=== PATIENT | male | born 1950 | race Caucasian/White ===

== ENCOUNTER → 2018-03-08 09:16 | Outpatient (CLI) | payer OTHER, SELFPAY ==
[2018-03-08 12:14] LABS: Hemoglobin A1c 6.2 % (4.2-6.3)
== END ==
PROVIDERS: Internal Medicine Cardiovascular Disease; Family Provider Family Medicine; PCP Family Medicine; Visit Provider Family Medicine
DX: E11.9 Type 2 diabetes mellitus without complications (principal)
CPT/HCPCS: 36415; 83036

== ENCOUNTER 2018-03-27 10:48 | Inpatient (IN) | payer MEDICARE, OTHER, SELFPAY ==
[2018-03-27] VITALS (9 sets, daily range): BP systolic 127–154; BP diastolic 60–91; PULSE 58–70; RESP 16–18; TEMP 36.6–36.9; O2SAT 94–98; BMI 28.4; BMI 27.8
--- NOTE | 2018-03-27 10:54 | EKG12_ITS ---
Test Reason : SYNCOPE Blood Pressure : / mmHG Vent. Rate : 062 BPM Atrial Rate : 062 BPM P-R Int : 184 ms QRS Dur : 166 ms QT Int : 434 ms P-R-T Axes : 030 -62 087 degrees QTc Int : 440 ms Normal sinus rhythm Right bundle branch block Left anterior fascicular block Bifascicular block Left ventricular hypertrophy with repolarization abnormality Abnormal ECG Confirmed by RAMIRO SANCHEZ, ELISSA ([id number]), editor in chief KALEN AHUJA ([id number]) on 03/29/2018 1:23:55 PM Referred By: ESTEFANI Confirmed By:ELISSA RUBIO MD
--- NOTE | 2018-03-27 10:54 | RAD_ITS ---
STUDY: X-RAY CHEST REASON FOR EXAM: Male, 67 years old. Syncope and shortness of breath TECHNIQUE: Single view of the chest was obtained COMPARISON: June 06, 2015 chest radiograph FINDINGS: No lung consolidation, pleural effusion or pneumothorax. Calcified bilateral granulomas are noted. Eventration of the right hemidiaphragm. Cardiac size is enlarged. Osseous structures demonstrate no acute abnormalities. Prior right-sided rotator cuff repair IMPRESSION: Cardiomegaly. No evidence for focal airspace disease Electronically Signed: Jj Priest, at 11:49 EDT Tel , Service support , RAD/Chest 1 View (Portable)
[2018-03-27 11:05] LABS: Absolute Lymphocyte Count 1.23 X10^3/ul (0.83-4.51); Absolute Neutrophil Count 5.1 X10^3/uL (2.0-7.7); Basophil# 0.04 X10^3/uL; Basophil% 0.5 % (0-1); Eosinophils% 7.9 % (0-5); Hematocrit 44.6 % (40-54); Hemoglobin 14.4 g/dl (13.0-16.5); Lymphocyte # 1.23 X10^3/ul (4.0); Lymphocyte % 16.3 % (19-41); Mean Corp Hgb Conc 32.3 g/gl (32-36); Mean Corpuscular Hgb 29.9 pg (27.0-32.0); Mean Corpuscular Volume 92.5 fL (80-94); Mean Platelet Vol. 10.3 fl (6.2-12.0); Monocyte# 0.63 X10^3/uL; Monocyte% 8.3 % (0-10); Neutrophil # 5.05 X10^3/uL (2.7-7.7); Neutrophil % 66.9 % (47-70); POSITIVE COUNT NO; POSITIVE DIFFERENTIAL NO; POSITIVE MORPHOLOGY NO; Platelet Count 191 K/mm3 (150-450); RBC Distribution Width CV 14.3 % (11.6-14.6); RBC Distribution Width SD 47.9 fl (35.1-43.9); Red Blood Count 4.82 M/mm3 (4.6-6.2); White Blood Count 7.6 K/mm3 (4.4-11.0)
--- NOTE | 2018-03-27 11:17 | RAD_ITS ---
STUDY: X-RAY - RIGHT KNEE REASON FOR EXAM: Male, 67 years old. Right-sided knee pain after injury. TECHNIQUE: 4 view(s) of the knee. COMPARISON: None. FINDINGS: Normal visualized distal femur. Normal visualized proximal tibia and fibula. Normal proximal tibiofibular articulation. There is no demonstrated fracture. There is mild degenerative arthrosis of the medial femorotibial compartment. There is mild degenerative arthrosis of the lateral femorotibial compartment. There is an enthesophyte at the quadriceps tendon insertion onto the patella. There is mild degenerative arthrosis of the patellofemoral articulation. There is a soft tissue prominence in the suprapatellar region suggesting a small volume joint effusion. There are atherosclerotic calcifications. RAD/Knee 4 or More Views IMPRESSION: Degenerative arthropathy of the right knee with enthesopathy and small joint effusion. Electronically Signed: Nicol Kilpatrick MD at 11:52 EDT , Service support ,
--- NOTE | 2018-03-27 11:18 | CT_ITS ---
STUDY: CT BRAIN WITHOUT CONTRAST REASON FOR EXAM: Male, 67 years old. Syncope RADIATION DOSAGE (If Supplied By Facility): CTDIvol = ( 44.99 ) mGy, DLP = ( 812.98 ) mGycm TECHNIQUE: Transaxial CT imaging of the brain was performed without administration of intravenous contrast material. Individualized dose optimization techniques were used for this CT. COMPARISON: None. FINDINGS: No evidence for shift of midline structures, mass effect or compression of the ventricles. No acute intra-articular extra-axial hemorrhage is seen. No abnormal intracranial fluid collections identified. Basal cisterns are patent. Posterior fossa structures demonstrate no discrete mass. The calvarium is intact. A few scattered foci of low-attenuation in the periventricular and subcortical white matter noted which are nonspecific in imaging appearance however likely related with chronic small vessel disease. IMPRESSION: No evidence for acute intracranial hemorrhage, mass effect or acute large territory infarcts. Mild chronic small vessel disease Electronically Signed: Jj Priest, at 11:52 EDT Tel , Service support , CT/Brain/Head without Contrast
[2018-03-27 11:19] LABS: Anion Gap 9 (5-15); BUN 26 mg/dL (7-18); Calcium,Total 10.1 mg/dL (8.5-10.1); Chloride 107 mmol/L (98-107); Creatinine, Serum 1.13 mg/dL (0.70-1.30); EST Glomerular Filtration Rate 69 mL/min (>60); Est Glom Filt Rate - Afr Amer 84 mL/min (>60); Estimated Creatinine Clearance 77.89 ml/min; Glucose 168 mg/dL (74-106); Potassium 4.2 mmol/L (3.5-5.1); Sodium Level 141 mmol/L (136-145)
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
[2018-03-27] MEDS: HYDROcodone Bitartrate/Apap 5/325 Tablet PO (11:56)
[2018-03-27 12:51] LABS: Mucous, Urine 0 SEEN /hpf (<or=2+); Squamous Epithelial Cells - UA 0 SEEN /hpf (0-5)
[2018-03-27 13:00] LABS: Color, Urine Yellow (Yellow); Glucose, Dipstick Normal (Normal); Ketone-Dipstick Negative (Negative); Leukocyte Esterase-Dipstick Negative /ul (Negative); Nitrite-Dipstick Negative (Negative); Occult Blood-Urine Negative /ul (Negative); Protein-Dipstick Negative (Negative); Urine Bilirubin Dipstick Negative (Negative); Urine Clarity Clear (Clear); Urine Urobilinogen Normal (Normal)
[2018-03-27 13:08] LABS: Bacteria 2+ /hpf (None Seen); Red Blood Cells-Urine 0-5 SEEN /hpf (0-5); White Blood Cells 0-5 SEEN /hpf (0-5)
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
[2018-03-27 14:36] LABS: Magnesium 2.1 mg/dL (1.6-2.6)
[2018-03-27] MEDS: 0.9% Normal Saline 1,000 ML 75 ML IV (14:45)
[2018-03-27] MEDS: Morphine 2 MG/ML Syringe IV (14:50)
--- NOTE | 2018-03-27 16:42 | NURSING ---
Called and spoke with registered pharmacy technician at [facility]. Clarified that patient is on Glipizide XR 5mg daily. MARIAH Kendrick pharmacist made aware of same.
[2018-03-27 17:46] LABS: Bedside Glucose 172 mg/dL (70-110)
[2018-03-27] MEDS: oxyCODONE 5 MG Tablet PO ×2 (17:56→22:34)
[2018-03-27] MEDS: Carvedilol 6.25 MG Tablet PO ×2 (19:42→19:43)
[2018-03-27] MEDS: Atorvastatin Calcium 20 MG Tablet PO (19:43)
[2018-03-27] MEDS: Lisinopril 10 MG Tablet PO (19:43)
[2018-03-27] MEDS: Fenofibrate 145 MG Tablet PO (19:44)
[2018-03-27] MEDS: Allopurinol 100 MG Tablet PO (19:44)
[2018-03-27 22:41] LABS: Bedside Glucose 164 mg/dL (70-110)
[2018-03-28] VITALS (11 sets, daily range): BP systolic 126–165; BP diastolic 63–83; PULSE 52–70; RESP 16–18; TEMP 36.6–36.9; O2SAT 95–97
[2018-03-28] MEDS: oxyCODONE 5 MG Tablet PO ×4 (04:20→22:10)
[2018-03-28] MEDS: Aspirin E.C. 81 MG Tablet PO (05:37)
[2018-03-28] MEDS: Lisinopril 10 MG Tablet PO (05:37)
--- NOTE | 2018-03-28 05:55 | ECHOD_ITS ---
Reason For Study: Synccope Procedure This was a 2D Doppler, Color Flow transthoracic echocardiogram. Exam performed portable in patient room. Left Ventricle Normal LV size. Moderate eccentric left ventricular hypertrophy. The estimated ejection fraction is 45 %. Unable to assess diastolic dysfunction due to arrhythmia. There is mild global hypokinesis of the left ventricle. Right Ventricle Normal RV size. Normal systolic function. Atria The left atrium is mildly enlarged. Normal right atrium. Mitral Valve Normal mitral valve. Tricuspid Valve Normal tricuspid valve. Mild tricuspid valve insufficiency. Pulmonary artery systolic pressure is 22 mmHg. Aortic Valve Trileaflet valve with raphe and stenosis. Mild focal aortic valve calcification. Peak aortic valve gradient 20 mmHg. Mean aortic valve gradient 10 mmHg. Mild aortic stenosis. Calculated aortic valve area (continuity equation) is 1.9 cm2. Mild (1+) eccentric aortic valve insufficiency. Pulmonic Valve Normal pulmonic valve. Great Vessels Mild to moderately dilated aortic root. The pulmonary artery is normal size. Normal inferior vena cava. Pericardium/Pleural No pericardial effusion. MMode/2D Measurements & Calculations LVIDd: 5.7 cm IVSd: 1.7 cm LVOT diam: 2.4 cm LVIDs: 5.0 cm LVPWd: 1.1 cm LVOT area: 4.6 cm2 RVDd: 4.0 cm FS: 12.2 % Ao root diam: 4.0 cm LAV(MOD-bp): 84.3 ml LVAd ap4: 45.6 cm2 LA dimension: 4.7 cm LAV(MOD-bp) Indexed: 36.8 ml/m2 EDV(MOD-sp4): 167.8 ml LAV(MOD-sp2): 89.9 ml EDV(sp4-el): 169.3 ml LAV(MOD-sp4): 72.4 ml LVAs ap4: 31.7 cm2 ESV(MOD-sp4): 97.3 ml ESV(sp4-el): 94.5 ml EF(MOD-sp4): 42.0 % EF(sp4-el): 44.2 % SV(MOD-sp4): 70.5 ml SV(sp4-el): 74.8 ml Aortic Valve Planimetry: 1.8 cm2 LA A4 area: 22.3 cm2 RA A4 area: 15.1 cm2 Time Measurements MV dec time: 0.24 sec Doppler Measurements & Calculations MV E max mynor: 52.1 cm/sec Lat Peak E' Mynor: 5.2 cm/sec Med Peak E' Mynor: 5.2 cm/sec MV A max mynor: 78.7 cm/sec E/E' lat: 10.0 E/E' med: 10.0 MV E/A: 0.66 MV V2 max: 105.9 cm/sec MV P1/2t max mynor: 65.5 cm/sec Ao V2 max: 223.5 cm/sec MV max P.5 mmHg MV P1/2t: 90.1 msec Ao max P.0 mmHg MV V2 mean: 52.6 cm/sec MV dec slope: 212.9 cm/sec2 Ao V2 mean: 140.4 cm/sec MV mean P.3 mmHg MVA(P1/2t): 2.4 cm2 Ao mean P.5 mmHg MV V2 VTI: 24.3 cm Ao V2 VTI: 40.9 cm MVA(VTI): 3.4 cm2 DOE(I,D): 2.0 cm2 DOE(V,D): 1.9 cm2 LV V1 max: 91.7 cm/sec SV(LVOT): 82.3 ml PA V2 max: 86.7 cm/sec LV V1 max P.4 mmHg LV V1 mean P.4 mmHg LV V1 mean: 52.9 cm/sec LV V1 VTI: 18.0 cm TR max mynor: 218.6 cm/sec TR max P.1 mmHg Interpretation Summary Normal LV size. The estimated ejection fraction is 45 %. Unable to assess diastolic dysfunction due to arrhythmia. Trileaflet valve with raphe and stenosis Mild aortic stenosis. Calculated aortic valve area (continuity equation) is 1.9 cm2. Mild (1+) eccentric aortic valve insufficiency. Mild to moderately dilated aortic root. Ordering Physician: Cristino Silva Referring Physician: Jaswinder Maher Performed By: Manuel Fabian RCS
[2018-03-28 06:46] LABS: Cholesterol 154 mg/dL (200); High Density Lipoprotein 31 mg/dL; Thyroid Stim Hormone (TSH) 5.01 uIU/mL (0.358-3.74); Triglycerides 191 mg/dL; Very Low Density Lipoprotein 38 mg/dL (5-40)
[2018-03-28 07:11] LABS: Bedside Glucose 135 mg/dL (70-110)
[2018-03-28 07:13] LABS: Hemoglobin A1c 6.2 % (4.2-6.3)
[2018-03-28 11:35] LABS: Bedside Glucose 112 mg/dL (70-110)
--- NOTE | 2018-03-28 13:21 | PCM.PROGNOTE ---
Patient Problems: Active and Suspected Problems (Last Reviewed 03/10/18 @ 10:31 by Merari Arroyo) Syncope and collapse (Acute) Fall (Acute) Subjective: Patient seen and examined. Complains of significant right knee pain making walking difficult. Denies chest pain, shortness of breath. Denies dizziness, lightheadedness. No further syncopal episodes. Patient denies history of syncope. Denies other current complaints. - Physical Exam General: Alert, Oriented x3, Cooperative HEENT: Atraumatic, PERRLA, EOMI, Normocephalic Neck: Supple, No JVD, Negative Carotid Bruits Lungs: Clear to auscultation, Normal air movement Cardiovascular: Regular rate, Regular Rhythm, Normal S1, Normal S2, No murmurs Abdomen: Bowel Sounds Present, Soft, Non Tender, Non-Distended Extremities: No clubbing, No cyanosis, No edema, Capillary Refill Less than 3 Seconds Skin: No rashes, No breakdown Musculoskeletal: Tenderness - Right knee Neurological: Cranial nerves II-XII grossly intact Psych/Mental Status: Normal Affect, Appropriate Vital Signs Temp Pulse Resp BP Pulse Ox 98.2 F 54 L 16 137/72 H 97 03/28/18 09:35 03/28/18 10:55 03/28/18 09:35 03/28/18 09:35 03/28/18 09:35 Oxygen Delivery Method Room Air Weight: 101.106 kg Body Mass Index (BMI) 27.8 Orthostatic Vital Signs Start: 03/27/18 20:57 Freq: q24h Status: Active Protocol: Activity Type Activity Date Activity User E-Sign Co-Sign Detail Recorded Client Recorded Date Recorded By Document 03/28/18 04:30 [facility] [id number] 03/28/18 04:44 AML 03/28/18 04:30 Orthostatic Vitals Standing -Blood Pressure (90/60-120/80) 145/70 H -Extremity Use Right Arm -Pulse Rate (60-100) 64 Sitting -Blood Pressure (90/60-120/80) 141/83 H -Extremity Use Right Arm -Pulse Rate (60-100) 62 Lying -Blood Pressure (90/60-120/80) 133/72 H -Extremity Use Right Arm -Pulse Rate (60-100) 59 L Intake and Output for Last 24 Hours 03/26/18 03/27/18 03/28/18 23:59 23:59 23:59 Intake Total 1427 / 1427 30 / 30 Output Total 600 / 600 Balance 1427 / 1427 -570 / -570 Laboratory Tests Past 24 Hrs 03/27/18 03/27/18 03/27/18 14:10 14:10 17:15 Hemoglobin A1c Magnesium 2.1 Troponin I 0.389 H 0.391 H Triglycerides Cholesterol LDL Cholesterol VLDL Cholesterol HDL Cholesterol TSH 03/28/18 03/28/18 06:00 06:00 Hemoglobin A1c 6.2 Magnesium Troponin I Triglycerides 191 Cholesterol 154 LDL Cholesterol 85 VLDL Cholesterol 38 HDL Cholesterol 31 L TSH 5.01 H POC Glucose 03/28/18 03/28/18 03/27/18 11:30 06:59 22:29 POC Glucose 112 H 135 H 164 H 03/27/18 17:29 POC Glucose 172 H Medical Necessity - Tobacco Use Smoking Status: Former smoker Assessment/Plan Active and Suspected Problems (Last Reviewed 03/10/18 @ 10:31 by Merari Arroyo) Syncope and collapse (Acute) Fall (Acute) Patient is a 67-year-old male admitted 03/27/2018 due to syncope with fall. He has a past medical history of chronic combined systolic and diastolic CHF, chronic bifascicular block, paroxysmal ventricular tachycardia, mild aortic stenosis, type 2 diabetes mellitus, hypertension, hyperlipidemia, CAD. 1. Syncope, NSTEMI-echocardiogram showed an ejection fraction 45%, mild aortic stenosis. Troponin 0.389, 0.391. Cardiology consulted. Plan to undergo cardiac catheterization tomorrow. Orthostatic vitals negative. Continue aspirin, statin, metoprolol. 2. Right knee pain-x-ray of right knee shows mild joint effusion. Orthotic consult. Ice and elevate right knee. As needed pain regimen. 3. CAD-patient states he had a cath previously around 2010. No intervention was required. Continue statin, beta-gilbert. 4. Chronic combined systolic and diastolic CHF-echocardiogram shows an ejection fraction of 45%, mild aortic stenosis, mild aortic valve insufficiency. Previous echocardiogram in 2016 with EF of 45%, mild aortic stenosis as well. 5. Chronic bifascicular block/history of paroxysmal ventricular tachycardia 6. Type 2 diabetes mellitus-continue home glipizide. Accu-Cheks before meals at bedtime with sliding scale insulin. Hemoglobin A1c 6.2%. 7. Hypertension-stable, continue home regimen of carvedilol, lisinopril. 8. Hyperlipidemia-continue statin and fenofibrate. Check fasting lipid panel in a.m. DVT prophylaxis-heparin subcu This patient was seen by DARINEL Capps under the supervision of Dr. Wolf.
--- NOTE | 2018-03-28 13:46 | CASEMGMT ---
See RN CM Assessment Link. DC Plan- Home. -will follow PT/OT evaluations. Plan is to return home on dc, pt has walker and cane for ambulatory assistance. Power SHIELDSN RN ACM
[2018-03-28 14:02] LABS: T4 Free Direct 0.89 ng/dL (0.76-1.46)
--- NOTE | 2018-03-28 14:13 | CASEMGMT ---
Call to [facility] to verify pt's insurance plan and per James at [facility], the [employer] plan is a Medicare Supplement Plan F. Call to [facility] registration to notify them as pt must have MCR A/B as primary. Per registration, they ran pt's name and he does have MCR A/B and they state they will update at this time. Wilma BEGUM CM
[2018-03-28] MEDS: Vitamin B Comp W-C Capsule 1 CAP PO (14:33)
[2018-03-28] MEDS: Multivitamins,Therapeutic Tablet 1 TABLET PO (14:33)
[2018-03-28] MEDS: Carvedilol 6.25 MG Tablet PO (14:42)
[2018-03-28] MEDS: glipiZIDE XL 5 MG Tablet PO (14:42)
--- NOTE | 2018-03-28 14:45 | NURSING ---
AM medications administered at this time. Patient had to be seen by cardiology before medications could be given.
--- NOTE | 2018-03-28 16:17 | CON.PCM_ITS ---
Reason for Consult Date of Consultation: 03/28/18 Reason for Consultation: Syncope History of Present Illness: The patient is a 67 year old M with a past medical history significant for minimal atherosclerotic cardiovascular disease and mild cardiomyopathy aortic valve disease with aortic root enlargement who was recently seen by his primary general engineer less than 2 weeks ago. He apparently was in his stable state of health was taking a shower and then his heard a thump and he was found in the back. He apparently says that this was a hot/warm shower and he could feel that he was going to pass out. His sat him down and he regained consciousness and then subsequently started slumping once again. She sat him down a third time and a similar thing happened again and to the emergency medical squad was called and they brought him to the emergency room. In the emergency room he was evaluated he underwent a head CT scan which did not demonstrate any abnormality. He did have a mild laceration on his nose. He denies any chest pain or palpitations no paroxysmal nocturnal dyspnea or pedal edema has been compliant with all his medications. During his hospitalization he has not had any EKG changes but his cardiac enzymes were mildly abnormal and cardiology was called to evaluate him for the above. [] Past Medical History Allergies/Adverse Reactions: Allergies metoprolol [From Toprol XL] Adverse Reaction (Unknown, Verified 03/27/18 10:53) Unknown hot flashes Home Medications: Ambulatory Orders Medication Instructions Recorded Allopurinol 100 mg PO DAILY 11/14/14 lisinopril 10 mg tablet 10 mg PO BID #180 tab 12/27/17 B-complex with vitamin C capsule 1 cap PO QDAY 01/26/18 atorvastatin 20 mg tablet 20 mg PO QDAY 01/26/18 fenofibrate micronized 200 mg 200 mg PO QDAY 01/26/18 capsule multivitamin tablet 1 tab PO QDAY 01/26/18 carvedilol 3.125 mg tablet 6.25 mg PO BID tab 03/10/18 meloxicam 15 mg tablet 15 mg PO QDAY 03/10/18 trazodone 100 mg tablet 100 mg PO QHS PRN 03/10/18 Metformin HCl [Glucophage] 1,000 mg PO BIDCM 03/27/18 glipiZIDE XL [Glucotrol Xl] 5 mg PO DAILY@0800 03/27/18 Past Medical History (Chronic Problems): Chronic Problems (Last Reviewed 03/10/18 @ 10:31 by Merari Arroyo) 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, left (Chronic) Dilated aortic root (Chronic) Paroxysmal ventricular tachycardia (Chronic) Nonrheumatic aortic (valve) stenosis (Chronic) 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 Type 2 diabetes mellitus (Chronic) Hyperlipidemia (Chronic) Cardiomyopathy (Chronic) CHF (congestive heart failure) (Chronic) Hypertension (Chronic) Surgical History: - - History of right total hip replacement History right shoulder surgery - *Family History Maternal Family History: Family History (Last Reviewed 03/10/18 @ 10:31 by Merari Arroyo) Father CVA (cerebral vascular accident) Mother CAD (coronary artery disease) Brother CAD (coronary artery disease) History Items: No pertinent history Smoking Status: Former smoker Alcohol: None Drugs: None Review of Systems - Review of Systems General: Denies: Fever, Night Sweats, Fatigue Cardiovascular: Reports: Syncope. Denies: Chest Discomfort, Shortness of Breath , Orthopnea, PND, Peripheral Edema, Palpitations, Lightheadedness, Dizziness, Near Syncope Respiratory: Denies: Cough, Sputum Production, Hemoptysis Gastrointestinal: Denies: Hematemesis, Hematochezia, Melena Genitourinary: Denies: Dysuria, Hematuria Skin: Denies: Rash Subjectve: Pleasant gentleman in no apparent distress Objective: Vital Signs Temp Pulse Resp BP Pulse Ox 98.5 F 67 16 129/67 H 95 03/28/18 14:45 03/28/18 14:55 03/28/18 14:45 03/28/18 14:45 03/28/18 14:45 Oxygen Delivery Method Room Air Weight: 222 lb 14.4 oz Body Mass Index (BMI) 27.8 Orthostatic Vital Signs Start: 03/27/18 20:57 Freq: q24h Status: Active Protocol: Activity Type Activity Date Activity User E-Sign Co-Sign Detail Recorded Client Recorded Date Recorded By Document 03/28/18 04:30 AML [id number] 03/28/18 04:44 AML 03/28/18 04:30 Orthostatic Vitals Standing -Blood Pressure (90/60-120/80) 145/70 H -Extremity Use Right Arm -Pulse Rate (60-100) 64 Sitting -Blood Pressure (90/60-120/80) 141/83 H -Extremity Use Right Arm -Pulse Rate (60-100) 62 Lying -Blood Pressure (90/60-120/80) 133/72 H -Extremity Use Right Arm -Pulse Rate (60-100) 59 L Intake and Output for Last 24 Hours 03/26/18 03/27/18 03/28/18 23:59 23:59 23:59 Intake Total 1427 / 1427 30 / 30 Output Total 600 / 600 Balance 1427 / 1427 -570 / -570 General: Awake, Alert, Oriented x 3 HEENT: PERRL, EOMI, Sclera Non Icteric Neck: Supple, Good ROM, No Lymph Node Enlargement Lungs: Clear to auscultation Cardiovascular: Regular Rhythm, Normal S1, Normal S2, No Rubs, No Gallops Murmur Murmur: Grade 2/6, Early Systolic, LLSB Vascular: No Carotid Bruits, Normal Femoral Pulses, Normal Radial Pulses, Normal Dorsalis Pedal Pulse, Normal Posterior Tibial Pulses Abdomen: Bowel Sounds Present, Soft, Non Tender, No HSM, No Organomegaly Extremities: No Cyanosis, No Clubbing, No edema Neurological: No Focal Motor or Sensory Deficit 03/27/18 17:15: Troponin I 0.391 H 03/28/18 06:00: Triglycerides 191, Cholesterol 154, LDL Cholesterol 85, VLDL Cholesterol 38, HDL Cholesterol 31 L 03/28/18 06:00: Hemoglobin A1c 6.2 Rhythm: EKG: Normal sinus rhythm with a right bundle branch block and a left anterior fascicular block rate of 53 bpm. ECHO: Globally reduced left ventricular systolic function estimated EF 45% unchanged from previous Stress Test: Cardiac Cath: No significant CAD from heart cath 2014 PCI: CT Surgery: Holter monitor: EPS: PPM: CXR: Chest CT Scan: Assessment/Plan 1. Syncopal episode He presents with an episode of syncope which appeared to be positional and suggestive of a vasodepressor syncope especially as he could tell it coming on and it recurred every time they set him up. His left ventricular ejection fraction is unchanged from before and on the basis of the above I may suggest that the dosage of his lisinopril is reduced. He may need an event recorder or an implantable loop recorder to exclude any arrhythmogenic etiology of the above. He does have a chronic left anterior fascicular block and a right bundle branch block which is unchanged from 2015 and also has aortic stenosis which is mild by repeat echocardiogram. I therefore do not immediately think that these are causative. 2. Abnormal cardiac enzymes He does have mildly abnormal cardiac enzymes the etiology of which cannot be completely explained by a syncopal episode. He underwent a cardiac catheterization as you know in November 2014 and at that time no significant obstructive coronary disease was noted. However on the basis of the above I would recommend that he undergo a left heart catheterization to exclude any newly developed obstructive coronary disease. I have explained the above to him the risks benefits and alternatives he understands and agrees to proceed. 3. Valvular heart disease aortic stenosis He does have evidence of mild aortic stenosis on the basis of the echocardiogram from today. His valve area is approximately 1.9 and I do not think that this is significant enough to cause a nonexertional syncopal episode. 4. Hypertension He does have a history of hypertension but his blood pressure has been well controlled. I may recommend that his lisinopril be reduced to 10 mg daily in addition to his Coreg to prevent him from times that he may be getting more hypotensive. We can continue to monitor the above. 5. History of paroxysmal ventricular tachyarrhythmia. It appears he may have had this in the past but at this time I cannot explain his current episode of syncope on the basis of the above. The recurrent nature suggest to me that it is unlikely to be paroxysmal VT episode. 6. Mild cardiomyopathy He appears to have a mild cardiomyopathy the etiology of which is not clear. He will remain on the beta-gilbert and the LASHAWN inhibitor albeit at a lower dose. Thank you for allowing me to participate in the care of your patient. Please don't hesitate to call if any issues arise
[2018-03-28 16:31] LABS: Bedside Glucose 288 mg/dL (70-110)
[2018-03-28 17:56] LABS: Bedside Glucose 155 mg/dL (70-110)
[2018-03-28] MEDS: Atorvastatin Calcium 20 MG Tablet PO (18:53)
[2018-03-28] MEDS: Fenofibrate 145 MG Tablet PO (18:53)
[2018-03-28] MEDS: Allopurinol 100 MG Tablet PO (18:53)
[2018-03-28] MEDS: Lisinopril 5 MG Tablet PO (22:02)
[2018-03-28] MEDS: 0.9% NaCl Peripheral Flush Adult/Peds IV (22:11)
[2018-03-28 22:16] LABS: Bedside Glucose 70 mg/dL (70-110)
[2018-03-28] MEDS: traZODone 100 MG Tablet PO (22:58)
[2018-03-29] VITALS (13 sets, daily range): BP systolic 115–139; BP diastolic 63–82; PULSE 54–70; RESP 16–18; TEMP 36.1–36.8; O2SAT 93–99
[2018-03-29 05:55] LABS: Partial Thromboplast Time 22.5 Seconds (24.1-36.2); Prothrombin Time (Protime)PT. 13.6 SECONDS (11.7-14.9)
--- NOTE | 2018-03-29 05:55 | EKG12_ITS ---
Test Reason : AM EKG Blood Pressure : / mmHG Vent. Rate : 057 BPM Atrial Rate : 057 BPM P-R Int : 202 ms QRS Dur : 164 ms QT Int : 486 ms P-R-T Axes : 024 -60 067 degrees QTc Int : 473 ms Sinus bradycardia Right bundle branch block Left anterior fascicular block Bifascicular block Abnormal ECG Confirmed by SARAH SANCHEZ, ELIZA ([id number]), fan mail editor KALEN AHUJA ([id number]) on 03/31/2018 1:11:55 PM Referred By: DR BENAVIDES Confirmed By:ELIZA SMITH MD
[2018-03-29 06:03] LABS: Absolute Lymphocyte Count 1.55 X10^3/ul (0.83-4.51); Absolute Neutrophil Count 4.9 X10^3/uL (2.0-7.7); Basophil# 0.05 X10^3/uL; Basophil% 0.6 % (0-1); Eosinophil# 0.74 X10^3/uL; Eosinophils% 9.2 % (0-5); Hematocrit 42.1 % (40-54); Hemoglobin 13.9 g/dl (13.0-16.5); Lymphocyte # 1.55 X10^3/ul (4.0); Lymphocyte % 19.2 % (19-41); Mean Corpuscular Hgb 30.8 pg (27.0-32.0); Mean Corpuscular Volume 93.1 fL (80-94); Mean Platelet Vol. 10.4 fl (6.2-12.0); Monocyte# 0.75 X10^3/uL; Monocyte% 9.3 % (0-10); Neutrophil # 4.93 X10^3/uL (2.7-7.7); Neutrophil % 61.2 % (47-70); Platelet Count 182 K/mm3 (150-450); RBC Distribution Width CV 14.2 % (11.6-14.6); RBC Distribution Width SD 46.5 fl (35.1-43.9); Red Blood Count 4.52 M/mm3 (4.6-6.2); White Blood Count 8.1 K/mm3 (4.4-11.0)
[2018-03-29 06:04] LABS: POSITIVE COUNT NO; POSITIVE DIFFERENTIAL NO; POSITIVE MORPHOLOGY NO
[2018-03-29 06:19] LABS: Anion Gap 8 (5-15); BUN 26 mg/dL (7-18); BUN/Creat Ratio 24.3 RATIO (10-20); Chloride 107 mmol/L (98-107); Cholesterol 146 mg/dL (200); Creatinine, Serum 1.07 mg/dL (0.70-1.30); EST Glomerular Filtration Rate 74 mL/min (>60); Est Glom Filt Rate - Afr Amer 89 mL/min (>60); Estimated Creatinine Clearance 82.26 ml/min; Glucose 134 mg/dL (74-106); High Density Lipoprotein 31 mg/dL; Potassium 4.6 mmol/L (3.5-5.1); Sodium Level 142 mmol/L (136-145); Triglycerides 174 mg/dL; Very Low Density Lipoprotein 35 mg/dL (5-40)
[2018-03-29] MEDS: Lisinopril 5 MG Tablet PO (06:19)
[2018-03-29] MEDS: Aspirin E.C. 81 MG Tablet PO (06:19)
[2018-03-29] MEDS: Carvedilol 3.125 MG TABLET PO (06:20)
[2018-03-29] MEDS: 0.9% Normal Saline 1,000 ML 15 ML IV (06:20)
--- NOTE | 2018-03-29 06:58 | NURSING ---
Report called to wheelabrator operator at this time. No further questions - patient en route to wheelabrator operator
[2018-03-29 07:11] LABS: Bedside Glucose 149 mg/dL (70-110)
--- NOTE | 2018-03-29 08:34 | CL.D_ITS ---
Patient Name: JENS JENKINS Study Date: 03/29/2018 Performing: Thomas Raphael MD Ht: 75.19 inches 191 cm : 1950 Wt: 222.67 lbs 101 kg Age: 67 Gender: male BSA: 2.3 PROCEDURE(S) PERFORMED [id number]/LV CLINICAL PROFILE AND INDICATIONS Indications: Stable Known CAD, Cardiomyopathy, Syncope Heart Failure: None Stress/Imaging Stress/Image Study Performed: No Angina Classification Anginal Classification w/in 2 Weeks: No symptoms CAD Presentations: Other: Syncope CONCLUSIONS Elevated Left Ventricular End Diastolic Pressure Global LV systolic dysfunction- Mild LVEF: by LV gram 50 % [place] Multivessel CAD (minimal luminal irregularities) Aortic Valve - restricted - mild: no hemodynamic changes on LV pull back c/w hemodynamically signific ant aortic valve stenosis Aortic Root dilated RECOMMENDATIONS Risk factor modification Medical therapy DESCRIPTION OF PROCEDURE The patient arrived to the procedure lab. The risks and benefits of the procedure as well as a full d escription of our services here and current unavailability of surgical backup were fully explained to the patient and/or their significant other prior to the catheterization. The Timeout was completed, verifying the correct patient and procedure. The patient's procedural site was prepped and draped in the usual fashion. Local anesthetic was given subcutaneously to right radial region with Lidocaine 2% . Using a modified Seldinger technique, arterial access was obtained via the right radial artery, a 6 Fr sheath was inserted. Left Coronary Artery selective angiography was performed in multiple views u sing a 5 Fr. 4.0 [place] catheter. Right Coronary Artery selective angiography was then performed in mu ltiple views using a 5 Fr. 3DRC (Tone) catheter. Left Ventriculography was performed in MCDONALD proje ction using a 5 Fr. Pigtail catheter. LV to AO pullback pressures were then recorded.The arterial she ath was pulled and a TR Band was applied for hemostasis 18cc Air inflated CORONARY ANGIOGRAPHY DOMINANCE: Right Dominant LEFT HEART ASSESSMENT Left Ventricular Ejection Fraction: by LV Gram 50 % Global Hypokinesis - Mild Elevated Left Ventricular End Diastolic Pressure LVEDP: 20 mmHg LEFT MAIN: Angiographically normal LEFT ANTERIOR DECENDING ARTERY: Mild luminal irregularities OSTIAL LAD: Mild calcification PROX LAD: Mild calcification CIRCUMFLEX ARTERY: Mild luminal irregularities RIGHT CORONARY ARTERY: Mild luminal irregularities VALVE FINDINGS: Aortic valve: restricted - mild: no hemodynamic changes on LV pull back c/w hemodynamically significa nt aortic valve stenosis Normal Mitral Valve function AORTIC ROOT: Dilated COMPLICATIONS No Complications PROCEDURE MEDICATIONS Fentanyl 50 mcg IV Versed 1 mg IV Oxygen: 2 L/min via nasal cannula Heparin diluted in 23cc Heparinized saline. Patient given 10cc IA of this solution. 03/29/2018 07:47: 50 Verapamil 2.5mg, Ntg 100mcgs, 2000 units of Heparin diluted in 23cc Heparinized saline. Patient give n 10cc IA of this solution. 03/29/2018 07:47:50 SUMMARY OF HEMODYNAMIC DATA Time AIR REST ECG 07:27:53 AO 101/66 (81) SA 07:50:57 AO 115/65 (94) 07:54:04 AO 122/68 (90) 07:57:21 AO 128/71 (94) 08:01:35 LV 140/10, 18 08:11:27 LV 137/-2, 20 08:11:35 LV 131/6, 18 08:12:51 LV 136/9, 18 08:13:01 LVp 139/-2, 21 08:13:12 AOp 134/66 (90) 08:13:17 08:26:55 Signed By Thomas Raphael MD On 03/29/2018 08:34:04 Thomas Raphael MD
[2018-03-29] MEDS: glipiZIDE XL 5 MG Tablet PO (08:42)
[2018-03-29] MEDS: oxyCODONE 5 MG Tablet PO (08:42)
[2018-03-29] MEDS: Vitamin B Comp W-C Capsule 1 CAP PO (08:42)
[2018-03-29 11:10] LABS: Bedside Glucose 209 mg/dL (70-110)
[2018-03-29] MEDS: Multivitamins,Therapeutic Tablet 1 TABLET PO (11:28)
--- NOTE | 2018-03-29 11:39 | CONS.ORTHO ---
Problem List (1) Contusion of knee, right Status: Acute - Consult Date of Consult: 03/29/18 - Reason for Consult Reason for consult, right knee pain, status post fall. Impression: 1. Right knee pain 2. Contusion right knee 3. Osteoarthritis right knee plan Plan 1. Continue all pain medications as prescribed 2. Motrin 600 mg p.o. every 12 hours with food ?2 weeks 3. Ice 3-4 times per day right knee 4. Ambulate, and weight-bear as tolerated with walker 5. Follow-up with his established orthopedist surgeon History Putting room I found the patient lying in bed alert oriented. Patient's at his bedside. Patient states that while at home he passed out in the shower striking his face and landing on both knees in the shower patient had documented loss of consciousness. Patient was transported with [facility] emergency department for full evaluation. Patient has CT brain in multiple cardiac workup during his admit [facility]. Patient reports a history of bilateral total hips performed by an orthopedist from the [facility] in [place]. Patient denies any injury to his bilateral hips. Patient states he landed on his right knee and now having right knee pain. Patient has no pain with weightbearing, his pain is with touch in flexion-extension. Patient states his pain is been well managed since the fall. He has been ambulating with use of a walker without difficulty. Numbness or tingling of the lower extremities. History and review of systems were otherwise reviewed and noted in the medical record Physical examination Putting room I found alert oriented 67-year-old male sitting up in bed. No respiratory distress. Cranial nerves II through XII grossly intact. Patient did a multiple abrasions noted to the nose cheek and chin. Patient had excellent range of motion of the bilateral shoulders elbows wrists and hands. However patient was reluctant to have any motion of the right arm secondary undergoing heart catheterization this a.m. Patient has good range of motion of the bilateral hips, left knee. Exam of the right knee shows patient has multiple abrasions to the anterior surface of the right knee, and over the patellar region. Patient extensor mechanism is intact no indication of quadriceps or patellar tendon injury the patella is intact. Patient has minimal swelling no ecchymosis. Patient is exquisitely tender to palpation over the patellar region as well as along the medial lateral joint line of the right knee. Patient has full extension flexion 120? with mild pain over the patella femoral region. No maltracking of the patella. Calves nontender no atrophic skin changes, varicosities or edema. Imaging studies 4 views of the right knee were obtained no weightbearing tunnel view were obtained. There appears to be no obvious gross bony abnormality, or fractures noted. Patient does have mild to moderate osteoarthritic change tricompartmentally. Plan as discussed above. Please note that I spent 45 minutes with review of medical records labs history review of systems physical examination and treatment plan organization.
--- NOTE | 2018-03-29 11:50 | CON.PCM_ITS ---
Problem List (1) Contusion of knee, right Status: Acute - Consult Date of Consult: 03/29/18 - Reason for Consult Reason for consult, right knee pain, status post fall. Impression: 1. Right knee pain 2. Contusion right knee 3. Osteoarthritis right knee plan Plan 1. Continue all pain medications as prescribed 2. Motrin 600 mg p.o. every 12 hours with food ?2 weeks 3. Ice 3-4 times per day right knee 4. Ambulate, and weight-bear as tolerated with walker 5. Follow-up with his established orthopedist surgeon History Putting room I found the patient lying in bed alert oriented. Patient's at his bedside. Patient states that while at home he passed out in the shower striking his face and landing on both knees in the shower patient had documented loss of consciousness. Patient was transported with [facility] emergency department for full evaluation. Patient has CT brain in multiple cardiac workup during his admit [facility]. Patient reports a history of bilateral total hips performed by an orthopedist from the [facility] in [place]. Patient denies any injury to his bilateral hips. Patient states he landed on his right knee and now having right knee pain. Patient has no pain with weightbearing, his pain is with touch in flexion- extension. Patient states his pain is been well managed since the fall. He has been ambulating with use of a walker without difficulty. Numbness or tingling of the lower extremities. History and review of systems were otherwise reviewed and noted in the medical record Physical examination Putting room I found alert oriented 67-year-old male sitting up in bed. No respiratory distress. Cranial nerves II through XII grossly intact. Patient did a multiple abrasions noted to the nose cheek and chin. Patient had excellent range of motion of the bilateral shoulders elbows wrists and hands. However patient was reluctant to have any motion of the right arm secondary undergoing heart catheterization this a.m. Patient has good range of motion of the bilateral hips, left knee. Exam of the right knee shows patient has multiple abrasions to the anterior surface of the right knee, and over the patellar region. Patient extensor mechanism is intact no indication of quadriceps or patellar tendon injury the patella is intact. Patient has minimal swelling no ecchymosis. Patient is exquisitely tender to palpation over the patellar region as well as along the medial lateral joint line of the right knee. Patient has full extension flexion 120? with mild pain over the patella femoral region. No maltracking of the patella. Calves nontender no atrophic skin changes, varicosities or edema. Imaging studies 4 views of the right knee were obtained no weightbearing tunnel view were obtained. There appears to be no obvious gross bony abnormality, or fractures noted. Patient does have mild to moderate osteoarthritic change tricompartmentally. Plan as discussed above. Please note that I spent 45 minutes with review of medical records labs history review of systems physical examination and treatment plan organization.
--- NOTE | 2018-03-29 12:01 | PCM.DC ---
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 Call your doctor if your incision/area has: Continuous Slow Oozing, Sudden Increased Bleeding, Increased Pain/ Swelling, Increased Redness, Swelling at the incision site Call your doctor if you observe: Fever of 101 or Higher, Shortness of breath, Dizziness, Fainting spells, Chest pain, Increased palpitations (irregular heartbeat) Allergies/Adverse Reactions: Allergies metoprolol [From Toprol XL] Adverse Reaction (Unknown, Verified 03/27/18 10:53) Unknown hot flashes Medications to take at Discharge Allopurinol 100 mg PO DAILY 11/14/14 atorvastatin 20 mg tablet 20 mg PO QDAY 01/26/18 multivitamin tablet 1 tab PO QDAY 01/26/18 meloxicam 15 mg tablet 15 mg PO QDAY 03/10/18 trazodone 100 mg tablet 100 mg PO QHS PRN 03/10/18 Metformin HCl [Glucophage] 1,000 mg PO BIDCM 03/27/18 glipiZIDE XL [Glucotrol Xl] 5 mg PO DAILY@0800 03/27/18 Aspirin E.C. [Ecotrin] 81 mg PO DAILY@0800 tablet 03/29/18 Carvedilol [Coreg (Beta Amadeo)] 3.125 mg PO BID tablet 03/29/18 Fenofibrate [Tricor] 145 mg PO DAILY@1800 tablet 03/29/18 Lisinopril [Zestril] 5 mg PO BID tablet 03/29/18 Vitamin B Comp W-C [Allbee W/C Caplet, Thera B Comp/C] 1 capsule PO DAILY@0800 capsule 03/29/18 glipiZIDE XL [Glucotrol Xl] 5 mg PO DAILY@0800 tablet 03/29/18 Orders to be completed after discharge: 30-Day Event Recorder [[facility]] Time Frame: 1 Day, Location: None Selected Primary Care Physician: Gunnar,Jaswinder, DO [Primary Care Provider] - Please follow up with your Primary Care Physician in: 1 Week Please Follow Up With: Thomas Raphael MD When: 1-2 Weeks Proposed Discharge Date: 03/29/18
--- NOTE | 2018-03-29 12:06 | DCINST_ITS ---
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 Weight Bearing Status: Full weight bearing Call your doctor if your incision/area has: Continuous Slow Oozing, Sudden Increased Bleeding, Increased Pain/ Swelling, Increased Redness, Swelling at the incision site Call your doctor if you observe: Fever of 101 or Higher, Shortness of breath, Dizziness, Fainting spells, Chest pain, Increased palpitations (irregular heartbeat) Additional Instructions: do not take Ibuprofen if taking Meloxicam Allergies/Adverse Reactions: Allergies metoprolol [From Toprol XL] Adverse Reaction (Unknown, Verified 03/27/18 10:53) Unknown hot flashes Medications to take at Discharge Allopurinol 100 mg PO DAILY 11/14/14 atorvastatin 20 mg tablet 20 mg PO QDAY 01/26/18 multivitamin tablet 1 tab PO QDAY 01/26/18 meloxicam 15 mg tablet 15 mg PO QDAY 03/10/18 trazodone 100 mg tablet 100 mg PO QHS PRN 03/10/18 Metformin HCl [Glucophage] 1,000 mg PO BIDCM 03/27/18 glipiZIDE XL [Glucotrol Xl] 5 mg PO DAILY@0800 03/27/18 Aspirin E.C. [Ecotrin] 81 mg PO DAILY@0800 tablet 03/29/18 Carvedilol [Coreg (Beta Amadeo)] 3.125 mg PO BID tablet 03/29/18 Fenofibrate [Tricor] 145 mg PO DAILY@1800 tablet 03/29/18 Lisinopril [Zestril] 5 mg PO BID tablet 03/29/18 Vitamin B Comp W-C [Allbee W/C Caplet, Thera B Comp/C] 1 capsule PO DAILY@0800 capsule 03/29/18 glipiZIDE XL [Glucotrol Xl] 5 mg PO DAILY@0800 tablet 03/29/18 Orders to be completed after discharge: 30-Day Event Recorder [[facility]] Time Frame: 1 Day, Location: None Selected Primary Care Physician: Jaswinder Maher DO [Primary Care Provider] - Please follow up with your Primary Care Physician in: 1 Week Please Follow Up With: Thomas Raphael MD When: 1-2 Weeks Proposed Discharge Date: 03/29/18
--- NOTE | 2018-03-29 12:19 | DS.PCM_ITS ---
Discharge Date and Diagnosis Date of Admission: 03/27/18 Date of Discharge: 03/29/18 - Primary Discharge Diagnosis Active and Suspected Problems (Last Reviewed 03/10/18 @ 10:31 by Merari Arroyo) 1. Syncope 2. Abnormal cardiac enzymes 3. Valvular heart disease, mild aortic stenosis 4. History of paroxysmal ventricular tachyarrhythmia 5. Hypertension 6. Mild cardiomyopathy/chronic systolic CHF-EF 45% 7. Type 2 diabetes mellitus 8. Hyperlipidemia 9. 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, left (Chronic) Dilated aortic root (Chronic) Paroxysmal ventricular tachycardia (Chronic) Nonrheumatic aortic (valve) stenosis (Chronic) Atherosclerotic heart disease of [place] coronary artery without angina pectoris (Chronic) Minimal Type 2 diabetes mellitus (Chronic) Hyperlipidemia (Chronic) Cardiomyopathy (Chronic) CHF (congestive heart failure) (Chronic) Hypertension (Chronic) Hospital Course and Treatment Imaging Results: Diagnostic Data Diagnostic Data Chest X-Ray 03/27/18 10:54 Knee X-Ray 03/27/18 11:17 IMPRESSION: Degenerative arthropathy of the right knee with enthesopathy and small joint effusion. Electronically Signed: Nicol Kilpatrick MD at 11:52 EDT , Service support , Brain CT 03/27/18 11:18 Dr. Mina- Cardiology Orthopedics Operations: None Procedures: 2-D Echocardiogram, Cardiac catheterization Summary of Care Provided: Patient is a 67-year-old male admitted 03/27/2018 due to syncope with fall. He has a past medical history of chronic combined systolic and diastolic CHF, chronic bifascicular block, paroxysmal ventricular tachycardia, mild aortic stenosis, type 2 diabetes mellitus, hypertension, hyperlipidemia, CAD. 1. Syncope-echocardiogram showed an ejection fraction 45%, mild aortic stenosis. Troponin 0.389, 0.391. Cardiology consulted. Orthos negative. Etiology unclear. Patient will be discharged with 30 day event monitor. Cardiac catheterization unremarkable. Patient follows with Dr. Raphael as outpatient and will follow up in 1-2 weeks. 2. Abnormal cardiac enzymes-did not trend up. Patient has history of chronically elevated cardiac enzymes. Patient underwent cardiac catheterization 03/29/2018 which showed LVEF 50%, mild systolic dysfunction, [place] multivessel CAD with mild luminal irregularities. Patient will continue risk factor modification. 3. Right knee pain-x-ray of right knee shows mild joint effusion. Orthotic consult. No further intervention necessary. Ice and elevate right knee. As needed pain regimen. Patient can continue outpatient follow up with ortho. 4. CAD-cardiac catheterization this admission as noted above. Continue current medical therapy. 5. Cardiomyopathy /chronic systolic CHF-echocardiogram shows an ejection fraction of 45%, mild aortic stenosis, mild aortic valve insufficiency. Previous echocardiogram in 2016 with EF of 45%, mild aortic stenosis as well. LVEF by cardiac catheterization showed 50%. Patient will continue aspirin, statin, carvedilol, lisinopril. 6. Chronic bifascicular block/history of paroxysmal ventricular tachycardia 7. Type 2 diabetes mellitus-continue home oral regimen. Hemoglobin A1c 6.2%. 8. Hypertension-stable, continue home regimen of carvedilol. Home lisinopril regimen changed to 5 mg twice daily. 9. Hyperlipidemia-continue statin and fenofibrate. Fasting lipid panel within normal limits. General: Alert, Oriented x3, Cooperative HEENT: Atraumatic, PERRLA, EOMI, Normocephalic Neck: Supple, No JVD, Negative Carotid Bruits Lungs: Clear to auscultation, Normal air movement Cardiovascular: Regular rate, Regular Rhythm, Normal S1, Normal S2, No murmurs Abdomen: Bowel Sounds Present, Soft, Non Tender, Non-Distended Extremities: No clubbing, No cyanosis, No edema, Capillary Refill Less than 3 Seconds Skin: No rashes, No breakdown Musculoskeletal: Tenderness - Right knee Neurological: Cranial nerves II-XII grossly intact Psych/Mental Status: Normal Affect, Appropriate This patient was seen by DARINEL Capps under the supervision of Dr. Wolf. Discharge Diet: Low fat/ Low Cholesterol Discharge Activity: - - Follow post-op cath instructions. Weight Bearing Status: Full weight bearing Call your doctor if your incision/area has: Continuous Slow Oozing, Sudden Increased Bleeding, Increased Pain/ Swelling, Increased Redness, Swelling at the incision site Call your doctor if you observe: Fever of 101 or Higher, Shortness of breath, Dizziness, Fainting spells, Chest pain, Increased palpitations (irregular heartbeat) Home Medications: Medications to take at Discharge Allopurinol 100 mg PO DAILY 11/14/14 atorvastatin 20 mg tablet 20 mg PO QDAY 01/26/18 multivitamin tablet 1 tab PO QDAY 01/26/18 meloxicam 15 mg tablet 15 mg PO QDAY 03/10/18 trazodone 100 mg tablet 100 mg PO QHS PRN 03/10/18 Metformin HCl [Glucophage] 1,000 mg PO BIDCM 03/27/18 glipiZIDE XL [Glucotrol Xl] 5 mg PO DAILY@0800 03/27/18 Aspirin E.C. [Ecotrin] 81 mg PO DAILY@0800 tablet 03/29/18 Carvedilol [Coreg (Beta Amadeo)] 3.125 mg PO BID tablet 03/29/18 Fenofibrate [Tricor] 145 mg PO DAILY@1800 tablet 03/29/18 Lisinopril [Zestril] 5 mg PO BID tablet 03/29/18 Vitamin B Comp W-C [Allbee W/C Caplet, Thera B Comp/C] 1 capsule PO DAILY@0800 capsule 03/29/18 glipiZIDE XL [Glucotrol Xl] 5 mg PO DAILY@0800 tablet 03/29/18 Other Amb Orders: 30-Day Event Recorder [[facility]] Time Frame: 1 Day, Location: None Selected Primary Care Physician: Jaswinder Maher DO [Primary Care Provider] - Please follow up with your Primary Care Physician in: 1 Week Please Follow Up With: Thomas Raphael MD When: 1-2 Weeks Disposition: Home Minutes spent on discharge:: 35 Patient Condition:: Stable Medical Necessity - Tobacco Use Smoking Status: Former smoker Meaningful Use Info Meaningful Use Diagnoses (Choose all that apply): None applicable
--- NOTE | 2018-03-29 14:48 | PCM.PN.CARD ---
Subjectve: The patient was evaluated earlier this day. He has denied ongoing chest discomfort or difficulty breathing. There has been no recurrent near syncope or syncope. He underwent diagnostic cardiac catheterization without obvious adverse events. Objective: Vital Signs Temp Pulse Resp BP Pulse Ox 97.5 F L 70 18 115/66 96 03/29/18 11:11 03/29/18 12:40 03/29/18 11:11 03/29/18 11:11 03/29/18 11:11 Oxygen Delivery Method Room Air Weight: 222 lb 14.4 oz Body Mass Index (BMI) 27.8 Intake and Output for Last 24 Hours 03/27/18 03/28/18 03/29/18 23:59 23:59 23:59 Intake Total 1427 / 1427 510 / 510 1302 / 1302 Output Total 600 / 600 Balance 1427 / 1427 -90 / -90 1302 / 1302 General: Awake, Alert, Oriented x 3, Cooperative, No Acute Distress Neck: No JVD Lungs: Clear to auscultation Cardiovascular: Regular Rhythm, Normal S1, Normal S2 Murmur Murmur: Grade 2/6, Early Systolic, LLSB Vascular: No Carotid Bruits Abdomen: Bowel Sounds Present, Soft, Non Tender Extremities: No edema Neurological: No Focal Motor or Sensory Deficit 03/29/18 05:35: Sodium 142, Potassium 4.6, Chloride 107, Carbon Dioxide 27.0, Anion Gap 8, BUN 26 H, Creatinine 1.07, Est GFR (MDRD) Af Amer 89, Est GFR (MDRD) Non-Af 74, BUN/Creatinine Ratio 24.3 H, Glucose 134 H, Calcium 9.0, Triglycerides 174, Cholesterol 146, LDL Cholesterol 80, VLDL Cholesterol 35, HDL Cholesterol 31 L 03/29/18 05:35: WBC 8.1, RBC 4.52 L, Hgb 13.9, Hct 42.1, MCV 93.1, MCH 30.8, MCHC 33.0, RDW 14.2, RDW Differential 46.5 H, Plt Count 182, MPV 10.4, Immature Gran % (Auto) 0.500, Neut % (Auto) 61.2, Lymph % (Auto) 19.2, [place] % (Auto) 9.3, Eos % (Auto) 9.2 H, Baso % (Auto) 0.6, Absolute Neuts (auto) 4.9, Total Counted Not Reportable 03/29/18 05:35: PT 13.6, INR 1.0, APTT 22.5 L Rhythm: Sinus rhythm Cardiac Cath: Per the cardiac catheterization report: No obvious angiographically significant appearing CAD; left ventricular systolic function considered low normal with an estimated LVEF of 50%; please see official report Medical Necessity - Tobacco Use Smoking Status: Former smoker Assessment/Plan 1. Syncope The etiology of the patient's syncope is unclear at this time. There is concern based on his history of underlying vasovagal mediated components. At the same time he is being monitored for any obvious cardiac dysrhythmias or conduction system disease. He has undergone diagnostic cardiac catheterization, based upon his indeterminate troponin I levels, which demonstrated, similar to before, no angiographically significant appearing CAD. His overall LV systolic function was considered borderline low with an estimated LVEF of 50%. At the present time he will continue to be followed. He will enroll in a 30 day event monitor to monitor for any obvious cardiac dysrhythmias. Depending upon his clinical course he may or may not need additional evaluation with an implantable loop recorder. In the interim his medications have been adjusted in attempt to minimize any obvious bradycardia dysrhythmia or hypotension. He was encouraged to maintain adequate hydration. He was encouraged to monitor his symptoms and if he notes similar type symptoms to sit down or lie down if necessary and attempt to abort the procedure. 2. CAD Appears to, as in the past, to have evidence of minimal CAD. He will continue risk factor modification medical therapy as deemed appropriate. 3. Cardiomyopathy The patient does have an underlying borderline low LV systolic function. He has been treated medically for this in the past. 4. Aortic valve stenosis The patient does have an element of aortic valve stenosis. It has been mild in the past. He had no obvious hemodynamically significant findings on LV pullback procedure today to indicate hemodynamically significant valvular heart disease that would contribute to his events. This will be followed over time. 5. Paroxysmal ventricular tachydysrhythmia The patient has found to have recurrent definitive cardiac dysrhythmias to explain his event. Thus he will continue with the 30 day ambulatory event monitor. 6. Hyperlipidemia He will continue medical management as deemed appropriate. 7. Hypertension His blood pressures will be followed. He is being monitored for any significant hypertension or hypotension that would contribute to any concerning symptoms or events. 8. Dilated aortic root Has been evaluated noninvasively and invasively. There appears to be no obvious complication at this time. He will continue to be followed studies as deemed appropriate. The above was discussed with the patient and his spouse. They were agreeable to this approach. This note was generated with [employer] dictation software. It may contain incorrect words, spelling, and punctuation that were not noted in checking the note before signing.
--- NOTE | 2018-03-29 14:58 | PN.CARD_ITS ---
Subjectve: The patient was evaluated earlier this day. He has denied ongoing chest discomfort or difficulty breathing. There has been no recurrent near syncope or syncope. He underwent diagnostic cardiac catheterization without obvious adverse events. Objective: Vital Signs Temp Pulse Resp BP Pulse Ox 97.5 F L 70 18 115/66 96 03/29/18 11:11 03/29/18 12:40 03/29/18 11:11 03/29/18 11:11 03/29/18 11:11 Oxygen Delivery Method Room Air Weight: 222 lb 14.4 oz Body Mass Index (BMI) 27.8 Intake and Output for Last 24 Hours 03/27/18 03/28/18 03/29/18 23:59 23:59 23:59 Intake Total 1427 / 1427 510 / 510 1302 / 1302 Output Total 600 / 600 Balance 1427 / 1427 -90 / -90 1302 / 1302 General: Awake, Alert, Oriented x 3, Cooperative, No Acute Distress Neck: No JVD Lungs: Clear to auscultation Cardiovascular: Regular Rhythm, Normal S1, Normal S2 Murmur Murmur: Grade 2/6, Early Systolic, LLSB Vascular: No Carotid Bruits Abdomen: Bowel Sounds Present, Soft, Non Tender Extremities: No edema Neurological: No Focal Motor or Sensory Deficit 03/29/18 05:35: Sodium 142, Potassium 4.6, Chloride 107, Carbon Dioxide 27.0, Anion Gap 8, BUN 26 H, Creatinine 1.07, Est GFR (MDRD) Af Amer 89, Est GFR (MDRD ) Non-Af 74, BUN/Creatinine Ratio 24.3 H, Glucose 134 H, Calcium 9.0, Triglycerides 174, Cholesterol 146, LDL Cholesterol 80, VLDL Cholesterol 35, HDL Cholesterol 31 L 03/29/18 05:35: WBC 8.1, RBC 4.52 L, Hgb 13.9, Hct 42.1, MCV 93.1, MCH 30.8, MCHC 33.0, RDW 14.2, RDW Differential 46.5 H, Plt Count 182, MPV 10.4, Immature Gran % (Auto) 0.500, Neut % (Auto) 61.2, Lymph % (Auto) 19.2, [place] % (Auto) 9.3 , Eos % (Auto) 9.2 H, Baso % (Auto) 0.6, Absolute Neuts (auto) 4.9, Total Counted Not Reportable 03/29/18 05:35: PT 13.6, INR 1.0, APTT 22.5 L Rhythm: Sinus rhythm Cardiac Cath: Per the cardiac catheterization report: No obvious angiographically significant appearing CAD; left ventricular systolic function considered low normal with an estimated LVEF of 50%; please see official report Medical Necessity - Tobacco Use Smoking Status: Former smoker Assessment/Plan 1. Syncope The etiology of the patient's syncope is unclear at this time. There is concern based on his history of underlying vasovagal mediated components. At the same time he is being monitored for any obvious cardiac dysrhythmias or conduction system disease. He has undergone diagnostic cardiac catheterization , based upon his indeterminate troponin I levels, which demonstrated, similar to before, no angiographically significant appearing CAD. His overall LV systolic function was considered borderline low with an estimated LVEF of 50%. At the present time he will continue to be followed. He will enroll in a 30 day event monitor to monitor for any obvious cardiac dysrhythmias. Depending upon his clinical course he may or may not need additional evaluation with an implantable loop recorder. In the interim his medications have been adjusted in attempt to minimize any obvious bradycardia dysrhythmia or hypotension. He was encouraged to maintain adequate hydration. He was encouraged to monitor his symptoms and if he notes similar type symptoms to sit down or lie down if necessary and attempt to abort the procedure. 2. CAD Appears to, as in the past, to have evidence of minimal CAD. He will continue risk factor modification medical therapy as deemed appropriate. 3. Cardiomyopathy The patient does have an underlying borderline low LV systolic function. He has been treated medically for this in the past. 4. Aortic valve stenosis The patient does have an element of aortic valve stenosis. It has been mild in the past. He had no obvious hemodynamically significant findings on LV pullback procedure today to indicate hemodynamically significant valvular heart disease that would contribute to his events. This will be followed over time. 5. Paroxysmal ventricular tachydysrhythmia The patient has found to have recurrent definitive cardiac dysrhythmias to explain his event. Thus he will continue with the 30 day ambulatory event monitor. 6. Hyperlipidemia He will continue medical management as deemed appropriate. 7. Hypertension His blood pressures will be followed. He is being monitored for any significant hypertension or hypotension that would contribute to any concerning symptoms or events. 8. Dilated aortic root Has been evaluated noninvasively and invasively. There appears to be no obvious complication at this time. He will continue to be followed studies as deemed appropriate. The above was discussed with the patient and his spouse. They were agreeable to this approach. This note was generated with [employer] dictation software. It may contain incorrect words, spelling, and punctuation that were not noted in checking the note before signing.
--- NOTE | 2018-04-01 12:12 | CASEMGMT ---
KEL SWAN DC F/U Phone Call. Intro role of CM to patient via phone. Pt states he is feeling well and I received excellent care at the hospital. KEL SWAN inquired re: questions over medications, f/u. Pt denies any questions, states he has f/u appointment with his physician already made. KEL SWAN thanked him for using [facility]. No needs identified. Power FLORES RN ACM
== END 2018-03-29 13:46 | disposition home or self-care (01) | DRG 287 ==
LOC: ED 12:11 → PCU 13:22
PROVIDERS: Internal Medicine Cardiovascular Disease; Nurse Practitioner Family; Admitting Provider Internal Medicine; Emergency Provider Emergency Medicine; Family Provider Family Medicine; PCP Family Medicine; Visit Provider Internal Medicine
DX: R55 Syncope and collapse (principal); I50.42 Chronic combined systolic (congestive) and diastolic (congestive) heart failure; I45.2 Bifascicular block; I47.2 Ventricular tachycardia; I42.9 Cardiomyopathy, unspecified; I11.0 Hypertensive heart disease with heart failure; I35.2 Nonrheumatic aortic (valve) stenosis with insufficiency; I25.10 Atherosclerotic heart disease of native coronary artery without angina pectoris; E11.9 Type 2 diabetes mellitus without complications; E78.5 Hyperlipidemia, unspecified; M17.0 Bilateral primary osteoarthritis of knee; S00.33XA Contusion of nose, initial encounter; S80.01XA Contusion of right knee, initial encounter; W18.2XXA Fall in (into) shower or empty bathtub, initial encounter; Y93.E1 Activity, personal bathing and showering; Y92.002 Bathroom of unspecified non-institutional (private) residence as the place of occurrence of the external cause; Z96.643 Presence of artificial hip joint, bilateral; Z87.891 Personal history of nicotine dependence; Z79.84 Long term (current) use of oral hypoglycemic drugs; Z79.82 Long term (current) use of aspirin; Z79.899 Other long term (current) drug therapy
CPT/HCPCS: 36415; 70450; 71045; 73564; 80048; 80061; 81001; 82962; 83036; 83735; 84439; 84443; 84484; 85025; 85610; 85730; 93005; 93306; 93458; 97162; 97165; 99152; 99153; 99285; J7030; J7040; Q9957; Q9967; A4216; C1769; C1894

== ENCOUNTER → 2019-06-14 07:17 | Outpatient (CLI) | payer MEDICARE, OTHER, SELFPAY ==
[2018-12-07 11:02] VITALS: BMI 28.5
[2019-06-14 10:39] LABS: Cholesterol 148 mg/dL (200); High Density Lipoprotein 37 mg/dL; Triglycerides 207 mg/dL; Very Low Density Lipoprotein 41 mg/dL (5-40)
== END ==
PROVIDERS: Family Provider Family Medicine; PCP Family Medicine; Referring Provider Family Medicine; Visit Provider Family Medicine
DX: E78.5 Hyperlipidemia, unspecified (principal)
CPT/HCPCS: 36415; 80061

== ENCOUNTER → 2019-09-25 08:18 | Outpatient (CLI) | payer MEDICARE, OTHER, SELFPAY ==
[2019-06-15 10:12] VITALS: BMI 27.6
[2019-09-25 10:21] LABS: Absolute Lymphocyte Count 1.17 X10^3/uL (0.83-4.51); Absolute Neutrophil Count 4.4 X10^3/uL (2.0-7.7); Basophil# 0.04 X10^3/uL; Basophil% 0.6 % (0-1); Eosinophil# 0.29 X10^3/uL; Eosinophils% 4.5 % (0-5); Hematocrit 43.2 % (40-54); Lymphocyte # 1.17 X10^3/ul (4.0); Mean Corp Hgb Conc 32.4 g/dL (32-36); Mean Corpuscular Hgb 30.4 pg (27.0-32.0); Mean Corpuscular Volume 93.7 fL (80-94); Mean Platelet Vol. 10.2 fl (6.2-12.0); Monocyte% 9.2 % (0-10); NRBC Flagged by Analyzer 0 % (0-5); Neutrophil # 4.38 X10^3/uL (2.7-7.7); Neutrophil % 67.4 % (47-70); Platelet Count 156 K/mm3 (150-450); RBC Distribution Width CV 13.7 % (11.6-14.6); RBC Distribution Width SD 46.9 fl (35.1-43.9); Red Blood Count 4.61 M/mm3 (4.6-6.2); White Blood Count 6.5 K/mm3 (4.4-11.0)
[2019-09-25 10:30] LABS: Hemoglobin A1c 6.1 % (4.2-6.3)
[2019-09-25 10:32] LABS: ALB/GLOB Ratio 1.5 RATIO (0.9-2.4); AST(SGOT) 22 U/L (15-37); Alanine Aminotransfer ALT/SGPT 35 U/L (16-61); Albumin, Serum 4.1 g/dL (3.2-5.0); Alkaline Phosphatase 60 U/L (45-117); Anion Gap 7 (5-15); BUN 20 mg/dL (7-18); BUN/Creat Ratio 21.1 RATIO (10-20); Calcium,Total 9.5 mg/dL (8.5-10.1); Chloride 108 mmol/L (98-107); Creatinine, Serum 0.95 mg/dL (0.70-1.30); EST Glomerular Filtration Rate 85 mL/min (>60); Est Glom Filt Rate - Afr Amer 102 mL/min (>60); Globulin 2.8 g/dL (2.2-4.2); Glucose 140 mg/dL (74-106); Potassium 4.3 mmol/L (3.5-5.1); Protein, Total 6.9 g/dL (6.4-8.2); Sodium Level 142 mmol/L (136-145)
== END ==
PROVIDERS: Family Provider Family Medicine; PCP Family Medicine; Referring Provider Family Medicine; Visit Provider Family Medicine
DX: E11.9 Type 2 diabetes mellitus without complications (principal)
CPT/HCPCS: 36415; 80053; 83036; 85025

== ENCOUNTER → 2020-05-14 12:56 | Outpatient (CLI) | payer MEDICARE, OTHER, SELFPAY ==
[2020-02-20 13:02] VITALS: BMI 28.5
--- NOTE | 2020-05-14 13:01 | ECHOD_ITS ---
Reason For Study: Arrhythmia Procedure This was a 2D Doppler, Color Flow transthoracic echocardiogram. The exam was of adequate technical quality. Exam performed in department. Left Ventricle Mildly dilated left ventricle. Mild concentric left ventricular hypertrophy. Severe global left ventricular systolic dysfunction. The estimated ejection fraction is 20 %. Diastolic function is indeterminate. Apical wall motion abnormality may reflect pacemaker activation. Right Ventricle Normal RV size. ICD or pacer leads identified within the right ventricle. Normal systolic function. Atria Normal left atrium. Normal right atrium. ICD or pacer leads identified within the right atrium. No doppler evidence for ASD. Mitral Valve There is no mitral annular calcification. Normal mitral valve. Mild (1+) mitral valve insufficiency. Tricuspid Valve Normal tricuspid valve. Mild tricuspid valve insufficiency. Right ventricular systolic pressure estimated to be 24 mmHg. Aortic Valve Trisinus/trileaflet aortic valve. Moderate focal aortic valve calcification. Mild aortic stenosis. Trivial aortic valve insufficiency. Pulmonic Valve The pulmonic valve is not well visualized. Trivial pulmonic valve insufficiency. Great Vessels Mildly dilated aortic root. Pericardium/Pleural No pericardial effusion. MMode/2D Measurements & Calculations LVIDd: 5.8 cm IVSd: 1.3 cm LVOT diam: 2.5 cm LVIDs: 4.9 cm LVPWd: 1.3 cm LVOT area: 4.8 cm2 FS: 15.5 % Ao root diam: 4.2 cm LAV(MOD-bp): 71.7 ml LVAd ap4: 40.8 cm2 LA dimension: 5.0 cm LAV(MOD-bp) Indexed: 31.1 ml/m2 EDV(MOD-sp4): 139.1 ml LAV(MOD-sp2): 70.5 ml EDV(sp4-el): 141.6 ml LAV(MOD-sp4): 64.7 ml LVAs ap4: 34.4 cm2 ESV(MOD-sp4): 103.1 ml ESV(sp4-el): 108.8 ml EF(MOD-sp4): 25.9 % EF(sp4-el): 23.1 % SV(MOD-sp4): 36.0 ml SV(sp4-el): 32.8 ml Aortic Valve Planimetry: 1.8 cm2 LA A4 area: 19.9 cm2 RA A4 area: 15.4 cm2 Time Measurements MV dec time: 0.25 sec Doppler Measurements & Calculations MV E max mynor: 63.4 cm/sec Lat Peak E' Mynor: 5.6 cm/sec Med Peak E' Mynor: 4.7 cm/sec MV A max mynor: 88.5 cm/sec E/E' lat: 11.3 E/E' med: 13.5 MV E/A: 0.72 MV V2 max: 97.4 cm/sec MV P1/2t max mynor: 61.1 cm/sec Ao V2 max: 222.1 cm/sec MV max P.8 mmHg MV P1/2t: 82.4 msec Ao max P.7 mmHg MV V2 mean: 50.8 cm/sec Ao V2 mean: 142.0 cm/sec MV mean P.3 mmHg MV dec slope: 217.4 cm/sec2 Ao mean P.5 mmHg MV V2 VTI: 22.1 cm MVA(P1/2t): 2.7 cm2 Ao V2 VTI: 43.8 cm MVA(VTI): 3.6 cm2 DOE(I,D): 1.8 cm2 DOE(V,D): 1.8 cm2 LV V1 max: 83.0 cm/sec SV(LVOT): 78.5 ml PA V2 max: 105.9 cm/sec LV V1 max P.8 mmHg LV V1 mean P.2 mmHg LV V1 mean: 49.6 cm/sec LV V1 VTI: 16.4 cm TR max mynor: 231.5 cm/sec TR max P.4 mmHg Interpretation Summary Mildly dilated left ventricle. Severe global left ventricular systolic dysfunction. The estimated ejection fraction is 20 %. Mild concentric left ventricular hypertrophy. Apical wall motion abnormality may reflect pacemaker activation. Mild (1+) mitral valve insufficiency. Mild tricuspid valve insufficiency. Mild aortic stenosis. Trivial aortic valve insufficiency. Trivial pulmonic valve insufficiency. Mildly dilated aortic root. Right ventricular systolic pressure estimated to be 24 mmHg. Diastolic function is indeterminate. ICD or pacer leads identified within the right atrium ICD or pacer leads identified within the right ventricle. Ordering Physician: Thomas Raphael Referring Physician: Jaswinder Maher Performed By: Manuel Fabian RCS
== END ==
PROVIDERS: PCP Family Medicine; Referring Provider Internal Medicine Cardiovascular Disease; Visit Provider Internal Medicine Cardiovascular Disease
DX: I25.10 Atherosclerotic heart disease of native coronary artery without angina pectoris (principal); I44.2 Atrioventricular block, complete; I47.2 Ventricular tachycardia; I42.9 Cardiomyopathy, unspecified; I10 Essential (primary) hypertension; I35.0 Nonrheumatic aortic (valve) stenosis; E78.5 Hyperlipidemia, unspecified; Z95.5 Presence of coronary angioplasty implant and graft
CPT/HCPCS: 93306

== ENCOUNTER → 2020-10-23 12:49 | Outpatient (CLI) | payer MEDICARE, OTHER, SELFPAY ==
[2020-07-30 14:58] VITALS: BMI 29.3
--- NOTE | 2020-10-23 12:51 | ECHOD_ITS ---
Reason For Study: Cardiomyopathy Procedure This was a 2D Doppler, Color Flow transthoracic echocardiogram. The exam was of adequate technical quality. Exam performed in department. Left Ventricle Normal LV size. Segmental dysfunction with preserved ejection fraction (see wall motion). The estimated ejection fraction is 55 %. Diastolic function is indeterminate. Mid-Lateral : Hypokinetic. Mid-Posterior: Hypokinetic. Mid-Inferior: Hypokinetic. Inferior [place] : Hypokinetic. Right Ventricle Normal RV size. ICD or pacer leads identified within the right ventricle. Normal systolic function. Atria The left atrium is mildly enlarged. Normal right atrium. ICD or pacer leads identified within the right atrium. No doppler evidence for ASD. Mitral Valve There is no mitral annular calcification. Normal mitral valve. Trivial mitral valve insufficiency. Tricuspid Valve Normal tricuspid valve. Trivial tricuspid valve insufficiency. Aortic Valve Trisinus/trileaflet aortic valve. Moderate focal aortic valve calcification. Aortic valve sclerosis. Pulmonic Valve The pulmonic valve is not well visualized. Trivial pulmonic valve insufficiency. Great Vessels Mildly dilated aortic root. Pericardium/Pleural No pericardial effusion. MMode/2D Measurements & Calculations LVIDd: 5.6 cm IVSd: 1.3 cm LVOT diam: 2.5 cm LVIDs: 4.0 cm LVPWd: 1.2 cm LVOT area: 5.0 cm2 RVDd: 3.7 cm FS: 29.0 % Ao root diam: 4.0 cm LAV(MOD-bp): 79.4 ml EDV(MOD-sp4): 117.4 ml LAV(MOD-bp) Indexed: 34.5 ml/m2 ESV(MOD-sp4): 49.2 ml LAV(MOD-sp2): 74.4 ml EF(MOD-sp4): 58.1 % LAV(MOD-sp4): 79.5 ml EDV(MOD-sp2): 152.6 ml SV(MOD-sp4): 68.2 ml SV(MOD-sp2): 83.9 ml EF(MOD-sp2): 55.0 % LA A4 area: 22.6 cm2 LA dimension(2D): 4.3 cm RA A4 area: 10.9 cm2 Doppler Measurements & Calculations MV E max mynor: 67.3 cm/sec Lat Peak E' Mynor: 6.0 cm/sec Med Peak E' Mynor: 5.9 cm/sec MV A max mynor: 109.5 cm/sec E/E' lat: 11.2 E/E' med: 11.3 MV E/A: 0.62 Ao V2 max: 289.3 cm/sec LV V1 max: 116.8 cm/sec SV(LVOT): 130.0 ml Ao max P.5 mmHg LV V1 max P.5 mmHg Ao V2 mean: 201.7 cm/sec LV V1 mean P.0 mmHg Ao mean P.4 mmHg LV V1 mean: 82.4 cm/sec Ao V2 VTI: 55.3 cm LV V1 VTI: 25.9 cm DOE(I,D): 2.4 cm2 DOE(V,D): 2.0 cm2 PA V2 max: 143.3 cm/sec Interpretation Summary Segmental dysfunction with preserved ejection fraction (see wall motion). The estimated ejection fraction is 55 %. The left atrium is mildly enlarged. Trivial mitral valve insufficiency. Trivial tricuspid valve insufficiency. Moderate focal aortic valve calcification. Aortic valve sclerosis. Trivial pulmonic valve insufficiency. Mildly dilated aortic root. Diastolic function is indeterminate. ICD or pacer leads identified within the right atrium ICD or pacer leads identified within the right ventricle. Ordering Physician: Thomas Raphael Referring Physician: Jaswinder Maher Performed By: Aracely Savage RDCS
== END ==
PROVIDERS: PCP Family Medicine; Referring Provider Internal Medicine Cardiovascular Disease; Visit Provider Internal Medicine Cardiovascular Disease
DX: I25.10 Atherosclerotic heart disease of native coronary artery without angina pectoris (principal); I42.9 Cardiomyopathy, unspecified; I50.22 Chronic systolic (congestive) heart failure; I44.2 Atrioventricular block, complete; I47.2 Ventricular tachycardia; I35.0 Nonrheumatic aortic (valve) stenosis; Z95.810 Presence of automatic (implantable) cardiac defibrillator
CPT/HCPCS: 93306

== ENCOUNTER 2021-05-09 17:12 | Emergency (ER) | payer OTHER, MEDICARE, SELFPAY ==
[2020-11-04 11:13] VITALS: BMI 27.9
[2021-05-09 17:14] VITALS: BP 137/75; PULSE 66; RESP 15; TEMP 35.7; O2SAT 96; BMI 28.1
--- NOTE | 2021-05-09 17:16 | RAD_ITS ---
STUDY: X-RAY - LEFT RADIUS AND ULNA REASON FOR EXAM: Male, 70 years old. INJURY TECHNIQUE: 2 view(s) of the forearm. COMPARISON: None. FINDINGS: There is no demonstrated soft tissue swelling. Normal visualized radius. Normal visualized ulna. Surgical anchor along the posterior cortex of the proximal radius likely consistent with biceps tendon repair. RAD/Forearm 2 Views IMPRESSION: No acute fracture or dislocation. Electronically Signed: Stone Robin MD at 17:50 EDT Tel , Service support ,
--- NOTE | 2021-05-09 18:57 | EDS_ITS ---
HPI History of Present Illness Chief Complaint: Upper Extremity Injury Narrative Narrative: 70-year-old male presenting with left forearm pain after mechanical fall. He slipped on grapes at [email or web address] He states that his left forearm is hurting after this. He denies any abrasions or lacerations. He denies numbness or tingling. He does admit to some slight swelling. 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, left Dilated aortic root Essential hypertension Gout Hyperlipidemia Hypertension IgG4 deficiency Nonrheumatic aortic (valve) stenosis ANAND (obstructive sleep apnea) Osteoarthritis Paroxysmal ventricular tachycardia Presence of cardiac pacemaker (~09/23/18) Presence of cardiac resynchronization therapy defibrillator ([employer]-D) (~07/17/20) Severe bradycardia Syncope and collapse Type 2 diabetes mellitus Ventricular ectopy Home Medications allopurinol 100 mg PO DAILY 11/14/14 [History Last Taken 11/14/14] atorvastatin 20 mg tablet 20 mg PO QHS 01/26/18 [History Last Taken Unknown] multivitamin 1 tab PO QDAY 01/26/18 [History Last Taken Unknown] trazodone 100 mg tablet 100 mg PO QHS 03/10/18 [History Last Taken Unknown] aspirin 81 mg PO DAILY@0800 tab 03/29/18 [Rx Last Taken Unknown] glipizide 5 mg PO DAILY@0800 tab 03/29/18 [Rx Last Taken Unknown] coenzyme Q10 100 mg capsule 100 mg PO DAILY 12/07/18 [History Last Taken Unknown] cholecalciferol (vitamin D3) 25 mcg (1,000 unit) tablet 1,000 unit PO DAILY 06/15/19 [History Last Taken Unknown] omega-3 fatty acids 1,000 mg capsule 1,000 mg PO DAILY 06/15/19 [History Last Taken Unknown] tamsulosin 0.4 mg capsule 0.4 mg PO DAILY 06/15/19 [History Last Taken Unknown] carvedilol 3.125 mg tablet 3.125 mg PO BID #180 tab 10/16/19 [Rx Last Taken Unknown] metformin 1,000 mg tablet 1,000 mg PO BIDCM tab 02/20/20 [History Last Taken U nknown] turmeric 400 mg capsule 1,000 mg PO DAILY cap 05/24/20 [History Last Taken Unknown] lisinopril 10 mg tablet 10 mg PO BID #180 tab 06/24/20 [Rx Last Taken Unknown] zinc 50 mg tablet 50 mg PO DAILY 11/04/20 [History Last Taken Unknown] amlodipine 5 mg tablet 5 mg PO DAILY #30 tab 11/25/20 [Rx Last Taken Unknown] Allergy/AdvReac Type Severity Reaction Status Date / Time metoprolol [From Toprol XL] AdvReac Unknown Unknown Verified 05/09/21 17:14 Family History Father CVA (cerebral vascular accident) Mother CAD (coronary artery disease) Brother CAD (coronary artery disease) Surgical History Cataract extraction status of left eye History of repair of right rotator cuff History of shoulder surgery History of total hip arthroplasty Social History Smoking Status: Former smoker alcohol intake: current details: occasional ROS ROS ED Constitutional Constitutional ED: Denies chills, frequent falls or subjective Eyes Eyes: Denies blurry vision or change in vision Cardiovascular Cardiovascular: Denies chest pain or palpitations Respiratory/Chest Respiratory/Chest: Denies cough, dyspnea or sputum Gastrointestinal Gastrointestinal: Denies abdominal pain, nausea or vomiting Musculoskeletal Musculoskeletal: Reports other Details: Left forearm pain. ; Denies back pain or neck pain Integumentary Denies abscess or rash Neurologic Neurologic: Denies headache(s), paresthesias or weakness EXAM Physical Exam Const Vital Signs: 05/09/21 17:14 Temperature 96.3 F L Temperature Source Temporal Pulse Rate 66 Respiratory Rate 15 Blood Pressure 137/75 H Blood Pressure Mean 95 Pulse Ox 96 Oxygen Delivery Method Room Air Positive well nourished HEENT normocephalic and atraumatic Resp normal respiratory effort Cardio regular rate and regular rhythm Extremity Extremity Narrative: Tenderness to palpation of the left forearm diffusely. Left radial pulse 2+. Left hand neurovascular intact with brisk cap refill to all 5 fingers. No obvious deformities. Mild swelling is noted. Neuro oriented x3 Sensorium / Orientation: alert Psych mental status grossly normal Skin Lesions: no lesions Rashes: no rashes MDM MDM MDM Narrative Medical decision making narrative: 70-year-old male presenting with left forearm pain after mechanical fall. Patient given ibuprofen for pain. Patient's x-ray of the left forearm as interpreted by myself shows no fracture or subluxation. Radiologist does agree. Patient was patient Jules wrap and a sling for comfort due to his pain. He is counseled on how to treat his pain and to ice and elevate. Patient discharged home in stable condition. Impression: 1. Mechanical fall 2. Left forearm contusion Radiography Diagnostic Testing: Radiology Impression Forearm X-Ray 05/09/21 17:16 IMPRESSION: No acute fracture or dislocation. Electronically Signed: Stone Robin MD at 17:50 EDT Tel , Service support , Discharge Plan Triage Chief Complaint: Upper Extremity Injury ED Provider: Pierce Sneed Dx/Rx/DC Orders Instructions: ED Contusion, Upper Extremity Prescriptions: No Action atorvastatin 20 mg tablet 20 mg PO QHS RF: 0 multivitamin tablet 1 tab PO QDAY RF: 0 trazodone 100 mg tablet 100 mg PO QHS RF: 0 coenzyme Q10 [Co Q-10] 100 mg capsule 100 mg PO DAILY RF: 0 turmeric 400 mg capsule 1,000 mg PO DAILY RF: 0 omega-3 fatty acids [Fish Oil Concentrate] 1,000 mg capsule 1,000 mg PO DAILY RF: 0 cholecalciferol (vitamin D3) 1,000 unit tablet 1,000 unit PO DAILY RF: 0 tamsulosin 0.4 mg capsule 0.4 mg PO DAILY RF: 0 zinc 50 mg tablet 50 mg PO DAILY RF: 0 allopurinol 100 MG tablet 100 mg PO DAILY RF: 0 glipizide 5 MG tablet 5 mg PO DAILY@0800 RF: 0 aspirin 81 MG tablet 81 mg PO DAILY@0800 RF: 0 metformin 1,000 mg tablet 1,000 mg PO BIDCM RF: 0 carvedilol 3.125 mg tablet 3.125 mg PO BID Qty: 180 RF: 3 lisinopril 10 mg tablet 10 mg PO BID Qty: 180 RF: 3 amlodipine 5 mg tablet 5 mg PO DAILY Qty: 30 RF: 12 Primary Care Provider: Jaswinder Maher Referrals: Jaswinder Maher DO [Primary Care Provider] - Disposition Disposition: Home, Self Care
[2021-05-09] MEDS: Ibuprofen 600 MG Tablet PO (19:14)
[2021-05-09 19:25] VITALS: PULSE 72; RESP 17; O2SAT 97
== END 2021-05-09 19:26 | disposition home or self-care (01) ==
PROVIDERS: Emergency Provider Student in an Organized Health Care Education/Training Program; PCP Family Medicine
DX: S50.12XA Contusion of left forearm, initial encounter (principal); I25.10 Atherosclerotic heart disease of native coronary artery without angina pectoris; Z95.0 Presence of cardiac pacemaker; Z87.891 Personal history of nicotine dependence; W19.XXXA Unspecified fall, initial encounter
CPT/HCPCS: 73090; 99283

== ENCOUNTER → 2021-08-20 10:06 | Outpatient (CLI) | payer MEDICARE, OTHER, SELFPAY ==
[2021-08-20 12:26] LABS: Absolute Neutrophil Count 5.3 X10^3/uL (2.0-7.7); Basophil# 0.03 X10^3/uL; Basophil% 0.4 % (0-1); Eosinophil# 0.08 X10^3/uL; Eosinophils% 1.1 % (0-5); Hematocrit 39.4 % (40-54); Hemoglobin 12.3 g/dL (13.0-16.5); Lymphocyte % 15.4 % (19-41); Mean Corp Hgb Conc 31.2 g/dL (32-36); Mean Corpuscular Hgb 29.7 pg (27.0-32.0); Mean Corpuscular Volume 95.2 fL (80-94); Mean Platelet Vol. 9.7 fl (6.2-12.0); Monocyte# 0.57 X10^3/uL; NRBC Flagged by Analyzer 0 % (0-5); Neutrophil # 5.28 X10^3/uL (2.7-7.7); Neutrophil % 74.1 % (47-70); Platelet Count 246 K/mm3 (150-450); RBC Distribution Width CV 13.6 % (11.6-14.6); RBC Distribution Width SD 46.9 fl (35.1-43.9); Red Blood Count 4.14 M/mm3 (4.6-6.2); White Blood Count 7.1 K/mm3 (4.4-11.0)
[2021-08-20 13:09] LABS: ALB/GLOB Ratio 0.9 RATIO (0.9-2.4); AST(SGOT) 18 U/L (15-37); Alanine Aminotransfer ALT/SGPT 33 U/L (16-61); Albumin, Serum 3.3 g/dL (3.2-5.0); Alkaline Phosphatase 55 U/L (45-117); Anion Gap 7 (5-15); BUN 26 mg/dL (7-18); Calcium,Total 9.1 mg/dL (8.5-10.1); Chloride 107 mmol/L (98-107); Cholesterol 167 mg/dL (200); EST Glomerular Filtration Rate 79 mL/min (>60); Est Glom Filt Rate - Afr Amer 95 mL/min (>60); Globulin 3.6 g/dL (2.2-4.2); Glucose 173 mg/dL (74-106); High Density Lipoprotein 35 mg/dL; PSA,Total - Annual Screen 4.84 ng/mL (0.00-4.00); Potassium 4.3 mmol/L (3.5-5.1); Protein, Total 6.9 g/dL (6.4-8.2); Sodium Level 140 mmol/L (136-145); Triglycerides 218 mg/dL; Uric Acid 6.7 mg/dL (3.5-7.2); Very Low Density Lipoprotein 44 mg/dL (5-40)
[2021-08-20 13:20] LABS: Hemoglobin A1c 7.1 % (3.8-5.6)
[2021-08-20 13:23] LABS: Microalbumin,Random Urine 29.1 mg/L (NO RANGE EST.); Microalbumin:Creatinine Ratio 21.6 mg/g CRE (<30 mg/g CRE)
== END ==
PROVIDERS: PCP Family Medicine; Referring Provider Family Medicine; Visit Provider Family Medicine
DX: I10 Essential (primary) hypertension (principal); E11.9 Type 2 diabetes mellitus without complications; E78.5 Hyperlipidemia, unspecified; M10.9 Gout, unspecified; Z12.5 Encounter for screening for malignant neoplasm of prostate
CPT/HCPCS: 36415; 80053; 80061; 82043; 82570; 83036; 84153; 84550; 85025; G0103

== ENCOUNTER 2022-03-24 15:30 | Outpatient (RCR) | payer MEDICARE, OTHER, SELFPAY ==
--- NOTE | 2021-12-23 15:42 | HP.PTEVAL_ITS ---
Patient's Visit Information JENS JENKINS is a 71 year old M referred to Physical Therapy by Dr. Monroe Amin MD with a diagnosis of R glute medius repair. Date of Evaluation: 12/23/21 Physical Therapist: Ronnie Andrade PT, ATC - Visit Plan Frequency: 2-3x /Week Duration: 3 Months Plan: Follow protocol in Chart. CP for pain - Subjective DOS: 12/03/21. Pt reports he used to have a severe stabbing pain in his R hip for several months prior to having this surgery. Pt notes he now feels much better. Pt reports he has been following the orders to [facility] at this time. Pt reports he has not been performing a HEP at this time. Pt notes no tingling or numbness at this time. 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 Pt reports no sleep difficulty at this time without taking his sleeping pills. Pt reports he is excited to get back to normal so he can return to his job. Pt notes he has a basement that he uses on occasion which he would like to be able to go to again. 0/10 at rest. 2/10 pain at worst - Pain R hip Pain Intensity (Out of 10): 0 Pain Intensity Range: 2 - Objective Neuro: B LE sensation is WNL to light touch. ROM: L hip flex 130, abd 45, IR 40, ER 30 degrees. R hip flex= 90, abd= 25 degrees. MMT: L hip is grossly 5/5 throughout. Gait: Pt is ambulating NWBing with R LE with standard cane - Balance/Special Test Scores Lower Extremity Functional Score: 16 - Goals Goal 1:: Decrease R hip pain x 50% to aid with sleep Goal Time Frame: 8-12 Weeks Goal 2:: Increase R hip strength to 5/5 throughout to aid with RTW without limitatiion Goal Time Frame: 8-12 Weeks Goal 3:: Increase R hip ROM to equal L hip ROM to aid with RTW without limitation Goal Time Frame: 8-12 Weeks Goal 4:: I with HEP Goal Time Frame: 8-12 Weeks - Rehabilitation Potential Physical Therapy Diagnosis: Pt has R hip pain, weakness, and limited ROM secondary to R glute medeus repair Rehabilitation Potential: Good - Anticipated Interventions Patient/Client Instruction: Educate patient on: Condition, Plan of Care For the Purpose of:: To improve self management Therapeutic Exercise to Include: Strength training, Endurance training, Balance training, Flexibilty training, Gait and locomotor training, Passive ROM, Active ROM, Dynamic Lumbar Stabilization For the Purpose of:: To decrease pain, To increase ROM, To improve muscle performance and motor function Cryotherapy (ice pack, ice massage): Yes For the Purpose of:: To decrease pain Thank you for the opportunity to evaluate your patient. For Medicare and Medicare HMO plans, please review the plan of care and approve it. It will need to be FAXED BACK to us at [phone] for Medicare purposes. For Medicare only, by signing this I certify the plan of care. Please let me know if there are questions or concerns regarding this plan of care. Physician Signature: Date:
== END 2022-03-24 19:00 | disposition home or self-care (01) ==
LOC: PT 15:30
PROVIDERS: PCP Family Medicine; Referring Provider Orthopaedic Surgery Sports Medicine; Visit Provider Orthopaedic Surgery Sports Medicine
DX: S76.011D Strain of muscle, fascia and tendon of right hip, subsequent encounter (principal); X58.XXXD Exposure to other specified factors, subsequent encounter
CPT/HCPCS: 97110; 97140; 97161

== ENCOUNTER → 2022-04-28 | Outpatient (CLI) | payer MEDICARE, OTHER, SELFPAY ==
[2022-04-28 16:53] LABS: PSA,Total- Diagnostic 3.54 ng/mL (0.0-4.0)
== END | disposition home or self-care (01) ==
LOC: LAB 15:09
PROVIDERS: PCP Family Medicine; Visit Provider Urology
DX: R97.20 Elevated prostate specific antigen [PSA] (principal)
CPT/HCPCS: 36415; 84153

== ENCOUNTER → 2022-06-15 | Outpatient (CLI) | payer MEDICARE, OTHER, SELFPAY ==
[2022-06-15 08:48] LABS: Absolute Lymphocyte Count 1.19 X10^3/uL (0.83-4.51); Absolute Neutrophil Count 4.6 X10^3/uL (2.0-7.7); Basophil# 0.03 X10^3/uL; Basophil% 0.4 % (0-1); Eosinophil# 0.36 X10^3/uL; Eosinophils% 5.3 % (0-5); Hematocrit 42.3 % (40-54); Hemoglobin 13.7 g/dL (13.0-16.5); Lymphocyte # 1.19 X10^3/ul (0.83-4.51); Lymphocyte % 17.5 % (19-41); Mean Corp Hgb Conc 32.4 g/dL (32-36); Mean Corpuscular Hgb 30.4 pg (27.0-32.0); Mean Corpuscular Volume 93.8 fL (80-94); Mean Platelet Vol. 10.1 fl (6.2-12.0); Monocyte# 0.61 X10^3/uL; NRBC Flagged by Analyzer 0 % (0-5); Neutrophil # 4.59 X10^3/uL (2.7-7.7); Neutrophil % 67.4 % (47-70); Platelet Count 149 K/mm3 (150-450); RBC Distribution Width CV 13.5 % (11.6-14.6); RBC Distribution Width SD 46.4 fl (35.1-43.9); Red Blood Count 4.51 M/mm3 (4.6-6.2); White Blood Count 6.8 K/mm3 (4.4-11.0)
[2022-06-15 09:13] LABS: Hemoglobin A1c 6.6 % (3.8-5.6); Vitamin B12 1552 pg/mL (211-911)
[2022-06-15 09:29] LABS: AST(SGOT) 19 U/L (15-37); Alanine Aminotransfer ALT/SGPT 37 U/L (16-61); Albumin, Serum 3.7 g/dL (3.2-5.0); Alkaline Phosphatase 65 U/L (45-117); Bilirubin, Direct 0.29 mg/dL (0.00-0.30); Cholesterol 157 mg/dL (200); Ferritin 63 ng/mL (26-388); High Density Lipoprotein 33 mg/dL; Iron 59 ug/dL (65-175); PSA,Total- Diagnostic 3.47 ng/mL (0.0-4.0); Protein, Total 6.7 g/dL (6.4-8.2); Triglycerides 362 mg/dL; Very Low Density Lipoprotein 72 mg/dL (5-40)
== END | disposition home or self-care (01) ==
PROVIDERS: Internal Medicine Cardiovascular Disease; PCP Family Medicine; Visit Provider Family Medicine
DX: D64.9 Anemia, unspecified (principal); E11.9 Type 2 diabetes mellitus without complications; R97.20 Elevated prostate specific antigen [PSA]
CPT/HCPCS: 36415; 80061; 80076; 82607; 82728; 83036; 83540; 84153; 85025

== ENCOUNTER → 2023-02-01 | Outpatient (CLI) | payer MEDICARE, OTHER, SELFPAY ==
[2023-02-01 12:25] LABS: Hemoglobin A1c 6.3 % (3.8-5.6)
[2023-02-01 12:42] LABS: AST(SGOT) 24 U/L (15-37); Alanine Aminotransfer ALT/SGPT 37 U/L (16-61); Albumin, Serum 4.1 g/dL (3.2-5.0); Alkaline Phosphatase 56 U/L (45-117); Anion Gap 10 (5-15); BUN 23 mg/dL (7-18); BUN/Creat Ratio 22.8 RATIO (10-20); Bilirubin, Direct 0.33 mg/dL (0.00-0.30); Calcium,Total 10.1 mg/dL (8.5-10.1); Chloride 106 mmol/L (98-107); Cholesterol 167 mg/dL (200); Creatinine, Serum 1.01 mg/dL (0.70-1.30); EST Glomerular Filtration Rate 78 mL/min (>60); Est Glom Filt Rate - Afr Amer 94 mL/min (>60); Globulin 2.8 g/dL (2.2-4.2); Glucose 172 mg/dL (74-106); High Density Lipoprotein 36 mg/dL; Potassium 4.1 mmol/L (3.5-5.1); Protein, Total 6.9 g/dL (6.4-8.2); Sodium Level 140 mmol/L (136-145); Triglycerides 300 mg/dL; Uric Acid 7.7 mg/dL (3.5-7.2); Very Low Density Lipoprotein 60 mg/dL (5-40)
[2023-02-01 12:58] LABS: Microalbumin:Creatinine Ratio 49.6 mg/g CRE (<30 mg/g CRE)
== END | disposition home or self-care (01) ==
PROVIDERS: PCP Family Medicine; Referring Provider Family Medicine; Visit Provider Family Medicine
DX: E11.9 Type 2 diabetes mellitus without complications (principal); I10 Essential (primary) hypertension; M10.9 Gout, unspecified
CPT/HCPCS: 36415; 80048; 80061; 80076; 82043; 82570; 83036; 84550

== ENCOUNTER → 2023-06-28 | Outpatient (CLI) | payer MEDICARE, OTHER, SELFPAY ==
[2023-06-28 18:04] LABS: Color, Urine Yellow (Yellow); Glucose, Dipstick Normal (Normal); Ketone-Dipstick Negative (Negative); Leukocyte Esterase-Dipstick Negative /ul (Negative); Nitrite-Dipstick Negative (Negative); Occult Blood-Urine Negative /ul (Negative); Protein-Dipstick 15 mg/dl (Negative); Specific Gravity, Urine 1.015 (1.002-1.030); Urine Bilirubin Dipstick Negative (Negative); Urine Clarity Clear (Clear); Urine Urobilinogen Normal (Normal); Urine pH 6.5 (5.0 - 8.0)
[2023-06-28 18:11] LABS: BNP,B-Type NATRIURETIC PEPTIDE 151.2 pg/mL (0-100)
[2023-06-28 18:29] LABS: ALB/GLOB Ratio 1.2 RATIO (0.9-2.4); AST(SGOT) 23 U/L (15-37); Alanine Aminotransfer ALT/SGPT 38 U/L (16-61); Albumin, Serum 3.8 g/dL (3.2-5.0); Alkaline Phosphatase 59 U/L (45-117); Anion Gap 7 (5-15); BUN 24 mg/dL (7-18); BUN/Creat Ratio 25.2 RATIO (10-20); Calcium,Total 9.2 mg/dL (8.5-10.1); Chloride 106 mmol/L (98-107); Creatinine, Serum 0.95 mg/dL (0.70-1.30); EST Glomerular Filtration Rate 83 mL/min (>60); Est Glom Filt Rate - Afr Amer 100 mL/min (>60); Globulin 3.1 g/dL (2.2-4.2); Glucose 130 mg/dL (74-106); Potassium 3.9 mmol/L (3.5-5.1); Protein, Total 6.9 g/dL (6.4-8.2); Sodium Level 139 mmol/L (136-145); Thyroid Stim Hormone (TSH) 2.36 uIU/mL (0.358-3.74)
[2023-06-28 18:50] LABS: Hemoglobin A1c 6.6 % (3.8-5.6)
== END | disposition home or self-care (01) ==
LOC: BFHLAB 16:22
PROVIDERS: PCP Family Medicine; Referring Provider Family Medicine; Visit Provider Family Medicine
DX: R60.9 Edema, unspecified (principal); I42.0 Dilated cardiomyopathy; E11.9 Type 2 diabetes mellitus without complications; R35.0 Frequency of micturition
CPT/HCPCS: 36415; 80053; 81002; 83036; 83880; 84443

== ENCOUNTER 2023-11-01 12:00 | Outpatient (RCR) | payer MEDICARE, OTHER, SELFPAY ==
--- NOTE | 2023-08-24 12:55 | HP.PTEVAL ---
Patient's Visit Information Visit Information Visit Information: JENS JENKINS is a 72 year old M referred to Physical Therapy by Dr. Monroe Amin MD with a diagnosis of Muscle tendon strain L thigh with surgical debridemen/ HS repair 08/02/23. Date of Evaluation: 08/24/23 Physical Therapist: Chaim Redding, DPT, OCS, CSCS Visit Plan Frequency: 2-3x /Week Duration: 3 Months Plan: 2-3x/week for 8-12 weeks as needed for progression of ROM, strength, giat per prpotocol in folder. Pt is WBAT with cane until end August No A HS contraction until end august doctor visit. Pt should be limited to 60 degree L hip flexion and 30 SLR PROM until end August(starting 08/29/23) PROM L hip flexion to 90 by end august Please work on exercises in protocol including clamshells this week and adding gentle AROM hip within limitations next week 08/31, SAQ sidelying hip abd, prone qud strengthening, lumbopelvic tabs, single double limb balance. Next session can add transverse abs. See protocol Subjective Subjective: Tore R HS last year and rehabbed this year. L side cleaned out HS tendon due to pain for a year or longer with walking. Surgery was 08/02 and has been relaxing since then. No HEP. Used walker at first and now OK with cane for the last week. Slightly painful R when walking. Will need R side done in October. L sided pain 2/10 with walking, 0/10 at rest. Icing L side 30 minutes daily.. Sleeping is OK right now. Basic ADLS all I. Cannot get in and out but uses walk in. 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 off until end of January. Hobbies: Walking with , mowing yard push mow. Golf a bit. Precautions: avoid stretching HS> Pain L HS: Pain Intensity (Out of 10): 2 Pain Intensity Range: 0 and 4 Comment: R side can get to 6/10 Objective Objective: L Walks with cane into PT in R UE and L LE abducted slightly to wide SAUD but mod I. Trasnfers I bed and chair albei slow and careful with L LE. Steps with R LE only and one rail up and down. sitting with knee bent and hips at 75 without pain. L hip AROM 10 IR, 60 er, 90 flexion, 94 PROM R hip. R hip AROM 13, 60 er, 95 flexion, No concerns with incision from patient. knee B AROM WFL and without increased pain. ankle AROM WFL, gastroc tight to 2 degree DF L Balance/Special Test Scores Lower Extremity Functional Score: 26 Goals Goal 1:: Pt progress per protocol to ROM and strengthening to 8 weeks Goal Time Frame: 6-8 Weeks Goal 2:: Pain 0-1/10 and 90% better overall Goal Time Frame: 4-6 Weeks Goal 3:: Pt able to ambulate community without AD and steps normally as allowed by doctor Goal Time Frame: 8-12 Weeks Goal 4:: Pt healthy enough in L HS to have R one repaired. Goal Time Frame: 8-12 Weeks Rehabilitation Potential Physical Therapy Diagnosis: pain and tightness and weakness limting funciton L HS Rehabilitation Potential: Fair Anticipated Interventions Patient/Client Instruction: Educate patient on: Condition and Plan of Care For the Purpose of:: To decrease pain, To increase ROM, To improve nutrient delivery to tissue, To increase oxygenation perfusion, To improve muscle performance and motor function, To increase tolerance to activity/condition/position, To improve ability of physical actions for home/community/work/leisure and To improve gait and locomotor functions Therapeutic Exercise to Include: Strength training, Balance training and Passive ROM For the Purpose of:: To decrease pain, To increase ROM, To improve nutrient delivery to tissue, To improve muscle performance and motor function, To increase tolerance to activity/condition/position and To improve gait and locomotor functions Manual Therapy Techniques to Include: Passive ROM and Soft tissue mobilization For the Purpose of:: To decrease pain, To increase ROM and To improve nutrient delivery to tissue Cryotherapy (ice pack, ice massage): Yes For the Purpose of:: To decrease swelling/inflammation Text: Thank you for the opportunity to evaluate your patient. For Medicare and Medicare HMO plans, please review the plan of care and approve it. It will need to be FAXED BACK to us at [phone] for Medicare purposes. For Medicare only, by signing this I certify the plan of care. Please let me know if there are questions or concerns regarding this plan of care. Physician Signature: Date:
--- NOTE | 2023-11-02 09:10 | HP.PTDCSUM ---
Discharge Summary D/C summary: It has been my pleasure to treat JENS JENKINS referred by Dr. Monroe Amin MD, with the diagnosis of Muscle tendon strain L thigh with surgical debridemen/ HS repair 08/02/23 for a total of 19 visit(s). Discharge Date: 11/02/23 Please see the following information for a summary of their discharge status. Subjective Subjective: Last appt. Having surgery soon. Pain L HS: Pain Intensity (Out of 10): 1 R HS: Pain Intensity (Out of 10): 3 Overall Improvement % Improvement: 75 Objective Objective/Function: Did well, ready for the next surgery. Avoided the ex today that increased pain. Goals Goal 1:: Pt progress per protocol to ROM and strengthening to 8 weeks Goal Progress: Goal Met Goal 2:: Pain 0-1/10 and 90% better overall Goal Progress: Progressing Goal 3:: Pt able to ambulate community without AD and steps normally as allowed by doctor Goal Progress: Goal Met Goal 4:: Pt healthy enough in L HS to have R one repaired. Goal Progress: Goal Met Plan Plan: d/c as patient will have other leg surgery this week adn retun with appropriate script when doctor desires. D/C Information d/c sentence: If there are questions or concerns regarding this patient's physical therapy, please feel free to call me at [phone]. Thank you for the referral of this patient. Sincerely, Chaim Redding, DPT, OCS, CSCS Balance/Gait/Functional tests Balance/Special Test Scores Lower Extremity Functional Score: 32 Improvement % Improvement: 75
== END 2023-11-01 19:00 | disposition home or self-care (01) ==
LOC: PT 12:00
PROVIDERS: PCP Family Medicine; Referring Provider Orthopaedic Surgery Sports Medicine; Visit Provider Orthopaedic Surgery Sports Medicine
DX: S76.311D Strain of muscle, fascia and tendon of the posterior muscle group at thigh level, right thigh, subsequent encounter (principal)
CPT/HCPCS: 97110; 97161; 97530

== ENCOUNTER 2024-03-13 10:30 | Outpatient (RCR) | payer MEDICARE, OTHER, SELFPAY ==
--- NOTE | 2023-11-29 13:18 | HP.PTEVAL_ITS ---
Patient's Visit Information Visit Information Visit Information: JENS JENKINS is a 72 year old M referred to Physical Therapy by Dr. Monroe Amin MD with a diagnosis of s/p R HS repair 11/04, strain of fascia and tendon R thigh.. Date of Evaluation: 11/29/23 Physical Therapist: Chaim Redding, DPT, OCS, CSCS Visit Plan Frequency: 2x /Week Duration: 3 Months Plan: 1-2x/week for 8-12 weeks as needed for(very care ful with HS stretching per protocol in folder. no hip flexion past 30 LSR until 12/02 and slow progression nnot past 90 until 12/18/23. No HS stretching until 12/18/23 and DO not push through pain /pinching. No HS resistance or isometrics until 12/18/23 Please do ice, scar massage, Manual therapy long axis traction, circumduction, PROM in pinch free zones and progression of exercises per protocol, STM/sollout to HS, gastroc, glut May start SLR to 30, clamshells with hip flexed below 45 next session, Then hip abduction, prone quad strength and core strength, SLS. Subjective Subjective: R HS repair and cleaned out, bursectomy. had L one done 08/03/23. Using cane to get around outside. Pain 3/10 with walking and 0 lying down, sitting 1/10 and mostly lateral hip. HEP: none. Sleep is no problem. L HS stretching is happening and it is holding up well. Wants to walk normal, mow grass and walk blocks. Hobbies: yard work, golf, camper. Has TM at home and bike with . Basic ADLS, dresses, shower self walk in, and basement steps and using using L leg currently. Pain R lateral hip: Pain Intensity (Out of 10): 1 Pain Intensity Range: 0 and 4 Objective Objective: Walks cane in L UE I with good R hip flexion and heel strike and toe off and knee flexion at swing. 2/10 pain while walking. transfers are I chair and table. Steps are reciprocal with one rail and one cane up and down. L hip and knee AROM WFL and no pain. 100 flexion, 40 abduction, h/o GENNA B R hip PROM to 45 flexion easily with knee bent and 30 easily knee straight, abduction to 35 easily, extension to 10. sensation LE WNL to gross light touch strength: L hip and knee 4/5 R hip flexion 4-, knee ext 4, others not tested Hard to SLS R, L is better at 10 seconds. Balance/Special Test Scores Lower Extremity Functional Score: 29 Goals Goal 1:: Pain 0-1/10 at all times and normal community based mobility Goal Time Frame: 4-6 Weeks Goal 2:: Walk without AD I Goal Time Frame: 4-6 Weeks Goal 3:: I appropriate HEP to limit future problem Goal Time Frame: 8-12 Weeks Goal 4:: return to [employer] and fitness walking without limitations Goal Time Frame: 8-12 Weeks Goal 5:: LEFS 55 Goal Time Frame: 8-12 Weeks Rehabilitation Potential Physical Therapy Diagnosis: limitations and pain s/p R HS repair 11/04 Rehabilitation Potential: Good Anticipated Interventions Patient/Client Instruction: Educate patient on: Condition For the Purpose of:: To decrease pain, To decrease swelling/inflammation, To increase ROM, To improve nutrient delivery to tissue, To improve muscle performance and motor function, To increase tolerance to activity/condition/position and To improve ability of physical actions for home/community/work/leisure Therapeutic Exercise to Include: Strength training, Balance training, Flexibilty training, Passive ROM, Active ROM and Dynamic Lumbar Stabilization For the Purpose of:: To decrease pain, To increase ROM, To improve nutrient delivery to tissue, To improve muscle performance and motor function, To increase tolerance to activity/condition/position, To improve ability of physical actions for home/community/work/leisure and To improve gait and locomotor functions Manual Therapy Techniques to Include: Scar massage, Mobilization, Passive ROM and Soft tissue mobilization For the Purpose of:: To decrease pain, To increase ROM, To improve nutrient delivery to tissue, To improve muscle performance and motor function and To increase tolerance to activity/condition/position Cryotherapy (ice pack, ice massage): Yes For the Purpose of:: To decrease pain and To decrease swelling/inflammation Text: Thank you for the opportunity to evaluate your patient. For Medicare and Medicare HMO plans, please review the plan of care and approve it. It will need to be FAXED BACK to us at [phone] for Medicare purposes. For Medicare only, by signing this I certify the plan of care. Please let me know if there are questions or concerns regarding this plan of care. Physician Signature: Date:
--- NOTE | 2024-01-31 14:57 | HP.PTREVAL ---
Re-Evaluation Intro: Dr. Monroe Amin MD, It has been my pleasure to treat JENS JENKINS over the last 11 visits for s/p R HS repair 11/04, strain of fascia and tendon R thigh.. Please see the progress note below for an update on the physical therapy plan of care! Subjective Subjective: Has anterior hip soreness B, some R posterior HS soreness intermittently but saw doctor and he is happy with his work. Gave him 6 day steroids for his soreness but they did not touch it. So he will call back tomorrow. New script for more therapy received. Objective Objective/Function: 3 degrees B hip ext AROM, 100 flexion, 20 abduction. Max tender over psoas and upper quad B LE and into ITB B. ITB mod tight. HS length R -35 and L -25 on 90/90 test without much pain. Walking is stiff and avoids hip extension B, somewhat wide SAUD and hesitant to lift into hip flexion. Plan Plan Plan: 2x/week for 4 weeks ... 1. STM rollout and stretching to B psoas, quad and ITB.\ 2. gait training for hip extension, pushoff and comfortable hip flexion 3. Work towards final HEP for hip strength in all motions including steps and lateral steps and squats and RDL, hip stabs and give pics as tolerance eimproves and pain comes down. New goal and still to work toward unmet current goals for 4 weeks until mid February and fair prognosis. Balance/Gait/Functional tests Balance/Special Test Scores Lower Extremity Functional Score: 48 Goals Goals Goal 1:: Pain 0-1/10 at all times and normal community based mobility Goal Time Frame: 4-6 Weeks Goal Progress: Progressing Goal 2:: Walk without AD I Goal Time Frame: 4-6 Weeks Goal Progress: Progressing Goal 3:: I appropriate HEP to limit future problem Goal Time Frame: 8-12 Weeks Goal 4:: return to golfing and fitness walking without limitations Goal Time Frame: 8-12 Weeks Goal 5:: LEFS 55 Goal Time Frame: 8-12 Weeks Goal Progress: Progressing Goal 6:: Anterior hip pain and lateral 100% improved an 8 degrees hip extension B active rom. Goal Time Frame: 2-4 Weeks Goal Progress: NEW GOAL Anticipated Interventions Anticipated Interventions Patient/Client Instruction: Educate patient on: Condition For the Purpose of:: To decrease pain, To decrease swelling/inflammation, To increase ROM, To improve nutrient delivery to tissue, To improve muscle performance and motor function, To increase tolerance to activity/condition/position and To improve ability of physical actions for home/community/work/leisure Therapeutic Exercise to Include: Strength training, Balance training, Flexibilty training, Passive ROM, Active ROM and Dynamic Lumbar Stabilization For the Purpose of:: To decrease pain, To increase ROM, To improve nutrient delivery to tissue, To improve muscle performance and motor function, To increase tolerance to activity/condition/position, To improve ability of physical actions for home/community/work/leisure and To improve gait and locomotor functions Manual Therapy Techniques to Include: Scar massage, Mobilization, Passive ROM and Soft tissue mobilization For the Purpose of:: To decrease pain, To increase ROM, To improve nutrient delivery to tissue, To improve muscle performance and motor function and To increase tolerance to activity/condition/position Cryotherapy (ice pack, ice massage): Yes For the Purpose of:: To decrease pain and To decrease swelling/inflammation Re-Evaluation Ending Re-evaluation ending: Please do not hesitate to contact me at [phone] by phone or if you have questions or concerns regarding this new plan of care! Sincerely, Chaim Redding, DPT, OCS, CSCS
--- NOTE | 2024-03-13 12:38 | HP.PTDCSUM ---
Discharge Summary D/C summary: It has been my pleasure to treat JENS JENKINS referred by Dr. Monroe Amin MD, with the diagnosis of s/p R HS repair 11/04, strain of fascia and tendon R thigh. for a total of 19 visit(s). Discharge Date: 03/13/24 Please see the following information for a summary of their discharge status. Subjective Subjective: Stretching heat and massage. Helps pain which is still 3-4/10 on r and 1-2 on L constant when up and about. been stretching at home and strengthening at home as much as he cn. Has not seen doctor in 6 weeks. Doing about the same as 6 weeks ago. Sleeping is fine. Activities avoiding includes going for walks and steps as much as possible. Working outdoors is avoided, these things make him worse. Pain R lateral hip: Pain Intensity (Out of 10): 2 L hip: Pain Intensity (Out of 10): 1 Overall Improvement % Improvement: 50 Objective Objective/Function: LB aROM extension max limited and seems to bring on R leg pain that is familiar, SB are min limited and painfree. flexion is not an issue. Hip PROM WFL and without much pain, symmetrical. strength in LE is functional. pain is 4/10 R back of leg and 2/10 L. Walks stiff but I and steps I with either leg. Hip extension is 10 degree PROM B and bale to lift with 4- strength in hip ext B without increased pain. Goals Goal 1:: Pain 0-1/10 at all times and normal community based mobility Goal Progress: Progressing Goal 2:: Walk without AD I Goal Progress: Progressing Goal 3:: I appropriate HEP to limit future problem Goal 4:: return to golfing and fitness walking without limitations Goal Progress: Not Progressing Goal 5:: LEFS 55 Goal Progress: Progressing Goal 6:: Anterior hip pain and lateral 100% improved an 8 degrees hip extension B active rom. Goal Progress: Not Progressing Plan Plan: d/c lack of improvement. Recommend return to doctor as his pain, which is his big issue is immediate with walking, relieved with sitting and not improving with current therapy. Has history of back treatment recommendations and this should be investigated. D/C Information Discharge Comments: Pt to return to doctor this week due to lack of improvement despite therapy. d/c sentence: If there are questions or concerns regarding this patient's physical therapy, please feel free to call me at [phone]. Thank you for the referral of this patient. Sincerely, Chaim Redding, DPT, OCS, CSCS Balance/Gait/Functional tests Balance/Special Test Scores Lower Extremity Functional Score: 48 Improvement % Improvement: 50
== END 2024-03-13 12:49 | disposition home or self-care (01) ==
LOC: PT 10:30
PROVIDERS: PCP Family Medicine; Referring Provider Orthopaedic Surgery Sports Medicine; Visit Provider Orthopaedic Surgery Sports Medicine
DX: Z98.890 Other specified postprocedural states (principal); S76.211D Strain of adductor muscle, fascia and tendon of right thigh, subsequent encounter
CPT/HCPCS: 97014; 97110; 97140; 97161; 97164; G0283

== ENCOUNTER → 2024-04-19 | Outpatient (CLI) | payer MEDICARE, OTHER, SELFPAY ==
[2024-04-19 12:45] LABS: Absolute Lymphocyte Count 1.14 X10^3/uL (0.83-4.51); Absolute Neutrophil Count 4.6 X10^3/uL (2.0-7.7); Basophil# 0.03 X10^3/uL; Basophil% 0.5 % (0-1); Eosinophils% 3.1 % (0-5); Hematocrit 44.7 % (40-54); Lymphocyte # 1.14 X10^3/ul (0.83-4.51); Lymphocyte % 17.5 % (19-41); Mean Corp Hgb Conc 31.3 g/dL (32-36); Mean Corpuscular Volume 95.7 fL (80-94); Mean Platelet Vol. 10.7 fl (6.2-12.0); Monocyte# 0.58 X10^3/uL; Monocyte% 8.9 % (0-10); NRBC Flagged by Analyzer 0 % (0-5); Neutrophil # 4.55 X10^3/uL (2.7-7.7); Neutrophil % 69.7 % (47-70); Platelet Count 184 K/mm3 (150-450); RBC Distribution Width CV 13.9 % (11.6-14.6); RBC Distribution Width SD 48.7 fl (35.1-43.9); Red Blood Count 4.67 M/mm3 (4.6-6.2); White Blood Count 6.5 K/mm3 (4.4-11.0)
[2024-04-19 13:00] LABS: ALB/GLOB Ratio 1.4 RATIO (0.9-2.4); AST(SGOT) 22 U/L (15-37); Alanine Aminotransfer ALT/SGPT 42 U/L (16-61); Albumin, Serum 4.2 g/dL (3.2-5.0); Alkaline Phosphatase 56 U/L (45-117); Anion Gap 7 (5-15); BUN 21 mg/dL (7-18); BUN/Creat Ratio 20.6 RATIO (10-20); Calcium,Total 9.5 mg/dL (8.5-10.1); Chloride 106 mmol/L (98-107); Cholesterol 176 mg/dL (200); Creatinine, Serum 1.02 mg/dL (0.70-1.30); EST Glomerular Filtration Rate 76 mL/min (>60); Est Glom Filt Rate - Afr Amer 93 mL/min (>60); Globulin 2.9 g/dL (2.2-4.2); Glucose 166 mg/dL (74-106); High Density Lipoprotein 37 mg/dL; PSA,Total - Annual Screen 3.93 ng/mL (0.00-4.00); Potassium 4.2 mmol/L (3.5-5.1); Protein, Total 7.1 g/dL (6.4-8.2); Sodium Level 138 mmol/L (136-145); Triglycerides 215 mg/dL; Very Low Density Lipoprotein 43 mg/dL (5-40)
[2024-04-19 13:29] LABS: Vitamin B12 927 pg/mL (211-911); Vitamin D,25 Hydroxy 70.6 ng/mL
== END | disposition home or self-care (01) ==
LOC: BFHLAB 09:00
PROVIDERS: PCP Family Medicine; Referring Provider Family Medicine; Visit Provider Family Medicine
DX: Z12.5 Encounter for screening for malignant neoplasm of prostate (principal); E11.9 Type 2 diabetes mellitus without complications; I10 Essential (primary) hypertension; E78.5 Hyperlipidemia, unspecified; E55.9 Vitamin D deficiency, unspecified; N40.0 Benign prostatic hyperplasia without lower urinary tract symptoms
CPT/HCPCS: 36415; 80053; 80061; 82306; 82607; 84153; 85025; G0103

== ENCOUNTER 2024-05-12 12:00 | Outpatient (RCR) | payer MEDICARE, OTHER, SELFPAY ==
--- NOTE | 2024-04-04 08:51 | HP.PTEVAL_ITS ---
Patient's Visit Information Visit Information Visit Information: JENS JENKINS is a 73 year old M referred to Physical Therapy by Dr. Monroe Amin MD with a diagnosis of R posterior leg muscle strain. Date of Evaluation: 03/31/24 Physical Therapist: Lit Dye DPT Visit Plan Frequency: 2x /Week Duration: 6 Weeks Plan: Aquatic therapy 1) work on general motion and mobility, progressing light stretching of BLEs and lumbar spine. 2) progress BLE and core strengthening. 3) consider deep water traction for lumbar spine if helpful progress. Pt. has higher levels of pain, progress slowly. Subjective Subjective: Pt. is here today for his initial evaluation with diagnosis of R muscle strain of tendon of posterior muscle group of leg. History of R endoscopic HS repair and debridement of calcific tendinitis. Pt. reports having the same surgery on the L leg in Jul and R in Oct 2023. Pt. is still having increased pain down both legs R worse than L. Increased pain: standing, walking, stairs, most movements. Decreases pain: sitting and lying, heat. 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 Pt. reports having increased pain since retiring. He has 5/10 pain in R leg today and 4/10 pain in L leg. He also has some back pain 4/10 as well. His R leg pain does extend to mid calf, frequently. Pt. reports both legs do feel week, but no sudden buckling of his LEs. No N/T noted. He reports difficulty with walking and most mobility. He is to have US on BLEs and a CAT scan on his lumbar spine with in the next few weeks. Pt. is hopeful to reduce symptoms in order to get back to all recreational activities without limitations. Pain R HS: Pain Intensity (Out of 10): 5 Pain Intensity Range: 2 and 8 L HS: Pain Intensity (Out of 10): 4 Pain Intensity Range: 2 and 8 Lumbar spine: Pain Intensity (Out of 10): 4 Pain Intensity Range: 2 and 8 Objective Objective: POSTURE: Pt. has fairly rigid posture in stance. Normal SAUD noted. PALPATION: Pt. has increased tenderness along proximal HS bilaterally R worse than L. Pt. has pain in muscle belly as well, bilaterally. Not much pain with palpation of lumbar spine. Hypomobility noted with spring testing throughout lumbar spine. NEURO: normal sensation and normal DTR of BLEs. Pt. is able to rise on heels and toes without issues. ROM: LUMBAR SPINE: flexion mod loss increase NW throughout HS bilaterally, ext mod/max loss increase NW, SB mod loss bilat increase NW on opposite side, rotation mod loss bilat increase NW bilaterally. HS length in 90/90: R 45deg increase NW, L 51deg increase NW (not as bad as R side). MMT: RLE: ankle and knee 5/5 throughout without increase in symptoms; hip: flexion 21# NE, abd 14# NE. LLE: ankle and knee 5/5 throughout no pain; hip: flexion 24#, abd 15#. Core strength: poor. GAIT: Pt. ambulates with decreased step length bilaterally. Pt. has a very rigid posture, with minimal arm swing. Special Tests L/S Slump test left side: Negative L/S Slump test right side: Positive L/S Left Straight Leg Raise: Negative L/S Right Straight Leg Raise: Positive Balance/Special Test Scores Lower Extremity Functional Score: 28 Goals Goal 1:: LTG: Pt. to be I with HEP. Goal Time Frame: 4-6 Weeks Goal 2:: STG: pt. to be able to walk 500+ with 0-2/10 pain in BLEs and lumbar spine. Goal Time Frame: 2-4 Weeks Goal 3:: LTG: Pt. to have decreased BLE to 0-2/10 with all activities. Goal Time Frame: 6-8 Weeks Goal 4:: LTG: Pt. to have increased lumbar ROM to min loss throughout and B HS length to at least 65deg in 90/90 positioning allowing for better pelvic positioning and tolerance with all activities. Goal Time Frame: 6-8 Weeks Goal 5:: LTG: Pt. have increased BLE and core strength by 5# throughout. Goal Time Frame: 4-6 Weeks Rehabilitation Potential Physical Therapy Diagnosis: Pt. has signs and symptoms consistent with R hamstring strain. I could not fully rule out radiculopathy as his pain did extend beyond his knee. He is having some imaging done soon on both HS and lumbar spine. I would like to work on progressive ROM and light strengthening to get back to previously levels of activities. Rehabilitation Potential: Good Anticipated Interventions Patient/Client Instruction: Educate patient on: Condition, Plan of Care, Risk Factors and Benefits of Fitness Program For the Purpose of:: To facilitate caregiver knowledge, To improve self management, To prevent re-injury, To improve ability to perform tasks related to life management and To improve tolerance to ADL's Therapeutic Exercise to Include: Strength training, Power training, Endurance training, Postural training, Flexibilty training, In an aquatic setting, Passive ROM and Active ROM For the Purpose of:: To decrease pain, To increase ROM, To improve nutrient delivery to tissue, To increase oxygenation perfusion, To improve muscle performance and motor function, To improve ability to perform ADL's, To improve health of tissue, To decrease soft tissue restriction and To increase flexibility/ROM Text: Thank you for the opportunity to evaluate your patient. For Medicare and Medicare HMO plans, please review the plan of care and approve it. It will need to be FAXED BACK to us at [phone] for Medicare purposes. For Medicare only, by signing this I certify the plan of care. Please let me know if there are questions or concerns regarding this plan of care. Physician Signature: Date:
== END 2024-05-12 19:00 | disposition home or self-care (01) ==
LOC: PT 12:00
PROVIDERS: PCP Family Medicine; Referring Provider Orthopaedic Surgery Sports Medicine; Visit Provider Orthopaedic Surgery Sports Medicine
DX: S76.312D Strain of muscle, fascia and tendon of the posterior muscle group at thigh level, left thigh, subsequent encounter (principal); S76.311D Strain of muscle, fascia and tendon of the posterior muscle group at thigh level, right thigh, subsequent encounter
CPT/HCPCS: 97110; 97113; 97161; 97530

== ENCOUNTER → 2024-05-15 | Outpatient (CLI) | payer MEDICARE, OTHER, SELFPAY ==
--- NOTE | 2024-05-15 08:38 | ECHOD_ITS ---
Reason For Study: PRE OP Procedure This was a 2D Doppler, Color Flow transthoracic echocardiogram. Exam performed in department. Left Ventricle Normal LV size. Moderate eccentric left ventricular hypertrophy. The left ventricular ejection fraction is 45 %. There is mild to moderate global hypokinesis of the left ventricle. Right Ventricle Normal RV size. ICD or pacer leads identified within the right ventricle. Normal systolic function. Atria The left atrium is moderately enlarged. Normal right atrium. Mitral Valve Normal mitral valve. Tricuspid Valve Normal tricuspid valve. Aortic Valve Trisinus/trileaflet aortic valve. Moderate focal aortic valve calcification. Peak aortic valve gradient 30 mmHg. Mean aortic valve gradient 18 mmHg. Mild aortic stenosis. Pulmonic Valve Normal pulmonic valve. Mild (1+) pulmonic valve insufficiency. Great Vessels Normal aortic root. The pulmonary artery is normal size. Normal inferior vena cava. Pericardium/Pleural No pericardial effusion. MMode/2D Measurements & Calculations LVIDd: 5.0 cm IVSd: 1.6 cm LVOT diam: 2.5 cm LVIDs: 4.4 cm LVPWd: 1.3 cm LVOT area: 4.8 cm2 RVDd: 3.7 cm FS: 11.9 % Ao root diam: 4.4 cm LAV(MOD-bp): 93.2 ml LVAd ap4: 40.8 cm2 LAV(MOD-bp) Indexed: 41.2 ml/m2 LVLd ap4: 10.2 cm LAV(MOD-sp2): 83.5 ml EDV(MOD-sp4): 139.1 ml LAV(MOD-sp4): 98.1 ml EDV(sp4-el): 139.4 ml LVAs ap4: 29.0 cm2 LVLs ap4: 9.0 cm ESV(MOD-sp4): 80.0 ml ESV(sp4-el): 78.9 ml EF(MOD-sp4): 42.5 % EF(sp4-el): 43.4 % SV(MOD-sp4): 59.1 ml SV(sp4-el): 60.5 ml LA A4 area: 28.2 cm2 LA dimension(2D): 4.9 cm RA A4 area: 17.1 cm2 TAPSE: 2.3 cm Time Measurements MV dec time: 0.16 sec Doppler Measurements & Calculations MV E max mynor: 59.2 cm/sec Lat Peak E' Mynor: 5.2 cm/sec Med Peak E' Mynor: 4.8 cm/sec MV A max mynor: 87.5 cm/sec E/E' lat: 11.4 E/E' med: 12.3 MV E/A: 0.68 MV V2 max: 83.3 cm/sec Ao V2 max: 277.7 cm/sec MV max P.8 mmHg MV dec slope: 374.1 cm/sec2 Ao max P.9 mmHg MV V2 mean: 57.5 cm/sec Ao V2 mean: 204.2 cm/sec MV mean P.4 mmHg Ao mean P.4 mmHg MV V2 VTI: 27.6 cm Ao V2 VTI: 61.1 cm AV (velocity ratio): 0.44 MVA(VTI): 4.7 cm2 DOE(I,D): 2.1 cm2 DOE(V,D): 1.9 cm2 LV V1 max: 110.3 cm/sec SV(LVOT): 129.0 ml PA V2 max: 107.8 cm/sec LV V1 max P.9 mmHg PA V2 mean: 82.0 cm/sec LV V1 mean P.8 mmHg LV V1 mean: 78.5 cm/sec LV V1 VTI: 27.1 cm ECHO/Echo Complete Interpretation Summary Normal LV size. The left ventricular ejection fraction is 45 %. Moderate eccentric left ventricular hypertrophy. Moderate focal aortic valve calcification. Mild aortic stenosis. The left atrium is moderately enlarged. Ordering Physician: Osvaldo Calvin Referring Physician: Jakub Mina Performed By: Morelia Pollock RCS
== END | disposition home or self-care (01) ==
LOC: CVS 08:32
PROVIDERS: PCP Family Medicine; Referring Provider Internal Medicine Cardiovascular Disease; Visit Provider Internal Medicine Cardiovascular Disease
DX: Z01.810 Encounter for preprocedural cardiovascular examination (principal); I50.22 Chronic systolic (congestive) heart failure; I11.0 Hypertensive heart disease with heart failure; I44.2 Atrioventricular block, complete; I47.20 Ventricular tachycardia, unspecified; I42.9 Cardiomyopathy, unspecified; E11.9 Type 2 diabetes mellitus without complications; Z95.810 Presence of automatic (implantable) cardiac defibrillator; I49.3 Ventricular premature depolarization; I35.0 Nonrheumatic aortic (valve) stenosis; I25.10 Atherosclerotic heart disease of native coronary artery without angina pectoris; E78.5 Hyperlipidemia, unspecified
CPT/HCPCS: 93306

== ENCOUNTER → 2024-05-17 | Outpatient (CLI) | payer MEDICARE, OTHER, SELFPAY ==
--- NOTE | 2024-05-17 12:24 | STRESSREP ---
Stress Test Report Pharmacologic myocardial perfusion stress test. 73-year-old man with a history of pacemaker implantation for preop evaluation Resting EKG demonstrates sinus rhythm with ventricular pacing with a rate of 61 bpm. Resting blood pressure is 122/82 mmHg. 0.4 mg of regadenoson was infused per usual protocol followed by rapid intravenous saline flush injection. Continuous EKG monitoring was performed. The maximum heart rate was 82 bpm which was 55% of max impacted heart rate the maximum workload was 1 metabolic equivalent. At rest there were no ST or T wave changes noted to suggest ischemia and at peak infusion nonspecific ST changes were noted which did not meet the criteria for ischemia. No clinical angina is noted. The final blood pressure was 128/7 mmHg. Myocardial perfusion protocol. 14.1 mCi of technetium 99m sestamibi was injected at rest. 0.4 mg of regadenoson was infused per usual protocol. At peak infusion 42.3 mCi of technetium 99m sestamibi was injected stress images were obtained stress and rest images were reconstructed and compared in the short axis vertical long and horizontal long axis. Gated images were also obtained. Perfusion SPECT analysis: Review of the stress images demonstrate normal uptake of tracer noted in all areas of the myocardium. A small apical defect is present. The resting images similar demonstrated normal uptake of tracer noted in all areas of the myocardium. A small apical defect is present. The the above is likely secondary to pacemaker activity. No areas of reversibility are noted to suggest ischemia and no previous infarct is noted. Gated SPECT analysis: The gated ejection fraction is 45%. Conclusion: Normal pharmacologic myocardial perfusion stress test. Low normal ejection fraction.
== END | disposition home or self-care (01) ==
LOC: CVS 06:14
PROVIDERS: PCP Family Medicine; Referring Provider Internal Medicine Cardiovascular Disease; Visit Provider Internal Medicine Cardiovascular Disease
DX: Z01.810 Encounter for preprocedural cardiovascular examination (principal); I50.22 Chronic systolic (congestive) heart failure; I47.20 Ventricular tachycardia, unspecified; I42.9 Cardiomyopathy, unspecified; E11.9 Type 2 diabetes mellitus without complications; Z95.810 Presence of automatic (implantable) cardiac defibrillator; E78.5 Hyperlipidemia, unspecified; I25.10 Atherosclerotic heart disease of native coronary artery without angina pectoris
CPT/HCPCS: 78452; 93017; A9500; A4216; J2785

== ENCOUNTER 2024-06-15 21:02 | Emergency (ER) | payer MEDICARE, OTHER, SELFPAY ==
[2024-06-15 21:03] VITALS: BP 152/83; PULSE 72; RESP 16; TEMP 36.1; O2SAT 95
[2024-06-15 21:05] VITALS: BMI 26.9
[2024-06-15 23:02] VITALS: BP 156/71; PULSE 64; RESP 12; TEMP 36.6; O2SAT 98
--- NOTE | 2024-06-15 23:39 | EDS_ITS ---
HPI HPI - GI History of Present Illness Chief Complaint: Constipation Informant: patient and spouse/S.O. Narrative Narrative: 73-year-old male had low back surgery about a week ago. His last bowel movement was the day before that, and ever since he has been in pain and taking oxycodone quite a bit, and has been constipated and has not had a bowel movement since his surgery. states she has been giving him Colace, she gave him some Dulcolax, and Senokot's. He is having some occasional periumbilical abdominal cramping but no severe pains, he states that the pain is about a 5/10 right now. Denies any nausea or vomiting. No history of any abdominal surgeries in the past. He denies any weakness in his legs or saddle anesthesia or problems urinating at all. They called the nurse through [facility] [place] and were told to get magnesium citrate and fleets enema, and to do half the bottle of magnesium citrate, which they did along with the enema, and if he did not have a bowel movement in an hour to repeat with the other half of the bottle and if in another hour he did not have a bowel movement to come to the ER which they did. 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 BPH (benign prostatic hyperplasia) ANAND (obstructive sleep apnea) IgG4 deficiency Dilated aortic root Abnormal cardiac enzyme level Paroxysmal ventricular tachycardia Nonrheumatic aortic (valve) stenosis Atherosclerotic heart disease of [place] coronary artery without angina pectoris Type 2 diabetes mellitus Osteoarthritis Hyperlipidemia Gout Ventricular ectopy Cardiomyopathy CHF (congestive heart failure) Hypertension Home Medications ?Medication ?Instructions ?Recorded ?Last Taken ?Type atorvastatin 20 mg tablet 20 mg PO QHS cholesterol 01/26/18 Unknown History multivitamin 1 tab PO QDAY vitamin 01/26/18 Unknown History aspirin 81 mg tablet,delayed 81 mg PO DAILY@0800 03/29/18 Unknown Rx release coenzyme Q10 100 mg capsule (Co 100 mg PO DAILY 12/07/18 Unknown History Q-10) cholecalciferol (vitamin D3) 25 1,000 unit PO DAILY 06/15/19 Unknown History mcg (1,000 unit) tablet omega-3 fatty acids 1,000 mg 1,000 mg PO DAILY 06/15/19 Unknown History capsule (Fish Oil Concentrate) tamsulosin 0.4 mg capsule 0.4 mg PO DAILY 06/15/19 Unknown History metformin 1,000 mg tablet 1,000 mg PO BIDCM diabetes 02/20/20 Unknown History turmeric 400 mg capsule 1,000 mg PO DAILY 05/24/20 Unknown History naproxen 500 mg tablet 500 mg PO 09/21/23 Unknown History carvedilol 3.125 mg tablet 3.125 mg PO BID 09/28/23 Unknown History lisinopril 10 mg tablet 10 mg PO BID bp #180 tabs 04/28/24 Unknown Rx amlodipine 5 mg tablet 5 mg PO BID #180 tabs 05/12/24 Unknown Rx trazodone 150 mg tablet 150 mg PO QHS 05/23/24 Unknown History Allergy/AdvReac Type Severity Reaction Status Date / Time metoprolol (From Toprol XL) AdvReac Unknown Unknown Verified 05/23/24 13:49 Family History Father CVA (cerebral vascular accident) Mother CAD (coronary artery disease) Brother CAD (coronary artery disease) Surgical History History of surgery on lower extremity (~08/2023) History of hip surgery Cataract extraction status of left eye History of shoulder surgery History of repair of right rotator cuff History of total hip arthroplasty Social History Smoking Status: Former smoker alcohol intake: current details: occasional ROS ROS ED Constitutional Constitutional ED: Denies chills or fever(s) Eyes Eyes: Denies change in vision or diplopia ENT ENT ED: Denies rhinorrhea or sore throat Cardiovascular Cardiovascular: Denies chest pain or palpitations Respiratory/Chest Respiratory/Chest: Denies cough or dyspnea Gastrointestinal Gastrointestinal: Reports abdominal pain and constipation; Denies diarrhea, nausea or vomiting Genitourinary Genitourinary ED: Denies dysuria or hematuria Musculoskeletal Musculoskeletal: Reports back pain; Denies neck pain Integumentary Denies abscess or rash Neurologic Neurologic: Denies headache(s), paresthesias or weakness Psychiatric Psychiatric: Denies anxiety or suicidal thoughts EXAM Physical Exam Const Vital Signs: 06/15/24 21:03 Temperature 96.9 F L Temperature Source Temporal Pulse Rate 72 Respiratory Rate 16 Blood Pressure 152/83 H Blood Pressure Mean 106 Pulse Ox 95 Oxygen Delivery Method Room Air Positive well nourished and well developed General Appearance ED: well developed and NAD HEENT Reports moist mucous membranes normocephalic and atraumatic Eyes PERRL and EOMs intact bilaterally Neck full ROM and supple Resp normal respiratory effort and clear to auscultation bilaterally Cardio regular rate, regular rhythm and no murmurs GI non-tender and non-distended GI Narrative: On rectal exam no tenderness, no palpable hard stool. No blood. Auscultation: hyperactive bowel sounds Palpation: soft Back/Spine no CVA tenderness Back/Spine Narrative: Limited range of motion due to recent surgery and restrictions. Dressing over surgical incision clean dry intact without signs of any drainage Extremity normal to inspection General Extremety ED: Negative for edema, pulses abnormal or tenderness General Extremity: Negative for edema or pulses abnormal Neuro oriented x3, CN's II-XII intact bilaterally and no sensory deficits noted Sensorium / Orientation: awake and alert Motor Exam: strength 5/5 throughout Skin no rashes or lesions noted and no wounds MDM MDM MDM Narrative Medical decision making narrative: Reassured patient and family, it takes 12-24 hours for magnesium citrate to work usually as long as you are drinking plenty of fluids. I offered a rectal exam which did not result in palpable obstipation that I could sweep around, so then we did a soapsuds enema which she was amenable to, and this resulted in a large bowel movement, he felt much better afterwards pain resolved, and given this I do not think we need to perform any test. As I discussed with him, this is not consistent with a bowel obstruction, just constipation which is not dangerous just uncomfortable, and in the near future I advise trying to curb his oxycodone use, and to take MiraLAX every day along with the Colace along with drinking plenty of fluids to stay hydrated. Discharge Plan Triage Chief Complaint: Constipation ED Provider: Uzair Hernandez Dx/Rx/DC Orders Clinical Impression: Constipation due to opioid therapy Instructions: ED Constipation (Adult) Prescriptions: No Action atorvastatin 20 mg tablet 20 mg PO QHS multivitamin tablet 1 tab PO QDAY coenzyme Q10 [Co Q-10] 100 mg capsule 100 mg PO DAILY turmeric 400 mg capsule 1,000 mg PO DAILY omega-3 fatty acids [Fish Oil Concentrate] 1,000 mg capsule 1,000 mg PO DAILY cholecalciferol (vitamin D3) 1,000 unit tablet 1,000 unit PO DAILY tamsulosin 0.4 mg capsule 0.4 mg PO DAILY naproxen 500 mg tablet 500 mg PO Patient Comments: TAKE 1 TABLET BY MOUTH EVERY DAY trazodone 150 mg tablet 150 mg PO QHS aspirin 81 MG tablet 81 mg PO DAILY@0800 0RF metformin 1,000 mg tablet 1,000 mg PO BIDCM Patient Comments: BLOOD SUGAR carvedilol 3.125 mg tablet 3.125 mg PO BID lisinopril 10 mg tablet 10 mg PO BID Qty: 180 3RF amlodipine 5 mg tablet 5 mg PO BID Qty: 180 3RF Primary Care Provider: Jaswinder Maher Referrals: Jaswinder Maher, DO [Primary Care Provider] - As Needed Activity Restrictions/Additional Instructions: Going forward, take the least amount of oxycodone needed as the more you take the more constipated you will be. Take Colace 100 mg caplets twice daily in addition to 1 capful of MiraLAX once daily, and any fiber supplements you wish to take. Drink plenty of fluid throughout the day with all of this to hopefully keep things flowing. With the magnesium citrate that you took, expect to have diarrhea for the next day or so, and just make sure you are staying hydrated. Print Language: Macedonian Disposition Disposition: Home, Self Care
== END 2024-06-16 00:12 | disposition home or self-care (01) ==
LOC: ED 23:51
PROVIDERS: Emergency Provider Emergency Medicine; PCP Family Medicine; Visit Provider Emergency Medicine
DX: K59.03 Drug induced constipation (principal); E11.9 Type 2 diabetes mellitus without complications; Z87.891 Personal history of nicotine dependence; I25.10 Atherosclerotic heart disease of native coronary artery without angina pectoris; T40.2X5A Adverse effect of other opioids, initial encounter; I10 Essential (primary) hypertension; Z95.0 Presence of cardiac pacemaker; G47.33 Obstructive sleep apnea (adult) (pediatric)
CPT/HCPCS: 99284

== ENCOUNTER → 2024-07-12 | Outpatient (CLI) | payer MEDICARE, OTHER, SELFPAY ==
--- NOTE | 2024-07-12 16:09 | CT_ITS ---
INDICATION: SPONDYLOITHESIS EXAMINATION: CT LUMBAR SPINE - CT Spine Lumbar WO/W Contrast Injection TECHNIQUE: Helically acquired images were obtained of the lumbar spine. 2D reformats were reviewed. A radiation dose optimization technique was used for this scan. The protocol utilizes one or more of the following dose reduction techniques: automated exposure control, adjustment of mA and/or kV according to patient size,and/or use of iterative reconstruction technique. IV Contrast dosage and agent: 100 cc Isovue-370. RADIATION DOSAGE (If Supplied By Facility): CTDIvol = ( 24.18 ) mGy, DLP = ( 2081.71 ) mGycm COMPARISON: FINDINGS: VERTEBRAE: Mild wedge compression of L3 with a slightly depressed superior endplate. No discrete lytic or blastic abnormality observed. Minimal retrolisthesis at L2-3.. Posterior surgical fusion of L3-L5. Facet hypertrophy at L5-S1. DISCS and SPINAL CANAL: Disc height is narrow with vacuum phenomenon at L2-3. Annual bulge at L2-3. Mild annular bulge at L3-4 and L4-5. There is a left paramedian disc protrusion at L5-S1. There is a 3.7 x 1.1 cm posterior subcutaneous collection extending from L4 to L5 . This may be a seroma or abscess. CT/Spine Lumbar W/WO Contrast IMPRESSION: Mild wedge compression of L3 with a slightly depressed superior endplate. Minimal retrolisthesis at L2-3.. Posterior surgical fusion of L3-L5. Facet hypertrophy at L5-S1. Disc height is narrow with vacuum phenomenon at L2-3. Annual bulge at L2-3. Mild annular bulge at L3-4 and L4-5. There is a left paramedian disc protrusion at L5-S1. There is a 3.7 x 1.1 cm posterior subcutaneous collection extending from L4 to L5 . This may be a seroma or abscess. Electronically Signed: Kervin Veliz DO at 17:24 EDT Reading Location ID and State: [facility] / [place] Tel [phone], Service support ,
[2024-07-12 16:57] LABS: CREATININE FINGERSTICK < 1.0 mg/dL (0.70-1.30); EGFR FINGERSTICK > 60.0000 mL/min (>60)
== END | disposition home or self-care (01) ==
LOC: CT 16:08
PROVIDERS: PCP Family Medicine; Referring Provider Nurse Practitioner; Visit Provider Nurse Practitioner
DX: M43.16 Spondylolisthesis, lumbar region (principal)
CPT/HCPCS: 72133; Q9967

== ENCOUNTER → 2024-08-02 | Outpatient (CLI) | payer MEDICARE, OTHER, SELFPAY ==
[2024-08-02 15:05] LABS: Absolute Lymphocyte Count 0.64 X10^3/uL (0.83-4.51); Absolute Neutrophil Count 10.2 X10^3/uL (2.0-7.7); Basophil# 0.01 X10^3/uL; Basophil% 0.1 % (0-1); Hemoglobin 13.2 g/dL (13.0-16.5); Lymphocyte # 0.64 X10^3/ul (0.83-4.51); Lymphocyte % 5.5 % (19-41); Mean Corp Hgb Conc 32.2 g/dL (32-36); Mean Corpuscular Hgb 29.9 pg (27.0-32.0); Mean Platelet Vol. 10.7 fl (6.2-12.0); Monocyte# 0.79 X10^3/uL; Monocyte% 6.8 % (0-10); NRBC Flagged by Analyzer 0 % (0-5); Neutrophil # 10.17 X10^3/uL (2.7-7.7); Neutrophil % 87.3 % (47-70); Platelet Count 210 K/mm3 (150-450); RBC Distribution Width CV 14.2 % (11.6-14.6); RBC Distribution Width SD 48.3 fl (35.1-43.9); Red Blood Count 4.41 M/mm3 (4.6-6.2); White Blood Count 11.7 K/mm3 (4.4-11.0)
[2024-08-02 15:52] LABS: ALB/GLOB Ratio 1.3 RATIO (0.9-2.4); AST(SGOT) 20 U/L (15-37); Alanine Aminotransfer ALT/SGPT 40 U/L (16-61); Albumin, Serum 4.1 g/dL (3.2-5.0); Alkaline Phosphatase 90 U/L (45-117); Anion Gap 10 (5-15); BUN 26 mg/dL (7-18); Calcium,Total 10.3 mg/dL (8.5-10.1); Chloride 107 mmol/L (98-107); Creatinine, Serum 0.84 mg/dL (0.70-1.30); EST Glomerular Filtration Rate 96 mL/min (>60); Est Glom Filt Rate - Afr Amer 116 mL/min (>60); Globulin 3.1 g/dL (2.2-4.2); Glucose 131 mg/dL (74-106); Potassium 4.3 mmol/L (3.5-5.1); Protein, Total 7.2 g/dL (6.4-8.2); Sodium Level 139 mmol/L (136-145)
[2024-08-02 16:13] LABS: Hemoglobin A1c 6.3 % (3.8-5.6)
[2024-08-03 08:49] LABS: PTHIN 38.6 pg/mL (18.4-80.1)
== END | disposition home or self-care (01) ==
LOC: MTLAB 11:38
PROVIDERS: PCP Family Medicine; Referring Provider Family Medicine; Visit Provider Family Medicine
DX: R53.83 Other fatigue (principal); E11.9 Type 2 diabetes mellitus without complications
CPT/HCPCS: 36415; 80053; 83036; 83970; 84443; 85025

== ENCOUNTER → 2024-08-04 | Outpatient (CLI) | payer MEDICARE, OTHER, SELFPAY ==
--- NOTE | 2024-08-04 14:21 | BD_ITS ---
STUDY: DUAL ENERGY X-RAY ABSORPTIOMETRY / DXA REASON FOR EXAM: Male, 73 years old. 733.00OsteoporosisBONE DENSITY REASON FOR EXAM -- SPONDYLOLISTHESIS OF LUMBAR REGION TECHNIQUE: Bone Mineral Density (BMD) measurements of both for were obtained. COMPARISON: None. FINDINGS: Right Forearm: g/cm2 (0.675) / T-score (-0.2) / Z-score (1.1) Left Forearm: g/cm2 (0.676) / T-score (-0.2) / Z-score (1.1) BD/Dexa Bone Density/Append Skel IMPRESSION: The patient is considered normal as outlined below according to World [employer] Organization (WHO) criteria with a low fracture risk. Reference Information: The T-score is the number of standard deviations above or below the standard which is normal for young adults at their peak bone mineral density. The World Health Organization (WHO) interprets the T-scores as follows: Above -1 Normal bone density Between -1 and -2.5 Osteopenia Equal to / or below -2.5 Osteoporosis As a practical clinical guideline, osteopenia may be graded as follows: Mild -1 through -1.5 Moderate -1.6 through -2.0 Severe -2.1 through -2.4 The Z-score is the number of standard deviations above or below age-matched controls. A Z-score of less than -1.5 would be considered abnormal. References: 1. NIH Osteoporosis and Related Bone Diseases www osteo.org 2. International Society for Clinical Densitometry www iscd.org 3. National Osteoporosis Foundation www nof.org Electronically Signed: Lazarus Smith MD at 10:31 EDT ,
[2024-08-04 17:57] LABS: Vitamin D,25 Hydroxy 67.1 ng/mL
[2024-08-11 13:08] LABS: Vitamin D 1,25-Dihydroxy 71.6 pg/mL (24.8-81.5)
== END | disposition home or self-care (01) ==
PROVIDERS: PCP Family Medicine; Referring Provider Orthopaedic Surgery; Visit Provider Orthopaedic Surgery
DX: S32.030A Wedge compression fracture of third lumbar vertebra, initial encounter for closed fracture (principal); E83.52 Hypercalcemia; M43.16 Spondylolisthesis, lumbar region
CPT/HCPCS: 36415; 77081; 82306; 82652

== ENCOUNTER 2024-09-23 20:21 | Emergency (ER) | payer OTHER, MEDICARE, SELFPAY ==
[2024-09-23 20:22] VITALS: BP 137/93; PULSE 94; RESP 21; TEMP 36.6; O2SAT 97; BMI 24.8
[2024-09-23 20:28] VITALS: O2SAT 94
[2024-09-23] MEDS: Ondansetron 4 MG/2 ML Vial IV (20:41)
[2024-09-23] MEDS: Morphine 4 MG/ML Syringe IV ×2 (20:42→22:10)
[2024-09-23 20:54] LABS: Absolute Lymphocyte Count 0.83 X10^3/uL (0.83-4.51); Basophil# 0.04 X10^3/uL; Basophil% 0.5 % (0-1); Eosinophil# 0.15 X10^3/uL; Eosinophils% 1.7 % (0-5); Hematocrit 38.7 % (40-54); Hemoglobin 12.9 g/dL (13.0-16.5); Lymphocyte # 0.83 X10^3/ul (0.83-4.51); Lymphocyte % 9.5 % (19-41); Mean Corp Hgb Conc 33.3 g/dL (32-36); Mean Corpuscular Hgb 31.3 pg (27.0-32.0); Mean Corpuscular Volume 93.9 fL (80-94); Mean Platelet Vol. 10.7 fl (6.2-12.0); Monocyte# 0.65 X10^3/uL; Monocyte% 7.4 % (0-10); NRBC Flagged by Analyzer 0 % (0-5); Neutrophil # 6.99 X10^3/uL (2.7-7.7); Neutrophil % 79.8 % (47-70); POSITIVE COUNT YES; RBC Distribution Width CV 15.3 % (11.6-14.6); RBC Distribution Width SD 52.7 fl (35.1-43.9); Red Blood Count 4.12 M/mm3 (4.6-6.2); White Blood Count 8.8 K/mm3 (4.4-11.0)
[2024-09-23 21:06] LABS: Prothrombin Time (Protime)PT. 13.2 SECONDS (11.7-14.9)
[2024-09-23 21:09] LABS: Mucous, Urine 0 SEEN /hpf (<or=2+); Squamous Epithelial Cells - UA 0 SEEN /hpf (0-5); White Blood Cells 0 SEEN /hpf (0-5)
[2024-09-23 21:14] LABS: Color, Urine Straw (Yellow); Glucose, Dipstick Normal (Normal); Ketone-Dipstick Negative (Negative); Leukocyte Esterase-Dipstick Negative /ul (Negative); Nitrite-Dipstick Negative (Negative); Occult Blood-Urine 25 /ul (Negative); Protein-Dipstick 30 mg/dl (Negative); Urine Bilirubin Dipstick Negative (Negative); Urine Clarity Clear (Clear); Urine Urobilinogen Normal (Normal)
[2024-09-23 21:18] LABS: AST(SGOT) 46 U/L (15-37); Alanine Aminotransfer ALT/SGPT 63 U/L (16-61); Albumin, Serum 3.6 g/dL (3.2-5.0); Alkaline Phosphatase 69 U/L (45-117); Anion Gap 5 (5-15); BUN 24 mg/dL (7-18); BUN/Creat Ratio 32.3 RATIO (10-20); Bilirubin, Direct 0.16 mg/dL (0.00-0.30); Calcium,Total 8.8 mg/dL (8.5-10.1); Chloride 109 mmol/L (98-107); Creatinine, Serum 0.74 mg/dL (0.70-1.30); EST Glomerular Filtration Rate 110 mL/min (>60); Est Glom Filt Rate - Afr Amer 133 mL/min (>60); Estimated Creatinine Clearance 101.22 ml/min; Globulin 2.9 g/dL (2.2-4.2); Glucose 186 mg/dL (74-106); Potassium 4.1 mmol/L (3.5-5.1); Protein, Total 6.5 g/dL (6.4-8.2); Sodium Level 140 mmol/L (136-145)
[2024-09-23 21:21] VITALS: BP 146/99; PULSE 83; RESP 14; O2SAT 98
[2024-09-23 21:24] LABS: Differential Indicated SCAN CRITERIA MET
[2024-09-23 21:26] LABS: Anisocytosis 2+; Differential Comment SCANNED; Partial Thromboplast Time < 24.0 Seconds (24.1-36.2)
[2024-09-23 21:27] LABS: Platelet Estimate ADEQUATE (ADEQ)
[2024-09-23 21:44] LABS: Bacteria RARE /hpf (None Seen); Hyaline Cast 0-5 SEEN /lpf (0-5); Red Blood Cells-Urine 10-25 SEEN /hpf (0-5)
[2024-09-23 22:00] VITALS: BP 121/68; PULSE 87; RESP 20; O2SAT 96
[2024-09-23 23:00] VITALS: BP 110/70; PULSE 81; RESP 12; O2SAT 96
[2024-09-24] VITALS: BP 118/77; PULSE 79; RESP 17; O2SAT 96
[2024-09-24 01:00] VITALS: BP 108/68; PULSE 86; RESP 18; O2SAT 95
[2024-09-24 01:09] VITALS: BP 108/68; PULSE 84; RESP 20; TEMP 37.2; O2SAT 95
[2024-09-24] MEDS: Morphine 4 MG/ML Syringe IV (01:42)
== END 2024-09-24 01:59 | disposition other institution (70) ==
PROVIDERS: Emergency Provider Emergency Medicine; PCP Family Medicine; Visit Provider Emergency Medicine
DX: S32.049A Unspecified fracture of fourth lumbar vertebra, initial encounter for closed fracture (principal); Z93.0 Tracheostomy status; S32.059A Unspecified fracture of fifth lumbar vertebra, initial encounter for closed fracture; I11.0 Hypertensive heart disease with heart failure; I50.9 Heart failure, unspecified; I42.9 Cardiomyopathy, unspecified; E11.9 Type 2 diabetes mellitus without complications; S36.892A Contusion of other intra-abdominal organs, initial encounter; I25.10 Atherosclerotic heart disease of native coronary artery without angina pectoris; G47.33 Obstructive sleep apnea (adult) (pediatric); Z95.0 Presence of cardiac pacemaker; V89.2XXA Person injured in unspecified motor-vehicle accident, traffic, initial encounter; Z87.891 Personal history of nicotine dependence
CPT/HCPCS: 70450; 71260; 72125; 73552; 73560; 74177; 80048; 80076; 81001; 85025; 85610; 85730; 93005; 96374; 96375; 96376; 99285; Q9967; A4216; J2405

== ENCOUNTER 2024-09-28 22:00 | Inpatient (IN) | payer MEDICARE, OTHER, SELFPAY ==
[2024-09-28 23:24] VITALS: BP 161/84; PULSE 79; RESP 18; TEMP 36.7; O2SAT 95
[2024-09-28 23:34] VITALS: BMI 25.4
[2024-09-29 00:18] LABS: Bedside Glucose 148 mg/dL (74-106)
[2024-09-29] MEDS: Carvedilol 3.125 MG TABLET PO ×3 (00:48→21:14)
[2024-09-29] MEDS: Enoxaparin 30 MG/0.3 ML Syringe SC ×3 (00:49→21:14)
[2024-09-29] MEDS: traZODone 50 MG Tablet 150 MG PO ×2 (00:49→21:14)
[2024-09-29] MEDS: oxyCODONE 5 MG Tablet PO ×3 (00:50→21:11)
[2024-09-29] MEDS: Acetaminophen 325 MG Tablet 975 MG PO ×2 (00:50→06:30)
[2024-09-29] MEDS: Gabapentin 100 MG Capsule PO ×3 (00:50→21:15)
[2024-09-29] MEDS: Lisinopril 10 MG Tablet PO ×3 (00:55→21:15)
[2024-09-29] MEDS: Senna/Docusate Sodium 1 Tablet 2 TABLET PO ×3 (00:55→21:15)
[2024-09-29 06:00] VITALS: BP 114/66; PULSE 71; RESP 16; TEMP 36.1; O2SAT 99
[2024-09-29 06:42] LABS: Bedside Glucose 189 mg/dL (74-106)
[2024-09-29 07:50] LABS: Hematocrit 26.8 % (40-54); Hemoglobin 8.5 g/dL (13.0-16.5); Mean Corp Hgb Conc 31.7 g/dL (32-36); Mean Corpuscular Hgb 30.7 pg (27.0-32.0); Mean Corpuscular Volume 96.8 fL (80-94); Mean Platelet Vol. 9.7 fl (6.2-12.0); Platelet Count 210 K/mm3 (150-450); RBC Distribution Width CV 15.3 % (11.6-14.6); Red Blood Count 2.77 M/mm3 (4.6-6.2); White Blood Count 6.9 K/mm3 (4.4-11.0)
[2024-09-29] MEDS: Allopurinol 100 MG Tablet PO (07:51)
[2024-09-29] MEDS: glipiZIDE XL 5 MG Tablet PO (07:51)
[2024-09-29] MEDS: Aspirin E.C. 81 MG Tablet PO (07:51)
[2024-09-29] MEDS: metFORMIN HCl 1,000 MG Tablet 1000 MG PO ×2 (07:51→17:08)
[2024-09-29] MEDS: amLODIPine 5 MG Tablet PO (07:51)
[2024-09-29] MEDS: Cholecalciferol (VIT D3) 25 MCG TABLET (1,000 UNITS) PO (07:51)
[2024-09-29] MEDS: Tamsulosin HCl 0.4 MG Capsule PO ×2 (07:51→11:03)
[2024-09-29 08:11] LABS: ALB/GLOB Ratio 1.1 RATIO (0.9-2.4); AST(SGOT) 18 U/L (15-37); Alanine Aminotransfer ALT/SGPT 35 U/L (16-61); Albumin, Serum 3.1 g/dL (3.2-5.0); Alkaline Phosphatase 61 U/L (45-117); Anion Gap 4 (5-15); BUN 22 mg/dL (7-18); Calcium,Total 9.2 mg/dL (8.5-10.1); Chloride 107 mmol/L (98-107); Creatinine, Serum 0.79 mg/dL (0.70-1.30); EST Glomerular Filtration Rate 103 mL/min (>60); Est Glom Filt Rate - Afr Amer 125 mL/min (>60); Globulin 2.9 g/dL (2.2-4.2); Glucose 176 mg/dL (74-106); Magnesium 1.9 mg/dL (1.6-2.6); Phosphorus 3.6 mg/dL (2.5-4.9); Potassium 4.3 mmol/L (3.5-5.1); Sodium Level 141 mmol/L (136-145); Uric Acid 5.8 mg/dL (3.5-7.2)
[2024-09-29] MEDS: Magnesium Hydroxide 30 ML UDC PO (09:36)
[2024-09-29] MEDS: Polyethylene Glycol 3350 17 GM PACKET PO (09:36)
[2024-09-29 10:36] LABS: LDH 264 U/L (87-241)
[2024-09-29] MEDS: Acetaminophen 500 MG Tablet 1000 MG PO ×2 (11:03→14:25)
[2024-09-29 11:49] LABS: Bedside Glucose 127 mg/dL (74-106)
[2024-09-29] MEDS: Arthritis Pain Compound 60 CLICK TUBE TOPICAL (14:26)
[2024-09-29 17:18] VITALS: BP 127/67; PULSE 84; RESP 16; TEMP 36.3; O2SAT 99
[2024-09-29 17:28] LABS: Bedside Glucose 103 mg/dL (74-106)
[2024-09-29] MEDS: Atorvastatin Calcium 20 MG Tablet PO (21:15)
[2024-09-29 21:38] LABS: Bedside Glucose 126 mg/dL (74-106)
[2024-09-30] MEDS: oxyCODONE 5 MG Tablet PO ×5 (01:35→19:50)
[2024-09-30 06:00] VITALS: BP 118/64; PULSE 69; RESP 16; TEMP 36.4; O2SAT 94
[2024-09-30] MEDS: Acetaminophen 500 MG Tablet 1000 MG PO ×3 (06:19→21:34)
[2024-09-30] MEDS: Arthritis Pain Compound 60 CLICK TUBE TOPICAL ×3 (06:21→21:36)
[2024-09-30 06:41] LABS: Bedside Glucose 101 mg/dL (74-106)
[2024-09-30] MEDS: Magnesium Hydroxide 30 ML UDC PO (07:51)
[2024-09-30] MEDS: Aspirin E.C. 81 MG Tablet PO (07:51)
[2024-09-30] MEDS: metFORMIN HCl 1,000 MG Tablet 1000 MG PO ×2 (07:52→17:16)
[2024-09-30] MEDS: glipiZIDE XL 5 MG Tablet PO (07:53)
[2024-09-30] MEDS: FLU VACCINE **HIGH DOSE** TV 24-25 180 MCG/0.5 ML SYRINGE IM (10:11)
[2024-09-30] MEDS: Bisacodyl 10 MG Suppository RC (10:11)
[2024-09-30] MEDS: Gabapentin 100 MG Capsule PO ×2 (10:12→21:35)
[2024-09-30] MEDS: Enoxaparin 30 MG/0.3 ML Syringe SC ×2 (10:13→21:40)
[2024-09-30] MEDS: Carvedilol 3.125 MG TABLET PO ×2 (10:13→21:35)
[2024-09-30] MEDS: Polyethylene Glycol 3350 17 GM PACKET PO (10:13)
[2024-09-30] MEDS: amLODIPine 5 MG Tablet PO (10:14)
[2024-09-30] MEDS: Senna/Docusate Sodium 1 Tablet 2 TABLET PO (10:14)
[2024-09-30] MEDS: Lisinopril 10 MG Tablet PO ×2 (10:15→21:34)
[2024-09-30] MEDS: Allopurinol 100 MG Tablet PO (10:15)
[2024-09-30] MEDS: Cholecalciferol (VIT D3) 25 MCG TABLET (1,000 UNITS) PO (10:15)
[2024-09-30 12:13] LABS: Bedside Glucose 133 mg/dL (74-106)
[2024-09-30] MEDS: Magnesium Citrate 300 ML PO (13:36)
[2024-09-30 16:44] LABS: Bedside Glucose 118 mg/dL (74-106)
[2024-09-30] MEDS: Tamsulosin HCl 0.4 MG Capsule 0.8 MG PO (17:15)
[2024-09-30 18:00] VITALS: BP 113/66; PULSE 78; RESP 17; TEMP 36.4; O2SAT 97
[2024-09-30] MEDS: Atorvastatin Calcium 20 MG Tablet PO (21:34)
[2024-09-30] MEDS: traZODone 50 MG Tablet 150 MG PO (21:36)
[2024-09-30 22:07] LABS: Bedside Glucose 133 mg/dL (74-106)
[2024-10-01] MEDS: Arthritis Pain Compound 60 CLICK TUBE TOPICAL ×3 (06:01→22:14)
[2024-10-01] MEDS: Acetaminophen 500 MG Tablet 1000 MG PO ×3 (06:02→22:15)
[2024-10-01] MEDS: oxyCODONE 5 MG Tablet PO ×3 (06:03→20:37)
[2024-10-01 06:05] VITALS: BP 104/58; PULSE 68; RESP 16; TEMP 36.8; O2SAT 94
[2024-10-01 06:40] LABS: Bedside Glucose 104 mg/dL (74-106)
[2024-10-01 06:59] VITALS: O2SAT 94
[2024-10-01] MEDS: metFORMIN HCl 1,000 MG Tablet 1000 MG PO ×2 (08:10→17:25)
[2024-10-01] MEDS: Aspirin E.C. 81 MG Tablet PO (08:10)
[2024-10-01] MEDS: glipiZIDE XL 5 MG Tablet PO (08:11)
[2024-10-01] MEDS: Enoxaparin 30 MG/0.3 ML Syringe SC ×2 (09:21→22:14)
[2024-10-01] MEDS: Polyethylene Glycol 3350 17 GM PACKET PO (09:21)
[2024-10-01] MEDS: Carvedilol 3.125 MG TABLET PO ×2 (09:22→22:14)
[2024-10-01] MEDS: amLODIPine 5 MG Tablet PO (09:23)
[2024-10-01] MEDS: Senna/Docusate Sodium 1 Tablet 2 TABLET PO (09:23)
[2024-10-01] MEDS: Cholecalciferol (VIT D3) 25 MCG TABLET (1,000 UNITS) PO (09:24)
[2024-10-01] MEDS: Allopurinol 100 MG Tablet PO (09:24)
[2024-10-01] MEDS: Lisinopril 10 MG Tablet PO ×2 (09:24→22:15)
[2024-10-01] MEDS: Gabapentin 100 MG Capsule PO ×2 (09:44→22:14)
[2024-10-01 11:30] LABS: Bedside Glucose 113 mg/dL (74-106)
[2024-10-01 16:41] LABS: Bedside Glucose 116 mg/dL (74-106)
[2024-10-01 17:10] VITALS: BP 112/60; PULSE 69; RESP 16; TEMP 36.2; O2SAT 97
[2024-10-01] MEDS: Tamsulosin HCl 0.4 MG Capsule 0.8 MG PO (17:23)
[2024-10-01] MEDS: Ensure Plus High Protein 120 ML LIQUID PO (17:23)
[2024-10-01 22:08] LABS: Bedside Glucose 123 mg/dL (74-106)
[2024-10-01 22:11] VITALS: BP 125/71; PULSE 76
[2024-10-01] MEDS: Atorvastatin Calcium 20 MG Tablet PO (22:14)
[2024-10-01] MEDS: traZODone 50 MG Tablet 150 MG PO (22:35)
[2024-10-02 06:00] VITALS: BP 109/65; PULSE 75; RESP 16; TEMP 36.4; O2SAT 94
[2024-10-02 06:01] LABS: Hematocrit 25.7 % (40-54); Hemoglobin 8.1 g/dL (13.0-16.5)
[2024-10-02] MEDS: Arthritis Pain Compound 60 CLICK TUBE TOPICAL ×3 (06:13→20:37)
[2024-10-02] MEDS: Acetaminophen 500 MG Tablet 1000 MG PO ×3 (06:19→20:49)
[2024-10-02] MEDS: oxyCODONE 5 MG Tablet PO ×3 (06:20→17:56)
[2024-10-02 06:28] LABS: Anion Gap 2 (5-15); BUN 18 mg/dL (7-18); BUN/Creat Ratio 27.3 RATIO (10-20); Calcium,Total 9.4 mg/dL (8.5-10.1); Chloride 108 mmol/L (98-107); Creatinine, Serum 0.66 mg/dL (0.70-1.30); EST Glomerular Filtration Rate 126 mL/min (>60); Est Glom Filt Rate - Afr Amer 153 mL/min (>60); Estimated Creatinine Clearance 101.22 ml/min; Glucose 119 mg/dL (74-106); Potassium 4.3 mmol/L (3.5-5.1); Sodium Level 139 mmol/L (136-145)
[2024-10-02 07:20] LABS: Bedside Glucose 118 mg/dL (74-106)
[2024-10-02 07:58] VITALS: O2SAT 95
[2024-10-02] MEDS: Aspirin E.C. 81 MG Tablet PO (08:26)
[2024-10-02] MEDS: Lisinopril 10 MG Tablet PO ×2 (08:26→20:39)
[2024-10-02] MEDS: Carvedilol 3.125 MG TABLET PO ×2 (08:26→20:37)
[2024-10-02] MEDS: amLODIPine 5 MG Tablet PO (08:26)
[2024-10-02] MEDS: Cholecalciferol (VIT D3) 25 MCG TABLET (1,000 UNITS) PO (08:26)
[2024-10-02] MEDS: Allopurinol 100 MG Tablet PO (08:26)
[2024-10-02] MEDS: glipiZIDE XL 5 MG Tablet PO (08:26)
[2024-10-02] MEDS: Enoxaparin 30 MG/0.3 ML Syringe SC ×2 (08:26→20:49)
[2024-10-02] MEDS: Gabapentin 100 MG Capsule PO ×2 (08:29→20:50)
[2024-10-02] MEDS: Polyethylene Glycol 3350 17 GM PACKET PO (08:29)
[2024-10-02] MEDS: Ensure Plus High Protein 120 ML LIQUID PO ×3 (08:40→17:51)
[2024-10-02] MEDS: metFORMIN HCl 1,000 MG Tablet 1000 MG PO ×2 (11:56→17:51)
[2024-10-02 16:24] LABS: Bedside Glucose 126 mg/dL (74-106)
[2024-10-02 16:35] VITALS: BP 122/74; PULSE 78; RESP 18; TEMP 36.8; O2SAT 97
[2024-10-02] MEDS: Tamsulosin HCl 0.4 MG Capsule 0.8 MG PO (17:51)
[2024-10-02 18:00] VITALS: BP 129/76; PULSE 63; RESP 18; TEMP 36.8; O2SAT 97
[2024-10-02] MEDS: traZODone 50 MG Tablet 150 MG PO (20:37)
[2024-10-02] MEDS: Atorvastatin Calcium 20 MG Tablet PO (20:38)
[2024-10-02] MEDS: Senna/Docusate Sodium 1 Tablet 2 TABLET PO (20:40)
[2024-10-02] MEDS: Mirtazapine 15 MG Tablet PO (20:56)
[2024-10-03] MEDS: Arthritis Pain Compound 60 CLICK TUBE TOPICAL ×3 (05:57→21:16)
[2024-10-03] MEDS: Acetaminophen 500 MG Tablet 1000 MG PO ×3 (05:58→21:14)
[2024-10-03] MEDS: Gabapentin 100 MG Capsule PO ×3 (05:58→21:15)
[2024-10-03 06:00] VITALS: BP 102/69; PULSE 67; RESP 16; TEMP 36.6; O2SAT 98
[2024-10-03 06:51] LABS: Bedside Glucose 101 mg/dL (74-106)
[2024-10-03] MEDS: oxyCODONE 5 MG Tablet 10 MG PO (07:55)
[2024-10-03] MEDS: Aspirin E.C. 81 MG Tablet PO (07:56)
[2024-10-03] MEDS: Senna/Docusate Sodium 1 Tablet 2 TABLET PO ×2 (07:56→21:13)
[2024-10-03] MEDS: Allopurinol 100 MG Tablet PO (07:56)
[2024-10-03] MEDS: metFORMIN HCl 1,000 MG Tablet 1000 MG PO ×2 (07:56→17:59)
[2024-10-03] MEDS: amLODIPine 5 MG Tablet PO (07:56)
[2024-10-03] MEDS: Cholecalciferol (VIT D3) 25 MCG TABLET (1,000 UNITS) PO (07:56)
[2024-10-03] MEDS: Lisinopril 10 MG Tablet PO ×2 (07:56→21:14)
[2024-10-03] MEDS: Ensure Plus High Protein 120 ML LIQUID PO ×3 (07:57→17:59)
[2024-10-03] MEDS: Carvedilol 3.125 MG TABLET PO ×2 (07:57→21:14)
[2024-10-03] MEDS: glipiZIDE XL 5 MG Tablet PO (07:57)
[2024-10-03] MEDS: Polyethylene Glycol 3350 17 GM PACKET PO (07:57)
[2024-10-03] MEDS: Enoxaparin 30 MG/0.3 ML Syringe SC (07:57)
[2024-10-03 08:07] VITALS: O2SAT 97
[2024-10-03] MEDS: oxyCODONE 5 MG Tablet PO ×2 (12:51→21:11)
[2024-10-03] MEDS: Tamsulosin HCl 0.4 MG Capsule 0.8 MG PO (17:59)
[2024-10-03] MEDS: Mirtazapine 15 MG Tablet PO (21:13)
[2024-10-03] MEDS: Atorvastatin Calcium 20 MG Tablet PO (21:14)
[2024-10-04 05:49] LABS: Hemoglobin 8.5 g/dL (13.0-16.5)
[2024-10-04 06:00] VITALS: BP 110/58; PULSE 70; RESP 17; TEMP 36.4; O2SAT 95; BMI 23.4
[2024-10-04] MEDS: oxyCODONE 5 MG Tablet PO ×3 (06:26→21:23)
[2024-10-04] MEDS: Gabapentin 100 MG Capsule PO ×3 (06:26→21:13)
[2024-10-04] MEDS: Acetaminophen 500 MG Tablet 1000 MG PO ×3 (06:27→21:12)
[2024-10-04] MEDS: Arthritis Pain Compound 60 CLICK TUBE TOPICAL ×3 (06:27→21:14)
[2024-10-04 07:04] VITALS: O2SAT 96
[2024-10-04] MEDS: Lisinopril 10 MG Tablet PO ×2 (08:07→21:13)
[2024-10-04] MEDS: Cholecalciferol (VIT D3) 25 MCG TABLET (1,000 UNITS) PO (08:07)
[2024-10-04] MEDS: Senna/Docusate Sodium 1 Tablet 2 TABLET PO ×2 (08:07→21:12)
[2024-10-04] MEDS: Polyethylene Glycol 3350 17 GM PACKET PO (08:08)
[2024-10-04] MEDS: Allopurinol 100 MG Tablet PO (08:08)
[2024-10-04] MEDS: Aspirin E.C. 81 MG Tablet PO (08:08)
[2024-10-04] MEDS: Carvedilol 3.125 MG TABLET PO ×2 (08:08→21:13)
[2024-10-04] MEDS: metFORMIN HCl 1,000 MG Tablet 1000 MG PO ×2 (08:08→17:20)
[2024-10-04] MEDS: amLODIPine 5 MG Tablet PO (08:08)
[2024-10-04] MEDS: glipiZIDE XL 5 MG Tablet PO (08:08)
[2024-10-04] MEDS: Ensure Plus High Protein 120 ML LIQUID PO ×3 (08:11→17:19)
[2024-10-04] MEDS: Enoxaparin 30 MG/0.3 ML Syringe SC ×2 (08:11→21:13)
[2024-10-04] MEDS: Tamsulosin HCl 0.4 MG Capsule 0.8 MG PO (17:20)
[2024-10-04] MEDS: Hydrocortisone 2.5% Ointment 20 gm tube 1 APPLIC TOPICAL (17:49)
[2024-10-04 18:00] VITALS: BP 112/62; PULSE 72; RESP 17; TEMP 36.6; O2SAT 96
[2024-10-04 21:00] VITALS: BP 117/64; PULSE 80
[2024-10-04] MEDS: Mirtazapine 15 MG Tablet PO (21:13)
[2024-10-04] MEDS: Atorvastatin Calcium 20 MG Tablet PO (21:13)
[2024-10-04 23:10] VITALS: PULSE 80; RESP 16
[2024-10-05] MEDS: Hydrocortisone 2.5% Ointment 20 gm tube 1 APPLIC TOPICAL (05:51)
[2024-10-05] MEDS: Acetaminophen 500 MG Tablet 1000 MG PO ×3 (06:51→22:42)
[2024-10-05] MEDS: oxyCODONE 5 MG Tablet PO ×4 (06:52→22:55)
[2024-10-05] MEDS: Arthritis Pain Compound 60 CLICK TUBE TOPICAL ×3 (06:52→22:43)
[2024-10-05] MEDS: Gabapentin 100 MG Capsule PO ×3 (06:52→22:43)
[2024-10-05 06:57] VITALS: BP 100/61; PULSE 67; RESP 16; TEMP 37.1; O2SAT 97
[2024-10-05] MEDS: metFORMIN HCl 1,000 MG Tablet 1000 MG PO ×2 (08:35→16:35)
[2024-10-05] MEDS: Aspirin E.C. 81 MG Tablet PO (08:35)
[2024-10-05] MEDS: Ensure Plus High Protein 120 ML LIQUID PO ×3 (08:35→16:35)
[2024-10-05] MEDS: glipiZIDE XL 5 MG Tablet PO (08:35)
[2024-10-05] MEDS: Carvedilol 3.125 MG TABLET PO ×2 (08:36→22:42)
[2024-10-05] MEDS: Enoxaparin 30 MG/0.3 ML Syringe SC ×2 (08:36→22:43)
[2024-10-05] MEDS: Senna/Docusate Sodium 1 Tablet 2 TABLET PO ×2 (08:37→22:43)
[2024-10-05] MEDS: Cholecalciferol (VIT D3) 25 MCG TABLET (1,000 UNITS) PO (08:37)
[2024-10-05] MEDS: amLODIPine 5 MG Tablet PO (08:37)
[2024-10-05] MEDS: Polyethylene Glycol 3350 17 GM PACKET PO (08:37)
[2024-10-05] MEDS: Allopurinol 100 MG Tablet PO (08:38)
[2024-10-05] MEDS: Lisinopril 10 MG Tablet PO ×2 (08:38→22:43)
[2024-10-05] MEDS: Methocarbamol 750 MG Tablet PO (09:56)
[2024-10-05 11:27] VITALS: BP 111/68; PULSE 83; RESP 15; O2SAT 95
[2024-10-05] MEDS: Tamsulosin HCl 0.4 MG Capsule 0.8 MG PO (16:36)
[2024-10-05 18:00] VITALS: BP 117/64; PULSE 78; RESP 18; TEMP 36.5; O2SAT 94
[2024-10-05 22:40] VITALS: PULSE 78; RESP 16; O2SAT 94
[2024-10-05] MEDS: Atorvastatin Calcium 20 MG Tablet PO (22:42)
[2024-10-05] MEDS: Mirtazapine 15 MG Tablet PO (22:42)
[2024-10-06 06:00] VITALS: BP 119/78; PULSE 82; RESP 15; TEMP 36.6; O2SAT 98
[2024-10-06] MEDS: Acetaminophen 500 MG Tablet 1000 MG PO ×3 (07:24→22:11)
[2024-10-06] MEDS: Gabapentin 100 MG Capsule PO ×3 (07:25→22:11)
[2024-10-06] MEDS: Arthritis Pain Compound 60 CLICK TUBE TOPICAL ×3 (07:25→22:12)
[2024-10-06 07:52] LABS: Hemoglobin 9.2 g/dL (13.0-16.5); Mean Corp Hgb Conc 30.7 g/dL (32-36); Mean Corpuscular Hgb 30.3 pg (27.0-32.0); Mean Corpuscular Volume 98.7 fL (80-94); Mean Platelet Vol. 9.4 fl (6.2-12.0); Platelet Count 265 K/mm3 (150-450); RBC Distribution Width CV 16.1 % (11.6-14.6); RBC Distribution Width SD 56.3 fl (35.1-43.9); Red Blood Count 3.04 M/mm3 (4.6-6.2); White Blood Count 6.8 K/mm3 (4.4-11.0)
[2024-10-06 08:08] LABS: Anion Gap 3 (5-15); BUN 19 mg/dL (7-18); BUN/Creat Ratio 27.5 RATIO (10-20); Calcium,Total 9.3 mg/dL (8.5-10.1); Chloride 109 mmol/L (98-107); Creatinine, Serum 0.69 mg/dL (0.70-1.30); EST Glomerular Filtration Rate 120 mL/min (>60); Est Glom Filt Rate - Afr Amer 145 mL/min (>60); Estimated Creatinine Clearance 101.22 ml/min; Glucose 110 mg/dL (74-106); Potassium 4.3 mmol/L (3.5-5.1); Sodium Level 139 mmol/L (136-145)
[2024-10-06] MEDS: oxyCODONE 5 MG Tablet PO ×3 (08:45→16:54)
[2024-10-06] MEDS: Ensure Plus High Protein 120 ML LIQUID PO ×3 (08:46→16:49)
[2024-10-06] MEDS: glipiZIDE XL 5 MG Tablet PO (08:46)
[2024-10-06] MEDS: Aspirin E.C. 81 MG Tablet PO (08:46)
[2024-10-06] MEDS: Enoxaparin 30 MG/0.3 ML Syringe SC ×2 (08:47→22:11)
[2024-10-06] MEDS: Polyethylene Glycol 3350 17 GM PACKET PO (08:47)
[2024-10-06] MEDS: Carvedilol 3.125 MG TABLET PO ×2 (08:47→22:11)
[2024-10-06] MEDS: amLODIPine 5 MG Tablet PO (08:48)
[2024-10-06] MEDS: Senna/Docusate Sodium 1 Tablet 2 TABLET PO ×2 (08:48→22:11)
[2024-10-06] MEDS: Cholecalciferol (VIT D3) 25 MCG TABLET (1,000 UNITS) PO (08:48)
[2024-10-06] MEDS: Lisinopril 10 MG Tablet PO ×2 (08:48→22:12)
[2024-10-06] MEDS: Allopurinol 100 MG Tablet PO (08:49)
[2024-10-06] MEDS: metFORMIN HCl 1,000 MG Tablet 1000 MG PO ×2 (08:52→16:49)
[2024-10-06] MEDS: Hydrocortisone 2.5% Ointment 20 gm tube 1 APPLIC TOPICAL (08:56)
[2024-10-06 10:00] VITALS: RESP 15
[2024-10-06] MEDS: Methocarbamol 750 MG Tablet PO ×2 (11:10→22:11)
[2024-10-06 12:27] VITALS: BMI 23.4
[2024-10-06] MEDS: Tamsulosin HCl 0.4 MG Capsule 0.8 MG PO (16:49)
[2024-10-06 17:55] VITALS: BP 115/68; PULSE 94; RESP 16; TEMP 36.6; O2SAT 95
[2024-10-06 22:00] VITALS: BP 105/58; PULSE 75; PULSE 78; RESP 16; O2SAT 99
[2024-10-06] MEDS: Mirtazapine 15 MG Tablet PO (22:11)
[2024-10-06] MEDS: Atorvastatin Calcium 20 MG Tablet PO (22:11)
[2024-10-07 05:49] VITALS: BP 118/62; PULSE 73; RESP 16; TEMP 36.8; O2SAT 96
[2024-10-07] MEDS: Acetaminophen 500 MG Tablet 1000 MG PO ×3 (06:34→21:41)
[2024-10-07] MEDS: Methocarbamol 750 MG Tablet PO ×3 (06:34→21:41)
[2024-10-07] MEDS: oxyCODONE 5 MG Tablet PO ×4 (06:35→21:48)
[2024-10-07] MEDS: Gabapentin 100 MG Capsule PO ×3 (06:35→21:51)
[2024-10-07] MEDS: Arthritis Pain Compound 60 CLICK TUBE TOPICAL ×3 (06:35→21:40)
[2024-10-07] MEDS: amLODIPine 5 MG Tablet PO (08:36)
[2024-10-07] MEDS: glipiZIDE XL 5 MG Tablet PO (08:36)
[2024-10-07] MEDS: Senna/Docusate Sodium 1 Tablet 2 TABLET PO ×2 (08:36→21:41)
[2024-10-07] MEDS: Lisinopril 10 MG Tablet PO ×2 (08:36→21:42)
[2024-10-07] MEDS: Aspirin E.C. 81 MG Tablet PO (08:37)
[2024-10-07] MEDS: Enoxaparin 30 MG/0.3 ML Syringe SC ×2 (08:37→21:47)
[2024-10-07] MEDS: Allopurinol 100 MG Tablet PO (08:37)
[2024-10-07] MEDS: metFORMIN HCl 1,000 MG Tablet 1000 MG PO ×2 (08:37→17:51)
[2024-10-07] MEDS: Ensure Plus High Protein 120 ML LIQUID PO ×3 (08:37→17:51)
[2024-10-07] MEDS: Polyethylene Glycol 3350 17 GM PACKET PO (08:37)
[2024-10-07] MEDS: Carvedilol 3.125 MG TABLET PO ×2 (08:37→21:40)
[2024-10-07] MEDS: Cholecalciferol (VIT D3) 25 MCG TABLET (1,000 UNITS) PO (08:38)
[2024-10-07] MEDS: Tamsulosin HCl 0.4 MG Capsule 0.8 MG PO (17:51)
[2024-10-07 18:00] VITALS: BP 110/64; PULSE 71; RESP 16; TEMP 36.7; O2SAT 98
[2024-10-07 21:35] VITALS: BP 113/65; PULSE 77
[2024-10-07] MEDS: Mirtazapine 15 MG Tablet PO (21:40)
[2024-10-07] MEDS: Atorvastatin Calcium 20 MG Tablet PO (21:47)
[2024-10-08 06:00] VITALS: BP 109/61; PULSE 71; RESP 18; TEMP 36.6; O2SAT 97
[2024-10-08] MEDS: Methocarbamol 750 MG Tablet PO ×3 (06:15→20:40)
[2024-10-08] MEDS: Acetaminophen 500 MG Tablet 1000 MG PO ×3 (06:15→20:40)
[2024-10-08] MEDS: Arthritis Pain Compound 60 CLICK TUBE TOPICAL ×3 (06:15→20:39)
[2024-10-08] MEDS: Gabapentin 100 MG Capsule PO ×3 (06:16→20:40)
[2024-10-08] MEDS: oxyCODONE 5 MG Tablet PO ×3 (06:41→20:41)
[2024-10-08] MEDS: Polyethylene Glycol 3350 17 GM PACKET PO (07:32)
[2024-10-08] MEDS: Carvedilol 3.125 MG TABLET PO ×2 (07:32→20:39)
[2024-10-08] MEDS: Aspirin E.C. 81 MG Tablet PO (07:32)
[2024-10-08] MEDS: Enoxaparin 30 MG/0.3 ML Syringe SC ×2 (07:32→20:39)
[2024-10-08] MEDS: Senna/Docusate Sodium 1 Tablet 2 TABLET PO (07:33)
[2024-10-08] MEDS: Cholecalciferol (VIT D3) 25 MCG TABLET (1,000 UNITS) PO (07:33)
[2024-10-08] MEDS: Lisinopril 10 MG Tablet PO ×2 (07:33→20:40)
[2024-10-08] MEDS: amLODIPine 5 MG Tablet PO (07:33)
[2024-10-08] MEDS: Allopurinol 100 MG Tablet PO (07:33)
[2024-10-08] MEDS: glipiZIDE XL 5 MG Tablet PO (07:33)
[2024-10-08] MEDS: metFORMIN HCl 1,000 MG Tablet 1000 MG PO ×2 (07:34→16:45)
[2024-10-08] MEDS: Ensure Plus High Protein 120 ML LIQUID PO ×2 (07:41→16:43)
[2024-10-08] MEDS: Tamsulosin HCl 0.4 MG Capsule 0.8 MG PO (16:43)
[2024-10-08 18:00] VITALS: BP 139/73; PULSE 83; RESP 16; TEMP 36.8; O2SAT 98
[2024-10-08 20:35] VITALS: BP 115/61; PULSE 77
[2024-10-08] MEDS: Mirtazapine 15 MG Tablet PO (20:39)
[2024-10-08] MEDS: Atorvastatin Calcium 20 MG Tablet PO (20:39)
[2024-10-09] MEDS: Arthritis Pain Compound 60 CLICK TUBE TOPICAL ×3 (05:40→21:55)
[2024-10-09] MEDS: Methocarbamol 750 MG Tablet PO ×3 (05:40→21:55)
[2024-10-09] MEDS: Gabapentin 100 MG Capsule PO (05:41)
[2024-10-09] MEDS: Acetaminophen 500 MG Tablet 1000 MG PO ×3 (05:41→22:00)
[2024-10-09 05:45] VITALS: BP 106/56; PULSE 72; RESP 18; TEMP 36.6; O2SAT 98
[2024-10-09] MEDS: oxyCODONE 5 MG Tablet PO ×3 (06:28→21:54)
[2024-10-09] MEDS: amLODIPine 5 MG Tablet PO (08:22)
[2024-10-09] MEDS: Enoxaparin 30 MG/0.3 ML Syringe SC ×2 (08:22→21:55)
[2024-10-09] MEDS: Carvedilol 3.125 MG TABLET PO ×2 (08:22→21:56)
[2024-10-09] MEDS: metFORMIN HCl 1,000 MG Tablet 1000 MG PO ×2 (08:22→17:11)
[2024-10-09] MEDS: Cholecalciferol (VIT D3) 25 MCG TABLET (1,000 UNITS) PO (08:23)
[2024-10-09] MEDS: glipiZIDE XL 5 MG Tablet PO (08:23)
[2024-10-09] MEDS: Lisinopril 10 MG Tablet PO ×2 (08:23→22:02)
[2024-10-09] MEDS: Ensure Plus High Protein 120 ML LIQUID PO ×3 (08:23→17:11)
[2024-10-09] MEDS: Aspirin E.C. 81 MG Tablet PO (08:23)
[2024-10-09] MEDS: Senna/Docusate Sodium 1 Tablet 2 TABLET PO (08:23)
[2024-10-09] MEDS: Polyethylene Glycol 3350 17 GM PACKET PO (08:24)
[2024-10-09] MEDS: Allopurinol 100 MG Tablet PO (08:24)
[2024-10-09] MEDS: Menthol/Lanolin/Calamine/Znox 113 GM Tube 1 APPLIC TOPICAL ×2 (08:34→21:55)
[2024-10-09 12:00] VITALS: BMI 23.4
[2024-10-09] MEDS: Gabapentin 100 MG Capsule 200 MG PO ×2 (15:07→21:54)
[2024-10-09] MEDS: Tamsulosin HCl 0.4 MG Capsule 0.8 MG PO (17:11)
[2024-10-09 18:00] VITALS: BP 110/60; PULSE 70; RESP 16; TEMP 36.6; O2SAT 96
[2024-10-09] MEDS: Atorvastatin Calcium 20 MG Tablet PO (21:56)
[2024-10-09] MEDS: Mirtazapine 15 MG Tablet PO (22:18)
[2024-10-10 06:00] VITALS: BP 109/59; PULSE 74; RESP 17; TEMP 36.3; O2SAT 99
[2024-10-10] MEDS: Arthritis Pain Compound 60 CLICK TUBE TOPICAL ×3 (06:45→21:02)
[2024-10-10] MEDS: Gabapentin 100 MG Capsule 200 MG PO ×3 (06:46→21:00)
[2024-10-10] MEDS: oxyCODONE 5 MG Tablet PO ×2 (06:46→11:57)
[2024-10-10] MEDS: Methocarbamol 750 MG Tablet PO ×3 (06:47→21:01)
[2024-10-10] MEDS: Acetaminophen 500 MG Tablet 1000 MG PO ×3 (06:47→21:00)
[2024-10-10] MEDS: Aspirin E.C. 81 MG Tablet PO (07:33)
[2024-10-10] MEDS: Senna/Docusate Sodium 1 Tablet 2 TABLET PO ×2 (07:33→21:01)
[2024-10-10] MEDS: metFORMIN HCl 1,000 MG Tablet 1000 MG PO ×2 (07:33→17:46)
[2024-10-10] MEDS: Carvedilol 3.125 MG TABLET PO ×2 (07:33→21:01)
[2024-10-10] MEDS: Enoxaparin 30 MG/0.3 ML Syringe SC ×2 (07:33→21:02)
[2024-10-10] MEDS: Menthol/Lanolin/Calamine/Znox 113 GM Tube 1 APPLIC TOPICAL ×2 (07:38→21:10)
[2024-10-10] MEDS: Allopurinol 100 MG Tablet PO (07:38)
[2024-10-10] MEDS: Lisinopril 10 MG Tablet PO ×2 (07:38→21:01)
[2024-10-10] MEDS: Ensure Plus High Protein 120 ML LIQUID PO (07:38)
[2024-10-10] MEDS: amLODIPine 5 MG Tablet PO (07:39)
[2024-10-10] MEDS: glipiZIDE XL 5 MG Tablet PO (07:39)
[2024-10-10] MEDS: Cholecalciferol (VIT D3) 25 MCG TABLET (1,000 UNITS) PO (07:39)
[2024-10-10] MEDS: Tamsulosin HCl 0.4 MG Capsule 0.8 MG PO (17:46)
[2024-10-10 18:00] VITALS: BP 110/62; PULSE 70; RESP 18; TEMP 36.6; O2SAT 98
[2024-10-10 21:00] VITALS: BP 125/69; PULSE 83; RESP 18; O2SAT 97
[2024-10-10] MEDS: Atorvastatin Calcium 20 MG Tablet PO (21:01)
[2024-10-10] MEDS: Mirtazapine 15 MG Tablet PO (21:02)
[2024-10-11] MEDS: Arthritis Pain Compound 60 CLICK TUBE TOPICAL ×3 (05:34→21:58)
[2024-10-11] MEDS: Methocarbamol 750 MG Tablet PO ×3 (05:35→21:58)
[2024-10-11] MEDS: Acetaminophen 500 MG Tablet 1000 MG PO ×3 (05:38→21:58)
[2024-10-11] MEDS: oxyCODONE 5 MG Tablet PO ×4 (05:39→21:59)
[2024-10-11] MEDS: Gabapentin 100 MG Capsule 200 MG PO ×3 (05:41→21:59)
[2024-10-11 06:00] VITALS: BP 108/65; PULSE 77; RESP 17; TEMP 36.3; O2SAT 96
[2024-10-11] MEDS: metFORMIN HCl 1,000 MG Tablet 1000 MG PO ×2 (07:36→16:10)
[2024-10-11] MEDS: Aspirin E.C. 81 MG Tablet PO (07:36)
[2024-10-11] MEDS: Carvedilol 3.125 MG TABLET PO ×2 (07:36→22:12)
[2024-10-11] MEDS: glipiZIDE XL 5 MG Tablet PO (07:36)
[2024-10-11] MEDS: Polyethylene Glycol 3350 17 GM PACKET PO (07:36)
[2024-10-11] MEDS: Enoxaparin 30 MG/0.3 ML Syringe SC ×2 (07:36→21:58)
[2024-10-11] MEDS: Lisinopril 10 MG Tablet PO (07:37)
[2024-10-11] MEDS: amLODIPine 5 MG Tablet PO (07:37)
[2024-10-11] MEDS: Allopurinol 100 MG Tablet PO (07:37)
[2024-10-11] MEDS: Cholecalciferol (VIT D3) 25 MCG TABLET (1,000 UNITS) PO (07:37)
[2024-10-11] MEDS: Senna/Docusate Sodium 1 Tablet 2 TABLET PO ×2 (07:37→22:00)
[2024-10-11] MEDS: Menthol/Lanolin/Calamine/Znox 113 GM Tube 1 APPLIC TOPICAL ×2 (07:41→21:59)
[2024-10-11] MEDS: Ensure Plus High Protein 120 ML LIQUID PO ×3 (07:43→16:10)
[2024-10-11 07:55] LABS: CPK Total, Creatine Kinase 69 U/L (39-308)
[2024-10-11] MEDS: Tamsulosin HCl 0.4 MG Capsule 0.8 MG PO (16:10)
[2024-10-11 17:59] VITALS: BP 117/69; PULSE 75; RESP 16; TEMP 36.8; O2SAT 96
[2024-10-11 21:50] VITALS: BP 102/55; PULSE 74
[2024-10-11] MEDS: Mirtazapine 15 MG Tablet PO (21:58)
[2024-10-11] MEDS: Atorvastatin Calcium 20 MG Tablet PO (21:59)
[2024-10-12 06:00] VITALS: BP 130/64; PULSE 74; RESP 16; TEMP 36.6; O2SAT 96
[2024-10-12] MEDS: Arthritis Pain Compound 60 CLICK TUBE TOPICAL ×3 (06:03→22:01)
[2024-10-12] MEDS: Methocarbamol 750 MG Tablet PO ×3 (06:03→22:02)
[2024-10-12] MEDS: Gabapentin 100 MG Capsule 200 MG PO ×3 (06:03→22:06)
[2024-10-12] MEDS: Acetaminophen 500 MG Tablet 1000 MG PO ×3 (06:03→22:06)
[2024-10-12] MEDS: oxyCODONE 5 MG Tablet PO ×3 (06:04→20:13)
[2024-10-12] MEDS: glipiZIDE XL 5 MG Tablet PO (08:38)
[2024-10-12] MEDS: Ensure Plus High Protein 120 ML LIQUID PO ×3 (08:38→17:14)
[2024-10-12] MEDS: Enoxaparin 30 MG/0.3 ML Syringe SC ×2 (08:39→22:02)
[2024-10-12] MEDS: metFORMIN HCl 1,000 MG Tablet 1000 MG PO ×2 (08:39→17:13)
[2024-10-12] MEDS: Carvedilol 3.125 MG TABLET PO ×2 (08:39→22:01)
[2024-10-12] MEDS: Aspirin E.C. 81 MG Tablet PO (08:39)
[2024-10-12] MEDS: Polyethylene Glycol 3350 17 GM PACKET PO (08:40)
[2024-10-12] MEDS: Senna/Docusate Sodium 1 Tablet 2 TABLET PO ×2 (08:40→22:02)
[2024-10-12] MEDS: amLODIPine 5 MG Tablet PO (08:40)
[2024-10-12] MEDS: Lisinopril 10 MG Tablet PO ×2 (08:41→22:03)
[2024-10-12] MEDS: Cholecalciferol (VIT D3) 25 MCG TABLET (1,000 UNITS) PO (08:41)
[2024-10-12] MEDS: Menthol/Lanolin/Calamine/Znox 113 GM Tube 1 APPLIC TOPICAL ×2 (08:41→21:30)
[2024-10-12] MEDS: Allopurinol 100 MG Tablet PO (08:41)
[2024-10-12 11:19] VITALS: BMI 23.5
[2024-10-12] MEDS: Tamsulosin HCl 0.4 MG Capsule 0.8 MG PO (17:13)
[2024-10-12 17:44] VITALS: BP 113/64; PULSE 73; RESP 16; TEMP 36.4; O2SAT 96
[2024-10-12] MEDS: Hydrocortisone 2.5% Ointment 20 gm tube 1 APPLIC TOPICAL (20:06)
[2024-10-12] MEDS: Mirtazapine 15 MG Tablet PO (21:06)
[2024-10-12] MEDS: Atorvastatin Calcium 20 MG Tablet PO (22:02)
[2024-10-13 05:31] VITALS: BP 124/75; PULSE 73; RESP 15; TEMP 36.6; O2SAT 98
[2024-10-13] MEDS: Arthritis Pain Compound 60 CLICK TUBE TOPICAL ×3 (05:33→21:30)
[2024-10-13] MEDS: Gabapentin 100 MG Capsule 200 MG PO ×3 (05:34→21:35)
[2024-10-13] MEDS: Methocarbamol 750 MG Tablet PO ×3 (05:34→21:31)
[2024-10-13] MEDS: Acetaminophen 500 MG Tablet 1000 MG PO ×3 (05:34→21:35)
[2024-10-13 06:09] LABS: Hematocrit 29.2 % (40-54); Hemoglobin 9.1 g/dL (13.0-16.5); Mean Corp Hgb Conc 31.2 g/dL (32-36); Mean Corpuscular Hgb 31.1 pg (27.0-32.0); Mean Corpuscular Volume 99.7 fL (80-94); Mean Platelet Vol. 9.6 fl (6.2-12.0); Platelet Count 215 K/mm3 (150-450); RBC Distribution Width CV 15.8 % (11.6-14.6); RBC Distribution Width SD 56.7 fl (35.1-43.9); Red Blood Count 2.93 M/mm3 (4.6-6.2); White Blood Count 5.3 K/mm3 (4.4-11.0)
[2024-10-13 06:23] LABS: Anion Gap 5 (5-15); BUN 21 mg/dL (7-18); BUN/Creat Ratio 32.7 RATIO (10-20); Calcium,Total 9.3 mg/dL (8.5-10.1); Chloride 110 mmol/L (98-107); Creatinine, Serum 0.64 mg/dL (0.70-1.30); EST Glomerular Filtration Rate 130 mL/min (>60); Est Glom Filt Rate - Afr Amer 157 mL/min (>60); Estimated Creatinine Clearance 101.22 ml/min; Glucose 101 mg/dL (74-106); Potassium 4.5 mmol/L (3.5-5.1); Sodium Level 142 mmol/L (136-145)
[2024-10-13] MEDS: oxyCODONE 5 MG Tablet PO ×4 (06:58→21:52)
[2024-10-13] MEDS: Polyethylene Glycol 3350 17 GM PACKET PO (08:23)
[2024-10-13] MEDS: Enoxaparin 30 MG/0.3 ML Syringe SC ×2 (08:23→21:32)
[2024-10-13] MEDS: Cholecalciferol (VIT D3) 25 MCG TABLET (1,000 UNITS) PO (08:24)
[2024-10-13] MEDS: amLODIPine 5 MG Tablet PO (08:24)
[2024-10-13] MEDS: metFORMIN HCl 1,000 MG Tablet 1000 MG PO ×2 (08:24→16:53)
[2024-10-13] MEDS: Senna/Docusate Sodium 1 Tablet 2 TABLET PO ×2 (08:24→21:31)
[2024-10-13] MEDS: Carvedilol 3.125 MG TABLET PO ×2 (08:24→21:31)
[2024-10-13] MEDS: Allopurinol 100 MG Tablet PO (08:24)
[2024-10-13] MEDS: glipiZIDE XL 5 MG Tablet PO (08:24)
[2024-10-13] MEDS: Aspirin E.C. 81 MG Tablet PO (08:24)
[2024-10-13] MEDS: Lisinopril 10 MG Tablet PO ×2 (08:24→21:32)
[2024-10-13] MEDS: Menthol/Lanolin/Calamine/Znox 113 GM Tube 1 APPLIC TOPICAL ×2 (08:25→21:36)
[2024-10-13] MEDS: Ensure Plus High Protein 120 ML LIQUID PO ×2 (08:29→12:07)
[2024-10-13] MEDS: Tamsulosin HCl 0.4 MG Capsule 0.8 MG PO (16:52)
[2024-10-13] MEDS: Glucerna Shake 120 ML LIQUID PO (16:53)
[2024-10-13 18:00] VITALS: BP 120/70; PULSE 77; RESP 17; TEMP 36.8; O2SAT 97
[2024-10-13] MEDS: Atorvastatin Calcium 20 MG Tablet PO (21:31)
[2024-10-13] MEDS: Mirtazapine 15 MG Tablet PO (21:32)
[2024-10-14 06:00] VITALS: BP 111/65; PULSE 66; RESP 18; TEMP 36.6; O2SAT 96
[2024-10-14] MEDS: Arthritis Pain Compound 60 CLICK TUBE TOPICAL ×3 (06:38→21:42)
[2024-10-14] MEDS: oxyCODONE 5 MG Tablet PO ×3 (06:38→20:03)
[2024-10-14] MEDS: Acetaminophen 500 MG Tablet 1000 MG PO ×3 (06:38→21:45)
[2024-10-14] MEDS: Gabapentin 100 MG Capsule 200 MG PO ×3 (06:39→21:45)
[2024-10-14] MEDS: Methocarbamol 750 MG Tablet PO ×3 (06:39→21:45)
[2024-10-14] MEDS: amLODIPine 5 MG Tablet PO (08:52)
[2024-10-14] MEDS: Cholecalciferol (VIT D3) 25 MCG TABLET (1,000 UNITS) PO (08:52)
[2024-10-14] MEDS: Allopurinol 100 MG Tablet PO (08:52)
[2024-10-14] MEDS: Lisinopril 10 MG Tablet PO ×2 (08:52→21:45)
[2024-10-14] MEDS: Senna/Docusate Sodium 1 Tablet 2 TABLET PO ×2 (08:52→21:45)
[2024-10-14] MEDS: glipiZIDE XL 5 MG Tablet PO (08:53)
[2024-10-14] MEDS: metFORMIN HCl 1,000 MG Tablet 1000 MG PO ×2 (08:53→17:19)
[2024-10-14] MEDS: Carvedilol 3.125 MG TABLET PO ×2 (08:53→21:43)
[2024-10-14] MEDS: Glucerna Shake 120 ML LIQUID PO ×3 (08:53→17:20)
[2024-10-14] MEDS: Aspirin E.C. 81 MG Tablet PO (08:53)
[2024-10-14] MEDS: Polyethylene Glycol 3350 17 GM PACKET PO (08:54)
[2024-10-14] MEDS: Enoxaparin 30 MG/0.3 ML Syringe SC ×2 (08:56→21:44)
[2024-10-14] MEDS: Menthol/Lanolin/Calamine/Znox 113 GM Tube 1 APPLIC TOPICAL (08:57)
[2024-10-14] MEDS: Tamsulosin HCl 0.4 MG Capsule 0.8 MG PO (17:20)
[2024-10-14 18:00] VITALS: BP 124/69; PULSE 70; RESP 16; TEMP 36.7; O2SAT 94
[2024-10-14] MEDS: Mirtazapine 15 MG Tablet PO (21:42)
[2024-10-14] MEDS: Atorvastatin Calcium 20 MG Tablet PO (21:44)
[2024-10-15 06:00] VITALS: BP 126/72; PULSE 68; RESP 17; TEMP 36.4; O2SAT 98
[2024-10-15] MEDS: Acetaminophen 500 MG Tablet 1000 MG PO (07:06)
[2024-10-15] MEDS: Methocarbamol 750 MG Tablet PO (07:06)
[2024-10-15] MEDS: Arthritis Pain Compound 60 CLICK TUBE TOPICAL (07:06)
[2024-10-15] MEDS: oxyCODONE 5 MG Tablet PO ×2 (07:22→11:40)
[2024-10-15] MEDS: Gabapentin 100 MG Capsule 200 MG PO (07:22)
[2024-10-15] MEDS: Lisinopril 10 MG Tablet PO (08:40)
[2024-10-15] MEDS: Carvedilol 3.125 MG TABLET PO (08:40)
[2024-10-15] MEDS: Enoxaparin 30 MG/0.3 ML Syringe SC (08:40)
[2024-10-15] MEDS: Senna/Docusate Sodium 1 Tablet 2 TABLET PO (08:40)
[2024-10-15] MEDS: Cholecalciferol (VIT D3) 25 MCG TABLET (1,000 UNITS) PO (08:40)
[2024-10-15] MEDS: amLODIPine 5 MG Tablet PO (08:40)
[2024-10-15] MEDS: Allopurinol 100 MG Tablet PO (08:40)
[2024-10-15] MEDS: Polyethylene Glycol 3350 17 GM PACKET PO (08:40)
[2024-10-15] MEDS: Menthol/Lanolin/Calamine/Znox 113 GM Tube 1 APPLIC TOPICAL (08:41)
[2024-10-15] MEDS: metFORMIN HCl 1,000 MG Tablet 1000 MG PO (08:41)
[2024-10-15] MEDS: glipiZIDE XL 5 MG Tablet PO (08:41)
[2024-10-15] MEDS: Aspirin E.C. 81 MG Tablet PO (08:41)
[2024-10-15] MEDS: Glucerna Shake 120 ML LIQUID PO ×2 (10:00→11:40)
[2024-10-15 10:01] VITALS: BMI 23.6
== END 2024-10-15 13:00 | disposition skilled nursing facility (03) | DRG 560 ==
PROVIDERS: Admitting Provider Internal Medicine; PCP Family Medicine; Visit Provider Internal Medicine
DX: S32.019D Unspecified fracture of first lumbar vertebra, subsequent encounter for fracture with routine healing (principal); D62 Acute posthemorrhagic anemia; I44.2 Atrioventricular block, complete; I42.8 Other cardiomyopathies; I50.22 Chronic systolic (congestive) heart failure; E86.0 Dehydration; I11.0 Hypertensive heart disease with heart failure; E11.9 Type 2 diabetes mellitus without complications; F32.9 Major depressive disorder, single episode, unspecified; I77.819 Aortic ectasia, unspecified site; G47.33 Obstructive sleep apnea (adult) (pediatric); E78.5 Hyperlipidemia, unspecified; I25.10 Atherosclerotic heart disease of native coronary artery without angina pectoris; K59.09 Other constipation; S70.12XD Contusion of left thigh, subsequent encounter; Z79.01 Long term (current) use of anticoagulants; Z96.643 Presence of artificial hip joint, bilateral; G47.00 Insomnia, unspecified; N40.0 Benign prostatic hyperplasia without lower urinary tract symptoms; Z87.891 Personal history of nicotine dependence; Z23 Encounter for immunization; Z79.899 Other long term (current) drug therapy; V89.2XXD Person injured in unspecified motor-vehicle accident, traffic, subsequent encounter; S32.029D Unspecified fracture of second lumbar vertebra, subsequent encounter for fracture with routine healing; S32.039D Unspecified fracture of third lumbar vertebra, subsequent encounter for fracture with routine healing; S32.049D Unspecified fracture of fourth lumbar vertebra, subsequent encounter for fracture with routine healing; S32.059D Unspecified fracture of fifth lumbar vertebra, subsequent encounter for fracture with routine healing; Z79.84 Long term (current) use of oral hypoglycemic drugs; Z79.82 Long term (current) use of aspirin; S62.112D Displaced fracture of triquetrum [cuneiform] bone, left wrist, subsequent encounter for fracture with routine healing; S36.892D Contusion of other intra-abdominal organs, subsequent encounter
CPT/HCPCS: 36415; 73700; 74018; 80048; 80053; 82550; 82962; 83615; 83735; 84100; 84550; 85014; 85018; 85027; 90662; 92523; 93005; 94668; 97110; 97116; 97163; 97166; 97530; 97535; 97802; 97803

== ENCOUNTER → 2024-11-29 | Outpatient (CLI) | payer MEDICARE, OTHER, SELFPAY ==
--- NOTE | 2024-11-29 11:03 | CT_ITS ---
STUDY: CT LUMBAR SPINE WITH INTRATHECAL CONTRAST (LUMBAR CT MYELOGRAM) REASON FOR EXAM: Male, 73 years old. Spinal stenosis, lumbar region with neurogenic claudication RADIATION DOSAGE (If Supplied By Facility): CTDIvol = ( 12.20 ) mGy, DLP = ( 411.61 ) mGycm TECHNIQUE: Transaxial images were obtained from the L1 vertebra through the S1 vertebral level, following intrathecal administration of 10 ml of Isovue-M 200 contrast material, performed by Dr. Smith. Please refer to this physicians technical notes for procedural details. Coronal and sagittal reconstructions were obtained. Individualized dose optimization techniques were used for this CT. COMPARISON: Comparison is made with prior CT scan lumbar spine dated July 12, 2024 and prior myelogram done earlier today. FINDINGS: Normal lumbar lordosis. There is no substantial scoliosis. Normal vertebrae of the lumbar spine. There is dependent layering of contrast material in the distal thecal sac. The conus medullaris terminates in a normal position at the L1-L2 level. There is no demonstrated cauda equina nerve root abnormality or intraspinal mass. L1-2: Normal endplates. Normal disc height and morphology. Normal bilateral facet joints. Normal central canal and bilateral lateral recesses. Normal bilateral intervertebral neural foramina. L2-3: Compression of the superior endplate of the L3 vertebrae. This has progressed as compared with prior study. Minimal retrolisthesis of L2 on L3. There is evidence of a moderate degree of central canal stenosis. Diffuse posterior disc bulge. L3-4: The patient is status post laminectomy and interpedicular screw fixation. Facet joint osteoarthritis. Moderate to marked degree of bilateral neural foraminal stenosis. L4-5: Hypertrophy of the facet joints. Bilateral neural foraminal stenosis. Intrapedicle screw and shayna fixation. L5-S1: Normal endplates. Normal disc height and morphology. Normal bilateral facet joints. Normal central canal and bilateral lateral recesses. Normal bilateral intervertebral neural foramina. There are degenerative changes of the bilateral sacroiliac joints. Normal visualized paraspinous soft tissue structures. CT/Spine Lumbar WITH Contrast IMPRESSION: Since prior study, there has been further depression of the superior endplate of the L3 vertebrae with the central canal stenosis at that site. Retrolisthesis of L2 on L3. Marked degree of bilateral neural foraminal stenosis at the L3-L4 and L4-L5 levels due to facet joint osteoarthritis. Electronically Signed: Lazarus Smith MD at 14:22 EST ,
[2024-11-29 11:27] LABS: Platelet Count 167 K/mm3 (150-450)
[2024-11-29 11:36] LABS: Prothrombin Time (Protime)PT. 13.1 SECONDS (11.7-14.9)
[2024-11-29 11:37] LABS: Partial Thromboplast Time 22.5 Seconds (24.1-36.2)
[2024-11-29 11:58] VITALS: BP 120/77; PULSE 70; RESP 18; O2SAT 97
[2024-11-29 12:00] VITALS: BP 120/77; PULSE 70; RESP 18; O2SAT 97; BMI 23.7
--- NOTE | 2024-11-29 12:15 | RAD_ITS ---
PROCEDURE: LUMBAR MYELOGRAM DATE OF EXAMINATION: November 29, 2024 INDICATION: Male, 73 years old. Low back pain. Prior fusion and recent trauma. PHYSICIAN: Lazarus Smith M.D. CONSENT: The patient''s history and physical findings were reviewed. The lumbar myelogram procedure was discussed with the patient prior to signing a consent. SEDATION: Local anesthesia with 3 mL of 1% lidocaine was used. FLUOROSCOPY TIME (if supplied): (1:29) minutes/seconds. 62.2 mGy. 5 images were submitted. Injection Information: 10 cc of Isovue-M 200 Number of images obtained: TECHNIQUE: Digital fluoroscopy was used to identify a safe approach for the lumbar myelogram. The back was prepped and draped in usual fashion. Local anesthesia was utilized. Under fluoroscopic guidance a 22-gauge spinal needle was inserted into the spinal canal at the L2-L3 level. Clear spinal fluid was seen.. 10 mL of Isovue 200 M was injected into the spinal canal. There is good opacification of the spinal fluid. There is a loss of white of the superior endplate of the L3 vertebrae. The patient is status post interpedicular screw and shayna fixation at the L3-L4 and L4-L5 levels. Marked degree of disc space height at the L2-L3 level with retrolisthesis of L2 on L3. There is no evidence of nerve root compression on this examination. CT scan will follow. RAD/Lumbar Myelogram IMPRESSION: Findings as described above. CT will follow. The patient tolerated the procedure well. Electronically Signed: Lazarus Smith MD at 13:36 EST ,
[2024-11-29] MEDS: Lidocaine 2% (5ml sdv) 5 ML VIAL.MPF INFILT (12:35)
[2024-11-29 13:05] VITALS: BP 129/84; PULSE 65; RESP 16; O2SAT 97
[2024-11-29 13:27] VITALS: BP 134/80; PULSE 68; RESP 16; O2SAT 97
== END | disposition home or self-care (01) ==
PROVIDERS: Nurse Practitioner Acute Care; PCP Family Medicine; Referring Provider Orthopaedic Surgery Orthopaedic Surgery of the Spine; Visit Provider Orthopaedic Surgery Orthopaedic Surgery of the Spine
DX: D62 Acute posthemorrhagic anemia (principal); S32.030A Wedge compression fracture of third lumbar vertebra, initial encounter for closed fracture; M43.26 Fusion of spine, lumbar region; M48.062 Spinal stenosis, lumbar region with neurogenic claudication; M40.295 Other kyphosis, thoracolumbar region
CPT/HCPCS: 36415; 62304; 72132; 85049; 85610; 85730

== ENCOUNTER 2025-02-23 11:00 | Outpatient (RCR) | payer MEDICARE, OTHER, SELFPAY ==
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
--- NOTE | 2025-02-23 11:33 | HP.OTDCSUM ---
Discharge Summary D/C Summary: It has been my pleasure to treat JENS JENKINS under orders from DELL Vallejo, for the diagnosis of left triquetrum fx for a total of 10 visit(s). Please see the following information for a summary of their discharge status. Overall Improvement % Improvement: 60 Objective Objective/Function: right 85# stretching machine operator strength left 65# stretching machine operator strength increase from 20# right lateral pinch 24# left 18# increase from 8# right tripod pinch 21# left 22# increase from 6# pt demo left wrist ROM 60/55 pt made great gains with strength and ROM - still has left wrist pain daily. Goals Patient Goals: Regain Mobility, Regain Strength, Decrease Pain and Use Hand/Wrist/Arm Normally Again Goal:: pt will demo a increase in left stretching machine operator strength to 55# or greater to return pt to PLOF by d/c (goal met) pt will demo a increase in left lateral pinch to 10# to increase pts iND with ADLs by d.c (goal met) Goal:: pt will demo a increase in left wrist flexion/ext by 20* or greater to return pt to PLOF with ADLs by d/c (goal met) Goal:: pt with report no pain greater than 2/10 with use of left UE with ADLs and IADls by d/c Goal:: Pt will demo understanding of joint protection and ergonomics when performing BADLs and IADLs by d/c (goal met) Pt will demo understanding of adaptive Equipment use to decrease stress on joints to allow pt to perform BADSL and IADLS at NANDO level. (goal met) Goal:: Pt will demo understanding of work/lifting and carry ergonomics to decrease stress on tendons to increase pts independent with ADLs, IADLS and work tasks by d/c. ( goal met) Goal:: Pt will demo understanding of using supportive bracing 80% of workday/ADLS to decrease stress on tendon origin to allow healing and decrease pain by end of 2nd session. Plan Plan: D/C D/C Information Discharge Comments: PT did well in therapy and has met OT goals- pt will cont with HEP until he has his back sx. pt agrees with dc d/c sentence: If there are questions or concerns regarding this patient's occupational therapy, please fell free to call me at [phone]. Thank you for the referral of this patient. Sincerely, Merari Chiu, OTR/L, CHT
== END 2025-02-23 12:12 | disposition home or self-care (01) ==
LOC: OT 11:00
PROVIDERS: PCP Family Medicine; Visit Provider Physician Assistant Surgical
DX: S62.115D Nondisplaced fracture of triquetrum [cuneiform] bone, left wrist, subsequent encounter for fracture with routine healing (principal)
CPT/HCPCS: 97110; 97166; 97530

== ENCOUNTER → 2025-06-05 | Outpatient (CLI) | payer MEDICARE, OTHER, SELFPAY ==
[2025-06-05 15:24] LABS: Hematocrit 41.0 % (40-54); Hemoglobin 13.0 g/dL (13.0-16.5); Immature Granulocytes Count 0.020 X10^3/uL (0.0-0.0); Mean Corp Hgb Conc 31.7 g/dL (32-36); Mean Corpuscular Volume 91.3 fL (80-94); Mean Platelet Vol. 10.3 fl (6.2-12.0); NRBC Flagged by Analyzer 0 % (0-5); Platelet Count 209 K/mm3 (150-450); RBC Distribution Width CV 13.7 % (11.6-14.6); RBC Distribution Width SD 45.9 fl (35.1-43.9); Red Blood Count 4.49 M/mm3 (4.6-6.2); White Blood Count 7.6 K/mm3 (4.4-11.0)
[2025-06-05 18:59] LABS: AST(SGOT) 27 U/L (<=37); Alanine Aminotransfer ALT/SGPT 36 U/L (<=46); Albumin, Serum 4.5 g/dL (3.4-4.8); Alkaline Phosphatase 67 U/L (40-129); Anion Gap 15 (5-15); BUN 29 mg/dL (4-19); BUN/Creat Ratio 35.4 RATIO (10-20); Calcium,Total 10.2 mg/dL (7.6-11.0); Carbon Dioxide 20.0 mmol/L (21.0-32.0); Chloride 105 mmol/L (98-108); Ferritin 24 ng/mL (37-417); Globulin 2.5 g/dL (2.2-4.2); Glucose 100 mg/dL (70-99); Potassium 4.7 mmol/L (3.3-5.1); Vitamin B12 1593 pg/mL (180-914); Vitamin D,25 Hydroxy 68.0 ng/mL (30-100)
[2025-06-05 19:46] LABS: Iron 52 ug/dL (65-175)
--- OUTSIDE RECORDS SUMMARY | 2025-06-05 20:58 | XMS RPT_ITS | CCD ---
Author Organization [facility] Care Team Providers Care Training Developer Name Role Phone Emani SANCHEZ, Hemant Avendaño Unavailable Deya Vallejo Unavailable Unavailable Dominique Devora Sander Unavailable Yeison Castaneda Unavailable Unavailable Yeison Castaneda Unavailable Unavailable Osvaldo Kilpatrick Primary Care Provider Dr. Ramón Asif Primary Care Provider [phone] Dr. Ramón Asif Referring Provider Cari Elizabeth Attending Provider Unavailable Dr. Thomas Raphael Attending Provider Dr. Ramón Asif Primary Care Provider Dr. Ramón Asif Referring Provider Cari Elizabeth Attending Provider Unavailable Dr. Ramón Asif Primary Care Provider [phone] Dr. Ramón Asif Referring Provider Roof FOOD BEVERAGE MANAGER, FOOD BEVERAGE MANAGER-Kapil Whittaker Attending Provider [phone] Cari Elizabeth Attending Provider Unavailable Dr. Ramón Asif Primary Care Provider [phone] Dr. Jakub Mina Attending Provider Ramón Asif DO Primary Care Provider RAMÓN ASIF Primary Care Unavailable SLIME BOWEN Admitting Unavailable MANNIE HASTINGS Attending Unavailable DAVIAN PERALES JR Consulting Unav ailable Dr. Ramón Asif DO Primary Care Provider James SANCHEZ, Dr. Kelby Avendaño Attending Provider James SANCHEZ, Dr. Kelby Avendaño Referring Provider Keeley SANCHEZ, Dr. Call Attending Provider Dr. Ramón Asif DO Referring Provider Rashida Modi Attending Provider Ramón Asif Primary Care Provider Dr. Ramón Asif DO Primary Care Provider Keeley SANCHEZ, Dr. Call Attending Provider Dr. Ramón Asif DO Referring Provider Ramón Asif Primary Care Unavailable YefriRamón Referring Unavailable YefriRamón garcia Attending Unavailable YefriRamón garcia Primary Care Unavailable Garfield Owen Attending Unavailable YefriRamón garcia Primary Care Unavailable Kelby Ramirez Attending Unavailable Kelby Ramirez Referring Unavailable YefriRamón garcia Primary Care Unavailable Keeley, [place] Referring Unavailable Keeley, [place] Attending Unavailable OleJorge Luis Robertewongbe Attending Unavailabl e YefriRamón garcia Primary Care Unavailable Shannen CRENSHAW Efewongbe Referring Unavailabl e YefriRamón garcia Primary Care Unavailable Olewinston OLS Efewongbe Attending Unavailabl e YefriRamón Primary Care Unavailable Finesse, Scot D Referring Unavailable Kilpatrick, Scot D Attending Unavailable YefriRamón garcia Primary Care Unavailable YefriRamón garcia Consulting Unavailable Kilpatrick, Scot D Referring Unavailable Kilpatrick, Scot D Attending Unavailable YefriRamón garcia Primary Care Unavailable Citlali Mike Admitting Unavaila ble Sementi, Citlali Abraham Attending Unavaila ble SementiCitlali Consulting Unavaila ble YefriRamón garcia Primary Care Unavailable Keeley, Jakub Attending Unavailable Yefri, Ramón Primary Care Unavailable Keeley, [place] Attending Unavailable Yefri, Ramón Primary Care Unavailable Kyree Nur Attending Unavailabl e SemenCitlali stark Referring Unavaila ble Yefri, Ramón Primary Care Unavailable Keeley, Jakub Consulting Unavailable Keeley, Jakub Referring Unavailable Keeley, Jakub Attending Unavailable YefriRamón garcia Primary Care Unavailable Corrigall, Violetta Attending Unavailable Corrigall, Violetta Referring Unavailable Yefri, Ramón Primary Care Unavailable HamletCitlali stark Admitting Unavaila ble Sementi, Citlali Abraham Attending Unavaila ble Yefri, Ramón Primary Care Unavailable Rashida Mckinney Attending Unavailable Yefri, Ramón Referring Unavailable Yefri, Ramón Primary Care Unavailable Keeley, Jakub Attending Unavailable Yefri, Ramón Referring Unavailable Yefri, Ramón Primary Care Unavailable Osvaldo Calvin NP Attending Unavailable Yefri, Ramón Primary Care Unavailable Keeley, Jakub Attending Unavailable Yefri, Ramón Primary Care Unavailable Keeley, Jakub Attending Unavailable Yefri, Ramón Primary Care Unavailable Keeley, [place] Attending Unavailable Yefri, Ramón Primary Care Unavailable Yefri, Ramón Referring Unavailable Keeley, Jakub Attending Unavailable Yefri, Ramón Primary Care Unavailable Keeley, Jakub Attending Unavailable Yefri, Ramón Primary Care Unavailable Juma Pride Attending Unavailable Yefri, Ramón Primary Care Unavailable Marielena Paul Attending Unavailable Yefri, Ramón Primary Care Unavailable Uzair Hernandez Attending Unavailable YEFRI, RAMÓN Primary Care Unavailable JAMES, KELBY Attending Unavailable YEFRI, RAMÓN Primary Care Unavailable JAMES, KELBY Attending Unavailable JAMES, KELBY Admitting Unavailable Allergies Allergy Classification Reported Allergen(s) Allergy Type Date of Onset Reaction(s) Facility (4 sources) metoprolol drug allergy 04-10-2015 [facility] Work Phone: (9 sources) Metoprolol Drug Allergy 05-25-2022 Unknown [facility] Comment on above: hot flashes (1 source) Metoprolol Drug Allergy 05-15-2025 [facility] Repository Medications Current Medications Medication Drug Class(es) Dates Sig (Normalized) Sig (Original) acetaminophen 325 mg / oxyCODONE hydrochloride 5 mg oral tablet (2 sources) Opioid Agonist Start: 03-09-2025 End: 03-16-2025 take 1 tablet by mouth every six hours as needed for pain oxyCODONE-acetam inophen (Percocet) 5-325 MG tablet Indications: Acute post-operative pain Take 1 tablet by mouth every 6 hours as needed for severe pain (7-10) for up to 7 days. 28 tablet 03/09/2025 5:42 PM EDT 03/09/2025 03/16/2025 Active amLODIPine 5 mg oral tablet (20 sources) Dihydropyridine Calcium Channel Amadeo Start: 09-28-2024 End: 04-24-2025 take 1 tablet by mouth once daily Amlodipine 5 mg tablet Active 5 mg PO DAILY 90 April 24, 2025 8:00am bp Start: 09-28-2023 End: 09-28-2024 take 1 tablet by mouth twice daily Amlodipine 5 mg tablet Discontinued 5 mg PO TWICE A DAY 180 May 12, 2024 9:42am September 29, 2024 12:58am Start: 01-24-2019 End: 09-28-2023 take 1 tablet by mouth once daily Amlodipine 5 mg tablet Discontinued 5 mg PO DAILY 90 June 11, 2023 9:55am September 28, 2023 12:35pm Comment on above: Take 5 mg by mouth o nce daily. aspirin 81 mg delayed release oral tablet (20 sources) Nonsteroidal Anti-inflammatory Drug Start: 11-16-2014 take 1 tablet by mouth once daily ASPIRIN 81 MG TABS One tablet by mouth daily ASPIRIN [id number] Ramón Asif DO Start: 11-16-2014 take 1 tablet by blake th once daily ASPIRIN 81 MG TABS One tablet by mouth daily ASPIRIN [id number] Ramón Asif DO Start: 03-28-2014 End: 03-13-2025 take 1 tablet by mouth once daily Aspirin 81 MG tablet Active 81 mg PO DAILY@0800 0 March 29, 2018 12:00am heart Comment on above: Take 81 mg by mouth once daily. carvedilol 3.125 mg oral tablet (20 sources) alpha-Adrenergic Amadeo, beta-Adrenergic Amadeo Start: 09-28-2023 End: 03-13-2025 take 1 tablet by mouth twice daily Carvedilol 3.125 mg tablet Active 3.125 mg PO TWICE A DAY September 28, 2023 12:23pm bp Start: 09-21-2023 End: 09-28-2023 take 2 tablets by mouth twice daily Carvedilol 3.125 mg tablet Discontinued 6.25 mg PO TWICE A DAY September 21, 2023 12:11pm September 28, 2023 12:23pm Start: 09-21-2023 End: 09-28-2023 take 6.25 mg by mouth twice daily Carvedilol Discontinued 6.25 MG PO TWICE A DAY September 21, 2023 12:11pm September 28, 2023 12:23pm Start: 03-29-2018 End: 09-21-2023 take 1 tablet by mouth twice daily Carvedilol 3.125 mg tablet Discontinued 3.125 mg PO TWICE A DAY 180 October 16, 2019 5:30pm September 21, 2023 12:11pm Start: 03-10-2018 End: 03-29-2018 take 2 tablets by mouth twice daily Carvedilol 3.125 mg tablet Discontinued 6.25 mg PO TWICE A DAY March 10, 2018 10:30am March 29, 2018 12:01pm Heart/bp Start: 03-10-2018 End: 03-29-2018 take 6.25 mg by mouth twice daily Carvedilol Discontinued 6.25 MG PO TWICE A DAY March 10, 2018 10:30am March 29, 2018 12:01pm Start: 11-16-2014 End: 03-10-2018 take 1 tablet by mouth twice daily Carvedilol 3.125 MG tablet Discontinued 3.125 mg PO TWICE A DAY 60 November 16, 2014 1:00am March 10, 2018 10:31am Start: 11-16-2014 CARVEDILOL 6.2 5 MG TABS take 1 tablet twice daily CARVEDILOL [id number] Annia Howard LPN Comment on above: Take 3.125 mg by blake th twice daily. cholecalciferol 0.025 mg oral tablet (20 sources) Vitamin D Start: 06-15-20 End: 03-13-20 25 take 1 tablet by mouth once daily Cholecalciferol (Vitamin D3) 1,000 unit tablet Active 1000 U PO DAILY June 15, 2019 12:00am vitamin Start: 11-16-2014 End: 08-17-2016 take 1 tablet by mouth once daily VITAMIN D3 TABS One tablet by mouth daily CHOLECALCIFEROL TABS [id number] Thomas Raphael MD Start: 11-16-2014 End: 08-17-2016 take 1 tablet by mouth once daily VITAMIN D3 TABS One tablet by mouth daily CHOLECALCIFEROL TABS [id number] Thomas Raphael MD Start: 11-16-2014 take 1 tablet by blake once daily VITAMIN D3 TABS One tablet by mouth daily CHOLECALCIFEROL TABS [id number] Ramón Madonna Yefri DALEY cholecalciferol (D 1000) 25 MCG (1000 UT) capsule Take 1,000 Units by mouth daily. Active Cholecalciferol, Vitamin D3, (VITAMIN D) 25 mcg (1,000 unit) cap Take 1,000 Units by mouth once daily. Active Comment on above: Take 1,000 Units by mouth once daily. Coenzyme Q10 (CO Q 10 PO) (2 sources) Coenzyme Q10 (CO Q 10 PO) Take 100 mg by mouth daily. Active docusate sodium 100 mg oral capsule (2 sources) Start: End: take 1 capsule by mouth twice daily in the evening docusate sodium (Colace) 100 MG capsule Take 1 capsule (100 mg) by mouth 2 times daily for 10 days. 28 capsule 03/09/2025 5:42 PM EDT 03/09/2025 03/23/2025 Active hydrocortisone 0.025 mg/mg topical ointment (12 sources) Corticosteroid Start: Hydrocortisone 2.5 % Ointment Active 1 NMA TOPICAL TWICE DAILY NEEDED as needed for RASH/TOPICAL IRRITATION October 13, 2024 1:00am Please contact the information source for Protocol details. Start: 07-18-2020 hydrocortisone valerate (WESTCORT) 0.2 % ointment Apply to affected area as needed. 07/18/2020 Active Start: 11-16-2014 HYDROCORTISONE VALERATE 0.2 % CREA apply to affected area once a day HYDROCORTISONE VALERATE [id number] Ramón Asif DO Start: 08-23-2014 hydrocortisone valerate (WESTCORT) 0.2 % ointment 24 hr loratadine 10 mg / pseudoephedrine sulfate 240 mg extended release oral tablet (3 sources) alpha-Adrenergic Agonist Start: 07-18-2020 take 1 tablet by mouth once daily as needed loratadine-pseudoephedrine ER (CLARITIN-D 24 HOUR) 10-240 mg Tb24 Take 1 tablet by mouth once daily as needed ( For allergy symptoms). 07/18/2020 Active Misc Natural Products (BEET ROOT PO) (2 sources) Misc Natural Pro ducts (BEET ROOT PO) Take by mouth daily. Active Multiple Vitamins-Minerals (CENTRUM SILVER ULTRA MENS PO) (2 sources) Multiple Vitamin s-Minerals (CENTRUM SILVER ULTRA MENS PO) Take by mouth. Active multivitamin (6 sources) Start: 01-26-2018 take 1 tablet by mouth once daily Multivitamin Active 1 TABLET PO daily January 26, 2018 12:00am Start: 09-12-2013 MULTI-VITAMIN TABS take 1 tablet once daily MULTIPLE VITAMIN [id number] Annia Howard LPN NON FORMULARY (2 sources) NON FORMULARY da katarzyna. Whole produce fruits Active Non Gelatin Capsules, Empty, (Capsule 0 Clear Veggie) capsule (2 sources) Non Gelatin Caps ules, Empty, (Capsule 0 Clear Veggie) capsule daily. Active omega-3 fatty acids 1,000 mg cap (4 sources) take 1 capsule by mo uth once daily omega-3 fatty acids 1,000 mg cap Take 2 g by mouth once daily. Active take 1 capsule by mouth once yadi ly omega-3 fatty acids 1,000 mg cap Take 2 g by mouth once daily. Suspended take 1 capsule by mouth once yadi ly omega-3 fatty acids 1,000 mg cap Take 2 g by mouth once daily. 0 Active Comment on above: Take 2 g by mouth on ce daily. Respiratory Therapy Supplies (CareTouch CPAP & BIPAP Hose) [facility] [place]2 [place]) Respiratory Ther apy Supplies (CareTouch CPAP & BIPAP Hose) [facility] [facility] [place] Active SAMBUCUS BLACK ELDERBERRY PO (2 sources) take 3200 mg by mouth once daily SAMBUCUS BLACK ELDERBERRY PO Take 3,200 mg by mouth daily. Active traMADol hydrochloride 50 mg oral tablet (2 sources) Opioid Agonist Start: 5 take 1 tablet by mouth every four hours as needed traMADol (Ultram) 50 MG tablet Take 50 mg by mouth every 4 hours as needed. 02/09/2025 Active traZODone hydrochloride 150 mg oral tablet (20 sources) Serotonin Reuptake Inhibitor Start: 5 take 1 tablet by mouth at bedtime Trazodone 150 mg tablet Active 150 mg PO AT BEDTIME May 15, 2025 12:00am Start: 03-10-2025 End: 03-13-2025 take 150 mg by mouth once daily 150 mg, Oral, Nightly, First dose on 03/10/25 at 2100 Start: 02-05-2025 take 1 tablet by blake once daily traZODone (Desyrel) 150 MG tablet Take 150 mg by mouth Nightly. 02/05/2025 Active Start: 05-23-2024 End: 10-13-2024 take 1 tablet by mouth at bedtime Trazodone 150 mg tablet Discontinued 150 mg PO AT BEDTIME May 23, 2024 12:00am October 13, 2024 3:33pm sleep Start: 11-14-2014 End: 01-26-2018 take 1 tablet by mouth once daily Trazodone 50 MG tablet Discontinued 50 mg PO DAILY November 14, 2014 1:00am January 26, 2018 11:04am Start: 07-25-2014 take 3 tablets by mo uth once daily at bedtime traZODone (DESYREL) 50 mg tablet Take 150 mg by mouth daily at bedtime. 07/25/2014 Active Start: 07-25-2014 take 2 tablets by mo uth once daily at bedtime traZODone (DESYREL) 50 mg tablet Take 100 mg by mouth daily at bedtime. 0 07/25/2014 Active Start: 09-12-2013 End: 05-23-2024 take 1 tablet by mouth at bedtime Trazodone 100 mg tablet Discontinued 100 mg PO AT BEDTIME March 10, 2018 10:31am May 23, 2024 1:49pm Comment on above: Take 100 mg by mouth daily at bedtime. Turmeric extract (20 sources) Start: 05-24-2020 take 1 capsule by mouth once daily Turmeric 400 mg capsule Active 1000 mg PO DAILY 0 May 24, 2020 10:06am vitamin Start: 05-24-2020 take 1 capsule by mo uth once daily Turmeric 400 mg capsule Active 1000 mg PO DAILY May 24, 2020 10:06am Start: 05-24-2020 take 1000 mg by mout h once daily Turmeric Active 1000 MG PO DAILY May 24, 2020 10:06am Start: 12-07-2018 End: 05-24-2020 Turmeric 400 mg capsule Disc ontinued mg PO 0 December 07, 2018 1:00am May 24, 2020 10:07am Start: 12-07-2018 End: 05-24-2020 Turmeric 400 mg capsule Disc ontinued mg PO December 07, 2018 1:00am May 24, 2020 10:07am Start: 12-07-2018 End: 05-24-2020 Turmeric Discontinued MG PO December 07, 2018 1:00am May 24, 2020 10:07am take 1500 mg by mout h once daily TURMERIC PO Take 1,500 mg by mouth daily. Active take 1 capsule by mo uth once daily turmeric 400 mg cap Take 1,000 capsules by mouth once daily. Active take 1 capsule by mo uth once daily turmeric 400 mg cap Take 1,000 capsules by mouth once daily. Suspended take 1 capsule by mo uth once daily turmeric 400 mg cap Take 1,000 capsules by mouth once daily. 0 Active Comment on above: Take 1,000 capsules by mouth once daily. TURMERIC-ROBERT PO (2 sources) take 500 mg by mouth once daily TURMERIC-ROBERT PO Take 500 mg by mouth daily. Active Vitamin B Complex (4 sources) VITAMIN B COMPLE X (B COMPLEX ORAL) Take by mouth. Active VITAMIN B COMPLE X (B COMPLEX ORAL) Take by mouth. Suspended VITAMIN B COMPLE X (B COMPLEX ORAL) Take by mouth. 0 Active Comment on above: Take by mouth. vitamin e 180 mg oral capsule (2 sources) take 1 capsule by mo uth once daily vitamin E 180 MG (400 UNIT) capsule Take 180 mg by mouth daily. Active Completed/Discontinued Medications Medication Drug Class(es) Dates Sig (Normalized) Sig (Original) acetaminophen 325 mg oral tablet (9 sources) Start: 03-09-2025 End: 03-13-2025 take 1 tablet by mouth every six hours 650 mg, Oral, Every 6 hours, First dose on Wed03/09/25 at 1645, Phase II/On Unit, Maximum dose of acetaminophen is 4000 mg from all sources in 24 hours. Start: 03-09-2025 End: 03-09-2025 take 1000 mg by mouth once, then take 4000 mg by mouth every twenty-four hours 1,000 mg, Oral, Once, On Wed03/09/25 at 0715, For 1 dose, Preprocedure, Maximum dose of acetaminophen is 4000 mg from all sources in 24 hours. Do not administer if patient has taken tylenol Start: 09-28-2024 End: 10-28-2024 take 3 tablets by mouth every six hours acetaminophen (TYLENOL) 325 mg tablet Take 3 tablets by mouth every 6 hours. 360 tablet 09/28/2024 10/28/2024 Active Start: 09-28-2024 take 3 capsules by m outh every six hours Acetaminophen 325 mg capsule Active 975 mg PO EVERY 6 HOURS September 28, 2024 1:00am pain acetaminophen 325 mg / HYDROcodone bitartrate 5 mg oral tablet (8 sources) Opioid Agonist Start: 12-17-2014 End: 03-26-2015 take 1-2 tablets by mouth every six hours as needed for pain HYDROCODONE-ACETAMINOPHEN 5-325 MG TABS 1-2 tablets by mouth every 6 hours as needed for pain HYDROCODONE-ACETAMINOPHEN [id number] Ramón Asif DO allopurinol 100 mg oral tablet (20 sources) Xanthine Oxidase Inhibitor Start: 09-28-2024 End: 11-29-2024 take 1 tablet by mouth once daily Allopurinol 100 mg tablet Discontinued 100 mg PO DAILY September 28, 2024 1:00am November 29, 2024 12:53pm gout Start: 09-12-2013 End: 11-20-2021 take 1 tablet by mouth once daily Allopurinol 100 MG tablet Discontinued 100 mg PO DAILY November 14, 2014 1:00am November 20, 2021 12:07pm Gout Comment on above: Take 100 mg by mouth once daily. ALPRAZolam 0.25 mg disintegrating oral tablet (2 sources) Benzodiazepine Start: 03-09-20 End: 03-09-20 25 0.25 mg, Oral, PRN, anxiety, Starting on Wed03/09/25 at 0709, For 1 dose, Preprocedure amoxicillin 875 mg / clavulanate 125 mg oral tablet (20 sources) Penicillin-class Antibacterial Start: 08-06-20 End: 08-16-20 take 1 tablet by mouth twice daily as needed AMOXICILLIN-POT CLAVULANATE 875-125 MG TABS 1 tablet by mouth twice per day for 10 days as needed for sinusitis AMOXICILLIN-POT CLAVULANATE [id number] Ramón Asif DO Start: 06-04-2015 End: 06-14-2015 take 1 tablet by mouth twice daily AMOXICILLIN-POT CLAVULANATE 875-125 MG TABS 1 tablet by mouth twice per day AMOXICILLIN-POT CLAVULANATE [id number] Ramón Asif DO Start: 12-13-2014 End: 12-23-2014 take 1 tablet by mouth twice daily AMOXICILLIN-POT CLAVULANATE 875-125 MG TABS 1 tablet by mouth twice per day for sinusitis AMOXICILLIN-POT CLAVULANATE [id number] Ramón Asif DO Start: 11-14-2014 End: 11-16-2014 Amoxicillin-Pot Clavulanate 1 EACH tablet Discontinued 1 {tbl} PO TWICE A DAY November 14, 2014 1:00am November 16, 2014 4:43pm Start: 11-14-2014 End: 11-16-2014 take 1 tablet by mouth twice daily Amoxicillin-Pot Clavulanate Discontinued 1 TABLET PO TWICE A DAY November 14, 2014 1:00am November 16, 2014 4:43pm ascorbic acid 500 mg oral capsule (13 sources) Start: 09-22-2018 End: 06-15-2019 take 1 capsule by mouth once daily Ascorbic Acid (Vitamin C) 500 MG capsule Discontinued 500 mg PO DAILY September 22, 2018 1:00am June 15, 2019 10:17am Start: 11-16-2014 take 1 tablet by blake th once daily VITAMIN C TABLET One tablet by mouth daily ASCORBIC ACID TABS [id number] Ramón Asif DO Start: 11-16-2014 take 1 tablet by blake th once daily VITAMIN C TABS One tablet by mouth daily ASCORBIC ACID TABS [id number] Ramón Madonna Asif DO atorvastatin 40 mg oral tablet (20 sources) HMG-CoA Reductase Inhibitor Start: 11-14-2014 End: 01-26-2018 take 1 tablet by mouth at bedtime Atorvastatin 40 MG tablet Discontinued 40 mg PO AT BEDTIME November 14, 2014 1:00am January 26, 2018 11:04am Start: 07-06-2014 atorvastatin ( LIPITOR) 40 mg tablet Take 20 mg by mouth once daily. 0 07/06/2014 Active Start: 09-12-2013 End: 03-13-2025 take 1 tablet by mouth once daily Atorvastatin 20 mg tablet Active 20 mg PO DAILY January 26, 2018 12:00am cholesterol Comment on above: Take 20 mg by mouth once daily. azithromycin 250 mg oral tablet (13 sources) Macrolide Antimicrobial Start: 05-31-20 End: 06-05-20 take 2 tablets by mouth once, then take 1 tablet by mouth once daily, then take 2-5 tablets by mouth AZITHROMYCIN 250 MG TABS 2 PO on day 1 then 1 PO daily on days 2-5 AZITHROMYCIN [id number] Ramón Asif DO Start: 11-14-2014 End: 11-16-2014 take 1 tablet by mouth once daily Azithromycin 250 MG tablet Discontinued 250 mg PO DAILY November 14, 2014 1:00am November 16, 2014 4:43pm B COMPLEX-FOLIC ACID (2 sources) Start: 11-16-2014 take 1 tablet by mouth once daily SUPER B COMPLEX MAXI TABS One tablet by mouth daily B COMPLEX-FOLIC ACID [id number] Ramón Asif DO Start: 11-16-2014 take 1 tablet by blake th once daily SUPER B COMPLEX MAXI TABS One tablet by mouth daily B COMPLEX-FOLIC ACID [id number] Ramón Asif DO B COMPLEX-FOLIC ACID (2 sources) Start: 11-16-2014 take 1 tablet by mouth once daily SUPER B COMPLEX MAXI TABS One tablet by mouth daily B COMPLEX-FOLIC ACID [id number] Ramón Asif DO B-Complex With Vitamin C (5 sources) Start: 03-29-2018 End: 06-15-2019 take 1 capsule by mouth once daily B-Complex With Vitamin C Discontinued 1 CAP PO DAILY@0800 March 29, 2018 12:00am June 15, 2019 10:16am B-Complex With Vitamin C 1 CAPSULE capsule (4 sources) Start: 03-29-2018 End: 06-15-2019 take 1 capsule by mouth once daily B-Complex With Vitamin C 1 CAPSULE capsule Discontinued 1 NMA PO DAILY@0800 0 March 29, 2018 12:00am June 15, 2019 10:16am Start: 03-29-2018 End: 06-15-2019 take 1 capsule by mouth once daily B-Complex With Vitamin C 1 CAPSULE capsule Discontinued 1 NMA PO DAILY@0800 March 29, 2018 12:00am June 15, 2019 10:16am B-complex with vitamin C capsule (5 sources) Start: 01-26-2018 End: 03-29-2018 take 1 capsule by mouth once daily B-complex with vitamin C capsule Discontinued 1 CAP PO daily January 26, 2018 12:00am March 29, 2018 12:00pm B-Complex With Vitamin C capsule (4 sources) Start: 01-26-2018 End: 03-29-2018 B-Complex With Vitamin C capsule Discontinued 1 NMA PO daily January 26, 2018 12:00am March 29, 2018 12:00pm vitamin Start: 01-26-2018 End: 03-29-2018 B-Complex With Vitamin C cap diana Discontinued 1 NMA PO daily January 26, 2018 12:00am March 29, 2018 12:00pm benzonatate 100 mg oral capsule (18 sources) Non-narcotic Antitussive Start: 12-07-2018 End: 06-15-2019 take 1 capsule by mouth three times daily as needed Benzonatate 100 mg capsule Discontinued 100 mg PO THREE TIMES A DAY as needed December 07, 2018 1:00am June 15, 2019 10:16am Start: 11-14-2014 End: 11-16-2014 take 1 capsule by mouth every eight hours Benzonatate 200 MG capsule Discontinued 200 mg PO EVERY 8 HOURS November 14, 2014 1:00am November 16, 2014 4:44pm bisacodyl 10 mg rectal suppository (4 sources) Stimulant Laxative Start: 10-13-2024 End: 11-29-2024 Bisacodyl 10 mg Suppository Discontinued 10 mg RC ONE TIME as needed for Constipation 1 October 13, 2024 1:00am November 29, 2024 12:54pm calcium chloride 0.0014 meq/ml / potassium chloride 0.004 meq/ml / sodium chloride 0.103 meq/ml / sodium lactate 0.028 meq/ml injectable solution (2 sources) Start: 03-09-2025 End: 03-10-2025 take 50 mL intravenously every hour 50 mL/hr, IntraVENous, Continuous, Starting on Wed03/09/25 at 0715, Preprocedure, Upon admission to sameday - please start iv if patient does not have iv access. Use 500ml NS for patients on dialysis. ceFAZolin (Ancef) 2,000 mg in sodium chloride 0.9 % 100 mL IVPB (2 sources) Start: 03-09-2025 End: 03-10-2025 take 2000 mg intravenously every eight hours 2,000 mg, IntraVENous, at 200 mL/hr, Administer over 30 Minutes, Every 8 hours, First dose on Wed03/09/25 at 2100, For 2 doses, Phase II/On Unit, Patients /= 120 k mg Mini-Bag Plus bag, Suspected Indication (Select all that apply): Surgical Prophylaxis celecoxib 200 mg oral capsule (2 sources) Nonsteroidal Anti-inflammatory Drug Start: 03-09-2025 End: 03-09-2025 take 200 mg by mouth once 200 mg, Oral, Once, On Wed03/09/25 at 0715, For 1 dose, Preprocedure cholecalciferol 9.52 unt/ml / glucose 357 mg/ml oral gel (2 sources) Vitamin D Start: 03-10-2025 End: 03-13-2025 15 g, Oral, As needed, low blood sugar, Starting on 03/10/25 at 1235, If blood glucose less than 50 mg/dL and patient ALERT and NOT NPO, give 2 tubes glucose gel. If blood glucose less than 70 mg/dL and patient ALERT and NOT NPO, give 1 tube glucose gel. Repeat blood glucose in 15 minutes. If blood glucose is less than 70 mg/dL, repeat treatment and recheck blood glucose in 15 minutes x2 and notify provider. CPAP MACHINE (4 sources) Start: 11-13-2015 End: 11-18-2015 CPAP MACHINE G47.33 CPAP MACHINE Ramón A Yefri DALEY cyclobenzaprine hydrochloride 10 mg oral tablet (8 sources) Muscle Relaxant Start: 02-14-2016 End: 03-09-2016 take 1 tablet by mouth three times daily as needed CYCLOBENZAPRINE HCL 10 MG TABS One tablet by mouth three times daily as needed for muscle spam CYCLOBENZAPRINE HCL [id number] Ramón A Yefri DO 1 ml dexamethasone phosphate 10 mg/ml injection (2 sources) Corticosteroid Start: 03-09-2025 End: 03-10-2025 take 6 mg intravenously every six hours 6 mg, IntraVENous, Every 6 hours, First dose (after last modification) on Wed03/09/25 at 2245, For 4 doses, Phase II/On Unit diclofenac sodium 50 mg delayed release oral tablet (9 sources) Nonsteroidal Anti-inflammatory Drug Start: 09-22-2018 End: 12-07-2018 take 1 tablet by mouth twice daily at mealtime Diclofenac Sodium 50 MG tablet Discontinued 50 mg PO TWICE DAILY WITH MEALS September 22, 2018 1:00am December 07, 2018 12:07pm docusate sodium 50 mg / sennosides, long-term 8.6 mg oral tablet (6 sources) Start: 03-09-2025 End: 03-13-2025 take 1 tablet by mouth twice daily 1 tablet, Oral, 2 times daily, First dose on Wed03/09/25 at 2245 Start: 10-13-2024 End: 11-29-2024 Sennosides-Docusate Sodium ( Stimulant Laxative Plus) 8.6-50 mg Tablet Discontinued 2 {tbl} PO TWICE A DAY 1 October 13, 2024 1:00am November 29, 2024 12:56pm doxycycline hyclate 100 mg oral tablet (9 sources) Tetracycline-class Drug Start: 12-07-2018 End: 06-15-2019 take 1 tablet by mouth twice daily Doxycycline Hyclate 100 mg tablet Discontinued 100 mg PO TWICE A DAY December 07, 2018 1:00am June 15, 2019 10:16am 0.3 ml enoxaparin sodium 100 mg/ml prefilled syringe (4 sources) Low Molecular Weight Heparin Start: 09-28-2024 End: 11-29-2024 Enoxaparin (Lovenox) 30 mg/0.3 mL syringe Discontinued 30 mg SC TWICE A DAY September 28, 2024 1:00am November 29, 2024 12:54pm blood thinner fenofibrate 200 mg oral capsule (20 sources) Peroxisome Proliferator Receptor alpha Agonist Start: 08-05-2018 End: 06-15-2019 take 1 capsule by mouth once daily Fenofibrate Micronized 200 mg capsule Discontinued 200 mg PO DAILY 90 4 August 05, 2018 8:04am June 15, 2019 10:16am Start: 03-29-2018 End: 08-05-2018 take 1 tablet by mouth once daily Fenofibrate Nanocrystallized 145 mg tablet Discontinued 145 mg PO DAILY@1800 90 3 August 01, 2018 3:06pm August 05, 2018 8:00am Start: 01-26-2018 End: 03-29-2018 take 1 capsule by mouth once daily Fenofibrate Micronized 200 mg capsule Discontinued 200 mg PO daily January 26, 2018 12:00am March 29, 2018 12:00pm cholesterol Start: 08-25-2016 take 1 tablet by blake once daily FENOFIBRATE MICRONIZED 200 MG CAPS One tablet by mouth daily FENOFIBRATE MICRONIZED [id number] Thomas Raphael MD fish oil (4 sources) Start: 11-28-2014 End: 12-16-2015 take 2 tablets by mouth twice daily [facility] OIL 1000 MG CAPS Two tablets by mouth twice daily for high triglycerides [place]-3 FATTY ACIDS [id number] Thomas Raphael MD Start: 11-28-2014 take 2 tablets by mo ut twice daily [facility] OIL 1000 MG CAPS Two tablets by mouth twice daily for high triglycerides [place]MEGA-3 FATTY ACIDS [id number] Ramón Asif DO gabapentin 100 mg oral capsule (13 sources) Anti-epileptic Agent Start: 03-10-2025 End: 03-13-2025 take 1 capsule by mouth every eight hours 200 mg, Oral, Every 8 hours, First dose on 03/10/25 at 1245 Start: 10-13-2024 take 2 capsules by m outh three times daily Gabapentin 100 mg Capsule Active 200 mg PO THREE TIMES A DAY 1 0 October 13, 2024 1:00am Start: 09-28-2024 End: 10-13-2024 take 1 capsule by mouth twice daily Gabapentin (Neurontin) 100 mg capsule Discontinued 100 mg PO TWICE A DAY September 28, 2024 1:00am October 13, 2024 3:25pm pain take 2 capsules by m outh every eight hours gabapentin (Neurontin) 100 MG capsule Take 200 mg by mouth every 8 hours. Active glipiZIDE er 5 mg 24 hr extended release oral tablet (20 sources) Sulfonylurea Start: 09-28-2024 End: 11-29-2024 take 1 tablet by mouth once daily Glipizide (Glucotrol Xl) 5 mg tablet extended release 24hr Discontinued 5 mg PO DAILY September 28, 2024 1:00am November 29, 2024 12:54pm dm Start: 03-27-2018 End: 03-12-2023 take 1 tablet by mouth once daily Glipizide 5 MG tablet Discontinued 5 mg PO DAILY@0800 0 March 29, 2018 12:00am March 12, 2023 3:12pm Start: 03-15-2018 GLIPIZIDE 5 MG TABS take 1 tablet once daily GLIPIZIDE [id number] Annia Monterrosoestrellita JHA Start: 03-28-2015 End: 08-17-2016 take 1 tablet by mouth once daily for diabetes mellitus GLIPIZIDE ER 5 MG [id number] One tablet by mouth daily for diabetes GLIPIZIDE [id number] Thomas Raphael MD Comment on above: Take 5 mg by mouth o nce daily. glucagon (rdna) 1 mg injection (2 sources) Antihypoglycemic Agent Start: 03-10-2025 End: 03-13-2025 1 mg, IntraMUSCular, PRN, low blood sugar, Blood glucose less than 70 mg/dL and patient NOT ALERT or NPO and does not have IV access., Starting on 03/10/25 at 1235, After administration, attempt intravenous access and start D5W at 100 mL/hr. Repeat blood glucose in 15 minutes x2 and notify provider. 50 ml glucose 50 mg/ml injection (4 sources) Start: 03-10-2025 End: 03-13-2025 100 mL/hr, IntraVENous, PRN, Blood sugar less than 70mg/dL, Starting on 03/10/25 at 1235, Start infusion following administration of dextrose 50% or glucagon. Start: 03-10-2025 End: 03-13-2025 12.5 g, IntraVENous, PRN, lo w blood sugar, Blood glucose less than 70 mg/dL and patient NOT ALERT or NPO., Starting on 03/10/25 at 1235, If patient does not respond within 5 minutes, repeat dose x1. Start D5W at 100 mL/hour until ordering provider can be reached. Repeat blood glucose in 15 minutes. If blood glucose is less than 70 mg/dL, repeat treatment and recheck blood glucose in 15 minutes x2. If using Glucostabilizer, dose as instructed per system. 1 ml HYDROmorphone hydrochloride 1 mg/ml cartridge (2 sources) Opioid Agonist Start: 03-09-2025 End: 03-09-2025 0.5 mg, IntraVENous, Every 5 min PRN, severe pain (7-10), Starting on Wed03/09/25 at 1657, For 4 doses, Recovery (only), Phase I and Phase II- Initial therapy for severe pain (7-10). Restricted to a 90 minute time frame starting when the patient can verbally state their pain score. If after 2 doses the pain score does not decrease by more than one point, then call the provider. If oral meds are utilized, do not return to initial therapy medications. HYDROmorphone (Dilaudid) injection 0.25 mg (2 sources) Start: 03-09-2025 End: 03-13-2025 take 0.25 mg intravenously every four hours as needed for pain HYDROmorphone (Dilaudid) injection 0.25 mg ibuprofen 200 mg oral tablet (1 source) Nonsteroidal Anti-inflammatory Drug Start: 11-28-2013 ADVIL 200 MG TABS take 2 tablets once daily as needed IBUPROFEN [id number] Annia Howard LPN insulin lispro 100 unt/ml injectable solution (2 sources) Insulin Analog Start: 03-09-2025 End: 03-09-2025 0-12 Units, SubCUTAneous, PRN, high blood sugar, Surgery patient, Starting on Wed03/09/25 at 0709, For 1 dose, Preprocedure, Corrective Low Dose Algorithm Glucose: Dose: 70-180 No Insulin 181-240 4 Unit 241-300 6 Units 301-350 8 Units 351-400 10 Units Over 400 12 Units and notify physician Insulin Lispro (Humalog) injection 0-6 Units (2 sources) Start: 03-10-2025 End: 03-13-2025 Insulin Lispro (Humalog) injection 0-6 Units lisinopril 10 mg oral tablet (20 sources) Angiotensin Converting Enzyme Inhibitor Start: 01-19-2019 End: 04-04-2019 take 2 tablets by mouth twice daily Lisinopril 5 mg tablet Discontinued 10 mg PO TWICE A DAY January 19, 2019 5:41pm April 04, 2019 12:46pm bp Start: 01-19-2019 End: 04-04-2019 take 10 mg by mouth twice daily Lisinopril Discontinue d 10 MG PO TWICE A DAY January 19, 2019 5:41pm April 04, 2019 12:46pm Start: 12-07-2018 End: 01-19-2019 take 1 tablet by mouth twice daily Lisinopril 5 mg tablet Discontinued 5 mg PO TWICE A DAY December 07, 2018 12:06pm January 19, 2019 5:41pm bp Start: 09-22-2018 End: 12-07-2018 take 2 tablets by mouth twice daily Lisinopril 5 MG tablet Discontinued 10 mg PO TWICE A DAY September 22, 2018 10:17pm December 07, 2018 12:13pm bp Start: 09-22-2018 End: 12-07-2018 take 10 mg by mouth twice daily Lisinopril Discontinue d 10 MG PO TWICE A DAY September 22, 2018 10:17pm December 07, 2018 12:13pm Start: 03-29-2018 End: 09-22-2018 take 1 tablet by mouth twice daily Lisinopril 5 mg tablet Discontinued 5 mg PO TWICE A DAY 180 3 March 30, 2018 3:18pm September 22, 2018 10:18pm Start: 10-18-2017 End: 10-18-2017 take 1 tablet by mouth once daily Lisinopril 10 mg tablet Discontinued 10 mg PO daily October 18, 2017 1:00am October 18, 2017 2:54pm Start: 11-16-2014 End: 10-18-2017 take 1 tablet by mouth once daily Lisinopril 20 MG tablet Discontinued 20 mg PO DAILY 30 November 16, 2014 1:00am October 18, 2017 2:47pm Start: 11-16-2014 take 1 tablet by blake th twice daily LISINOPRIL 20 MG TABS One tablet by mouth twice daily LISINOPRIL [id number] Ramón Asif DO Start: 11-14-2014 End: 11-16-2014 take 1 tablet by mouth once daily Lisinopril 10 MG tablet Discontinued 10 mg PO DAILY November 14, 2014 1:00am November 16, 2014 4:43pm Start: 09-12-2013 End: 04-24-2025 take 1 tablet by mouth twice daily Lisinopril 10 mg tablet Discontinued 10 mg PO TWICE A DAY 180 3 April 28, 2024 11:54am April 24, 2025 8:01am bp Comment on above: Take 10 mg by mouth twice daily. 1 ml LORazepam 2 mg/ml injection (2 sources) Benzodiazepine Start: End: 0.5 mg, IntraVENous, Once, On Wed03/09/25 at 1745, For 1 dose, Recovery (only), For IV doses dilute dose with 1ml NS. magnesium citrate 58.2 mg/ml oral solution (2 sources) Start: End: take 8 [oz_av] by mouth once 296 mL, Oral, Once, On Wed03/12/25 at 1230, For 1 dose, Administer each dose with 8 oz (240 mL) of water. magnesium hydroxide 80 mg/ml oral suspension (2 sources) Start: End: take 30 mL by mouth every twenty-four hours as needed for constipation 30 mL, Oral, Daily PRN, constipation, Starting on Wed03/09/25 at 2232, Follow dose with 8 oz of water. meloxicam 7.5 mg oral tablet (20 sources) Nonsteroidal Anti-inflammatory Drug Start: End: take 1 tablet by mouth once daily Meloxicam 7.5 mg tablet Discontinued 7.5 mg PO DAILY November 20, 2021 1:00am March 12, 2023 3:12pm Start: 03-10-2018 End: 06-15-2019 take 1 tablet by mouth once daily Meloxicam 15 mg tablet Discontinued 15 mg PO daily March 10, 2018 12:00am June 15, 2019 10:16am NSAID Start: 06-21-2015 End: 08-17-2016 take 1 tablet by mouth once daily MELOXICAM 7.5 MG TABS One tablet by mouth daily MELOXICAM [id number] Thomas Raphael MD metFORMIN hydrochloride 1000 mg oral tablet (20 sources) Biguanide Start: 11-16-2014 End: 02-20-2020 take 1 tablet by mouth twice daily at mealtime Metformin 1,000 MG tablet Discontinued 1000 mg PO TWICE DAILY WITH MEALS March 27, 2018 4:37pm February 20, 2020 1:06pm diabetes Start: 11-14-2014 End: 11-16-2014 take 1 tablet by mouth twice daily Metformin 500 MG Tab.Er.24h Discontinued 500 mg PO TWICE A DAY November 14, 2014 1:00am November 16, 2014 4:43pm Start: 08-18-2014 take 1 tablet by blake th twice daily metFORMIN ER (GLUCOPHAGE XR) 500 mg 24 hr tablet Take 1,000 mg by mouth twice daily. 08/18/2014 Active Start: 09-12-2013 METFORMIN HCL 500 MG TABS take 1 tablet twice daily METFORMIN HCL [id number] Annia Howard LPN Comment on above: Take 1,000 mg by blake th twice daily. methocarbamol 750 mg oral tablet (16 sources) Muscle Relaxant Start: End: take 2 tablets by mouth three times daily in the evening methocarbamol (Robaxin) 750 MG tablet Take 2 tablets (1,500 mg) by mouth 3 times daily for 10 days. 84 tablet 03/09/2025 5:42 PM EDT 03/09/2025 03/23/2025 Active Start: 09-28-2024 End: 03-13-2025 take 1 tablet by mouth three times daily as needed for pain Methocarbamol 750 mg tablet Active 750 mg PO THREE TIMES A DAY as needed for pain September 28, 2024 1:00am Start: 03-09-2016 End: 08-17-2016 METHOCARBAMOL 500 MG TABS 1- 2 tabs three times a day as needed METHOCARBAMOL [id number] Ramón Asif DO Metoclopramide (2 sources) Dopamine-2 Receptor Antagonist Start: 03-09-2025 End: 03-13-2025 metoclopramide (Reglan) tablet 10 mg mirtazapine 15 mg oral tablet (4 sources) Start: 10-13-2024 End: 05-15-2025 Mirtazapine 15 mg Tablet Discontinued 15 mg PO 2099 1 October 13, 2024 1:00am May 15, 2025 11:20am MULTIPLE VITAMIN (2 sources) Start: 11-16-2014 take 1 tablet by mouth once daily MULTIVITAMINS CAPS One tablet by mouth daily MULTIPLE VITAMIN [id number] Ramón Asif DO MULTIPLE VITAMIN (2 sources) Start: 11-16-2014 take 1 tablet by mouth once daily MULTIVITAMINS CAPS One tablet by mouth daily MULTIPLE VITAMIN [id number] Ramón Asif DO Multivitamin tablet (4 sources) Start: 01-26-2018 End: 09-28-2024 Multivitamin tablet Discontinued 1 {tbl} PO daily January 26, 2018 12:00am September 29, 2024 12:46am vitamin Start: 01-26-2018 End: 09-28-2024 Multivitamin tablet Disconti nued 1 {tbl} PO daily January 26, 2018 12:00am September 29, 2024 12:46am nabumetone 500 mg oral tablet (6 sources) Nonsteroidal Anti-inflammatory Drug Start: 03-12-2023 End: 09-21-2023 take 1 tablet by mouth twice daily Nabumetone 500 mg tablet Discontinued 500 mg PO TWICE A DAY March 12, 2023 12:00am September 21, 2023 11:43am 1 ml naloxone hydrochloride 0.4 mg/ml injection (2 sources) Opioid Antagonist Start: 03-09-2025 End: 03-13-2025 0.4 mg, IntraVENous, Every 5 min PRN, opioid reversal, respiratory depression, Starting on Wed03/09/25 at 1903, +++ For RR naproxen 500 mg oral tablet (5 sources) Nonsteroidal Anti-inflammatory Drug Start: 09-21-2023 End: 09-28-2024 Naproxen 500 mg tablet Discontinued 500 mg PO September 21, 2023 1:00am September 29, 2024 12:46am 24 hr niacin 1000 mg extended release oral tablet (9 sources) Nicotinic Acid Start: 11-16-2014 End: 11-16-2014 take 1 tablet by mouth at bedtime Niacin 1,000 MG tablet Discontinued 1000 mg PO AT BEDTIME 30 November 16, 2014 1:00am November 16, 2014 4:44pm Nut.Tx.Gluc Intol,Lf,Soy-Fiber (Glucerna 1.2 Devin) 0.06-1.2 gram-kcal/mL Liquid (4 sources) Start: 10-13-2024 End: 11-29-2024 take 1 mL by mouth three times daily at mealtime Nut.Tx.Gluc Intol,Lf,Soy-Fibe r (Glucerna 1.2 Devin) 0.06-1.2 gram-kcal/mL Liquid Discontinued 120 mL PO 3 TIMES DAILY WITH MEALS 1 October 13, 2024 1:00am November 29, 2024 12:55pm Start: 10-13-2024 End: 11-29-2024 take 1 mL by mouth three times daily at mealtime Nut.Tx.Gluc Intol,Lf,Soy-Fiber (Glucerna 1.2 Devin) 0.06-1.2 gram-kcal/mL Liquid Discontinued 120 mL PO 3 TIMES DAILY WITH MEALS October 13, 2024 1:00am November 29, 2024 12:55pm OMEGA-3 FATTY ACIDS (4 sources) Start: 11-28-2014 End: 12-16-2015 take 2 tablets by mouth twice daily [facility] 1000 MG CAPS Two tablets by mouth twice daily for high triglycerides OMEGA-3 FATTY ACIDS [id number] Thomas Raphael MD Start: 11-28-2014 take 2 tablets by mo [facility] twice daily [facility] OIL 1000 MG CAPS Two tablets by mouth twice daily for high triglycerides OMEGA-3 FATTY ACIDS [id number] Ramón Asif DO [place]-3 Fatty Acids (Fish Oi l Concentrate) 1,000 mg capsule (9 sources) Start: 06-15-2019 End: 05-15-2025 [place]-3 Fatty Acids (Fish Oi l Concentrate) 1,000 mg capsule Discontinued 2000 mg PO DAILY June 15, 2019 12:00am May 15, 2025 11:20am vitamin Start: 06-15-2019 [place]-3 Fatty Acids (Fish Oil Concentrate) 1,000 mg capsule Active 2000 mg PO DAILY June 15, 2019 12:00am Start: 06-15-2019 [facility] [place]-3 Fatty Acids (Fish Oil Concentrate) 1,000 mg capsule Active 1000 MG PO DAILY June 15, 2019 12:00am ondansetron ODT (Zofran-ODT) disintegrating tablet 4 mg (2 sources) Start: 03-09-2025 End: 03-13-2025 take 1 tablet by mouth every eight hours as needed for nausea and vomiting ondansetron ODT (Zofran-ODT) disintegrating tablet 4 mg oxyCODONE (19 sources) Opioid Agonist Start: 03-10-2025 End: 03-13-2025 take 1 tablet by mouth every four hours as needed for pain oxyCODONE (Roxicodone) immediate release tablet 5 mg Start: 03-09-2025 End: 03-10-2025 take 1 tablet by mouth every four hours as needed for pain 10 mg, Oral, Every 4 hours PRN, moderate pain (4-6), Starting on Wed03/09/25 at 2230 Start: 10-13-2024 End: 10-25-2024 take 1 tablet by mouth every four hours as needed for pain Oxycodone 5 mg tablet Active 5 mg PO EVERY 4 HOURS NEEDED as needed for Pain Score 4-10 28 7 0 October 25, 2024 Fracture of vertebra Fracture of triquetrum Start: 09-28-2024 End: 10-13-2024 take 1 tablet by mouth every six hours as needed for pain Oxycodone 5 mg tablet Discontinued 5 mg PO EVERY 6 HOURS as needed for pain 0 September 28, 2024 1:00am October 13, 2024 3:30pm Start: 06-02-2017 OXYCODONE HCL 5 MG TABS as needed OXYCODONE HCL [id number] Thomas Raphael MD polyethylene glycol 3350 77111 mg powder for oral solution (6 sources) Osmotic Laxative Start: 03-10-2025 End: 03-13-2025 take 1 dose by mouth every twenty-four hours for constipation 17 g, Oral, Daily, First dose (after last modification) on 03/10/25 at 1000, Phase II/On Unit, 1st line for treatment of constipation - give scheduled if no bowel movement in past 24 hours. Start: 09-28-2024 Polyethylene G lycol 3350 (Miralax) 17 gram/dose powder Active 17 g PO DAILY September 28, 2024 1:00am constipation predniSONE 20 mg oral tablet (4 sources) Corticosteroid Start: 05-31-2016 End: 06-12-2016 PREDNISONE 20 MG TABS 3 tabs for 3 days, 2 tabs x 3 days, 1 tab x 3 days, 1/2 tab x 4 days PREDNISONE [id number] Ramón Asif DO SITagliptin 100 mg oral tablet (8 sources) Dipeptidyl Peptidase 4 Inhibitor Start: 03-26-2015 End: 03-28-2015 take 1 tablet by mouth once daily for diabetes mellitus JANUVIA 100 MG TABS One tablet by mouth daily for diabetes SITAGLIPTIN PHOSPHATE [id number] Ramón Asif DO 5 ml sodium chloride 9 mg/ml injection (6 sources) Start: 03-09-2025 End: 03-13-2025 10 mL, IntraVENous, Every 12 hours scheduled (2 times per day), First dose on Wed03/09/25 at 2100, Phase II/On Unit Start: 03-09-2025 End: 03-13-2025 Start: 03-09-2025 End: 03-13-2025 sodium phosphate, dibasic 35.5 mg/ml / sodium phosphate, monobasic 96.4 mg/ml enema (2 sources) Start: 03-12-2025 End: 03-12-2025 1 enema, Rectal, Once, On Wed03/12/25 at 1230, For 1 dose tadalafil 5 mg oral tablet (8 sources) Phosphodiesterase 5 Inhibitor Start: 03-26-2015 End: 03-28-2015 take 1 tablet by mouth once daily CIALIS 5 MG TABS One tablet by mouth daily TADALAFIL [id number] Ramón Asif DO tamsulosin hydrochloride 0.4 mg oral capsule (20 sources) alpha-Adrenergic Amadeo Start: 01-29-2025 End: 03-13-2025 take 0.4 mg by mouth once daily 0.4 mg, Oral, Nightly, First dose on Wed03/10/25 at 2100, Do not crush, chew, or split. Start: 10-13-2024 Tamsulosin 0.4 mg Capsule Active 0.8 mg PO 1730 1 0 October 13, 2024 1:00am Start: 06-15-2019 End: 10-13-2024 take 1 capsule by mouth once daily Tamsulosin 0.4 mg capsule Discontinued 0.4 mg PO DAILY June 15, 2019 12:00am October 13, 2024 3:33pm bph Start: 03-15-2018 TAMSULOSIN HCL 0.4 MG CAPS take 1 capsule once daily TAMSULOSIN HCL [id number] Annia Anita JHA Start: 03-28-2015 End: 08-17-2016 take 1 tablet by mouth once daily TAMSULOSIN HCL 0.4 MG CAPS One tablet by mouth daily at night for BPH TAMSULOSIN HCL [id number] Thomas Raphael MD Comment on above: [facility] ubidecarenone 100 mg oral capsule (9 sources) Start: 019 End: Coenzyme Q10 (Co Q-10) 100 mg capsule Discontinued 100 mg PO DAILY December 07, 2018 1:00am September 29, 2024 12:43am vardenafil 20 mg oral tablet (12 sources) Phosphodiesterase 5 Inhibitor Start: End: LEVITRA 20 MG TABS 1-2-1 tablet as needed VARDENAFIL HCL [id number] Thomas Raphael MD ZOSTER VACCINE LIVE (2 sources) Start: End: ZOSTAVAX 85285 UNT/0.65ML SUSR One Injection for shingles prevention to be given at pharmacy ZOSTER VACCINE LIVE [id number] Ramón Madonna Yefri DALEY Zinc (9 sources) Start: End: take 1 tablet by mouth once daily Zinc 50 mg tablet Discontinued 50 mg PO DAILY November 04, 2020 1:00am September 21, 2023 11:42am Start: 11-04-2020 End: 09-21-2023 take 50 mg by mouth once daily Zinc Discontinued 50 MG PO DAILY November 04, 2020 1:00am September 21, 2023 11:42am Start: 11-04-2020 take 50 mg by mouth once daily Zinc Active 50 MG PO DAILY November 04, 2020 1:00am Problems Active Problems Problem Classification Problem Date Documented Da te Episodic/Chronic Aortic; peripheral; and visceral artery aneurysms (10 sources) Aortic root dilatation; Translations: [Thoracic aortic ectasia] Onset: 09-23-2018 Chronic Cardiac dysrhythmias (20 sources) Paroxysmal ventricular tachycardia; Translations: [Ventricular tachycardia] Onset: 5 11-16-2014 Chronic Conduction disorders (20 sources) Complete atrioventricular block; Translations: [Atrioventricular block, complete] Onset: 8 Chronic Comment on above: Implant 09/23/18PPM Ventricular lead - Gun Barrel Finisher: [employer] Model # 7742 , Serial # [id number] Atrial lead - Gun Barrel Finisher: [employer], Model # 7741 , Serial # [id number] Generator - Gun Barrel Finisher: [employer] Model # L111 , Serial # [id number] [employer] Congestive heart failure; nonhypertensive (20 sources) Congestive heart failure; Translations: [Heart failure, unspecified] Onset: 4 Chronic Comment on above: EF 45% on echo in 2023. Most recent Ef 45%. follows with G Coronary atherosclerosis and other heart disease (17 sources) 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; Translations: [Coronary atherosclerosis] Onset: 5 11-16-2014 Chronic Comment on above: Minimal Crushing injury or internal injury (2 sources) Contusion of other intra-abdominal organs, initial encounter; Translations: [Injury to other intra-abdominal organs without mention of open wound into cavity, retroperitoneum] Onset: 4 09-25-2024 Episodic Diabetes mellitus without complication (20 sources) Diabetes mellitus; Translations: [Type 2 diabetes mellitus well controlled] Onset: 5 Resolved: 5 11-22-2014 Chronic Diabetes mellitus without complication (2 sources) Hyperglycemia, unspecified; Translations: [Hyperglycemia, unspecified] Onset: 5 Episodic Disorders of lipid metabolism (15 sources) Hyperlipidemia; Translations: [Hyperlipidemia, unspecified] Onset: 5 11-16-2014 Chronic E Codes: Fall (9 sources) Fall; Translations: [Unspecified fall, initial encounter] 06-14-2019 Episodic Essential hypertension (20 sources) Hypertensive disorder; Translations: [Essential hypertension] Onset: 5 11-16-2014 Chronic Fracture of upper limb (6 sources) Fracture of triquetral bone of wrist; Translations: [Displaced fracture of triquetrum [cuneiform] bone, unspecified wrist, initial encounter for closed fracture] Onset: 4 09-29-2024 Episodic Comment on above: Left Gout and other crystal arthropathies (4 sources) Gout; Translations: [Gout, unspecified] Onset: 5 11-28-2014 Chronic Heart valve disorders (20 sources) Aortic valve stenosis; Translations: [Aortic valve disorder] Onset: 5 12-12-2014 Chronic Hyperplasia of prostate (9 sources) Benign prostatic hyperplasia; Translations: [Benign prostatic hyperplasia without lower urinary tract symptoms] Onset: 5 03-26-2015 Chronic Mood disorders (5 sources) Depressive disorder; Translations: [Depression] Onset: 4 10-05-2024 Chronic Nutritional deficiencies (2 sources) Vitamin D deficiency, unspecified; Translations: [Vitamin D deficiency, unspecified] Onset: 5 Chronic Osteoarthritis (20 sources) Unilateral primary osteoarthritis, left knee; Translations: [Osteoarthritis of hip] Onset: 6 03-23-2018 Chronic Other aftercare (2 sources) termination clerk (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; Translations: [termination clerk (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] Onset: 5 Episodic Other circulatory disease (2 sources) Retroperitoneal hemorrhage; Translations: [Hemorrhage, not elsewhere classified] Onset: 4 09-24-2024 Episodic Other connective tissue disease (2 sources) Presence of left artificial hip joint; Translations: [Presence of right artificial hip joint] Onset: 6 10-28-2016 Chronic Other connective tissue disease (4 sources) Spasm; Translations: [Other muscle spasm] 10-05-2024 Episodic Other fractures (2 sources) Closed fracture lumbar vertebra, transverse process ; Translations: [Unspecified fracture of unspecified lumbar vertebra, initial encounter for closed fracture] Onset: 4 09-25-2024 Episodic Other fractures (1 source) Unspecified fracture of unspecified thoracic vertebra, initial encounter for closed fracture; Translations: [Closed fracture of transverse process of thoracic vertebra, initial encounter ([facility])]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 acetaminophen, 650 mg, Oral, q6h amLODIPine, 5 mg, Oral, Daily [Held by provider] aspirin, 81 mg, Oral, Daily atorvastatin, 20 mg, Oral, Nightly carvedilol, 3.125 mg, Oral, BID WC cholecalciferol, 1,000 Units, Oral, Daily gabapentin, 200 mg, Oral, q8h insulin lispro, 0-6 Units, SubCUTAneous, TID WC And insulin lispro, 0-6 Units, SubCUTAneous, Nightly lisinopril, 10 mg, Oral, BID magnesium citrate, 296 mL, Oral, Once methocarbamol, 750 mg, Oral, 3 times per day metoclopramide, 10 mg, Oral, 4 times per day Or metoclopramide, 10 mg, IntraVENous, 4 times per day polyethylene glycol (PEG) 3350, 17 g, Oral, Daily senna-docusate sodium, 1 tablet, Oral, BID sodium chloride 0.9%, 10 mL, IntraVENous, 2 times per day sodium phosphate, 1 enema, Rectal, Once tamsulosin, 0.4 mg, Oral, Nightly traZODone, 150 mg, Oral, Nightly PRN medications: dextrose, dextrose, glucagon (rDNA), glucose, HYDROmorphone OR HYDROmorphone, magnesium hydroxide, naloxone, ondansetron ODT OR ondansetron, oxyCODONE OR oxyCODONE, sodium chloride, sodium chloride 0.9% Continuous Allergies: Patient has no known allergies. Social History: Social History Socioeconomic History Marital status: Spouse name: Not on file Number of children: Not on file Years of education: Not on file Highest education level: Not on file Occupational History Not on file Tobacco Use Smoking status: Former Types: Cigars Start date: 1972 Quit date: 1980 Years since quittin.3 Smokeless tobacco: Never Vaping Use Vaping status: Never Used Substance and Sexual Activity Alcohol use: Not Currently Alcohol/week: 0.0 - 1.0 standard drinks of alcohol Drug use: Never Sexual activity: Not on file Other Topics Concern Not on file Social History Narrative Not on file Social Drivers of Health Financial Resource Strain: Not on file Food Insecurity: No Food Insecurity (09/25/2024) Received from [facility] Hunger Vital Sign Worried About Running Out of Food in the Last Year: Never true Ran Out of Food in the Last Year: Never true Transportation Needs: No Transportation Needs (09/25/2024) Received from [facility] PRAPARE - Transportation Lack of Transportation (Medical): No Lack of Transportation (Non-Medical): No Physical Activity: Not on file Stress: Not on file Social Connections: Not on file Intimate Partner Violence: Not At Risk (03/10/2025) Humiliation, Afraid, Rape, and Kick questionnaire Fear of Current or Ex-Partner: No Emotionally Abused: No Physically Abused: No Sexually Abused: No Housing Stability: Unknown (09/25/2024) Received from [facility] Housing Stability Vital Sign Unable to Pay for Housing in the Last Year: No Number of Times Moved in the Last Year: Not on file Homeless in the Last Year: No Family History: No family history on file. REVIEW OF SYSTEMS: 10 point ROS obtained, as per HPI, otherwise NEG Physical Exam: Vitals: BP 108/64 (BP Location: Left arm, Patient Position: Sitting) Pulse 85 Temp 36.3 ?C (97.3 ?F) (Temporal) Resp 18 Ht 6' 3 (1.905 m) Wt 197 lb (89.4 kg) SpO2 94% BMI 24.62 kg/m? BMI Classification: Normal Weight (BMI 18.5-24.9) Pulse Ox: SpO2 Av (more content not included)... Normal [facility] Laboratory - Chemistry and C hemistry - challengeon 03-12-2025 Glucose [Mass/Vol] 224 mg/dL High 70 - 100 mg/dL [facility] Glucose [Mass/Vol] 120 mg/dL High 70 - 100 mg/dL [facility] Glucose [Mass/Vol] 159 mg/dL High 70 - 100 mg/dL [facility] Glucose [Mass/Vol] 147 mg/dL High 70 - 100 mg/dL [facility] No Panel Informationon 03-12 Interpretation and review of laboratory results Abnormal [facility] Performed by: [facility], [address] [place] [address] CLIA ID: [id number] [facility] Interpretation and review of laboratory results Abnormal [facility] Performed by: [facility], [address] [place] [address] CLIA ID: [id number] [facility] Interpretation and review of laboratory results Abnormal [facility] Performed by: [facility], [address] [place] [address] CLIA ID: [id number] [facility] Interpretation and review of laboratory results Abnormal [facility] Performed by: [facility], [address] [place] [address] CLIA ID: [id number] [facility] Progress Noteon 03-12-2025 Progress Note PHYSICAL THERAPY [facility] Treatment Note Name/MRN: Jens Mccullough ([id number]) Date of : 1950 Age: 74 y.o. Room/Bed: [facility]21/6121 A Discharge Recommendation: 24 hour supervision or assist, Home with Home health PT Equipment Needed: No Other: Pt owns FWW Prior Level of Function Prior Level of ADL Function: Independent Prior Level of Mobility: Independent; Device: None Prior Level of Transfers: Independent Assessment Pt is most limited by pain this date. Pt is Min Assist for bed mobility, pt does have a reclining chair that he can sleep in at home. SBA for transfers, ambulation, and stairs. Pt would benefit from one more day at the hospital to prepare for home. Recommending 24 hour supervision and home PT once discharged. Subjective Pt supine in bed, pleasant and agreeable to PT. Pt could recall 3/3 spinal precautions. Pain: C/o lower back soreness, not rated Medical Precautions: No active isolations Proper PPE donned/doffed in accordance with facility standards. Fall Risk: Sanford Fall Risk Score: 60 (High Risk) Precautions/Restrict ions: Spine Precautions: No Bending, No Lifting, No Twisting Fall Precautions Overall Cognitive Status: WNL Overall Orientation Status: Oriented x4 Family/Caregiver Present: none Objective Bed Mobility Supine to sit: Min Assist HOB raised Extra time to complete Transfers/Mobility Sit to stand: SBA Stand to sit: SBA X1 rep from EOB X2 reps from wheelchair X1 rep from chair X1 rep from reclining chair Pt demonstrated good technique Ambulation Ambulation 1 Assistive device(s) used: Front wheeled walker Assist level: SBA Distance (ft): 200' Quality of gait: uneven step length, slow clark, postural sway Cued to take larger steps and stand upright Balance During Session: Posture: good Sitting balance: Sat EOB for 6 minutes with SBA Standing balance: Stood at toilet with independence for 5 minutes Stairs Stairs 1 Assistive device(s) used: None Assist level: SBA # of steps: 3, 6.5' Rails: bilateral Additional factors: non-reciprocal going up, non-reciprocal going down, increased time to complete Plan Continue acute PT per plan of care. Safety/Education Safety Safety Devices in place: call light within reach, left in chair, gait belt, and no alarms engaged upon entry Restraints: No Education Bed mobility, transfers, gait, stairs Outcome Measures AM-PAC AM-PAC Inpatient Mobility Raw Score : 18 AM-PAC Inpatient Mobility Raw Score (No Stairs) : 15 JH-HLM JH-HLM Score: Walked 250 ft or more (i.e. several laps on unit) Goals Patient Stated Goal: Pt wants to feel better. Encounter Problems Encounter Problems (Active) Mobility Patient will ambulate 300 feet with modified independence and least restrictive device in order to improve safety and independence with mobility. (Progressing) Start: 03/10/25 Expected End: 04/06/25 Patient will ascend and descend 12 stairs with least restrictive device and modified independence in order to safely negotiate home. (Progressing) Start: 03/10/25 Expected End: 04/06/25 Pain - Adult Transfers Patient will perform bed mobility with modified independence in order to improve independence and prepare for out of bed mobility. (Progressing) Start: 03/10/25 Expected End: 04/06/25 Patient will complete functional transfer with least restrictive device with modified independence in order to prepare for ambulation. (Progressing) Start: 03/10/25 Expected End: 04/06/25 Therapy Time Individual Co-treatment Time In 924 Time Out 0957 Minutes 32 Timed Code Treatment Minutes: 32 Minutes (gait & fa) Divine Lewis, LILIA Doshi, JORDI [facility] 30on 03-11-2025 30 Problem: Pain - Adult Goal: Verbalizes/displays adequate comfort level or baseline comfort level Outcome: Progressing Problem: Safety - Adult Goal: Free from fall injury Outcome: Progressing Problem: Discharge Planning Goal: Discharge to home or other facility with appropriate resources Outcome: Progressing [facility] 30 Problem: Pain - Adult Goal: Verbalizes/displays adequate comfort level or baseline comfort level 03/11/2025 1751 by Candy Ariza RN Outcome: Progressing 03/11/2025923 by Candy Ariza RN Outcome: Progressing Problem: Safety - Adult Goal: Free from fall injury 03/11/20251750 by Candy Ariza RN Outcome: Progressing 03/11/2025923 by Candy Ariza RN Outcome: Progressing Problem: Discharge Planning Goal: Discharge to home or other facility with appropriate resources 03/11/20251750 by Candy Ariza RN Outcome: Progressing 03/11/2025923 by Candy Ariza RN Outcome: Progressing Problem: Chronic Conditions and Co-morbidities Goal: Patient's chronic conditions and co-morbidity symptoms are monitored and maintained or improved 03/11/20251750 by Candy Ariza RN Outcome: Progressing 03/11/2025923 by Candy Ariza RN Outcome: Progressing Problem: Knowledge Deficit Goal: Patient/family/careg iver demonstrates understanding of disease process, treatment plan, medications, and discharge instructions 03/11/20251750 by Candy Ariza RN Outcome: Progressing 03/11/2025923 by Candy Ariza RN Outcome: Progressing Problem: Potential for Falls Goal: I will remain free of falls 03/11/20251750 by Candy Ariza RN Outcome: Progressing 03/11/2025923 by Candy Ariza RN Outcome: Progressing Problem: Discharge Barriers Goal: My discharge needs are met 03/11/20251750 by Candy Ariza RN Outcome: Progressing 03/11/2025923 by Candy Ariza RN Outcome: Progressing [facility] 30 Problem: Pain - Adult Goal: Verbalizes/displays adequate comfort level or baseline comfort level Outcome: Progressing Problem: Safety - Adult Goal: Free from fall injury Outcome: Progressing Problem: Discharge Planning Goal: Discharge to home or other facility with appropriate resources Outcome: Progressing Problem: Chronic Conditions and Co-morbidities Goal: Patient's chronic conditions and co-morbidity symptoms are monitored and maintained or improved Outcome: Progressing Problem: Knowledge Deficit Goal: Patient/family/careg iver demonstrates understanding of disease process, treatment plan, medications, and discharge instructions Outcome: Progressing Problem: Potential for Falls Goal: I will remain free of falls Outcome: Progressing Problem: Discharge Barriers Goal: My discharge needs are met Outcome: Progressing Normal [facility] [id number] 03-11-2025 [id number] Educated patient on Home Care and services available. Patient is agreeable to receiving home care services at this time. Patient was given choice of home care agencies available in the area and is agreeable to [facility] at this time. [facility] and will update patient on acceptance. Normal [facility] BASIC METABOLIC PANELon 04-2 Anion gap [Moles/Vol] 8 mmol/L Normal 3-13 [facility] Comment on above: Performed By: #### L [id number] ####Classics Professor: SLIME MARTÍNEZ ([id number])[facility])[address] [place] [address] Calcium [Mass/Vol] 9.2 mg/dL Normal 8.8-10.0 [facility] Comment on above: Performed By: #### L [id number] ####Classics Professor: SILME MARTÍNEZ ([phone])[facility])[address] [place] [address] Chloride [Moles/Vol] 109 mmol/L High 98-107 [facility] Comment on above: Performed By: #### L [id number] ####Classics Professor: SLIME MARTÍNEZ ([id number])[facility])[address] [place] [address] CO2 [Moles/Vol] 24 mmol/L Normal 23-31 [facility] Comment on above: Performed By: #### L [id number] ####Classics Professor: SLIME MARTÍNEZ ([id number])[facility])[address] [place] [address] Creatinine [Mass/Vol] 0.76 mg/dL Normal 0.72-1.25 [facility] Comment on above: Performed By: #### L [id number] ####Classics Professor: SLIME MARTÍNEZ ([phone])[facility])[address] [place] [address] GLOMERULAR FILTRATION RATE ML/MIN/1.73 SQ M.PREDICTED >90.0 Normal >60.0 [facility] Comment on above: Result Comment: Calc ulation based on the Chronic Kidney Disease Epidemiology Collaboration (CKD-EPI) equation refit without adjustment for race Performed By: #### L [id number] ####Classics Professor: SLIME MARTÍNEZ ([id number])[facility])[address] [place] [address] Glucose [Mass/Vol] 153 mg/dL High 82-115 [facility] Comment on above: Performed By: #### L [id number] ####Classics Professor: SLIME MARTÍNEZ ([id number])[facility])[address] [place] [address] Potassium [Moles/Vol] 4.6 mmol/L Normal 3.5-5.1 [facility] Comment on above: Result Comment: [facility] potassium values may be up to 0.5 mmol/L lower than serum values. Performed By: #### L [id number] ####Classics Professor: SLIME MARTÍNEZ ([id number])[facility])[address] [place] [address] Sodium [Moles/Vol] 141 mmol/L Normal 136-145 [facility] Comment on above: Performed By: #### L [id number] ####Classics Professor: SLIME MARTÍNEZ ([id number])[address] Urea nitrogen [Mass/Vol] 19 mg/dL Normal 9-23 [facility] Comment on above: Performed By: #### L [id number] ####Classics Professor: SLIME MARTÍNEZ ([id number])[facility])[address] [place] [address] Basic metabolic 1998 panelon 03-11-2025 Anion gap [Moles/Vol] 8 mmol/L 3 - 13 mmol/L [facility] Calcium [Mass/Vol] 9.2 mg/dL 8.8 - 10. 0 mg/dL [facility] Chloride [Moles/Vol] 109 mmol/L High 98 - 10 7 mmol/L [facility] CO2 [Moles/Vol] 24 mmol/L 23 - 31 mmol/L [facility] Creatinine [Mass/Vol] 0.76 mg/dL 0.72 - 1.25 mg/dL [facility] GFR/1.73 sq M.predicted (S/P/Bld) [Vol rate/Area] - PINF [facility] Comment on above: Calculation based on the Chronic Kidney Disease Epidemiology Collaboration (CKD-EPI) equation refit without adjustment for race Glucose [Mass/Vol] 153 mg/dL High 82 - 115 mg/dL [facility] Interpretation and review of laboratory results Abnormal [facility] Potassium [Moles/Vol] 4.6 mmol/L 3.5 - 5.1 mmol/L [facility] Comment on above: Plasma potassium maggy ues may be up to 0.5 mmol/L lower than serum values. Sodium [Moles/Vol] 141 mmol/L 136 - 145 mmol/L [facility] Urea nitrogen [Mass/Vol] 19 mg/dL 9 - 23 mg/dL [facility] CBC W Auto Differential pane l (Bld)on 03-11-2025 Erythrocyte distribution width (RBC) [Ratio] 14.4 % 11.5 - 15.0 % [facility] Hematocrit (Bld) [Volume fraction] 32.5 % Low 40.0 - 52.0 % [facility] Hemoglobin (Bld) [Mass/Vol] 10.5 g/dL Low 13.0 - 18.0 g/dL [facility] Interpretation and review of laboratory results Abnormal [facility] IPF 2 [facility] MCH (RBC) [Entitic mass] 30.1 pg 26.0 - 34.0 pg [facility] MCHC (RBC) [Mass/Vol] 32.3 % 30.5 - 36.0 % [facility] MCV (RBC) [Entitic vol] 93.1 fL 77.0 - 99.0 fL [facility] Platelet mean volume (Bld) [Entitic vol] 10.4 fL 9.0 - 12.7 fL [facility] Platelets (Bld) [#/Vol] 157 10*3/uL 140 - 440 10*3/uL [facility] RBC (Bld) [#/Vol] 3.49 10*6/uL Low 4.40 - 5.9 0 10*6/uL [facility] WBC (Bld) [#/Vol] 11.9 10*3/uL High 3.6 - 10.7 10*3/uL [facility] CBC WITH AUTO DIFFERENTIALon 03-11-2025 Erythrocyte distribution width (RBC) [Ratio] 14.4 % Normal 11.5-15.0 [facility] Comment on above: Performed By: #### L [id number], [id number] ####Classics Professor: SLIME MARTÍNEZ ([id number])[facility])[address] [place] [address] Hematocrit (Bld) [Volume fraction] 32.5 % Low 40.0-52.0 [facility] Comment on above: Performed By: #### L [id number], [id number] ####Classics Professor: SLIME MARTÍNEZ ([id number])[address] Hemoglobin (Bld) [Mass/Vol] 10.5 g/dL Low 13.0-18.0 [facility] Comment on above: Performed By: #### L [id number], [id number] ####Classics Professor: SLIME MARTÍNEZ ([id number])[facility])[address] [place] [address] IPF 2 Normal [facility] Comment on above: Performed By: #### L [id number], [id number] ####Classics Professor: SLIME MARTÍNEZ ([id number])[facility])[address] [place] [address] MCH (RBC) [Entitic mass] 30.1 pg Normal 26.0-34.0 [facility] Comment on above: Performed By: #### L [id number], [id number] ####Classics Professor: SLIME MARTÍNEZ ([id number])[facility])[address] [place] [address] MCHC 32.3 % Normal 30.5-36.0 [facility] Comment on above: Performed By: #### L [id number], [id number] ####Classics Professor: SLIME MARTÍNEZ ([id number])[facility])[address] [place] [address] MCV (RBC) [Entitic vol] 93.1 fL Normal 77.0-99.0 [facility] Comment on above: Performed By: #### L [id number], [id number] ####Classics Professor: SLIME MARTÍNEZ ([id number])[facility])[address] [place] [address] Platelet mean volume (Bld) [Entitic vol] 10.4 fL Normal 9.0-12.7 [facility] Comment on above: Performed By: #### L [id number], [id number] ####Classics Professor: SLIME MARTÍNEZ ([id number])[facility])[address] [place] [address] Platelets (Bld) [#/Vol] 157 10*3/uL Normal 140-440 [facility] Comment on above: Performed By: #### L [id number], [id number] ####Classics Professor: SLIME MARTÍNEZ ([id number])[facility])[address] [place] [address] RBC (Bld) [#/Vol] 3.49 10*6/uL Low 4.40-5.90 [facility] Comment on above: Performed By: #### Sander [id number], [id number] ####Classics Professor: SLIME MARTÍNEZ ([id number])[facility])[address] [place] [address] WBC (Bld) [#/Vol] 11.9 10*3/uL High 3.6-10.7 [facility] Comment on above: Performed By: #### L [id number], [id number] ####Classics Professor: SLIME MARTÍNEZ ([id number])[facility])[address] [place] [address] Laboratory - Chemistry and C hemistry - challengeon 03-11-2025 Glucose [Mass/Vol] 183 mg/dL High 70 - 100 mg/dL [facility] Glucose [Mass/Vol] 146 mg/dL High 70 - 100 mg/dL [facility] Glucose [Mass/Vol] 209 mg/dL High 70 - 100 mg/dL [facility] Glucose [Mass/Vol] 145 mg/dL High 70 - 100 mg/dL [facility] Laboratory - Hematology and Cell countson 03-11-2025 Band form neutrophils (Bld) [#/Vol] 0.2 10*3/uL High NINF - 0.0 10*3/uL [facility] Band form neutrophils/100 WBC (Bld) 2 % High NINF - 0 % [facility] Lymphocytes (Bld) [#/Vol] 0.7 10*3/uL Low 1.0 - 4.3 10*3/uL [facility] Lymphocytes/100 WBC (Bld) 6 % Low 15 - 45 % [facility] Monocytes (Bld) [#/Vol] 0.6 10*3/uL 0.0 - 0.9 10*3/uL [facility] Monocytes/100 WBC (Bld) 5 % 5 - 13 % [facility] Neutrophils (Bld) [#/Vol] 10.6 10*3/uL High 1.8 - 7.5 10*3/uL [facility] RBC morphology finding Nom (Bld) Normal [facility] Segmented neutrophils/100 WBC (Bld) 87 % High 38 - 82 % [facility] MANUAL DIFFERENTIAL (CELLAVI PRANAV)on 03-11-2025 BAND NEUTROPHILS TOTAL PER COUNTED LEUKOCYTES BY MANUAL COUNT 2 Normal [facility] Comment on above: Performed By: #### L [id number], [id number] ####Classics Professor: SLIME MARTÍNEZ ([id number])[address] BANDS (10*3/UL) IN BLOOD-CELLAVISION 0.2 10*3/uL High <=0.0 [facility] Comment on above: Performed By: #### L [id number], [id number] ####Classics Professor: SLIME MARTÍNEZ ([id number])[place] [address] [place] BASOPHILS TOTAL PER COUNTED LEUKOCYTES BY MANUAL COUNT Normal [facility] Comment on above: Performed By: #### L [id number], [id number] ####Classics Professor: SLIME MARTÍNEZ ([id number])[facility])[address] [place] [address] [place] BLASTS TOTAL PER COUNTED LEUKOCYTES BY MANUAL COUNT Normal [facility] Comment on above: Performed By: #### L [id number], [id number] ####Classics Professor: SLIME MARTÍNEZ ([id number])[facility])[address] [place] [address] [place] EOSINOPHILS TOTAL PER COUNTED LEUKOCYTES BY MANUAL COUNT [facility] Comment on above: Performed By: #### L [id number], [id number] ####Classics Professor: SLIME MARTÍNEZ ([id number])[facility])[address] [place] [address] [place] LYMPHOCYTES (10*3/UL) IN BLOOD-CELLAVISION 0.7 10*3/uL Low 1.0-4.3 [facility] Comment on above: Performed By: #### L [id number], [id number] ####Classics Professor: SLIME MARTÍNEZ ([id number])[facility])[address] [place] [address] [place] LYMPHOCYTES TOTAL PER COUNTED LEUKOCYTES BY MANUAL COUNT 6 Normal [facility] Comment on above: Performed By: #### L [id number], [id number] ####Classics Professor: SLIME MARTÍNEZ ([id number])[facility])[address] [place] [address] [place] LYMPHOCYTES/100 LEUKOCYTES IN BLOOD-CELLAVISION 6 % Low 15-45 [facility] Comment on above: Performed By: #### L [id number], [id number] ####Classics Professor: SLIME MARTÍNEZ ([id number])[facility])[address] [place] [address] [place] METAMYELOCYTES TOTAL PER COUNTED LEUKOCYTES BY MANUAL COUNT [facility] Comment on above: Performed By: #### L [id number], [id number] ####Classics Professor: SLIME MARTÍNEZ ([id number])[facility])[address] [place] [address] [place] MONOCYTES (10*3/UL) IN BLOOD-CELLAVISION 0.6 10*3/uL Normal 0.0-0.9 [facility] Comment on above: Performed By: #### L [id number], [id number] ####Classics Professor: SLIME MARTÍNEZ ([id number])[facility])[address] [place] [address] [place] MONOCYTES TOTAL PER COUNTED LEUKOCYTES BY MANUAL COUNT 5 Normal [facility] Comment on above: Performed By: #### L [id number], [id number] ####Classics Professor: SLIME MARTÍNEZ ([phone])[facility] ([facility])[address] [place] [address] [place] MONOCYTES/100 LEUKOCYTES IN BLOOD-LIN 5 % Normal 5-13 [facility] Comment on above: Performed By: #### L [id number], [id number] ####Classics Professor: SLIME MARTÍNEZ ([phone])[facility] ([facility])[address] [place] [address] [place] MYELOCYTES COUNTED BY MANUAL COUNT Normal [facility] Comment on above: Performed By: #### L [id number], [id number] ####Classics Professor: SLIME MARTÍNEZ ([id number])[facility] ([facility])[address] [place] [address] [place] NEUTROPHILS BAND FORM/100 LEUKOCYTES IN BLOOD-CELLAVISI 2 % High <=0 [facility] Comment on above: Performed By: #### L [id number], [id number] ####Classics Professor: SLIME MARTÍNEZ ([id number])[facility] ([facility])[address] [place] [address] [place] NEUTROPHILS TOTAL PER COUNTED LEUKOCYTES BY MANUAL COUNT 87 [facility] Comment on above: Performed By: #### L [id number], [id number] ####Classics Professor: SLIME MARTÍNEZ ([phone])[facility] ([facility])[address] [place] [address] [place] PROMYELOCYTES TOTAL PER COUNTED LEUKOCYTES BY MANUAL COUNT [facility] Comment on above: Performed By: #### L [id number], [id number] ####Classics Professor: SLIME MARTÍNEZ ([id number])[facility] ([facility])[address] [place] [address] RBC MORPHOLOGY IN BLOOD Normal Normal S [facility] Comment on above: Performed By: #### L [id number], [id number] ####Classics Professor: SLIME MARTÍNEZ ([id number])[facility] [place] [address] SEGMENTED NEUTROPHILS (10*3/UL) IN BLOOD-CELLAVISION 10.6 10*3/uL High 1.8-7.5 [facility] Comment on above: Performed By: #### L [id number], [id number] ####Classics Professor: SLIME MARTÍNEZ ([id number])[facility] ([facility])[address] [place] [address] SEGMENTED NEUTROPHILS/100 LEUKOCYTES-CE 87 % High 38-82 [facility] Comment on above: Performed By: #### L [id number], [id number] ####Classics Professor: SLIME MARTÍNEZ ([id number])[facility] [place] [address] UNCLASSIFIED CELLS TOTAL PER COUNTED LEUKOCYTES BY MANUAL COUNT [facility] Comment on above: Performed By: #### L [id number], [id number] ####Classics Professor: SLIME MARTÍNEZ ([id number])[facility] ([facility])[address] [place] [address] VARIANT LYMPHOCYTES TOTAL PER COUNTED LEUKOCYTES BY MANUAL COUNT Normal [facility] Comment on above: Performed By: #### L [id number], [id number] ####Classics Professor: SLIME MARTÍNEZ ([id number])[facility] ([facility])[address] [place] [address] No Panel Informationon 03-11 Interpretation and review of laboratory results Abnormal [facility] Performed by: [facility], [address] [place] [address] CLIA ID: [id number] [facility] Interpretation and review of laboratory results Abnormal [facility] Performed by: [facility], [address] [place] [address] CLIA ID: [id number] [facility] Interpretation and review of laboratory results Abnormal [facility] Performed by: [facility], [address] [place] [address] CLIA ID: [id number] [facility] Interpretation and review of laboratory results Abnormal [facility] Performed by: [facility], [address] [facility] [address] CLIA ID: [id number] [facility] Atypical Lymphocytes Manual [facility] Bands Manual 2 [facility] Basophils Manual [facility] Blasts [facility] Eosinophils Manual [facility] Interpretation and review of laboratory results Abnormal [facility] Lymphocytes Manual 6 [facility] Metamyelocytes Manual [facility] Monocytes Manual 5 [facility] Myelocytes Manual [facility] Neutrophils Manual 87 [facility] Promyelocytes Manual [facility] Unclassified Cells, Manual [facility] Progress Noteon 03-11-2025 Progress Note PHYSICAL THERAPY [facility] Treatment Note Name/MRN: Jens Mccullough ([id number]) Date of : 1950 Age: 74 y.o. Room/Bed: [facility] A Discharge Recommendation: 24 hour supervision or assist, Home with Home health PT Equipment Needed: No Other: TBD at next level of care Prior Level of Function Prior Level of ADL Function: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 % 5 - 13 % [facility] Neutrophils (Bld) [#/Vol] 8.9 10*3/uL High 1.8 - 7.5 10*3/uL [facility] Ovalocytes LM Ql (Bld) Slight Abnormal (none) [facility] Poikilocytosis LM Ql (Bld) Slight Abnormal (none) [facility] RBC morphology finding Nom (Bld) abnormal [facility] Segmented neutrophils/100 WBC (Bld) 91 % High 38 - 82 % [facility] MANUAL DIFFERENTIAL (CELLAVI PRANAV)on 03-10-2025 BAND NEUTROPHILS TOTAL PER COUNTED LEUKOCYTES BY MANUAL COUNT Normal [facility] Comment on above: Performed By: #### L [id number], [id number] ####Classics Professor: SLIME MARTÍNEZ ([id number])[facility] ([facility])[address] [place] [address] [place] BASOPHILS TOTAL PER COUNTED LEUKOCYTES BY MANUAL COUNT Normal [facility] Comment on above: Performed By: #### L [id number], [id number] ####Classics Professor: SLIME MARTÍNEZ ([id number])[facility])[address] [place] [address] BLASTS TOTAL PER COUNTED LEUKOCYTES BY MANUAL COUNT [facility] Comment on above: Performed By: #### L [id number], [id number] ####Classics Professor: SLIME MARTÍNEZ ([id number])[facility] ([facility])[address] [place] [address] [place] EOSINOPHILS TOTAL PER COUNTED LEUKOCYTES BY MANUAL COUNT [facility] Comment on above: Performed By: #### L [id number], [id number] ####Classics Professor: SLIME MARTÍNEZ ([id number])[facility] ([facility])[address] [place] [address] [place] LYMPHOCYTES (10*3/UL) IN BLOOD-CELLAVISION 0.4 10*3/uL Low 1.0-4.3 [facility] Comment on above: Performed By: #### L [id number], [id number] ####Classics Professor: SLIME MARTÍNEZ ([phone])[facility] ([facility])[address] [place] [address] [place] LYMPHOCYTES TOTAL PER COUNTED LEUKOCYTES BY MANUAL COUNT 4 Normal [facility] Comment on above: Performed By: #### L [id number], [id number] ####Classics Professor: SLIME MARTÍNEZ ([phone])[facility] ([facility])[address] [place] [address] [place] LYMPHOCYTES/100 LEUKOCYTES IN BLOOD-CELLAVISION 4 % Low 15-45 [facility] Comment on above: Performed By: #### L [id number], [id number] ####Classics Professor: SLIME MARTÍNEZ ([id number])[facility] ([facility])[address] [place] [address] [place] METAMYELOCYTES TOTAL PER COUNTED LEUKOCYTES BY MANUAL COUNT Normal [facility] Comment on above: Performed By: #### L [id number], [id number] ####Classics Professor: SLIME MARTÍNEZ ([id number])[facility] ([facility])[address] [place] [address] [place] MONOCYTES (10*3/UL) IN BLOOD-CELLAVISION 0.5 10*3/uL Normal 0.0-0.9 [facility] Comment on above: Performed By: #### L [id number], [id number] ####Classics Professor: SLIME MARTÍNEZ ([id number])[facility] ([facility])[address] [place] [address] [place] MONOCYTES TOTAL PER COUNTED LEUKOCYTES BY MANUAL COUNT 5 Normal [facility] Comment on above: Performed By: #### L [id number], [id number] ####Classics Professor: SLIME MARTÍNEZ ([id number])[facility] ([facility])[address] [place] [address] [place] MONOCYTES/100 LEUKOCYTES IN BLOOD-LIN 5 % Normal 5-13 [facility] Comment on above: Performed By: #### L [id number], [id number] ####Classics Professor: SLIME MARTÍNEZ ([id number])[facility])[address] [place] [address] [place] MYELOCYTES COUNTED BY MANUAL COUNT [facility] Comment on above: Performed By: #### L [id number], [id number] ####Classics Professor: SLIME MARTÍNEZ ([id number])[facility])[address] [place] [address] [place] NEUTROPHILS TOTAL PER COUNTED LEUKOCYTES BY MANUAL COUNT 92 Normal [facility] Comment on above: Performed By: #### L [id number], [id number] ####Classics Professor: SLIME MARTÍNEZ ([id number])[facility] ([facility])[address] [place] [address] [place] OVALOCYTES PRESENCE IN BLOOD BY LIGHT MICROSCOPY Slight Abnormal (none) [facility] Comment on above: Performed By: #### L [id number], [id number] ####Classics Professor: SLIME MARTÍNEZ ([id number])[facility] [place] [address] [place] POIKILOCYTOSIS (PRESENCE) IN BLOOD BY LIGHT MICROSCOPY Slight Abnormal (none) [facility] Comment on above: Performed By: #### L [id number], [id number] ####Classics Professor: SLIME MARTÍNEZ ([id number])[facility] ([facility])[address] [place] [address] [place] PROMYELOCYTES TOTAL PER COUNTED LEUKOCYTES BY MANUAL COUNT Normal [facility] Comment on above: Performed By: #### L [id number], [id number] ####Classics Professor: SLIME MARTÍNEZ ([id number])[facility] [place] [address] [place] RBC MORPHOLOGY IN BLOOD abnormal Normal [facility] Comment on above: Performed By: #### L [id number], [id number] ####Classics Professor: SLIME MARTÍNEZ ([id number])[facility] [place] [address] [place] SEGMENTED NEUTROPHILS (10*3/UL) IN BLOOD-CELLAVISION 8.9 10*3/uL High 1.8-7.5 [facility] Comment on above: Performed By: #### L [id number], [id number] ####Classics Professor: SLIME MARTÍNEZ ([id number])[facility] [place] [address] [place] SEGMENTED NEUTROPHILS/100 LEUKOCYTES-CE 91 % High 38-82 [facility] Comment on above: Performed By: #### L [id number], [id number] ####Classics Professor: SLIME MARTÍNEZ ([id number])[facility] ([facility])[address] [place] [address] UNCLASSIFIED CELLS TOTAL PER COUNTED LEUKOCYTES BY MANUAL COUNT Normal [facility] Comment on above: Performed By: #### L [id number], [id number] ####Classics Professor: SLIME MARTÍNEZ ([id number])[facility] [place] [address] VARIANT LYMPHOCYTES TOTAL PER COUNTED LEUKOCYTES BY MANUAL COUNT Normal [facility] Comment on above: Performed By: #### L [id number], [id number] ####Classics Professor: SLIME MARTÍNEZ ([id number])[facility] [place] [address] No Panel Informationon 03-10 Interpretation and review of laboratory results Abnormal [facility] Performed by: [facility], [address] [place] [address] CLIA ID: [id number] [facility] Interpretation and review of laboratory results Abnormal [facility] Performed by: [facility], [address] [place] [address] CLIA ID: [id number] [facility] Interpretation and review of laboratory results Abnormal [facility] Performed by: [facility], [address] [place] [address] CLIA ID: [id number] [facility] Atypical Lymphocytes Manual [facility] Bands Manual [facility] Basophils Manual [facility] Blasts Manual [facility] Eosinophils Manual [facility] Interpretation and review of laboratory results Abnormal [facility] Lymphocytes Manual 4 [facility] Metamyelocytes Manual [facility] Monocytes Manual 5 [facility] Myelocytes Manual [facility]alth Neutrophils Manual 92 [facility] Promyelocytes Manual [facility] Unclassified Cells, Manual [facility] Laboratory - Chemistry and C hemistry - challengeon 03-09-2025 Glucose [Mass/Vol] 201 mg/dL High 70 - 100 mg/dL [facility] Glucose [Mass/Vol] 153 mg/dL High 70 - 100 mg/dL [facility] Glucose [Mass/Vol] 126 mg/dL High 70 - 100 mg/dL [facility] No Panel Informationon 03-09 Interpretation and review of laboratory results Abnormal [facility] Performed by: [facility], [address] [place] [address] CLIA ID: [id number] [facility] There is no interpretation needed for this exam. IMAGING Interpretation and review of laboratory results Abnormal [facility] Performed by: [facility], [address] [place] [address] CLIA ID: [id number] [facility] Interpretation and review of laboratory results Abnormal [facility] Performed by: [facility], [address] [place] [address] CLIA ID: [id number] [facility] Nursing Noteon 03-09-2025 Nursing Note Patient arrived on unit. Name and date verified. Attached to monitors. Vital signs stable. 1744 - Dr Ramirez at bedside to assess pt. Pt completed neuro assessment with 1819 - feliciano ordered. To be sent to H6 room 1854 - report called to Divine on H6 Normal [facility] Op Noteon 03-09-2025 Op Note OPERATIVE NOTE Jens Mccullough 1950 DATE OF PROCEDURE: 03/09/2025 SURGEON: Barak Parker MD, Kelby Ramirez MD Procedure: Retroperitoneal lumbar spine exposure of L2-3 with discectomy and fusion. Preoperative Diagnosis: Degenerative disc disease of L2-3 Postoperative Diagnosis: Same Anesthesia: General. Assist: Rebekah Estimated Blood Loss: 50 cc Indications: 74-year-old white male brought to the operating room by Dr. Ramirez for a retroperitoneal lumbar approach. Description of Procedure: The patient was placed in a right lateral decubitus position and the left side of the chest and abdomen was prepped and draped in the usual sterile fashion. Patient had already had general anesthesia induced and had a previous procedure from a posterior approach which will be dictated separately by Dr. Ramirez. An oblique incision was made starting between the 11th and 12th ribs and then carried down across the lateral abdomen. The muscle and fascia was divided with electrocautery until the retroperitoneum was encountered. Using blunt dissection the retroperitoneum was dissected down to the spine. With electrocautery the psoas muscle was then mobilized from anterior to posterior exposing the L2 and L3 vertebral bodies and the intervertebral disc. Once this was adequately exposed and retraction was achieved with the Omni retractor, Dr. Ramirez proceeded with his portion of the case which will be dictated separately. Once he was finished the retractors were removed placing the retroperitoneum back into normal position. The intercostal musculature was reapproximated with a running 0 PDS which was continued on to the fascial closure of the transversalis and internal oblique fascia. A second layer closure with another 0 PDS was used to close the external oblique fascia extending onto the fascia on the chest wall. Subcutaneous tissue was closed with a running 2-0 Vicryl suture followed by skin leslie and a dry sterile dressing. Estimated blood loss for the procedure was 50 cc and sponge needle counts were correct at the end of the case. Barak Parker MD [facility] Progress Noteon 03-09-2025 Progress Note Spoke to anesthesia about an alternative for pain management [facility] ECG 12-LEADon 03-03-2025 ECG 12-LEAD IMPRESSION: ATRIAL FIBRILLATION Biventricular paced rhythm Electronically Signed On 03-03-2025 11:54:55 EDT by Hank Goode [facility] [id number] 03-02-2025 [id number] Medication List Accurate as of March 02, 2025 2:25 PM. Always use your most recent med list. amLODIPine 5 MG tablet Commonly known as: Norvasc Medication Adjustments for Surgery: Take morning of surgery aspirin 81 MG EC tablet Notes to patient: Hold for 7 days prior to surgery atorvastatin 20 MG tablet Commonly known as: Lipitor Medication Adjustments for Surgery: Take night before surgery BEET ROOT PO Notes to patient: Hold for 7 days prior to surgery Capsule 0 Clear Veggie capsule Notes to patient: Hold for 7 days prior to surgery CareTouch CPAP & BIPAP Hose misc Notes to patient: Bring day of surgery. carvedilol 3.125 MG tablet Commonly known as: Coreg Medication Adjustments for Surgery: Take morning of surgery CENTRUM SILVER ULTRA MENS PO Notes to patient: Hold for 7 days prior to surgery CO Q 10 PO Notes to patient: Hold for 7 days prior to surgery D 1000 25 MCG (1000 UT) capsule Generic drug: cholecalciferol Notes to patient: Hold for 7 days prior to surgery gabapentin 100 MG capsule Commonly known as: Neurontin Medication Adjustments for Surgery: Take morning of surgery lisinopril 10 MG tablet Medication Adjustments for Surgery: Hold morning of surgery metFORMIN 1000 MG tablet Commonly known as: Glucophage Notes to patient: Hold for 48 hours prior to surgery. Last dose 4/22/25 NON FORMULARY Notes to patient: Whole fruits-Hold for 7 days prior to surgery LAURIEBUAUSTYN BLACK ELDERBERRY PO Notes to patient: Hold for 7 days prior to surgery tamsulosin 0.4 MG 24 hr capsule Commonly known as: Flomax Medication Adjustments for Surgery: Take night before surgery traMADol 50 MG tablet Commonly known as: Ultram Medication Adjustments for Surgery: Take morning of surgery traZODone 150 MG tablet Commonly known as: Desyrel Medication Adjustments for Surgery: Take night before surgery TURMERIC PO Notes to patient: Hold for 7 days prior to surgery TURMERIC-ROBERT PO Notes to patient: Hold for 7 days prior to surgery vitamin E 180 MG (400 UNIT) capsule Notes to patient: Hold for 7 days prior to surgery Shower with the Hibiclens product given to you in Pre-Admission Testing. Follow the instructions dry off with clean dry towel,wear clean clothes to bed and clean linen on the bed the night before surgery. Clean clothes to hospital the day of surgery. No lotion,powders,deodo rant or body spray. No hair products. Remove all jewelry. You may perform your dental hygiene. Do not wear contacts lenses the day of your procedure. No smoking,vaping, alcohol,or marijuana for 24 hours prior to your surgery. Please bring your [facility] Surgical folder with you day of surgery. We encourage you to write down any questions you may have for the surgeon, anesthesiologist, or other members of the surgical team and bring it with you the day of surgery. Please bring photo ID and insurance information. Please arrange for someone to drive you home after your surgery and that there is a responsible person with your for 24 hours post discharge. If you are being admitted after surgery, please arrange to have your transport arrive at 11 am on the day of discharge You may take your prescription pain medication. You may take Tylenol for pain. NO Motrin, Ibuprofen or Advil for 7 days prior to surgery or longer if instructed by your surgeon. NO Aleve or naprosyn for 7 days prior to surgery or longer if instructed by your surgeon. NO MELOXICAM/MOBIC FOR 7 days or longer if instructed by your surgeon. DO NOT take aspirin or aspirin containing products for 7 days before surgery, or longer if instructed by your surgeon. You will be supplied with a Lila Hugger gown to keep you warm before,during & after your surgery. It is designed to offer you comfort during your surgical experience. Being warmed helps aid your recovery time & helps avoid hypothermia. Please bring your CPAP/BIPAP device,mask, and equipment with you on the day of surgery. Do not bring water for your machine, it will be provided. Follow any instructions given to you by Dr. Ramirez If you have specific questions, please call your surgeon. You will receive a call the day before your surgery to verify your arrival time and date. You will be asked to arrive at least two hours prior to your scheduled surgery time. You may use the beauty school instructor parking located at the main entrance on [address] and take the H elevator to the first floor for same day surgery. Take a left after exiting the elevator and check in at the desk. Or- You may use the parking in the Main deck. Take the level one bridge to the building and follow the signs for same day surgery. Check in at the desk. If your arrival time is prior to 05:30 please go to registration on the ground floor. Normal [facility] BLOOD TYPE AND SCREEN GELon 03-02-2025 ABO GROUPING A Normal [facility] Comment on above: Performed By: #### L [id number] ####Classics Professor: SLIME MARTÍNEZ ([phone])[facility] [facility] ([facility])[address] [place] [address] RH TYPE IN BLOOD Positive Normal [facility] [facility] Comment on above: Performed By: #### L AB276 ####Classics Professor: SLIME MARTÍNEZ ([id number])[facility] ([facility])[address] [place] [address] CBC (HEMOGRAM)on 03-02-2025 Erythrocyte distribution width (RBC) [Ratio] 14.3 % Normal 11.5-15.0 [facility] Comment on above: Performed By: #### L AB294 ####Classics Professor: SLIME MARTÍNEZ ([id number])[facility] ([facility])[address] [place] [address] Hematocrit (Bld) [Volume fraction] 41.5 % Normal 40.0-52.0 [facility] Comment on above: Performed By: #### L AB294 ####Classics Professor: SLIME MARTÍNEZ ([id number])[facility] ([facility])[address] [place] [address] Hemoglobin (Bld) [Mass/Vol] 13.4 g/dL Normal 13.0-18.0 [facility] Comment on above: Performed By: #### L AB294 ####Classics Professor: SLIME MARTÍNEZ ([id number])[facility] ([facility])[address] [place] [address] MCH (RBC) [Entitic mass] 29.8 pg Normal 26.0-34.0 [facility] Comment on above: Performed By: #### L AB294 ####Classics Professor: SLIME MARTÍNEZ ([id number])[facility])[address] [place] [address] MCHC 32.3 % Normal 30.5-36.0 [facility] Comment on above: Performed By: #### L AB294 ####Classics Professor: SLIME MARTÍNEZ ([id number])[facility] ([facility])[address] [place] [address] MCV (RBC) [Entitic vol] 92.4 fL Normal 77.0-99.0 [facility] Comment on above: Performed By: #### L AB294 ####Classics Professor: SLIME MARTÍNEZ ([id number])[facility] ([facility])[address] [place] [address] Platelet mean volume (Bld) [Entitic vol] 10.5 fL Normal 9.0-12.7 [facility] Comment on above: Performed By: #### L AB294 ####Classics Professor: SLIME MARTÍNEZ ([id number])[facility])[address] [place] [address] Platelets (Bld) [#/Vol] 203 10*3/uL Normal 140-440 [facility] Comment on above: Performed By: #### L AB294 ####Classics Professor: SLIME MARTÍNEZ ([id number])[facility] ([facility])[address] [place] [address] RBC (Bld) [#/Vol] 4.49 10*6/uL Normal 4.40-5.90 [facility] Comment on above: Performed By: #### L AB294 ####Classics Professor: SLIME MARTÍNEZ ([id number])[facility] ([facility])[address] [place] [address] WBC (Bld) [#/Vol] 8.4 10*3/uL Normal 3.6-10.7 [facility] Comment on above: Performed By: #### L AB294 ####Classics Professor: SLIME MARTÍNEZ ([id number])[facility] ([facility])[address] [place] [address] COMPREHENSIVE METABOLIC PANE James 03-02-2025 Albumin [Mass/Vol] 3.9 g/dL Normal 3.4-4.8 [facility] Comment on above: Performed By: #### L AB17 ####Classics Professor: SLIME MARTÍNEZ ([id number])[facility] ([facility])[address] [place] [address] ALP [Catalytic activity/Vol] 65 U/L Normal 40-150 [facility] Comment on above: Performed By: #### L AB17 ####Classics Professor: SLIME MARTÍNEZ ([id number])[facility] ([facility])[address] [place] [address] ALT [Catalytic activity/Vol] 24 U/L Normal <40 [facility] Comment on above: Performed By: #### L AB17 ####Classics Professor: SLIME MARTÍNEZ ([id number])[facility] ([facility])[address] [place] [address] Anion gap [Moles/Vol] 6 mmol/L Normal 3-13 [facility] Comment on above: Performed By: #### L AB17 ####Classics Professor: SLIME MARTÍNEZ ([id number])[facility] ([facility])[address] [place] [address] AST [Catalytic activity/Vol] 21 U/L Normal <34 [facility] Comment on above: Performed By: #### L AB17 ####Classics Professor: SLIME MARTÍNEZ ([id number])[facility])[address] [place] [address] Bilirubin [Mass/Vol] 1.3 mg/dL High <1.2 [facility] Comment on above: Performed By: #### L AB17 ####Classics Professor: SLIME MARTÍNEZ ([id number])[facility] ([facility])[address] [place] [address] Calcium [Mass/Vol] 9.8 mg/dL Normal 8.8-10.0 [facility] Comment on above: Performed By: #### L AB17 ####Classics Professor: SLIME MARTÍNEZ ([id number])[facility] ([facility])[address] [place] [address] Chloride [Moles/Vol] 105 mmol/L Normal 98-107 [facility] Comment on above: Performed By: #### L AB17 ####Classics Professor: SLIME MARTÍNEZ ([id number])[facility] ([facility])[address] [place] [address] CO2 [Moles/Vol] 24 mmol/L Normal 23-31 [facility] Comment on above: Performed By: #### L AB17 ####Classics Professor: SLIME MARTÍNEZ ([id number])[facility] ([facility])[address] [place] [address] Creatinine [Mass/Vol] 0.75 mg/dL Normal 0.72-1.25 [facility] Comment on above: Performed By: #### L AB17 ####Classics Professor: SLIME MARTÍNEZ ([id number])[facility])[address] [place] [address] GLOMERULAR FILTRATION RATE ML/MIN/1.73 SQ M.PREDICTED >90.0 Normal >60.0 [facility] Comment on above: Result Comment: Calc ulation based on the Chronic Kidney Disease Epidemiology Collaboration (CKD-EPI) equation refit without adjustment for race Performed By: #### L AB17 ####Classics Professor: SLIME MARTÍNEZ ([id number])[facility])[address] [place] [address] Glucose [Mass/Vol] 94 mg/dL Normal 82-115 [facility] Comment on above: Performed By: #### L AB17 ####Classics Professor: SLIME MARTÍNEZ ([id number])[facility])[address] [place] [address] Potassium [Moles/Vol] 4.1 mmol/L Normal 3.5-5.1 [facility] Comment on above: Result Comment: [facility] potassium values may be up to 0.5 mmol/L lower than serum values. Performed By: #### L AB17 ####Classics Professor: SLIME MARTÍNEZ ([id number])[facility])[address] [place] [address] Protein [Mass/Vol] 6.6 g/dL Normal 6.4-8.3 [facility] Comment on above: Performed By: #### L AB17 ####Classics Professor: SLIME MARTÍNEZ ([id number])[facility])[address] [place] [address] Sodium [Moles/Vol] 135 mmol/L Low 136-145 [facility] Comment on above: Performed By: #### L AB17 ####Classics Professor: SLIME MARTÍNEZ ([id number])[facility])[address] [place] [address] Urea nitrogen [Mass/Vol] 28 mg/dL High 9-23 [facility] Comment on above: Performed By: #### L AB17 ####Classics Professor: SLIME MARTÍNEZ ([id number])[facility])[address] [place] [address] HEMOGLOBIN A1Con 03-02-2025 Glucose [Mass/Vol] 128 mg/dL Normal [facility] Comment on above: Result Comment: TOM Leon COMMENTS: HbA1c values of 5.7-6.4 percent indicate an increased risk for developing diabetes mellitus. HbA1c values greater than or equal to 6.5 percent are diagnostic of diabetes mellitus. For diagnosis of diabetes in individuals without unequivocal hyperglycemia, results should be confirmed by repeat testing. Performed By: #### L AB90 ####Classics Professor: SLIME MARTÍNEZ ([id number])[address] HEMOGLOBIN A1C 6.1 %HbA1C High <5.7 [facility] Comment on above: Result Comment: Norm al less than 5.7% Prediabetes 5.7% to 6.4% Diabetes 6.5% or higher --HgbA1C levels may not be accurate in patients who have renal disease, received recent blood transfusions, are anemic, or who have dyshemoglobinemia. Performed By: #### L AB90 ####Classics Professor: SLIME MARTÍNEZ ([id number])[address] MRSA BY PCRon 03-02-2025 MRSA BY PCR STAPHYLOCOCCUS AUREUS Reference Not Detected Not Detected MECA GENE Reference Not Detected Not Detected ORDER COMMENTS: No Staphylococcus aureus detected. Negative nasal MRSA PCR has a high negative predictive value for MRSA pneumonia. Consider stopping Vancomycin if no other clinical indication. Contact Antimicrobial Stewardship for further recommendations. Staphylococcus aureus nasal screen by real-time PCR. This test was modified and its performance characteristics determined by [facility]. The U. S. Food and Drug Administration has not approved or cleared this test; however, FDA clearance or approval is not currently required for clinical use. The results are not intended to be used as the sole means for clinical diagnosis or patient management decisions. Normal [facility] Comment on above: Performed By: #### L [id number] #### Classics Professor: SLIME MARTÍNEZ ([id number]) [address] PREALBUMINon 03-02-2025 Prealbumin [Mass/Vol] 31.5 mg/dL Normal 15.0-40.0 [facility] Comment on above: Performed By: #### L AB535, [id number] ####Classics Professor: SLIME MARTÍNEZ ([id number])[facility] ([facility])[address] [place] [address] PROTHROMBIN TIMEon INR Coag (PPP) [Relative time] 1.0 {INR} Normal 0.9-1.1 [facility] Comment on above: Result Comment: Olman mmended Anticoagulant Therapy: SEE BELOW ----- INR of 2.0 - 3.0 : - Prophylaxis of Venous Thrombosis (high-risk surgery) - Treatment of Venous Thrombosis - Treatment of Pulmonary Embolism (Includes tissue heart valves, Acute Myocardial Infarction to prevent systemic embolism, Valvular Heart Disease, and Atrial Fibrillation) ----- INR of 2.5 - 3.5 : - Mechanical Prosthetic Valves (high risk) - If oral anticoagulant therapy is used to prevent Myocardial Infarction Performed By: #### L AB320 ####Classics Professor: SLIME MARTÍNEZ ([id number])[address] PT Coag (PPP) [Time] 10.8 s Normal 9.0-12.0 [facility] Comment on above: Performed By: #### L AB320 ####Classics Professor: SLIME MARTÍNEZ ([id number])[address] Progress Noteon 03-02-2025 Progress Note [employer] PLANNING Jens Mccullough : 1950 Primary Care Physician: RAMÓN ASIF The patient and/or family/surrogate voluntarily agreed to participate in ACP services. Patient?s cognitive capacity: intact Code Status: [x] [FULL CODE - Continue all advanced life support: CPR,intubation,invas julissa procedures] [_] [DNR-CCA - DO NOT do CPR, intubation] [_] [DNR-GRADES 1 THRU 5 TEACHER - Comfort care only] [_] DNR form [was/was not] signed Summary of discussion: The patient health care POA/ surrogate is the following: Cristhian Mccullough - . [Condition that instigated the ACP on this DOS, relevant PMH, functional status, goals of care, and whom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 3.7 x 1.1 cm posterior subcutaneous collection extending from L4 to L5 . This may be a seroma or abscess. Electronically Signed: Kervin Veliz DO at 17:24 EDT , CC: DARINEL Hebert; ; Dr. Ramón Asif DO Diamond Saw Operator: Signed Normal [facility] Emergency Department Summary on 06-15-2024 Emergency Department Summary [facility] Medical Records Department [address] [place] [address] Emergency Department Summary 06/15/24 MR#: [id number] Acct: [id number] Name: JENS MCCULLOUGH Rep #: [id number] : 1950 73 From: Uzair Hernandez MD PCP: Dr. Ramón Asif, DO Status:REG ER Location: ED HPI HPI - GI History of Present Illness Chief Complaint: Constipation Informant: patient and spouse/S.O. Narrative Narrative: 73-year-old male had low back surgery about a week ago. His last bowel movement was the day before that, and ever since he has been in pain and taking oxycodone quite a bit, and has been constipated and has not had a bowel movement since his surgery. states she has been giving him Colace, she gave him some Dulcolax, and Senokot's. He is having some occasional periumbilical abdominal cramping but no severe pains, he states that the pain is about a 5/10 right now. Denies any nausea or vomiting. No history of any abdominal surgeries in the past. He denies any weakness in his legs or saddle anesthesia or problems urinating at all. They called the nurse through [facility] knowNormal and were told to get magnesium citrate and fleets enema, and to do half the bottle of magnesium citrate, which they did along with the enema, and if he did not have a bowel movement in an hour to repeat with the other half of the bottle and if in another hour he did not have a bowel movement to come to the ER which they did. 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 Type 2 diabetes mellitus Osteoarthritis Hyperlipidemia Gout Ventricular ectopy Cardiomyopathy CHF (congestive heart failure) Hypertension Home Medications ???Medication ???Instructions ???Recorded ???Last Taken ???Type atorvastatin 20 mg tablet 20 mg PO QHS cholesterol 01/26/18 Unknown History multivitamin 1 tab PO QDAY vitamin 01/26/18 Unknown History aspirin 81 mg tablet,delayed 81 mg PO DAILY@0800 03/29/18 Unknown Rx release coenzyme Q10 100 mg capsule (Co 100 mg PO DAILY 12/07/18 Unknown History Q-10) cholecalciferol (vitamin D3) 25 1,000 unit PO DAILY 06/15/19 Unknown History mcg (1,000 unit) tablet omega-3 fatty acids 1,000 mg 1,000 mg PO DAILY 06/15/19 Unknown History capsule (Fish Oil Concentrate) tamsulosin 0.4 mg capsule 0.4 mg PO DAILY 06/15/19 Unknown History metformin 1,000 mg tablet 1,000 mg PO BIDCM diabetes 02/20/20 Unknown History turmeric 400 mg capsule 1,000 mg PO DAILY 05/24/20 Unknown History naproxen 500 mg tablet 500 mg PO 09/21/23 Unknown History carvedilol 3.125 mg tablet 3.125 mg PO BID 09/28/23 Unknown History lisinopril 10 mg tablet 10 mg PO BID bp #180 tabs 04/28/24 Unknown Rx amlodipine 5 mg tablet 5 mg PO BID #180 tabs 05/12/24 Unknown Rx trazodone 150 mg tablet 150 mg PO QHS 05/23/24 Unknown History Allergy/AdvReac Type Severity Reaction Status Date / Time metoprolol (From Toprol XL) AdvReac Unknown Unknown Verified 05/23/24 13:49 Family History Father CVA (cerebral vascular accident) Mother CAD (coronary artery disease) Brother CAD (coronary artery disease) Surgical History History of surgery on lower extremity ( 08/2023) History of hip surgery Cataract extraction status of left eye History of shoulder surgery History of repair of right rotator cuff History of total hip arthroplasty Social History Smoking Status: Former smoker alcohol intake: current details: occasional ROS ROS ED Constitutional Constitutional ED: Denies chills or fever(s) Eyes Eyes: Denies change in vision or diplopia ENT ENT ED: Denies rhinorrhea or sore throat Cardiovascular Cardiovascular: Denies chest pain or palpitations Respiratory/Chest Respiratory/Chest: Denies cough or dyspnea Gastrointestinal Gastrointestinal: Reports abdominal pain and constipation; Denies diarrhea, nausea or vomiting Genitourinary Genitourinary ED: Denies dysuria or hematuria Musculoskeletal Musculoskeletal: Reports back pain; Denies neck pain Integumentary Denies absc (more content not included)... Normal [facility] CNPNon 05-26-2024 CNPN Telephone ([facility] [employer]) JENS MCCULLOUGH ([id number]) 1950 M Date Time Provider Department 05/26/24 JOLANTA NOVOA [facility] [employer] During your visit today, we recorded the following information about you: Phoebe Vivar 05/26/2024 1:12 PM Signed Patient phoned in regards to recall letter for colonoscopy, he will be following up with [facility]. Allergies As of Date: 05/26/2024 (No Known Allergies) Date Reviewed: 07/18/2020 Reviewed by: Adonis Kilpatrick (Rn), RN - Fully Assessed Reason for Visit: Patient Update [1234] Prescriptions as of 06/21/2024 - atorvastatin (LIPITOR) 20 mg tablet Take 1 tablet by mouth once daily. - hydrocortisone valerate (WESTCORT) 0.2 % ointment Apply to affected area as needed. - loratadine-pseudoeph edrine ER (CLARITIN-D 24 HOUR) 10-240 mg Tb24 Take 1 tablet by mouth once daily as needed ( For allergy symptoms). - aspirin, enteric coated (ASPIRIN, ENTERIC COATED) 81 mg EC tablet Take 81 mg by mouth once daily. - glipiZIDE (GLUCOTROL XL) 5 mg 24 hr tablet Take 5 mg by mouth once daily. - amLODIPine (NORVASC) 5 mg tablet Take 5 mg by mouth once daily. - carvedilol (COREG) 3.125 mg tablet Take 3.125 mg by mouth twice daily. - tamsulosin ER (FLOMAX) 0.4 mg Take 1 capsule by mouth once daily. - omega-3 fatty acids 1,000 mg cap Take 2 g by mouth once daily. - turmeric 400 mg cap Take 1,000 capsules by mouth once daily. - allopurinol (ZYLOPRIM) 100 mg tablet Take 100 mg by mouth once daily. - lisinopril (ZESTRIL, PRINIVIL) 10 mg tablet Take 10 mg by mouth twice daily. - metFORMIN ER (GLUCOPHAGE XR) 500 mg 24 hr tablet Take 1,000 mg by mouth twice daily. - traZODone (DESYREL) 50 mg tablet Take 100 mg by mouth daily at bedtime. - VITAMIN B COMPLEX (B COMPLEX ORAL) Take by mouth. - Cholecalciferol, Vitamin D3, (VITAMIN D) 25 mcg (1,000 unit) cap Take 1,000 Units by mouth once daily. Problem List As Of Date 05/26/2024 Noted Resolved Presence of biventricular implantable cardiover*07/18/2020 Nonischemic cardiomyopathy (HCC) [I42.8] 07/18/2020 LBBB (left bundle branch block) [I44.7] 07/18/2020 Encounter Status:Closed by PHOEBE VIVAR on 06/21/24 Normal [facility] 12 Lead EKG performed by [facility] on 05-23-2024 12 Lead EKG performed by [address] [id number] [place] [address] 12 Lead EKG performed by [facility] 05/23/24 1344 MR#: [id number] Acct: [id number] Name: JENS MCCULLOUGH XI Rep #: [id number] : 1950 73 From: Osvaldo Calvin FOOD BEVERAGE MANAGER FOOD BEVERAGE MANAGER-C Attending Dr: PAM JoshiC Status: REG AMB Ordering Dr: Osvaldo Calvin FOOD BEVERAGE MANAGER FOOD BEVERAGE MANAGER-C Date: 05/23/24 [place] [facility] Sex: M C Ad[place] [facility] EKG performed [place] [facility] [place] Report Interpretation ------Electronic ventricular pacemaker tracking Normal sinus rhythm, rate [id number] ally signed on 05/23/2024 at 14:[address] Vin Freire Software Version [id number] 05/23/24 1429 Date Osvaldo TENA CC: Dr. Ramón Asif, DO Date Dictated: 05/23/24 1344 Date Transcribed: 05/23/24 134 Diamond Saw Operator: EVELYN Signed Normal [facility] Cardiology Visit Reporton Cardiology Visit Report [facility] [address] [place], [place] [address] OFFICE VISIT Date of Service: 05/23/24 MR#: [id number] Acct: [id number] Name: JENS MCCULLOUGH Rep #: [id number] : 1950 Provider: DARINEL chris Age/Sex: 73/M [place] [facility] Status: Signed HPI HPI History of Present Illness Details: This is a 73-year-old white male who presents today for outpatient cardiovascular follow- up/preoperative cardiovascular assessment for his history of underlying cardiovascular disease which has included a CAD (nonangiographically significant), non-CAD related cardiomyopathy, CHF (chronic systolic), aortic valve stenosis, conduction system abnormalities/cardia c dysrhythmias status post permanent pacemaker placement and subsequent upgrade to a biventricular ICD, hyperlipidemia, and hypertension. He denies chest, arm, jaw, or neck discomfort. He denies palpitations. He denies bilateral lower extremity edema. He denies claudication. He denies shortness of breath with activity, shortness of breath at rest, orthopnea, or PND. He denies chronic cough. He denies significant, sudden weight gain. He denies lightheadedness, dizziness, near-syncope, or syncope. He denies blood in urine, blood in stool, or epistaxis. He denies fever with chills. He denies myalgia. He states fatigue. His exercise level has remained stable. He states his blood pressure tends to be better controlled outside of today. Intake Vital Signs 03/12/23 15:07 09/21/23 10:36 05/23/24 13:44 Height 6 ft 3 in 6 ft 3 in 6 ft 3 in Weight: 208 lb BMI 25.9 BP 146/85 H Blood Pressure Location Lt brachial Position Sitting Respiration 16 Pulse 65 Pulse Source Monitor Intake Visit Reasons: SURG CLEARANCE / 15 M FU Vamp Seamer Required: No Accompanied by: Son Is patient in pain?: No Allergies metoprolol (From Toprol XL) Adverse Reaction (Unknown, Verified 05/23/24 13:49) Unknown Medications ???Medication ???Instructions ???Recorded ???Confirmed ???Type atorvastatin 20 mg tablet 20 mg PO QHS cholesterol 01/26/18 05/23/24 History multivitamin 1 tab PO QDAY vitamin 01/26/18 05/23/24 History aspirin 81 mg tablet,delayed 81 mg PO DAILY@0800 03/29/18 05/23/24 Rx release coenzyme Q10 100 mg capsule (Co 100 mg PO DAILY 12/07/18 05/23/24 History Q-10) cholecalciferol (vitamin D3) 25 1,000 unit PO DAILY 06/15/19 05/23/24 History mcg (1,000 unit) tablet omega-3 fatty acids 1,000 mg 1,000 mg PO DAILY 06/15/19 05/23/24 History capsule (Fish Oil Concentrate) tamsulosin 0.4 mg capsule 0.4 mg PO DAILY 06/15/19 05/23/24 History metformin 1,000 mg tablet 1,000 mg PO BIDCM diabetes 02/20/20 05/23/24 History turmeric 400 mg capsule 1,000 mg PO DAILY 05/24/20 05/23/24 History naproxen 500 mg tablet 500 mg PO 09/21/23 05/23/24 History carvedilol 3.125 mg tablet 3.125 mg PO BID 09/28/23 05/23/24 History lisinopril 10 mg tablet 10 mg PO BID bp #180 tabs 04/28/24 05/23/24 Rx amlodipine 5 mg tablet 5 mg PO BID #180 tabs 05/12/24 05/23/24 Rx trazodone 150 mg tablet 150 mg PO QHS 05/23/24 05/23/24 History Ejection fraction %: 45 Have you fallen in the past year?: No [facility] Medical History Presence of cardiac resynchronization therapy defibrillator (SUPERVISORY CLERK-D) ( 07/17/20) Essential hypertension Presence of cardiac pacemaker ( 09/23/18) AV block, complete Severe bradycardia Complete heart block Syncope and collapse Degenerative joint disease of knee, 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 BPH (benign prostatic hyperplasia) ANAND (obstructive sleep apnea) IgG4 deficiency Dilated aortic root Abnormal cardiac enzyme level Paroxysmal ventricular tachycardia Nonrheumatic aortic (valve) stenosis 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 Type 2 diabetes mellitus Osteoarthritis Hyperlipidemia Gout Ventricular ectopy Cardiomyopathy CHF (congestive heart failure) Hypertension Surgical History History of surgery on lower extremity ( 08/2023) History of hip surgery Cataract extraction status of left eye History of shoulder surgery History of repair of right rotator cuff History of total hip arthroplasty Family History Father CVA (cerebral vascular accident) Mother CAD (coronary artery disease) Brother CAD (coronary artery disease) Social History Smoking Status: Former smoker alcohol intake: current details: occasional ROS Const Const: Positive for fatigue and difficulty sleeping (with pain); Negative for weakness, headache(s), frequent falls or excessive sweating (more content not included)... Normal [facility] Stress Reporton 05-17-2024 Stress Report [facility] [address] [place] [id number] MR#: [id number] Acct: [id number] Name: JENS MCCULLOUGH XI Rep #: [id number] : 1950 73 From: Jakub Mina MD Primary Care: Dr. Ramón Asif, DO Status: REG CLI Referring Dr: Jakub Mina MD Sex: M C Stress Test Report Pharmacologic myocardial perfusion stress test. 73-year-old man with a history of pacemaker implantation for preop evaluation Resting EKG demonstrates sinus rhythm with ventricular pacing with a rate of 61 bpm. Resting blood pressure is 122/82 mmHg. 0.4 mg of regadenoson was infused per usual protocol followed by rapid intravenous saline flush injection. Continuous EKG monitoring was performed. The maximum heart rate was 82 bpm which was 55% of max impacted heart rate the maximum workload was 1 metabolic equivalent. At rest there were no ST or T wave changes noted to suggest ischemia and at peak infusion nonspecific ST changes were noted which did not meet the criteria for ischemia. No clinical angina is noted. The final blood pressure was 128/7 mmHg. Myocardial perfusion protocol. 14.1 mCi of technetium 99m sestamibi was injected at rest. 0.4 mg of regadenoson was infused per usual protocol. At peak infusion 42.3 mCi of technetium 99m sestamibi was injected stress images were obtained stress and rest images were reconstructed and compared in the short axis vertical long and horizontal long axis. Gated images were also obtained. Perfusion SPECT analysis: Review of the stress images demonstrate normal uptake of tracer noted in all areas of the myocardium. A small apical defect is present. The resting images similar demonstrated normal uptake of tracer noted in all areas of the myocardium. A small apical defect is present. The the above is likely secondary to pacemaker activity. No areas of reversibility are noted to suggest ischemia and no previous infarct is noted. Gated SPECT analysis: The gated ejection fraction is 45%. Conclusion: Normal pharmacologic myocardial perfusion stress test. Low normal ejection fraction. 05/17/24 1226 Date Jakub Mina MD CC: Dr. Jakub Mina MD; Dr. Ramón sAif, DO Date Dictated: 05/17/244 Date Transcribed: 05/17/241223 Diamond Saw Operator: CO Signed Normal [facility] Basophil percentageOrdered B y: Ramón Asif on 06-28-2023 Bilirubin [Mass/Vol] 0.90 mg/dL 0.20-1.00 [facility] Comment on above: For patients on eltr ombopag therapy, use of Dimension Lashmeet TBIL is not recommended. Chloride [Moles/Vol] 106 mmol/L 98-107 [facility] Glucose [Mass/Vol] 130 mg/dL 74-106 [facility] Comment on above: Fasting Glucose resu lt greater than or equal to 126 mg/dL suggests DIABETES MELLITUS per A.D.A. criteria. Potassium [Moles/Vol] 3.9 mmol/L 3.5-5.[address] [facility] Protein [Mass/Vol] 6.9 g/dL 6.4-8.2 [facility] Sodium [Moles/Vol] 139 mmol/L 136-145 [facility] Bilirubin Test strip Ql (U)O rdered By: Ramón Asif on 06-28-2023 Bilirubin Ql (U) Negative Negative [facility] Ketones Test strip Ql (U)Ord ered By: Ramón Asif on 06-28-2023 Ketones Ql (U) Negative Negative [facility] Laboratory - Chemistry and C hemistry - challengeOrdered By: Ramón Asif on 06-28-2023 ALP [Catalytic activity/Vol] 59 U/L 45-117 [facility] ALT [Catalytic activity/Vol] 38 U/L 16-61 [facility] CO2 [Moles/Vol] 26.0 mmol/L 21.0-32.0 [facility] Globulin (S) [Mass/Vol] 3.1 g/dL 2.2-4.2 [facility] Natriuretic peptide B (Bld) [Mass/Vol] 151.2 pg/mL 0-100 [facility] Urea nitrogen/Creatinine [Mass ratio] 25.2 mg/mg 10-20 [facility] Nitrite Test strip Ql (U)Ord ered By: Ramón Asif on 06-28-2023 Nitrite Ql (U) Negative Negative [facility] No Panel InformationOrdered By: Ramón Asif on 06-28-2023 Estimated GFR (MDRD) Amer 100 mL/min >60 [facility] Comment on above: GFR Calc Estimated GFR (MDRD) Non-Af Amer 83 mL/min >60 [facility] Comment on above: Non- GFR Calc Thyroid Stimulating Hormone (TSH) 2.36 uIU/mL 0.358-3.74 [facility] Protein Test strip Ql (U)Ord ered By: Ramón Asif on 06-28-2023 Protein Ql (U) 15 mg/dl Negative [facility] Serum or plasma albumin zenaida urement (mass/volume)Ordered By: Ramón Asif on 06-28-2023 Albumin [Mass/Vol] 3.8 g/dL 3.2-5.0 [facility] Serum or plasma albumin/glob ulin mass ratioOrdered By: Ramón Asif on 06-28-2023 Albumin/Globulin [Mass ratio] 1.2 {ratio} 0.9-2.4 [facility] Serum or plasma calcium zenaida urement (mass/volume)Ordered By: Ramón Asif on 06-28-2023 Calcium [Mass/Vol] 9.2 mg/dL 8.5-10.1 [facility] Serum or plasma creatinine m easurement (mass/volume)Ordered By: Ramón Asif on 06-28-2023 Creatinine [Mass/Vol] 0.95 mg/dL 0.70-1.[address] [facility] Comment on above: The validity of the calculated GFR & GFRAA in patients over 70 years has not been determined. Clinical correlation is essential. Serum or plasma urea nitroge n measurement (mass/volume)Ordered By: Ramón Asif on 06-28-2023 Urea nitrogen [Mass/Vol] 24 mg/dL 7-18 [facility] Thin prep Papanicolaou smear with manual screeningOrdered By: Ramón Asif on 06-28-2023 Thin prep Papanicolaou smear with manual screening 23 U/L 15-37 [facility] Thin prep Papanicolaou smear with manual screening 7 5-15 [facility] Urine blood detectionOrdered By: Ramón Asif on 06-28-2023 RBC Ql (U) Negative Negative [facility] Urine clarityOrdered By: Kaelyn Asif on 06-28-2023 Clarity (U) Clear Clear [facility] Urine color determinationOrd ered By: Ramón Asif on 06-28-2023 Color (U) Yellow Yellow [facility] Urine glucose detectionOrder ed By: Ramón Asif on 06-28-2023 Glucose Ql (U) Normal mg/dl Normal [facility] Urine leukocyte esterase det ection by dipstickOrdered By: Ramón Asif on 06-28-2023 Leukocyte esterase Test strip Ql (U) Negative Negative [facility] Urine pHOrdered By: Ramón ochoa on 06-28-2023 pH (U) 6.5 [pH] 5.0 - 8.0 [facility] Urine specific gravity measu rementOrdered By: Ramón Asif on 06-28-2023 Specific gravity (U) [Rel density] 1.015 1.002-1.030 [facility] Urobilinogen Auto test strip Ql (U)Ordered By: Ramón Asif on 06-28-2023 Urobilinogen Ql (U) Normal mg/dl Normal [facility] Whole blood hemoglobin A1c/t otal hemoglobin ratio (mass fraction)Ordered By: Ramón Asif on 06-28-2023 HbA1c (Bld) [Mass fraction] 6.6 % 3.8-5.6 [facility] Comment on above: Normal < 5.7 % Predi abetic 5.7 - 6.4 % Diabetic >or= 6.5 % Please note range changes. Basophil percentageOrdered B y: Dr. Asif on 02-01-2023 Bilirubin [Mass/Vol] 1.70 mg/dL 0.20-1.00 [facility] Comment on above: For patients on eltr ombopag therapy, use of Dimension Lashmeet TBIL is not recommended. Chloride [Moles/Vol] 106 mmol/L 98-107 [facility] Cholesterol [Mass/Vol] 167 mg/dL <200 [facility] Comment on above: <200 mg/dL Desirable 200-240 mg/dL Borderline >240 mg/dL High Risk Glucose [Mass/Vol] 172 mg/dL 74-106 [facility] Comment on above: Fasting Glucose resu lt greater than or equal to 126 mg/dL suggests DIABETES MELLITUS per A.D.A. criteria. Potassium [Moles/Vol] 4.1 mmol/L 3.5-5.[address] [facility] Protein [Mass/Vol] 6.9 g/dL 6.4-8.2 [facility] Sodium [Moles/Vol] 140 mmol/L 136-145 [facility] Triglyceride [Mass/Vol] 300 mg/dL <199 [facility] Comment on above: The drugs N-Acetylcy steine and Metamizole may falsely depress this assay.Serum Triglycerides Reference Interval Normal <150 mg/dL Borderline high 150 - 199 mg/dL High 200 - 499 mg/dL Very High > or = 500 mg/dL Direct bilirubinOrdered By: Dr. Asif on 02-01-2023 Bilirubin.direct [Mass/Vol] 0.33 mg/dL 0.00-0.30 [facility] Laboratory - Chemistry and C hemistry - challengeOrdered By: Dr. Asif on 02-01-2023 ALP [Catalytic activity/Vol] 56 U/L 45-117 [facility] ALT [Catalytic activity/Vol] 37 U/L 16-61 [facility] CO2 [Moles/Vol] 24.0 mmol/L 21.0-32.0 [facility] Globulin (S) [Mass/Vol] 2.8 g/dL 2.2-4.2 [facility] [place] [facility] Urea nitrogen/Creatinine [Mass ratio] 22.8 mg/mg 10-20 [facility] No Panel InformationOrdered By: Dr. Asif on 02-01-2023 Estimated GFR (MDRD) Amer 94 mL/min >60 [facility] Comment on above: GFR Calc Estimated GFR (MDRD) Non-Af Amer 78 mL/min >60 [facility] Comment on above: Non- GFR Calc Urine Microalbumin/Creatinine Ratio 49.6 mg/g CRE <30 [facility] Serum or plasma albumin zenaida urement (mass/volume)Ordered By: Dr. Asif on 02-01-2023 Albumin [Mass/Vol] 4.1 g/dL 3.2-5.0 [facility] Serum or plasma calcium zenaida urement (mass/volume)Ordered By: Dr. Asif on 02-01-2023 Calcium [Mass/Vol] 10.1 mg/dL 8.5-10.1 [facility] Serum or plasma cholesterol in HDL measurement (mass/volume)Ordered By: Dr. Asif on 02-01-2023 Cholesterol in HDL [Mass/Vol] 36 mg/dL >40 [facility] Comment on above: The drugs N-Acetylcy steine and Metamizole may falsely depress this assay. Reference Range HDL <40 mg/dL Low HDL Cholesterol HDL >or= 60 mg/dL High HDL Cholesterol Serum or plasma cholesterol in VLDL measurement (mass/volume)Ordered By: Dr. Asif on 02-01-2023 Cholesterol in VLDL [Mass/Vol] 60 mg/dL 5-40 [facility] Serum or plasma creatinine m easurement (mass/volume)Ordered By: Dr. Asif on 02-01-2023 Creatinine [Mass/Vol] 1.01 mg/dL 0.70-1.[address] [facility] Comment on above: The validity of the calculated GFR & GFRAA in patients over 70 years has not been determined. Clinical correlation is essential. Serum or plasma low density lipoprotein (LDL) cholesterol measurement (mass/volume)Ordered By: Dr. Asif on 02-01-2023 Cholesterol in LDL [Mass/Vol] 71 mg/dL 0-130 [facility] Serum or plasma urea nitroge n measurement (mass/volume)Ordered By: Dr. Asif on 02-01-2023 Urea nitrogen [Mass/Vol] 23 mg/dL 7-18 [facility] Serum or plasma uric acid me asurement (mass/volume)Ordered By: Dr. Asif on 02-01-2023 Urate [Mass/Vol] 7.7 mg/dL 3.5-7.2 [facility] Comment on above: The drugs N-Acetylcy steine and Metamizole may falsely depress this assay. Thin prep Papanicolaou smear with manual screeningOrdered By: Dr. Asif on 02-01-2023 Thin prep Papanicolaou smear with manual screening 24 U/L 15-37 [facility] Thin prep Papanicolaou smear with manual screening 10 5-15 [facility] Thin prep Papanicolaou smear with manual screening 57.0 mg/L NO RANGE EST. [facility] Urine creatinine measurement (mass/volume)Ordered By: Dr. Asif on 02-01-2023 Creatinine (U) [Mass/Vol] 115.00 mg/dL NO RANGE EST. [facility] Whole blood hemoglobin A1c/t otal hemoglobin ratio (mass fraction)Ordered By: Dr. Asif on 02-01-2023 HbA1c (Bld) [Mass fraction] 6.3 % 3.8-5.6 [facility] Comment on above: Normal < 5.7 % Predi abetic 5.7 - 6.4 % Diabetic >or= 6.5 % Please note range changes. Absolute lymphocyte counton 06-15-2022 Lymphocytes Auto (Unsp spec) [#/Vol] 1.19 10*3/uL 0.83-4.51 [facility] Work Phone: Basophil percentageon 2021 Basophils/100 WBC (Bld) 0.4 % 0-1 [facility] [place] [facility] Work Phone: Eosinophils/100 WBC (Bld) 5.3 % 0-5 [facility] Work Phone: Neutrophils (Bld) [#/Vol] 4.6 10*3/uL 2.0-7.7 [facility] Work Phone: Neutrophils/100 WBC (Bld) 67.4 % 47-70 [facility] Work Phone: WBC (Bld) [#/Vol] 6.8 10*3/uL 4.4-11.0 [facility] Work Phone: Bilirubin [Mass/Vol] 1.70 mg/dL 0.20-1.00 [facility] Work Phone: Comment on above: For patients on eltr ombopag therapy, use of Dimension Lashmeet TBIL is not recommended. Cholesterol [Mass/Vol] 157 mg/dL <200 [facility] Work Phone: Comment on above: <200 mg/dL Desirable 200-240 mg/dL Borderline >240 mg/dL High Risk Protein [Mass/Vol] 6.7 g/dL 6.4-8.2 [facility] Work Phone: Triglyceride [Mass/Vol] 362 mg/dL <199 [facility] [place] [facility] Work Phone: Comment on above: The drugs N-Acetylcy steine and Metamizole may falsely depress this assay.Serum Triglycerides Reference Interval Normal <150 mg/dL Borderline high 150 - 199 mg/dL High 200 - 499 mg/dL Very High > or = 500 mg/dL Blood erythrocytes count (nu mber/volume)on 06-15-2022 RBC (Bld) [#/Vol] 4.51 10*6/uL 4.6-6.2 [facility] Work Phone: Blood hemoglobin measurement (mass/volume)on 06-15-2022 Hemoglobin (Bld) [Mass/Vol] 13.7 g/dL 13.0-16.5 [facility] Work Phone: Blood lymphocytes/100 leukoc yteson 06-15-2022 Lymphocytes/100 WBC (Bld) 17.5 % 19-41 [facility] Work Phone: Blood monocytes/100 leukocyt eson 06-15-2022 Monocytes/100 WBC (Bld) 9.0 % 0-10 [facility] [place] [facility] Work Phone: Blood platelet mean volumeon 06-15-2022 Platelet mean volume (Bld) [Entitic vol] 10.1 fL 6.2-12.0 [facility] Work Phone: Determination of erythrocyte mean corpuscular volume (MCV)on 06-15-2022 MCV (RBC) [Entitic vol] 93.8 fL 80-94 [facility] [place] [facility] Work Phone: Direct bilirubinon 2 Bilirubin.direct [Mass/Vol] 0.29 mg/dL 0.00-0.30 [facility] Work Phone: Hematocrit Auto (Bld) [Volum e fraction]on 06-15-2022 Hematocrit (Bld) [Volume fraction] 42.3 % 40-54 [facility] Work Phone: Iron measurement (mass/mass) on 06-15-2022 Iron (Unsp spec) [Mass/Mass] 59 ug/dL 65-175 [facility] Work Phone: Laboratory - Chemistry and C hemistry - challengeon 06-15-2022 Cobalamin (Vitamin B12) [Mass/Vol] 1552 pg/mL 211-911 [facility] Work Phone: ALP [Catalytic activity/Vol] 65 U/L 45-117 [facility] Work Phone: ALT [Catalytic activity/Vol] 37 U/L 16-61 [facility] Work Phone: Globulin (S) [Mass/Vol] 3.0 g/dL 2.2-4.2 [facility] [place] [facility] Work Phone: Laboratory - Hematology and Cell countson 06-15-2022 Erythrocyte distribution width (RBC) [Entitic vol] 46.4 fL 35.1-43.9 [facility] Work Phone: Erythrocyte distribution width (RBC) [Ratio] 13.5 % 11.6-14.6 [facility] Work Phone: Immature granulocytes/100 WBC (Bld) 0.400 % 0.0-0.9 [facility] Work Phone: Comment on above: IG% - Immature Granu locytes (promyelocytes, myelocytes and metamyelocytes) > 1% indicates that a LEFT SHIFT is Present. MCH (RBC) [Entitic mass] 30.4 pg 27.0-32.0 [facility] Work Phone: Nucleated RBC/100 WBC (Bld) [Ratio] 0 % 0-5 [facility] Work Phone: MCHC Auto (RBC) [Mass/Vol]on 06-15-2022 MCHC (RBC) [Mass/Vol] 32.4 g/dL 32-[address] [facility] Work Phone: No Panel Informationon 06-15 Prostate Specific Antigen Total 3.47 ng/mL 0.0-4.0 [facility] Work Phone: Comment on above: This test was perfor med using the TPSA assay method for theDimension chemistry system. Values obtained with differentassay methods cannot be used interchangably.When changing PSA assays in the course of monitoring apatient, additional sequential testing should be carriedout to confirm baseline values. Platelets bldon 06-15-2022 Platelets (Bld) [#/Vol] 149 10*3/uL 150-450 [facility] Work Phone: Serum or plasma albumin zenaida urement (mass/volume)on 06-15-2022 Albumin [Mass/Vol] 3.7 g/dL 3.2-5.0 [facility] Work Phone: Serum or plasma cholesterol in HDL measurement (mass/volume)on 06-15-2022 Cholesterol in HDL [Mass/Vol] 33 mg/dL >40 [facility] Work Phone: Comment on above: The drugs N-Acetylcy steine and Metamizole may falsely depress this assay. Reference Range HDL <40 mg/dL Low HDL Cholesterol HDL >or= 60 mg/dL High HDL Cholesterol Serum or plasma cholesterol in VLDL measurement (mass/volume)on 06-15-2022 Cholesterol in VLDL [Mass/Vol] 72 mg/dL 5-40 [facility] Work Phone: Serum or plasma ferritin lisa surement (mass/volume)on 06-15-2022 Ferritin [Mass/Vol] 63 ng/mL 26-388 [facility] Work Phone: Serum or plasma low density lipoprotein (LDL) cholesterol measurement (mass/volume)on 06-15-2022 Cholesterol in LDL [Mass/Vol] 52 mg/dL 0-130 [facility] Work Phone: Thin prep Papanicolaou smear with manual screeningon 06-15-2022 Thin prep Papanicolaou smear with manual screening 19 U/L 15-37 [facility] Work Phone: Whole blood hemoglobin A1c/t otal hemoglobin ratio (mass fraction)on 06-15-2022 HbA1c (Bld) [Mass fraction] 6.6 % 3.8-5.6 [facility] Work Phone: Comment on above: Normal < 5.7 % Predi abetic 5.7 - 6.4 % Diabetic >or= 6.5 % Please note range changes. No Panel Informationon 04-28 Prostate Specific Antigen Total 3.54 ng/mL 0.0-4.0 [facility] Work Phone: Comment on above: This test was perfor med using the TPSA assay method for [employer] chemistry system. Values obtained with differentassay methods cannot be used interchangably.When changing PSA assays in the course of monitoring apatient, additional sequential testing should be carriedout to confirm baseline values. Glucose Meteron 07-18-2020 Glucose [Mass/Vol] 133 mg/dL High 70-99 [facility] Comment on above: Result Comment: KEL CHAVIRA Performed By: #### G LMET #### [facility] [address] [place] [id number] XR CHEST 2V FRONTAL/LATon XR CHEST 2V FRONTAL/LAT Final Report DATE OF EXAM: Jul 18 2020 7:55AM AKX [id number] - XR CHEST 2V FRONTAL/LAT / PROCEDURE REASON: Pacing Device, asymptomatic, eval Physician Interpretation EXAMINATION: CHEST RADIOGRAPH (2 VIEW FRONTAL & LATERAL) CLINICAL HISTORY: Pacing Device, asymptomatic, eval MQ: [id number] EXAM DATE/TIME: 07/18/2020 7:55 AM COMPARISON: 07/17/2020 RESULT: Lines, tubes, and devices: Left-sided cardiac pacing device with leads in stable position. Lungs and pleura: Lungs are clear. No infiltrates or effusions. Cardiomediastinal silhouette: Heart size upper normal. Bones and soft tissues: Unremarkable. IMPRESSION: No acute radiographic abnormality. Diamond Saw Operator: DAGOBERTO Transcribe Date/Time: Jul 18 2020 8:24A Dictated by : JENS SOTO MD This examination was interpreted and the report reviewed and electronically signed by: JENS SOTO MD on Jul 18 2020 8:25AM EST Normal [facility] ABO/Rh Confirmationon 2019 ABO group Nom (Bld) A Normal [facility] Comment on above: Performed By: #### A LILLY #### [facility] [address] [place] [address] RH Type Positive Normal [facility] Comment on above: Performed By: #### A LILLY #### [place] [address] Basic Metabolic Panelon Anion gap [Moles/Vol] 10 mmol/L Normal 9-[address] [facility] Comment on above: Performed By: #### B MP #### [address], [place] [address] Calcium [Mass/Vol] 9.7 mg/dL Normal 8.5-10.2 [facility] Comment on above: Performed By: #### B MP #### [facility] [address] [place], [place] [address] Chloride [Moles/Vol] 107 mmol/L High 97-105 [facility] Comment on above: Performed By: #### B MP #### [facility] [address] [place], [place] [address] CO2 [Moles/Vol] 22 mmol/L Normal 22-30 [facility] Comment on above: Performed By: #### B MP #### [facility] [address] [place], [place] [address] Creatinine [Mass/Vol] 0.79 mg/dL Normal 0.73-1.[address] [facility] Comment on above: Performed By: #### B MP #### [facility] [address] [place], [place] [address] Glucose [Mass/Vol] 147 mg/dL High 74-99 [facility] Comment on above: Result Comment: The [place] Diabetes Association (ADA) provides guidance for cutoff values for fasting glucose and random glucose. The ADA defines fasting as no caloric intake for at least 8 hours.Fasting plasma glucose results between 100 to 125 mg/dL indicate increased risk for diabetes (prediabetes). Fasting plasma glucose results greater than or equal to 126 mg/dL meet the criteria for diagnosis of diabetes. In the absence of unequivocal hyperglycemia, results should be confirmed by repeat testing. In a patient with classic symptoms of hyperglycemia or hyperglycemic crisis, random plasma glucose results greater than or equal to 200 mg/dL meet the criteria for diagnosis of diabetes. Reference: Standards of Medical Care in Diabetes 2016; [place] [employer] Association. Diabetes Care. 2016;39(Suppl 1). Performed By: #### B MP #### [facility] [address] [place], [place] [address] Potassium [Moles/Vol] 4.6 mmol/L Normal 3.7-5.[address] [facility] Comment on above: Performed By: #### B MP #### [facility] [address] [place], [place] [address] Sodium [Moles/Vol] 139 mmol/L Normal 136-144 [facility] Comment on above: Performed By: #### B MP #### [facility] [address] [place] [address] Urea nitrogen [Mass/Vol] 23 mg/dL Normal 9-24 [facility] Comment on above: Performed By: #### B MP #### [facility] [address] [place] [address] Hemogramon 07-17-2020 Erythrocyte distribution width (RBC) [Ratio] 13.4 % Normal 11.6-14.4 [facility] Comment on above: Performed By: #### C BC1 #### [facility] [address] [place] [address] Hematocrit (Bld) [Volume fraction] 42.2 % Normal 40.1-51.0 [facility] Comment on above: Performed By: #### C BC1 #### [place] [address] Hemoglobin (Bld) [Mass/Vol] 13.9 g/dL Normal 13.7-17.5 [facility] Comment on above: Performed By: #### C BC1 #### [facility] [address] [place] [address] MCH (RBC) [Entitic mass] 30.8 pg Normal 25.7-32.2 [facility] Comment on above: Performed By: #### C BC1 #### [place] [address] MCHC 32.9 % Normal 32.3-36.5 [facility] Comment on above: Performed By: #### C BC1 #### [facility] [address] [place] [address] MCV (RBC) [Entitic vol] 93.4 fL Normal 83.2-95.6 [facility] Comment on above: Performed By: #### C BC1 #### [place] [address] Platelet mean volume (Bld) [Entitic vol] 10.2 fL Normal 8.7-12.0 [facility] Comment on above: Performed By: #### C BC1 #### [facility] [address] [place] [address] Platelets (Bld) [#/Vol] 153 10*3/uL Normal 141-365 [facility] Comment on above: Performed By: #### C BC1 #### [facility] [address] [place] [address] RBC 4.52 mil/cmm Low 4.63-6.08 [facility] Comment on above: Performed By: #### C BC1 #### [facility] [address] [place] [address] RDW SD 46.1 fl High 36.1-45.8 [facility] Comment on above: Performed By: #### C BC1 #### [facility] [address] [place] [address] WBC (Bld) [#/Vol] 5.86 10*3/uL Normal 4.23-9.07 [facility] Comment on above: Performed By: #### C BC1 #### [facility] [address] [place] [address] MDRD GFRon 07-17-2020 GFR/1.73 sq M.predicted among non-blacks MDRD (S/P/Bld) [Vol rate/Area] mL/min/{1.73_m2} Normal >60mL/min/1. 73m2 [facility] Comment on above: Result Comment: If t he patient is , multiply the result by 1.210. Performed By: #### G FR #### [facility] [address] [place] [address] RBC Productson 07-17-2020 Xmatch Unit 1 see below Normal [facility] Comment on above: Result Comment: Comp atible Performed By: #### R BCPS #### [facility] [address] [place] [address] Xmatch Unit 2 see below Normal [facility] Comment on above: Result Comment: Comp atible Performed By: #### R BCPS #### [place] [address] Xmatch Unit 3 see below Normal [facility] Comment on above: Result Comment: Comp atible Performed By: #### R BCPS #### [facility] [address] [place] [address] Xmatch Unit 4 see below Normal [facility] Comment on above: Result Comment: Comp atible Performed By: #### R BCPS #### [place] [address] Type and Screenon 07-17-2020 ABO group Nom (Bld) A Normal [facility] Comment on above: Performed By: #### T &S #### [place] [address] Comment See Below [facility] Comment on above: Result Comment: Scre en &/or Xmatch expires in 3 days at 12 midnight. Redraw patient at that time. Performed By: #### T &S #### [place] [address] RH Type Positive Normal [facility] Comment on above: Performed By: #### T &S #### [place] [address] XR CHEST 1V FRONTALon 2019 XR CHEST 1V FRONTAL Final Report DATE OF EXAM: Jul 17 2020 3:00PM [id number] [id number] - XR CHEST 1V FRONTAL / PROCEDURE REASON: Pneumothorax Physician Interpretation PORTABLE CHEST X-RAY HISTORY: Pneumothorax. Postop pacemaker placement TECHNIQUE: AP upright COMPARISON: None available. RESULT: Lines/tubes/devices: Left subclavian transvenous pacemaker components in satisfactory position. Heart/mediastinum: Within normal limits. Lungs/pleura: No pneumothorax, pleural fluid or lung opacities. Bones/soft tissues: Unremarkable. IMPRESSION: No pneumothorax following transvenous pacemaker placement. Diamond Saw Operator: PSCB Transcribe Date/Time: Jul 17 2020 3:08P Dictated by : JUAN DANIEL GARLAND MD This examination was interpreted and the report reviewed and electronically signed by: JUAN DANIEL GARLAND MD on Jul 17 2020 3:09PM EST Normal [facility] Clinical Summary: HMSPatient IDon 03-23-2018 OOP Invalid Interpretation Code [facility] Work Phone: Office Visit: New Complaint, Rm: 1on 03-23-2018 NEGATED: Highlighted rowDocumentation of current medications (procedure) Done Invalid Interpretation Code [facility] Work Phone: NEGATED: Highlighted rowTobacco smoking status NHIS Tobacco smoking status NHIS Invalid Interpretation Code [facility] Work Phone: Office Visiton 06-02-2017 Dietary management education, guidance, and counseling (procedure) yes Invalid Interpretation Code [facility] Work Phone: Documentation of current medications (procedure) Done Invalid Interpretation Code [facility] Work Phone: Fall risk assessment No Invalid Interpretation Code [facility] Work Phone: Protein mass conc Done [facility] Work Phone: Chart Maintenanceon 06-01-20 17 HbA1c 6.2 % Invalid Interpretation Code [facility] Work Phone: Clinical Lists Update: Prelo interventional radiology technologist 08-25-2016 Left ventricular Ejection fraction 45 % Invalid Interpretation Code [facility] Work Phone: [phone] Lab Report: Lipid Profileon 08-25-2016 Cholesterol 137 mg/dL Invalid Interpretation Code 200 [facility] Work Phone: [phone] HDL Cholesterol 35 mg/dL Low [facility] Work Phone: [phone] LDL Cholesterol 27 mg/dL Invalid Interpretation Code 0-130 [facility] Work Phone: [phone] Triglyceride 374 mg/dL High [facility] Work Phone: [phone] very low density lipoproteins 75 mg/dL High 5-40 [facility] Work Phone: [phone] Lab Report: Liver Profileon 08-25-2016 Alanine aminotransferase (ALT) 39 U/L Invalid Interpretation Code 12-78 [facility] Work Phone: [phone] Albumin 4.0 g/dL Invalid Interpretation Code 3.4-5.0 [facility] Work Phone: [phone] Alkaline phosphatase (ALP) 83 U/L Invalid Interpretation Code 50-136 [facility] Work Phone: [phone] ALP enzyme act/vol (Bld) 83 U/L 50-136 [facility] Work Phone: [phone] Aspartate aminotransferase (AST) 18 U/L Invalid Interpretation Code 15-37 [facility] Work Phone: [phone] Bilirubin (direct) 0.36 mg/dL High 0.00-0.30 [facility] Work Phone: [phone] Bilirubin (total) 2.10 mg/dL High 0.20-1.00 [facility] Work Phone: [phone] Globulin 3.0 g/dL Invalid Interpretation Code 2.3-3.5 [facility] Work Phone: [phone] Globulin mass conc (S) 3.0 g/dL 2.3-3.5 [facility] Work Phone: [phone] Protein 7.0 g/dL Invalid Interpretation Code 6.4-8.2 [facility] Work Phone: [phone] Office Visiton 08-17-2016 Dietary management education, guidance, and counseling (procedure) yes Invalid Interpretation Code [facility] Work Phone: [phone] Documentation of current medications (procedure) Done Invalid Interpretation Code [facility] Work Phone: [phone] Replaced Document: Midmark E CG Observationson 08-17-2016 BUN (urea nitrogen) Sinus Rhythm -Right bundle branch block with left axis -bifascicular block. -Anterior infarct -age undetermined. ABNORMAL Invalid Interpretation Code [facility] Work Phone: [phone] EKG QRS axis -63 deg [facility] Work Phone: [phone] GE use only - for LinkLogic import when terms are not otherwise specified 421 ms Invalid Interpretation Code [facility] Work Phone: [phone] P [place] 29 deg [facility] Work Phone: [phone] P wave axis, electrocardiogram 29 deg Invalid Interpretation Code [facility] Work Phone: [phone] FL Interval 164 ms [facility] Work Phone: [phone] FL interval, electrocardiogram 164 ms Invalid Interpretation Code [facility] Work Phone: [phone] Pulse (Heart Rate) 77 /min Invalid Interpretation Code [facility] Work Phone: [phone] QRS axis, electrocardiogram -63 deg Invalid Interpretation Code [facility] Work Phone: [phone] QRS Duration 156 ms [facility] Work Phone: [phone] QRS duration, electrocardiogram 156 ms Invalid Interpretation Code [facility] Work Phone: [phone] QT Interval new path ms [facility] Work Phone: [phone] QT interval, electrocardiogram new path ms Invalid Interpretation Code [facility] Work Phone: [phone] QTc Bob 421 ms [facility] Work Phone: [phone] T [place] 45 deg [facility] Work Phone: [phone] T wave axis, electrocardiogram 45 deg Invalid Interpretation Code [facility] Work Phone: [phone] Urea nitrogen mass conc Sinus Rhythm -Ri ght bundle branch block with left axis -bifascicular block. -Anterior infarct -age undetermined. ABNORMAL [facility] Work Phone: [phone] Rx Refill: eRx Request for L IPITOR 40 MG TABLETon 04-13-2016 e-scripts messenger refill request [id number]`LIPITOR 40 MG TABLET```90 Tablet`90`TAKE ONE TABLET BY MOUTH DAILY``4`0` 5`No date sent`[facility] [place]*`[id number]` [id number]``ATORVAS TATIN 40 MG TABLET Quantity: 90 Tablet Instructions: TAKE ONE TABLET BY MOUTH DAILY [facility] Work Phone: [phone] ESM_RR [id number]`LIPITOR 40 MG TABLET```90 Tablet`90`TAKE ONE TABLET BY MOUTH DAILY``4`0` 5`No date sent`[facility] [place]*`[id number]` [id number]``ATORVAS TATIN 40 MG TABLET Quantity: 90 Tablet Instructions: TAKE ONE TABLET BY MOUTH DAILY [facility] Work Phone: [phone] Office Visit: Neck Painon Tobacco smoking status NHIS Never Invalid Interpretation Code [facility] Work Phone: [phone] Tobacco smoking status NHIS Tobacco smoking status NHIS Invalid Interpretation Code [facility] Work Phone: Tobacco smoking status NHIS Former smoker [facility] Work Phone: [phone] Tobacco use [facility] Former smoker Invalid Interpretation Code [facility] Work Phone: [phone] Lab Report: Comprehensive In tabolic Profilon 10-26-2015 Albumin/Globulin Ratio 1.4 {ratio} Invalid Interpretation Code 0.9-2.4 [facility] Work Phone: [phone] Anion gap 6 mmol/L Invalid Interpretation Code 5-15 [facility] Work Phone: [phone] Anion gap molar conc 6 mmol/L 5-[address] [facility] Work Phone: [phone] BUN/Creatinine Ratio 19.5 RATIO Invalid Interpretation Code 10-20 [facility] Work Phone: [phone] Calcium 9.1 mg/dL Invalid Interpretation Code 8.5-10.1 [facility] Work Phone: [phone] Chloride 107 mmol/L Invalid Interpretation Code 98-107 [facility] Work Phone: [phone] CO2 28.0 mmol/L Invalid Interpretation Code 21.0-32.0 [facility] Work Phone: [phone] CO2 ppres (BldV) 28.0 mmol/L 21.0-32.0 [facility] Work Phone: [phone] Creatinine 0.92 mg/dL Invalid Interpretation Code 0.70-1.30 [facility] Work Phone: [phone] eGFR (non-black) 106 mL/min/{1.73_m2} Invalid Interpretation Code >60 [facility] Work Phone: [phone] eGFR (non-black) 88 mL/min/{1.73_m2} Invalid Interpretation Code >60 [facility] Work Phone: [phone] EST GFR - AA 106 mL/min >60 [facility] Work Phone: [phone] Glucose 136 mg/dL High 70-110 [facility] Work Phone: [phone] Glucose mass conc 136 mg/dL High 70-110 [facility] Work Phone: [phone] Potassium 4.4 mmol/L Invalid Interpretation Code 3.5-5.1 [facility] Work Phone: [phone] Sodium 141 mmol/L Invalid Interpretation Code 136-145 [facility] Work Phone: [phone] Urea nitrogen 18 mg/dL Invalid Interpretation Code 7-18 [facility] Work Phone: [phone] Lab Report: Hemoglobin A1con 10-26-2015 HbA1c 6.2 % 4.2-6.3 [facility] Work Phone: [phone] Lab Report: Microalb:Creat R atio,Random URon 10-26-2015 ACR (microalbumin/creatinin e) ratio 20.2 MG/G CRE Invalid Interpretation Code <30 mg/g CRE [facility] Work Phone: [phone] Albumin/Creatinine DL <= 20 mg/L Ratio (U) 20.2 MG/G CRE <30 mg/g CRE [facility] Work Phone: [phone] Urine, creatinine 102.00 mg/dL Invalid Interpretation Code NO RANGE EST. [facility] Work Phone: [phone] Urine, microalbumin 2.06 mg/dL Invalid Interpretation Code Units converted. See lab report for original value. [facility] Work Phone: [phone] Office Visit: Sinusitison Protein mass conc yes [facility] Work Phone: [phone] Smoking cessation education (procedure) yes Invalid Interpretation Code [facility] Work Phone: [phone] Lab Report: PSA,Total - Susie al Screenon 07-15-2015 prostate specific antigen (PSA) screening 2.19 ng/mL Invalid Interpretation Code 0.00-4.00 [facility] Work Phone: [phone] Protein mass conc 2.19 ng/mL 0.00-4.00 [facility] Work Phone: [phone] Lab Report: Troponin-Ion Troponin I 0.31 ng/mL Critically high <0.06 [facility] Work Phone: [phone] Office Visiton 12-13-2014 cardiac risk group C Invalid Interpretation Code [facility] Work Phone: [phone] General cardiovascular disease 10Y risk [#] [place].Cristina'Marc[place]immie N/A Invalid Interpretation Code [facility] Work Phone: [phone] Clinical Lists Update: Prelo interventional radiology technologist 11-15-2014 Albumin/Globulin Ratio 1.3 {ratio} Invalid Interpretation Code [facility] Work Phone: [phone] basophils as percent of blood leukocytes, manual count 0.3 % Invalid Interpretation Code [facility] Work Phone: [phone] eGFR (non-black) 110 mL/min/{1.73_m2} Invalid Interpretation Code [facility] Work Phone: [phone] eGFR (non-black) 91 mL/min/{1.73_m2} Invalid Interpretation Code [facility] Work Phone: [phone] eosinophils as percent of blood leukocytes, manual count 3.4 % Invalid Interpretation Code [facility] Work Phone: [phone] Erythrocyte distribution width Ratio (RBC) 13.9 % [facility] Work Phone: [phone] Erythrocytes (RBC) 4.36 10*6/uL Low [facility] Work Phone: [phone] Globulin 2.8 g/dL Invalid Interpretation Code [facility] Work Phone: [phone] Globulin mass conc (S) 2.8 g/dL [facility] Work Phone: [phone] Glomerular Filtration Rate 110 mL/min/1.73m2 [facility] Work Phone: [phone] Hematocrit (HCT) 39.1 % Low [facility] Work Phone: [phone] Hematocrit Volume Fraction (Bld) 39.1 % Low [facility] Work Phone: [phone] Hemoglobin (HGB) 13.0 g/dL Invalid Interpretation Code [facility] Work Phone: [phone] LDL Cholesterol 106 mg/dL High [facility] Work Phone: [phone] Lymphocytes/100 leukocytes 25.9 % Invalid Interpretation Code [facility] Work [phone] Lymphocytes/100 WBC (Bld) 25.9 % [facility] Work Phone: [phone] MCH 29.8 pg Invalid Interpretation Code [facility] Work Phone: [phone] MCH Entitic mass (RBC) 29.8 pg [facility] Work Phone: [phone] MCHC 33.2 g/dL Invalid Interpretation Code [facility] Work Phone: [phone] MCHC mass conc (RBC) 33.2 g/dL [facility] Work Phone: [phone] MCV 89.7 fL Invalid Interpretation Code [facility] Work Phone: [phone] MCV Entitic volume (RBC) 89.7 fL [facility] Work Phone: [phone] Monocytes/100 leukocytes 8.6 % Invalid Interpretation Code [facility] Work Phone: [phone] Monocytes/100 WBC (Bld) 8.6 % [facility] Work Phone: [phone] neutrophils, band form as percent of blood leukocytes, manual count 61.3 % Invalid Interpretation Code [facility] Work Phone: [phone] Platelet mean volume Entitic volume (Bld) 10.4 fL [facility] Work Phone: [phone] Platelets 172 10*3/mm3 Invalid Interpretation Code [facility] Work Phone: [phone] Platelets #/vol (Bld) 172 10*3/mm3 [facility] Work Phone: [phone] PMV by Fermin 10.4 fL Invalid Interpretation Code [facility] Work Phone: [phone] RBC #/vol (Bld) 4.36 10*6/uL Low [facility] Work Phone: [phone] RDW-CA 13.9 % Invalid Interpretation Code [facility] Work Phone: [phone] WBC #/vol (Bld) 6.1 10*3/uL [facility] Work Phone: WBC (Leukocytes) 6.1 10*3/uL Invalid Interpretation Code [facility] Work Phone: [phone] Office Visit: Initial PCP Catherine eldamary 09-15-2014 Colonoscopy (procedure) Colonoscopy (procedure) Invalid Interpretation Code [facility] Work Phone: [phone] Protein mass conc Colonoscopy (procedure) [facility] Work Phone: [phone] Vital Signs Date Time Vital Sign Value Performing Clinician Facility 05-15-2025 11:13-0400 Body height 190.[address] Ramón Asif DO Work Phone: [facility] 05-15-2025 11:13-0400 Body mass index (BMI) [Ratio] 23.6 kg/m2 Dr. Ramón Asif DO Work Phone: [facility] 05-15-2025 11:13-0400 Body weight 85.[address] Ramón Asif DO Work Phone: [facility] 05-15-2025 11:13-0400 Diastolic blood pressure 83 mm[Hg] Dr. Ramón Asif DO Work Phone: [facility] 05-15-2025 11:13-0400 Heart rate 73 /min Dr. Ramón Asif DO Work Phone: [facility] 05-15-2025 11:13-0400 Respiratory rate 16 /min Dr. Ramón Asif DO Work Phone: [facility] 05-15-2025 11:13-0400 Systolic blood pressure 155 mm[Hg] Dr. Ramón Asif DO Work Phone: [facility] 03-13-2025 07:49-0400 Body temperature 97.2 [degF] Kelby Ramirez MD Work Phone: [facility] 03-13-2025 07:49-0400 Diastolic blood pressure 79 mm[Hg] Kelby Ramirez MD Work Phone: [facility] 03-13-2025 07:49-0400 Heart rate 77 /min Kelby Ramirez MD Work Phone: [facility] 03-13-2025 07:49-0400 Respiratory rate 18 /min Kelby Ramirez MD Work Phone: [facility] 03-13-2025 07:49-0400 SaO2% (BldA) [Mass fraction] 97 % Kelby Ramirez MD Work Phone: [facility] 03-13-2025 07:49-0400 Systolic blood pressure 132 mm[Hg] Kelby Ramirez MD Work Phone: [facility] 03-09-2025 07:24-0400 Body height 190.5 cm Kelby Ramirez MD Work Phone: [facility] 03-09-2025 07:24-0400 Body mass index (BMI) [Ratio] 24.62 kg/m2 Kelby Ramirez MD Work Phone: [facility] 03-09-2025 07:24-0400 Body weight 89.36 kg Kelby Ramirez MD Work Phone: [facility] 11-29-2024 13:27-0500 Diastolic blood pressure 80 mm[Hg] Dr. Ramón Asif DO Work Phone: [facility] 11-29-2024 13:27-0500 Heart rate 68 /min Dr. Ramón Asif DO Work Phone: [facility] 11-29-2024 13:27-0500 Respiratory rate 16 /min Dr. Ramón Asif DO Work Phone: [facility] 11-29-2024 13:27-0500 SaO2% (BldA) [Mass fraction] 97 % Dr. Ramón Asif DO Work Phone: [facility] 11-29-2024 13:27-0500 Systolic blood pressure 134 mm[Hg] Dr. Ramón Asif DO Work Phone: [facility] 11-29-2024 12:00-0500 Body height 190.[address] Ramón Asif DO Work Phone: [facility] 11-29-2024 12:00-0500 Body mass index (BMI) [Ratio] 23.7 kg/m2 Dr. Ramón Asif DO Work Phone: [facility] 11-29-2024 12:00-0500 Body weight 86.[address] Ramón Asif DO Work Phone: [facility] 03-12-2023 15:07-0400 Body height 190.[address] Ramón Asif Work Phone: [facility] 03-12-2023 15:06-0400 Body mass index (BMI) [Ratio] 27.5 kg/m2 Dr. Ramón Asif Work Phone: [facility] 03-12-2023 15:06-0400 Body weight 99.[address] Ramón Asif Work Phone: [facility] 03-12-2023 15:06-0400 Diastolic blood pressure 84 mm[Hg] Dr. Ramón Asif Work Phone: [facility] 03-12-2023 15:06-0400 Heart rate 80 /min Dr. Ramón Asif Work Phone: [facility] 03-12-2023 15:06-0400 Respiratory rate 18 /min Dr. aRmón Asif Work Phone: [facility] 03-12-2023 15:06-0400 SaO2% (BldA) [Mass fraction] 96 % Dr. Ramón Asif Work Phone: [facility] 03-12-2023 15:06-0400 Systolic blood pressure 142 mm[Hg] Dr. Ramón Asif Work Phone: [facility] 05-25-2022 11:18-0400 Body height 190.[address] Ramón Asif Work Phone: [facility] Work Phone: 05-25-2022 11:18-0400 Body mass index (BMI) [Ratio] 27.7 kg/m2 Dr. Ramón Asif Work Phone: [facility] Work Phone: 05-25-2022 11:18-0400 Body weight 100.[address] Ramón Asif Work Phone: [facility] Work Phone: 05-25-2022 11:18-0400 Diastolic blood pressure 80 mm[Hg] Dr. Ramón Asif Work Phone: [facility] Work Phone: 05-25-2022 11:18-0400 Heart rate 76 /min Dr. Ramón Asif Work Phone: [facility] Work Phone: 05-25-2022 11:18-0400 Respiratory rate 16 /min Dr. Ramón Asif Work Phone: [facility] Work Phone: 05-25-2022 11:18-0400 Systolic blood pressure 130 mm[Hg] Dr. Ramón Asif Work Phone: [facility] Work Phone: 06-02-2017 15:56-0400 BMI (Body Mass Index) 28.88 kg/m2 Yeison Castaneda [facility] Work Phone: 06-02-2017 15:56-0400 BP Diastolic 60 mm[Hg] Yeison Castaneda [facility] Work Phone: 06-02-2017 15:56-0400 BP Systolic 128 mm[Hg] Yeison Castaneda [facility] Work Phone: 06-02-2017 15:56-0400 Height 189.23 [facility] Work Phone: 06-02-2017 15:56-0400 Pulse (Heart Rate) 80 /min [facility] Work Phone: 06-02-2017 15:56-0400 Respiratory Rate 16 /min [facility] Work Phone: 06-02-2017 15:56-0400 Weight 103.42 kg Ye[facility] Work Phone: 08-17-2016 09:35-0400 Heart rate 77 /min Ye[facility] Work Phone: 08-17-2016 09:18-0400 BMI (Body Mass Index) 28.75 kg/m2 Deya Vallejo [facility] Work Phone: 08-17-2016 09:18-0400 BP Diastolic 84 mm[Hg] Deya DeFinis [facility] Work Phone: 08-17-2016 09:18-0400 BP Systolic 120 mm[Hg] Deya DeFinis [facility] Work Phone: 08-17-2016 09:18-0400 BSA (Body Surface Area) 2.31 m2 Deya DeFinis [facility] Work Phone: 08-17-2016 09:18-0400 Pulse (Heart Rate) 72 /min Deya Vallejo [facility] Work Phone: 08-17-2016 09:18-0400 Respiratory Rate 16 /min Deya DeFinis [facility] Work Phone: 08-17-2016 09:18-0400 Weight 102.97 kg Deya DeFinis [facility] Work Phone: 02-14-2016 13:14-0400 Body Temperature 98.1 [degF] Deya DeFinis [facility] Work Phone: 12-16-2015 11:00-0500 BP Diastolic 84 mm[Hg] Marco Antonioumi DeFinis [facility] Work Phone: 12-16-2015 11:00-0500 BP Systolic 138 mm[Hg] Harumi DeFinis [facility] Work Phone: 11-28-2014 14:120500 Height 189.23 cm Deya [facility] Work Phone: NEGATED: Highlighted [id number] 09:37-0400 BMI (Body Mass Index) 28.6 kg/m2 Hero Aaron LPN [facility] Work Phone: NEGATED: Highlighted [id number] 09:37-0400 BP Diastolic 78 mm[Hg] Hero Aaron UNIT ASSEMBLER [facility] Work Phone: NEGATED: Highlighted [id number] 09:37-0400 BP Diastolic 76 mm[Hg] Hero Aaron UNIT ASSEMBLER [facility] Work Phone: NEGATED: Highlighted [id number] 09:37-0400 BP Systolic 142 mm[Hg] Hero Aaron LPN [facility] Work Phone: NEGATED: Highlighted [id number] 09:37-0400 BP Systolic 144 mm[Hg] Hero Aaron UNIT ASSEMBLER [facility] Work Phone: NEGATED: Highlighted [id number] 09:37-0400 Height 190.5 cm Hero Aaron LPN [facility] Work Phone: NEGATED: Highlighted [id number] 09:37-0400 Height 191 cm Hero Aaron LPN [facility] Work Phone: NEGATED: Highlighted [id number] 09:37-0400 Pulse (Heart Rate) 65 /min Hero Aaron LPN [facility] Work Phone: NEGATED: Highlighted [id number] 09:37-0400 Weight 103.42 kg Hero Aaron LPN [facility] Work Phone: NEGATED: Highlighted [id number] 09:37-0400 Weight 104 kg Hero Aaron LPN [facility] Work Phone: Encounters Encounter Date Encounter Type Care Provider Facility Start: 05-15-2025 End: 05-15-[address] Jakub Mina MD -[facility] Work Phone: Start: 05-15-2025 End: 05-15-[address] Ramón Asif DO Work Phone: -[facility] Start: 04-20-2025 End: 04-20-[address] Ramón Asif DO Work Phone: [facility] Work Phone: Start: 04-20-2025 End: 04-20-[address] Jakub Mina MD -[facility] Work Phone: Start: 03-09-2025 Encounter for other preprocedural examination KELBY RAMIREZ [facility] Start: 03-09-2025 End: 03-13-2025 Encounter for other preprocedural examination [facility] Start: 03-09-2025 End: 03-13-2025 Evaluation and management of inpatient Kelby Ramirez MD Work Phone: [facility] PCU H6 Comment on above: Pre-op examination ( Primary Dx); Acute post-operative pain Start: 03-09-2025 End: 03-13-2025 Preprocedural examination done Kelby Ramirez MD Work Phone: [facility] Work Phone: Start: 03-02-2025 End: 03-02-2025 ambulatory RAMÓN [facility] Start: 02-23-2025 End: 02-23-[address] Ramón Asif DO Work Phone: [facility] Work Phone: Start: 02-23-2025 End: 02-23-2025 Discharged Recurring Rashida SHARPE -Occupational Therapy Work Phone: Start: 01-26-2025 End: 02-23-2025 Telephone encounter Barak Parker MD Work Phone: [facility] Comment on above: Surgery Scheduling ( 03/09/25) Start: 01-19-2025 End: 01-19-2025 ambulatory [facility] Start: 01-19-2025 End: 01-19-[address] Jakub Mina MD -[facility] Work Phone: Start: 11-30-2024 End: 11-30-2024 ambulatory [facility] Start: 11-30-2024 End: 11-30-[address] Jakub Mina MD -[facility] Work Phone: Start: 11-29-2024 End: 11-29-[address] Kelby Ramirez MD -Radiology, [facility] Work Phone: Start: 11-29-2024 End: 11-29-2024 ambulatory [facility] Facility:[facility] Start: 10-25-2024 End: 10-25-2024 ambulatory [facility] Start: 10-20-2024 End: 10-20-2024 Telephone encounter Erwin Hayward Work Phone: [facility] Comment on above: ER F/U ([facility] ) Start: 10-17-2024 End: 10-17-2024 ambulatory [facility] Start: 10-16-2024 End: 10-16-2024 ambulatory [facility] Start: 09-29-2024 End: 09-29-2024 ambulatory [facility] Start: 09-28-2024 End: 10-15-2024 Evaluation and management of inpatient [facility] Facility:[facility] Start: 09-28-2024 ambulatory [facility] Start: 09-25-2024 End: 09-25-2024 Follow-up encounter Daniel Agarwal MD Work Phone: [facility] Start: 09-25-2024 End: 09-25-2024 Patient encounter procedure Daniel Agarwal MD Work Phone: [facility] Start: 09-24-2024 End: 09-28-2024 Evaluation and management of inpatient RAMÓN ASIF Facility:[facility] Start: 09-23-2024 End: 09-24-2024 Emergency department patient visit Ramón [facility] Facility:[facility] Start: 08-04-2024 End: 08-04-2024 ambulatory Ramón [facility] Facility:[facility] Start: 08-02-2024 End: 08-02-2024 ambulatory [facility] Facility:[facility] Start: 07-21-2024 End: 07-21-2024 ambulatory Ramón [facility] Start: 07-12-2024 End: 07-12-2024 ambulatory [facility] Facility:[facility] Start: 07-04-2024 End: 07-04-2024 ambulatory Ramón DumontYefri [facility] Start: 06-15-2024 End: 06-16-2024 Emergency department patient visit [facility] Facility:[facility] Start: 06-01-2024 Encounter for preprocedural cardiovascular examination Jakub Mina [facility] Start: 05-26-2024 Telephone encounter Jolanta Novoa MD Work Phone: General Surgery Comment on above: Patient Update Start: 05-23-2024 End: 05-23-2024 ambulatory Ramón Yefri [facility] Start: 05-17-2024 ambulatory Ramón Yefri [facility]: [facility] Start: 05-17-2024 End: 05-17-2024 ambulatory Ramón Yefri Facility:[facility] Start: 03-13-2024 End: 03-13-[address] Ramón Asfi Work Phone: [facility] Work Phone: Start: 03-13-2024 End: 03-13-[address] Ramón Asif Work Phone: [facility]-Physical Therapy Work Phone: Start: 01-21-2024 End: 01-21-[address] Ramón Asif Work Phone: [facility] Work Phone: Start: 06-28-2023 End: 06-28-[address] Ramón Asif Work Phone: [facility] Work Phone: Start: 06-28-2023 End: 06-28-[address] Ramón Asif Work Phone: [facility] Start: 06-07-2023 End: 06-07-[address] Ramón Asif Work Phone: [facility] Work Phone: Start: 03-12-2023 End: 03-12-[address] Ramón Asif Work Phone: [facility] Work Phone: Start: 02-01-2023 End: 02-01-[address] Ramón Asif Work Phone: [facility] Work Phone: Start: 02-01-2023 End: 02-01-[address] Ramón Asif Work Phone: [facility] Start: 12-30-2022 End: 12-30-[address] Ramón Asif Work Phone: [facility] Start: 06-17-2022 End: 06-17-[address] Ramón Asif Work Phone: [facility] Start: 06-15-2022 End: 06-15-[address] Ramón Asif Work Phone: [facility]Labor[facility] Start: 05-25-2022 End: 05-25-[address] Ramón Asif Work Phone: [facility] Start: 04-28-2022 End: 04-28-[address] Ramón Asif Work Phone: [facility] Start: 03-24-2022 End: 03-24-[address] Ramón Asif Work Phone: [facility] Therapy Start: 03-24-[address] Ramón Asif Work Phone: [facility] Start: 03-11-2022 End: 03-11-[address] Ramón Asif Work Phone: [facility] Start: 11-20-[address] Gera Asif Work Phone: [facility] Start: 06-20-2020 End: 06-20-2020 Telephone encounter Daniel Fraziergabrielle Agarwal Work Phone: [facility] Comment on above: Preparations For Pro cedures (RV lead extraction & Upgrade to SUPERVISORY CLERK-D) Start: 03-23-2018 End: 03-23-2018 Patient encounter procedure Hemant Joaquin MD Work Phone: [facility] Work Phone: Procedures Date Procedure Procedure Detail Performing Clinician Start: 03-13-2025 Glucose quantitative blood xcpt reagent strip Kelby Ramirez MD Work Phone: Start: 03-12-2025 Glucose quantitative blood xcpt reagent strip Kelby Ramirez MD Work Phone: Start: 03-12-2025 Glucose quantitative blood xcpt reagent strip Kelby Ramirez MD Work Phone: Start: 03-12-2025 Ecg routine ecg w/least 12 lds trcg only w/o i&r Hugo Lin MD Work Phone: Start: 03-12-2025 Glucose quantitative blood xcpt reagent strip Kelby Ramirez MD Work Phone: Start: 03-12-2025 Glucose quantitative blood xcpt reagent strip Kelby Ramirez MD Work Phone: Start: 03-11-2025 Glucose quantitative blood xcpt reagent strip Kelby Ramirez MD Work Phone: Start: 03-11-2025 Glucose quantitative blood xcpt reagent strip Kelby Ramirez MD Work Phone: Start: 03-11-2025 Glucose quantitative blood xcpt reagent strip Kelby Ramirez MD Work Phone: Start: 03-11-2025 Glucose quantitative blood xcpt reagent strip Kelby Ramirez MD Work Phone: Start: 03-11-2025 Radex spine lumbosacral 2/3 views Kelby Ramirez MD Work Phone: Start: 03-11-2025 Basic metabolic panel calcium total Vin Welch MD Work Phone: Start: 03-11-2025 Manual Differential panel - Blood Vin Welch MD Work Phone: Start: 03-10-2025 Glucose quantitative blood xcpt reagent strip Kelby Ramirez MD Work Phone: Start: 03-10-2025 Glucose quantitative blood xcpt reagent strip Kelby Ramirez MD Work Phone: Start: 03-10-2025 Glucose quantitative blood xcpt reagent strip Kelby Ramirez MD Work Phone: Start: 03-10-2025 Basic metabolic panel calcium total Vin Welch MD Work Phone: Start: 03-10-2025 Manual Differential panel - Blood Vin Welch MD Work Phone: Start: 03-09-2025 Glucose quantitative blood xcpt reagent strip Kelby Ramirez MD Work Phone: Start: 03-09-2025 FL GUIDANCE OR USE ONLY - NON-RESULTABLE Kelby Ramirez MD Work Phone: Start: 03-09-2025 Glucose quantitative blood xcpt reagent strip Kelby Ramirez MD Work Phone: Start: 03-09-2025 End: 03-09-2025 Arthrodesis anterior interbody lumbar Kelby Ramirez MD Work Phone: Start: 03-09-2025 End: 03-09-2025 Exploration spinal fusion Kelyb Ramirez MD Work Phone: Start: 03-09-2025 Glucose quantitative blood xcpt reagent strip Kelby Ramirez MD Work Phone: Start: 03-02-2025 Antibody screen RAMÓN ASIF Comment on above: Performed By: #### [id number] ####Medical Di patrick: SLIME MARTÍNEZ ([id number])[facility] ([facility])[address] [place] [address] Start: 11-29-[address] Ramón Asif DO Work Phone: Start: 11-29-2024 Computerized axial tomography of lumbar spine with contrast Dr. Ramón Asif DO Work Phone: Start: 09-25-2024 ICD CLINIC CHECK Daniel Agarwal MD Work Phone: Start: 09-24-2024 Antibody screen RAMÓN ASIF Comment on above: Order Comment: Specimen Type: BLOOD SPEC IMENOrdering Facility: [facility] Address: [address] [place] [address] Performed By: #### T SCR ####[facility] [id number] [place] [address] [place] Start: 07-17-2020 Antibody screen Comment on above: Performed By: #### T&S #### [facility] [address] [id number] Start: 03-23-2018 End: 03-23-2018 Blood pressure outside of normal parameters - follow-up documented Hemant Joaquin MD Work Phone: Start: 03-23-2018 End: 03-23-2018 BMI documented as above normal parameters - follow-up documented Hemant Joaquin MD Work Phone: Start: 03-23-2018 End: 03-23-2018 Current medications documented Hemant Joaquin MD Work Phone: Start: 03-23-2018 End: 03-23-2018 Drain/inject, joint/bursa Hemant johnson MD Work Phone: Start: 03-23-2018 End: 03-23-2018 Osteoarthritis assess Hemant noble MD Work Phone: Start: 03-23-2018 End: 03-23-2018 Pain assessment documented as positive - follow-up documented Hemant Joaquin MD Work Phone: Start: 03-23-2018 End: 03-23-2018 Tobacco non-user Hemant Dubon i, MD Work Phone: Start: 03-23-2018 End: 03-23-2018 X-ray exam of knee, 3 Hemant noble MD Work Phone: Start: 06-02-2017 End: 06-02-2017 Dietary management education, guidance, and counseling Yeison Castaneda Start: 06-02-2017 End: 06-02-2017 Follow Up Appt 9 months Thomas Raphael MD Start: 06-02-2017 End: 06-02-2017 PFM Thomas Raphael MD Start: 08-17-2016 Lipid 1996 panel - Serum or Plasma Barak Parker MD Work Phone: Start: 08-17-2016 End: 08-25-2016 *Hepatic Function Panel Thomas Raphael MD Start: 08-17-2016 End: 08-17-2016 Electrocardiogram, complete Thomas Raphael MD Start: 08-17-2016 End: 08-17-2016 Follow Up Appt 9 months Thomas Raphael MD Start: 08-17-2016 End: 08-25-2016 Lipid panel [AGGREGATE] Thomas Raphael MD Start: 08-17-2016 End: 08-17-2016 PFM Thomas Raphael MD Start: 08-17-2016 Preoperative cardiovascular examination Preoperative cardiovascular evaluation Yeison Castaneda Start: 12-16-2015 End: 12-16-2015 Follow Up Appt 6 months Thomas Raphael MD Start: 12-16-2015 End: 12-16-2015 PFM Thomas Raphael MD Start: 10-07-2015 End: 10-28-2015 *CMP Complete Metabolic Panel Ramón Asif DO Work Phone: Start: 10-07-2015 End: 10-28-2015 *Microalbumin, Creatine Ratio, rand urine Ramón Asif DO Work Phone: Start: 10-07-2015 End: 10-28-2015 HbA1c Ramón Asif DO [employer] Phone: Start: 10-07-2015 End: 10-28-2015 Lipid panel [AGGREGATE] Ramón Asif DO Work Phone: Start: 06-21-2015 End: 06-22-2015 Colonoscopy Thomas Raphael MD Start: 06-21-2015 End: 06-22-2015 Documentation of current medications Thomas Raphael MD Start: 06-21-2015 End: 06-21-2015 Follow Up Appt 6 months Thomas Raphael MD Start: 06-21-2015 End: 06-21-2015 PFM Thomas Rapheal MD Start: 06-17-2015 End: 07-15-2015 HbA1c Ramón Asif DO Work Phone: Start: 06-17-2015 End: 07-15-2015 Lipid panel [AGGREGATE] Ramón Asif DO Work Phone: Start: 06-17-2015 End: 07-15-2015 PSA Ramón Asif DO Work Phone: Start: 06-05-2015 End: 07-15-2015 Chest x-ray Ramón Asif DO Work Phone: Start: 03-15-2015 End: 03-16-2015 Colonoscopy Thomas Raphael MD Start: 03-15-2015 End: 03-16-2015 Documentation of current medications Thomas Raphael MD Start: 03-15-2015 End: 03-15-2015 Follow Up Appt 3 months Thomas Raphael MD Start: 03-15-2015 End: 12-16-2015 Follow Up Appt Other Thomas Raphael MD Start: 03-15-2015 End: 03-15-2015 PFM Thomas Raphael MD Start: 02-13-2015 Lipid 1996 panel - Serum or Plasma Daniel Agarwal MD Work Phone: Start: 02-13-2015 End: 03-21-2015 *CMP Complete Metabolic Panel Ramón Asif DO Work Phone: Start: 02-13-2015 End: 03-26-2015 LDL Cholesterol Ramón Asif DO Work Phone: Start: 02-13-2015 End: 03-21-2015 Lipid panel [AGGREGATE] Ramón Asif DO Work Phone: Start: 12-20-2014 End: 12-20-2014 Ther/proph/diag inj, sc/im Ramón Asif DO Work Phone: Start: 12-17-2014 End: 07-15-2015 Mri joint upr extrem w/o dye Ramón Asif DO Work Phone: Start: 12-13-2014 End: 12-14-2014 Colonoscopy Thomas Raphael MD Start: 12-13-2014 End: 12-14-2014 Documentation of current medications Thomas Raphael MD Start: 12-13-2014 End: 12-16-2015 Echocardiography Thomas Raphael MD Start: 12-13-2014 End: 12-13-2014 Follow Up Appt 3 months Thomas Raphael MD Start: 12-13-2014 End: 12-16-2015 Follow Up Appt Other Thomas Raphael MD Start: 12-13-2014 End: 12-13-2014 PFM Thomas Raphael MD Start: 12-06-2014 End: 12-06-2014 Follow Up BP Check Thomas Raphael MD Start: 11-28-2014 End: 11-28-2015 Poultry Veterinarian Ramón Asif DO Work Phone: Start: 11-28-2014 Screening for malignant neoplasm of colon Screening, colon cancer Yeison Castaneda Start: 11-23-2014 End: 12-16-2015 *BMP Thomas Raphael MD Start: 11-21-2014 End: 12-16-2015 Left & Right Heart Cath Thomas Raphael MD Start: 10-09-2014 Colonoscopy Jolanta Novoa MD Work Phone: Plan of Treatment Date Care Activity Detail Author Start: 09-22-2028 DTaP/Tdap/Td Vaccines (4 - Td or Tdap) DTaP/Tdap/Td Vaccines (4 - Td or Tdap) [facility] Start: 09-22-2028 Urine microalbumin profile DTaP,Tdap,Td Vaccine (4 - Td or Tdap) [facility] Start: 2027 RSV Vaccine (1 - 1-dose 75+ series) RSV Vaccine (1 - 1-dose 75+ series) [facility] Start: 09-27-2027 Diabetes Screening Diabetes Screening [facility] Start: 09-25-2027 Diabetes Screening Diabetes Screening [facility] Start: 03-11-2026 Creatinine measurement Creatinine Level [facility] Start: 03-11-2026 Potassium measurement Potassium Level [facility] Start: 03-02-2026 Diabetes mellitus screening Diabetes Screening [facility] Start: 07-16-2024 Covid-19 Vaccine ( season) Covid-19 Vaccine () [facility] Start: 07-16-2024 Influenza vaccination Influenza Vaccine (#1) [facility] Start: 11-15-2023 Advance Directive Discussion Advance Directive Discussion [facility] Start: 07-17-2023 Diabetes Screening Diabetes Screening [facility] Start: 07-16-2023 Covid-19 Vaccine () Covid-19 Vaccine () [facility] Start: 08-17-2021 Lipid panel Lipid Panel [facility] Start: 07-16-2020 Influenza vaccination INFLUENZA (#1) [facility] Start: 02-14-2020 Lipid panel Lipid Screening [facility] Start: 03-23-2018 End: 03-23-2018 Appointment Appointment [facility] Work Phone: Start: 02-28-2018 End: 02-28-2018 Appointment Appointment [facility] Work Phone: Start: 2017 ADVANCE DIRECTIVE DISCUSSION ADVANCE DIRECTIVE DISCUSSION [facility] Start: 2017 Pneumococcal Vaccine: 65+ (2 of 2 - PCV) Pneumococcal Vaccine: 65+ (2 of 2 - PCV) [facility] Start: 2017 PNEUMOVAX AGE 65 AND OVER WITH 5YR LOOKBACK (#1) PNEUMOVAX AGE 65 AND OVER WITH 5YR LOOKBACK (#1) [facility] Start: 06-02-2017 End: 06-02-2017 Appointment Appointment [facility] Work Phone: Start: 06-02-2017 End: 06-02-2017 Follow Up Appt 9 months Follow Up Appt 9 months [facility] Work Phone: Start: 06-02-2017 End: 06-02-2017 PFM PFM [facility] Work Phone: Start: 09-30-2016 End: 08-25-2016 *Hepatic Function Panel *Hepatic Function Panel [facility] Work Phone: Start: 09-30-2016 End: 08-25-2016 Lipid panel [AGGREGATE] *Lipid Profile CC PCP [facility] Work Phone: Start: 08-17-2016 End: 08-25-2016 *Hepatic Function Panel *Hepatic Function Panel [facility] Work Phone: Start: 08-17-2016 End: 08-17-2016 Echocardiography Echocardiogram (complete) [facility] Work Phone: Start: 08-17-2016 End: 08-17-2016 Electrocardiogram, complete EKG (In office) [facility] Work Phone: Start: 08-17-2016 End: 08-17-2016 Follow Up Appt 9 months Follow Up Appt 9 months [facility] Work Phone: Start: 08-17-2016 End: 08-25-2016 Lipid panel [AGGREGATE] *Lipid Profile CC PCP [facility] Work Phone: Start: 08-17-2016 End: 08-17-2016 PFM PFM [facility] Work Phone: Start: 04-29-2016 Shingrix Vaccine (2 of 3) Shingrix Vaccine (2 of 3) [facility] Start: 04-29-2016 Zoster Vaccines (2 of 3) Zoster Vaccines (2 of 3) [facility] Start: 02-14-2016 End: 02-16-2016 Osteopath manj 1-2 regions Osteopathic manipulative treatment; 1-2 body regions involved [facility] Work Phone: Start: 12-20-2015 Pneumococcal Vaccine: 50+ Years (2 of 2 - PCV) Pneumococcal Vaccine: 50+ Years (2 of 2 - PCV) [employer] Start: 12-16-2015 End: 12-16-2015 Follow Up Appt 6 months Follow Up Appt 6 months [facility] Work Phone: Start: 12-16-2015 End: 12-16-2015 PFM PFM [facility] Work Phone: Start: 10-09-2015 Screening for malignant neoplasm of colon [facility] Start: 10-07-2015 End: 10-28-2015 *CMP Complete Metabolic Panel *CMP Complete Metabolic Panel [facility] Work Phone: Start: 10-07-2015 End: 10-28-2015 *Microalbumin, Creatine Ratio, rand urine *Microalbumin, Creatine Ratio, rand urine [facility] Work Phone: Start: 10-07-2015 End: 10-28-2015 HbA1c *[facility]A1C [facility] Work Phone: Start: 10-07-2015 End: 10-28-2015 Lipid panel [AGGREGATE] *Lipid Profile [facility] Work Phone: Start: 06-21-2015 End: 06-21-2015 Follow Up Appt 6 months Follow Up Appt 6 months [facility] Work Phone: Start: 06-21-2015 End: 06-21-2015 PFM PFM [facility] Work Phone: Start: 06-17-2015 End: 07-15-2015 HbA1c *HgA1C [facility] Work Phone: Start: 06-17-2015 End: 07-15-2015 Lipid panel [AGGREGATE] *Lipid Profile [facility] Work Phone: Start: 06-17-2015 End: 07-15-2015 PSA *PSA (Prostate Specific Antigen) [facility] Work Phone: Start: 06-05-2015 End: 07-15-2015 Chest x-ray X-Ray, Chest, PA & Lateral [facility] Work Phone: Start: 03-15-2015 End: 03-15-2015 Follow Up Appt 3 months Follow Up Appt 3 months [facility] Work Phone: Start: 03-15-2015 End: 12-16-2015 Follow Up Appt Other Follow Up Appt Other [facility] Work Phone: Start: 03-15-2015 End: 03-15-2015 PFM PFM [facility] Work Phone: Start: 02-13-2015 End: 03-21-2015 *CMP Complete Metabolic Panel *CMP Complete Metabolic Panel [facility] Work Phone: Start: 02-13-2015 End: 03-26-2015 LDL Cholesterol *LDLD LDL Cholesterol - Direct [facility] Work Phone: Start: 02-13-2015 End: 03-21-2015 Lipid panel [AGGREGATE] *Lipid Profile [facility] Work Phone: Start: 12-20-2014 End: 12-21-2014 Orthopedic Referral Orthopedic Referral [facility] Work Phone: Start: 12-20-2014 End: 07-15-2015 Ppsv23 vacc 2 yrs+ sc/im Pneumovax (Adult or immunosuppressed pt >2 yrs of age) [facility] Work Phone: Start: 12-17-2014 End: 07-15-2015 Mri joint upr extrem w/o dye MRI Joint Upper Extremity [facility] Work Phone: Start: 12-13-2014 End: 12-13-2014 Echocardiography Echocardiogram (complete) [facility] Work Phone: Start: 12-13-2014 End: 12-13-2014 Follow Up Appt 3 months Follow Up Appt 3 months [facility] Work Phone: Start: 12-13-2014 End: 12-16-2015 Follow Up Appt Other Follow Up Appt Other [facility] Work Phone: Start: 12-13-2014 End: 12-13-2014 PFM PFM [facility] Work Phone: Start: 12-06-2014 End: 12-06-2014 Follow Up BP Check Follow Up BP Check [facility] Work Phone: Start: 11-28-2014 End: 07-15-2015 Poultry Veterinarian Poultry Veterin[facility] [address] [place] [address], [id number] [facility] Work Phone: Start: 11-23-2014 End: 12-16-2015 *BMP *BMP [facility] Work Phone: Start: 11-21-2014 End: 12-16-2015 Left & Right Heart Cath Left & Right Heart Cath [facility] Work Phone: Start: 2012 RSV Immunization for Adults (1 - Risk 60-74 years 1-dose series) RSV Immunization for Adults (1 - Risk 60-74 years 1-dose series) [facility] Start: 2012 RSV Vaccine (1 - 1-dose 60+ series) RSV Vaccine (1 - 1-dose 60+ series) [facility] Start: 2012 RSV Vaccine (1 - Risk 60-74 years 1-dose series) RSV Vaccine (1 - Risk 60-74 years 1-dose series) [facility] Start: 2007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 0623 (Given - Provider: Alvina Braga, KEL)1045 (Not Given - Provider: Martha Adams, KEL - Reason: Other) amLODIPine (Norvasc) tablet 5 mg 5 mg, Oral, Daily, First dose on 03/10/25 at 1300 0841 (Given - Provider: Candy Ariza RN) 0822 (Given - Provider: Suzette Voss, KEL) 0951 (Given - Provider: Martha Adams, RN) aspirin EC tablet 81 mg 81 mg, Oral, Daily, First dose on 03/10/25 at 1245, Do not crush, chew, or split. 0900 (Dose Auto Held) 0900 (Dose Auto Held)1717 (Unheld by provider - Provider: Hank Abdi MD) 0951 (Given - Provider: Martha Adams, KEL) atorvastatin (Lipitor) tablet 20 mg 20 mg, Oral, Nightly, First dose on 03/10/25 at 2100 2052 (Given - Provider: Juliane Zee, RN) 2019 (Given - Provider: Alvina Braga, RN) carvedilol (Coreg) tablet 3.125 mg 3.125 mg, Oral, 2 times daily with meals, First dose on 03/10/25 at 1700 0841 (Given - Provider: Candy Ariza RN)1647 (Given - Provider: Candy Ariza RN) 0822 (Given - Provider: Suzette Voss, KEL)1640 (Given - Provider: Slime Hassan, KEL) 0951 (Given - Provider: Martha Adams, RN) cholecalciferol (Vitamin D-3) tablet 1,000 Units 1,000 Units, Oral, Daily, First dose on 03/10/25 at 1245 0841 (Given - Provider: Candy Ariza RN) 0822 (Given - Provider: Suzette Voss RN) 0951 (Given - Provider: Martha Adams, KEL) gabapentin (Neurontin) capsule 200 mg 200 mg, Oral, Every 8 hours, First dose on 03/10/25 at 1245 0525 (Given - Provider: Juliane Zee RN)1221 (Given - Provider: Candy Ariza RN)2051 (Given - Provider: Juliane Zee RN) 0540 (Given - Provider: Juliane Zee RN)1355 (Given - Provider: Slime Hassan, KEL)2018 (Given - Provider: Alvina Braga, RN) 0623 (Given - Provider: Alvina Braga RN)1245 (Canceled Entry - Provider: Automatic Discharge Provider - Comment: Automatically canceled at discontinue of medication order) Insulin Lispro (Humalog) injection 0-6 Units(Linked Group 1) 0-6 Units, SubCUTAneous, 3 times daily with meals, First dose on 03/10/25 at 1245, Low Dose Correction Algorithm Glucose: Dose: LESS than 150 No Insulin 150-199 1 Unit 200-249 2 Units 250-299 3 Units 300-349 4 Units 350-400 5 Units Above 400 6 Units 0800 (Not Given - Provider: Candy Ariza RN - Reason: Order parameters not met - Comment: BG 145)1220 (Given - Provider: Candy Ariza RN)1700 (Not Given - Provider: Candy Ariza RN - Reason: Order parameters not met - Comment: BG 146) 0800 (Not Given - Provider: Slime Hassan RN - Reason: Order parameters not met)1242 (Given - Provider: Slime Hassan RN)1700 (Not Given - Provider: Slime Hassan RN - Reason: Order parameters not met) 0800 (Not Given - Provider: Martha Adams RN - Reason: Other)1200 (Canceled Entry - Provider: Automatic Discharge Provider - Comment: Automatically canceled at discontinue of medication order) Insulin Lispro (Humalog) injection 0-6 Units(Linked Group 1) 0-6 Units, SubCUTAneous, Nightly, First dose on 03/10/25 at 2100, If eating or bolus tube feeding: Low Dose Correction Algorithm Glucose: Dose: LESS than 150 No Insulin 150-199 1 Unit 200-249 2 Units 250-299 3 Units 300-349 4 Units 350-400 5 Units Above 400 6 Units 2132 (Given - Provider: Juliane Zee RN) 2017 (Given - Provider: Alvina Braga, RN - Comment: bg 224) lisinopril tablet 10 mg 10 mg, Oral, 2 times daily, First dose on 03/10/25 at 1500 0525 (Given - Provider: Juliane Zee RN)1440 (Given - Provider: Candy Ariza RN) 0541 (Given - Provider: Juliane Zee, KEL)1501 (Given - Provider: Slime Hassan RN) 0623 (Given - Provider: Alvina Braga, RN) magnesium citrate solution 296 mL (COMPLETED) 296 mL, Oral, Once, On Wed03/12/25 at 1230, For 1 dose, Administer each dose with 8 oz (240 mL) of water. 1353 (Given - Provider: Slime Hassan RN) methocarbamol (Robaxin) tablet 750 mg(Linked Group 2) 750 mg, Oral, Every 8 hours scheduled (3 times per day), First dose (after last modification) on 03/10/25 at 0600, Phase II/On Unit 0524 (Given - Provider: Juliane Zee RN)1440 (Given - Provider: Candy Ariza RN)205 (Given - Provider: Juliane Zee, RN) 0540 (Given - Provider: Juliane Zee RN)1353 (Given - Provider: Slime Hassan, KEL)2019 (Given - Provider: Alvina Braga, RN) 0623 (Given - Provider: Alvina Braga RN) metoclopramide (Reglan) injection 10 mg(Linked Group 3) 10 mg, IntraVENous, Every 6 hours scheduled (4 times per day), First dose on Wed03/09/25 at 1800, Phase II/On Unit, Give IV if patient is unable to take orally. 0006 (See Alternative - Provider: Juliane Zee RN)0525 (See Alternative - Provider: Juliane Zee RN)1221 (See Alternative - Provider: Candy Ariza RN)1655 (See Alternative - Provider: Candy Ariza RN)1800 (See Alternative - Provider: Candy Ariza RN)2350 (See Alternative - Provider: Juliane Zee RN) 0540 (See Alternative - Provider: Juliane Zee RN)1242 (See Alternative - Provider: Slime Hassan RN)1756 (See Alternative - Provider: Slime Hassan, KEL)2305 (Given - Provider: Alvina Braga, RN) 0623 (See Alternative - Provider: Alvina Braga RN)1200 (Canceled Entry - Provider: Automatic Discharge Provider - Comment: Automatically canceled at discontinue of medication order) metoclopramide (Reglan) tablet 10 mg(Linked Group 3) 10 mg, Oral, Every 6 hours scheduled (4 times per day), First dose on Wed03/09/25 at 1800, Phase II/On Unit 0006 (Given - Provider: Juliane Zee RN)0525 (Given - Provider: Juliane Zee RN)1221 (Given - Provider: Candy Ariza RN)1655 (Given - Provider: Candy Ariza RN)1800 (Canceled Entry - Provider: Candy Ariza RN)2350 (Given - Provider: Juliane Zee RN) 0540 (Given - Provider: Juliane Zee RN)1242 (Given - Provider: Slime Hassan RN)1756 (Given - Provider: Slime Hassan RN)2305 (See Alternative - Provider: Alvina Braga, RN) 0623 (Given - Provider: Alvina Braga RN)1200 (Canceled Entry - Provider: Automatic Discharge Provider - Comment: Automatically canceled at discontinue of medication order) polyethylene glycol (PEG) 3350 (Miralax) packet 17 g 17 g, Oral, Daily, First dose (after last modification) on Wed03/10/25 at 1000, Phase II/On Unit, 1st line for treatment of constipation - give scheduled if no bowel movement in past 24 hours. 0841 (Given - Provider: Candy Ariza RN) 0822 (Given - Provider: Suzette Voss RN) 0900 (Not Given - Provider: Martha Adams, KEL - Reason: Other) senna-docusate sodium (Senokot-S) 8.6-50 MG tablet 1 tablet 1 tablet, Oral, 2 times daily, First dose on Wed03/09/25 at 2245 0841 (Given - Provider: Candy Ariza RN)2051 (Given - Provider: Juliane Zee, KEL) 0822 (Given - Provider: Suzette Voss, KEL)2019 (Given - Provider: Alvina Braga RN) 0951 (Given - Provider: Martha Adams, KEL) sodium chloride 0.9% (NS) flush 10 mL 10 mL, IntraVENous, Every 12 hours scheduled (2 times per day), First dose on Wed03/09/25 at 2100, Phase II/On Unit 0900 (Given - Provider: Candy Ariza RN)2099 (Given - Provider: Juliane Zee, KEL) 0900 (Not Given - Provider: Suzette Voss, KEL - Reason: IV Fluids Infusing)2019 (Given - Provider: Alvina Braga, RN) 0900 (Not Given - Provider: Martha Adams, KEL - Reason: Other) sodium phosphate (Fleets) enema 1 enema (COMPLETED) 1 enema, Rectal, Once, On Wed03/12/25 at 1230, For 1 dose 1610 (Given - Provider: Slime Hassan RN) tamsulosin (Flomax) 24 hr capsule 0.4 mg 0.4 mg, Oral, Nightly, First dose on 03/10/25 at 2100, Do not crush, chew, or split. 2051 (Given - Provider: Juliane Zee, RN) 2018 (Given - Provider: Alvina Braga, RN) traZODone (Desyrel) tablet 150 mg 150 mg, Oral, Nightly, First dose on 03/10/25 at 2100 2051 (Given - Provider: Juliane Zee, RN) 2017 (Given - Provider: Alvina Braga, RN) PRN Medication Order 03/11/2025 03/12/2025 03/13/2025 dextrose 5 % infusion 100 mL/hr, IntraVENous, PRN, Blood sugar less than 70mg/dL, Starting on 03/10/25 at 1235, Start infusion following administration of dextrose 50% or glucagon. dextrose 50 % solution 12.5 g 12.5 g, IntraVENous, PRN, low blood sugar, Blood glucose less than 70 mg/dL and patient NOT ALERT or NPO., Starting on 03/10/25 at 1235, If patient does not respond within 5 minutes, repeat dose x1. Start D5W at 100 mL/hour until ordering provider can be reached. Repeat blood glucose in 15 minutes. If blood glucose is less than 70 mg/dL, repeat treatment and recheck blood glucose in 15 minutes x2. If using Glucostabilizer, dose as instructed per system. glucagon (human recombinant) injection 1 mg 1 mg, IntraMUSCular, PRN, low blood sugar, Blood glucose less than 70 mg/dL and patient NOT ALERT or NPO and does not have IV access., Starting on 03/10/25 at 1235, After administration, attempt intravenous access and start D5W at 100 mL/hr. Repeat blood glucose in 15 minutes x2 and notify provider. glucose oral gel 15 g 15 g, Oral, As needed, low blood sugar, Starting on 03/10/25 at 1235, If blood glucose less than 50 mg/dL and patient ALERT and NOT NPO, give 2 tubes glucose gel. If blood glucose less than 70 mg/dL and patient ALERT and NOT NPO, give 1 tube glucose gel. Repeat blood glucose in 15 minutes. If blood glucose is less than 70 mg/dL, repeat treatment and recheck blood glucose in 15 minutes x2 and notify provider. HYDROmorphone (Dilaudid) injection 0.25 mg(Linked Group 4) 0.25 mg, IntraVENous, Every 4 hours PRN, moderate pain (4-6), Starting on Wed03/09/25 at 2024, If oral and IV narcotics ordered, use oral first and only use IV if oral is ineffective or cannot take oral. Do Not give oral and IV within 1 hour of each other unless specifically ordered. 1640 (See Alternative - Provider: Slime Hassan, KEL) HYDROmorphone (Dilaudid) injection 0.5 mg(Linked Group 4) 0.5 mg, IntraVENous, Every 4 hours PRN, severe pain (7-10), Starting on Wed03/09/25 at 2024, If oral and IV narcotics ordered, use oral first and only use IV if oral is ineffective or cannot take oral. Do Not give oral and IV within 1 hour of each other unless specifically ordered. 1640 (Given - Provider: Slime Hassan, KEL) magnesium hydroxide (Milk of Magnesia) 400 MG/5ML suspension 30 mL 30 mL, Oral, Daily PRN, constipation, Starting on Wed03/09/25 at 2232, Follow dose with 8 oz of water. 1647 (Given - Provider: Candy Ariza RN) naloxone (Narcan) injection 0.4 mg 0.4 mg, IntraVENous, Every 5 min PRN, opioid reversal, respiratory depression, Starting on Wed03/09/25 at 1903, +++ For RR <10, pinpoint pupils, over sedation for opioid reversal - MUST notify telephone coin box collector provider immediately after first dose, may give IM or SQ if no IV access +++ ondansetron (Zofran) injection 4 mg(Linked Group 5) 4 mg, IntraVENous, Every 6 hours PRN, nausea, vomiting, Starting on Wed03/09/25 at 1635, Phase II/On Unit, 1st Line. Give IV if patient is unable to take orally. If inadequate response within 60 minutes, proceed to next-line agent or contact provider if no further options ordered. ondansetron ODT (Zofran-ODT) disintegrating tablet 4 mg(Linked Group 5) 4 mg, Oral, Every 8 hours PRN, nausea, vomiting, Starting on Wed03/09/25 at 1635, Phase II/On Unit, 1st Line. If inadequate response within 60 minutes, proceed to next-line agent or contact provider if no further options ordered. Patient should allow tablet to dissolve on tongue. Do not remove from blister pack until just before administering. oxyCODONE (Roxicodone) immediate release tablet 10 mg(Linked Group 6) 10 mg, Oral, Every 4 hours PRN, severe pain (7-10), Starting on 03/10/25 at 1206 0525 (See Alternative - Provider: Juliane Zee RN)0935 (See Alternative - Provider: Candy Ariza RN)1355 (See Alternative - Provider: Brittany Monaco RN)1803 (Given - Provider: Candy Ariza RN)2350 (See Alternative - Provider: Juliane Zee RN) 0541 (See Alternative - Provider: Juliane Zee RN)1056 (Given - Provider: Slime Hassan RN)1457 (Given - Provider: Slime Hassan RN)2304 (Given - Provider: Alvina Braga RN) 0623 (Given - Provider: Alvina Braga RN)1006 (Given - Provider: Martha Adams, KEL) oxyCODONE (Roxicodone) immediate release tablet 5 mg(Linked Group 6) 5 mg, Oral, Every 4 hours PRN, moderate pain (4-6), Starting on 03/10/25 at 1206 0525 (Given - Provider: Juliane Zee RN)0935 (Given - Provider: Candy Ariza RN)1355 (Given - Provider: Brittany Monaco RN)1803 (See Alternative - Provider: Candy Ariza RN)2350 (Given - Provider: Juliane Zee RN) 0541 (Given - Provider: Juliane Zee, KEL)1056 (See Alternative - Provider: Slime Hassan RN)1457 (See Alternative - Provider: Slime Hassan RN)2304 (See Alternative - Provider: Alvina Braga RN) 0623 (See Alternative - Provider: Alvina Braga, KEL)1006 (See Alternative - Provider: Martha Adams RN) sodium chloride 0.9 % infusion 5-250 mL/hr, IntraVENous, PRN, if patient receiving piggyback infusions and maintenance fluids are not ordered OR KVO fluids to protect IV site / prevent frequent line interruptions/ long duration, Starting on Wed03/09/25 at 1635, Phase II/On Unit, For piggyback infusion, administer at same rate as piggyback for a total of 25 mL. Enter 25 mL into dose field and piggyback rate into rate field of order. If piggyback is infusing at a rate less than 100 mL/hr, enter 25 mL into dose field and 100 mL/hr into rate field of order. For KVO fluids, enter rate of 20 mL/hr or less into rate field of order. sodium chloride 0.9% (NS) flush 10 mL 10 mL, IntraVENous, PRN, line care, Starting on Wed03/09/25 at 1635, Phase II/On Unit, After every IV line use Linked Groups Order Group 1: Insulin Lispro (Humalog) injection 0-6 UnitsJump to med 0-6 Units, SubCUTAneous, 3 times daily with meals, First dose on Wed03/10/25 at 1245, Low Dose Correction Algorithm Glucose: Dose: LESS than 150 No Insulin 150- 199 1 Unit 200-249 2 Units 250-299 3 Units 300-349 4 Units 350-400 5 Units Above 400 6 Units And Insulin Lispro (Humalog) injection 0-6 UnitsJump to med 0-6 Units, SubCUTAneous, Nightly, First dose on Wed03/10/25 at 2100, If eating or bolus tube feeding: Low Dose Correction Algorithm Glucose: Dose: LESS than 150 No Insulin 150-199 1 Unit 200-249 2 Units 250-299 3 Units 300-349 4 Units 350-400 5 Units Above 400 6 Units Group 2: methocarbamol (Robaxin) tablet 750 mgJump to med 750 mg, Oral, Every 8 hours scheduled (3 times per day), First dose (after last modification) on Wed03/10/25 at 0600, Phase II/On Unit Group 3: metoclopramide (Reglan) tablet 10 mgJump to med 10 mg, Oral, Every 6 hours scheduled (4 times per day), First dose on Wed03/09/25 at 1800, Phase II/On Unit Or metoclopramide (Reglan) injection 10 mgJump to med 10 mg, IntraVENous, Every 6 hours scheduled (4 times per day), First dose on Wed03/09/25 at 1800, Phase II/On Unit, Give IV if patient is unable to take orally. Group 4: HYDROmorphone (Dilaudid) injection 0.25 mgJump to med 0.25 mg, IntraVENous, Every 4 hours PRN, moderate pain (4-6), Starting on Wed03/09/25 at 2024, If oral and IV narcotics ordered, use oral first and only use IV if oral is ineffective or cannot take oral. Do Not give oral and IV within 1 hour of each other unless specifically ordered. Or HYDROmorphone (Dilaudid) injection 0.5 mgJump to med 0.5 mg, IntraVENous, Every 4 hours PRN, severe pain (7-10), Starting on Wed03/09/25 at 2024, If oral and IV narcotics ordered, use oral first and only use IV if oral is ineffective or cannot take oral. Do Not give oral and IV within 1 hour of each other unless specifically ordered. Group 5: ondansetron ODT (Zofran-ODT) disintegrating tablet 4 mgJump to med 4 mg, Oral, Every 8 hours PRN, nausea, vomiting, Starting on Wed03/09/25 at 1635, Phase II/On Unit, 1st Line. If inadequate response within 60 minutes, proceed to next-line agent or contact provider if no further options ordered. Patient should allow tablet to dissolve on tongue. Do not remove from blister pack until just before administering. Or ondansetron (Zofran) injection 4 mgJump to med 4 mg, IntraVENous, Every 6 hours PRN, nausea, vomiting, Starting on Wed03/09/25 at 1635, Phase II/On Unit, 1st Line. Give IV if patient is unable to take orally. If inadequate response within 60 minutes, proceed to next-line agent or contact provider if no further options ordered. Group 6: oxyCODONE (Roxicodone) immediate release tablet 5 mgJump to med 5 mg, Oral, Every 4 hours PRN, moderate pain (4-6), Starting on Wed03/10/25 at 1206 Or oxyCODONE (Roxicodone) immediate release tablet 10 mgJump to med 10 mg, Oral, Every 4 hours PRN, severe pain (7-10), Starting on 03/10/25 at 1206 FOR RECORDS PERTAINING TO PATIENTS WHO ARE OR HAVE BEEN ENROLLED IN A CHEMICAL DEPENDENCY/SUBSTANCEABUSE PROGRAM, SOME INFORMATION MAY BE OMITTED. This clinical summary was aggregated from multiple sources. Caution should be exercised in using it in the provision of clinical care. This summary normalizes information from multiple sources, and as a consequence, information in this document may materially change the coding, format and clinical context of patient data. In addition, data may be omitted in some cases. CLINICAL DECISIONS SHOULD BE BASED ON THE PRIMARY CLINICAL RECORDS. [facility] [employer] [facility]. provides no warranty or guarantee of the accuracy or completeness of information in this document.
== END | disposition home or self-care (01) ==
PROVIDERS: PCP Family Medicine; Referring Provider Family Medicine; Visit Provider Family Medicine
DX: E11.9 Type 2 diabetes mellitus without complications (principal); E55.9 Vitamin D deficiency, unspecified; D64.9 Anemia, unspecified; R53.83 Other fatigue
CPT/HCPCS: 36415; 80053; 82306; 82607; 82728; 83036; 83540; 84443; 85025